=== PATIENT | male | born 1950 | race Caucasian/White ===

== ENCOUNTER → 2017-05-28 | Outpatient (CLI) | payer OTHER, MEDICARE ==
--- NOTE | 2017-05-28 18:43 | DIAGNOSTIC IMAGING REPORT ---
VENOUS DOPPLER LW EXT BILAT HISTORY: Pain. Edema. R60.0 Bilateral edema of lower extremity COMPARISON STUDY: None. FINDINGS: There is normal compressibility, flow, and augmentation within the bilateral lower extremity deep venous systems. IMPRESSION: No DVT within the right or left lower extremity. The above report was generated using voice recognition software. It may contain grammatical, syntax or spelling errors. Electronically signed by: Sabino Rodriguez M.D. 05/28/2017 6:42 PM Dictated Date/Time: 05/28/2017 6:41 PM
== END | disposition home or self-care (01) ==
LOC: C.ULTR 17:38
PROVIDERS: ATTEND Internal Medicine
DX: R60.0 Localized edema (principal)

== ENCOUNTER → 2017-06-12 | Outpatient (CLI) | payer OTHER, MEDICARE ==
[2017-06-12 12:05] LABS: BASO % 0.6 %; BASO ABS # 0.04 K/uL (0-0.2); COMPLETE YES; HEMATOCRIT 40.6 % (42-52); IG% 0.2 %; LYMPH % 21.1 %; LYMPH ABS # 1.32 K/uL (1.2-3.4); MEAN CELL VOLUME 95.8 fL (80-100); MEAN CORPUSCULAR HEMOGLOBIN 30.9 pg (25-34); MEAN CORPUSCULAR HGB CONC 32.3 g/dl (32-36); MEAN PLATELET VOLUME 11.4 fL (7.4-10.4); MONO % 5.8 %; NEUT % 68.3 %; PLATELET COUNT 204 K/uL (130-400); RED BLOOD COUNT 4.24 M/uL (4.7-6.1); WHITE BLOOD COUNT 6.25 K/uL (4.8-10.8)
[2017-06-12 12:09] LABS: URINE APPEARANCE CLEAR (CLEAR); URINE BILIRUBIN NEG (NEG); URINE COLOR YELLOW; URINE EPITHELIAL CELL AUTO 20-30 /lpf (0-5); URINE NITRITE NEG (NEG); URINE SPECIFIC GRAVITY 1.019 (1.000-1.030); UROBILINOGEN NEG (NEG); ZZUR CULT IF INDIC CLEAN CATCH NO
[2017-06-12 12:13] LABS: MANUAL MICROSCOPIC REQUIRED? NO; REVIEW REQ? NO
[2017-06-12 12:45] LABS: ALT/SGPT 23 U/L (12-78); AST/SGOT 20 U/L (15-37); BLOOD UREA NITROGEN 24 mg/dl (7-18); BUN/CREATININE RATIO 17.5 (10-20); CALCIUM 9.1 mg/dl (8.5-10.1); CARBON DIOXIDE 28 mmol/L (21-32); CHLORIDE 109 mmol/L (98-107); GLUCOSE 104 mg/dl (70-99); POTASSIUM 4.1 mmol/L (3.5-5.1); SODIUM 143 mmol/L (136-145)
[2017-06-12 12:55] LABS: ALB/GLOB RATIO 0.9 (0.9-2); ALKALINE PHOSPHATASE 66 U/L (45-117); CHOLESTEROL 192 mg/dl (0-200); CHOLESTEROL/HDL RATIO 4.8; HDL CHOLESTEROL 40 mg/dl; LDL CHOLESTEROL CALCULATED 115 mg/dl; PROSTATE SPECIFIC ANTIGEN 0.254 ng/ml (0.000-4.000); TRIGLYCERIDES 186 mg/dl (0-150); VERY LOW DENSITY LIPOPROT CALC 37 mg/dl
== END | disposition home or self-care (01) ==
LOC: C.LABBFT 10:34
PROVIDERS: ATTEND Internal Medicine
DX: I10 Essential (primary) hypertension (principal); E66.01 Morbid (severe) obesity due to excess calories; Z12.5 Encounter for screening for malignant neoplasm of prostate

== ENCOUNTER → 2017-07-31 | Outpatient (CLI) | payer OTHER, MEDICARE ==
--- NOTE | 2017-07-31 15:17 | DIAGNOSTIC IMAGING REPORT ---
ABD/PELVIS NO IV OR ORAL CONT CT DOSE: 2385.81 mGy.cm HISTORY: Nephrocalcinosis N20.0 [id number] TECHNIQUE: Multiaxial CT images of the abdomen and pelvis were performed without contrast. A dose lowering technique was utilized adhering to the principles of ALARA. COMPARISON STUDY: None. FINDINGS: Lung bases are clear. Liver is uniform. Gallbladder is negative for distention. Spleen is unremarkable. There is a small hiatal hernia. There is considerable cortical scarring of the kidneys bilaterally. There is a 3.6 cm exophytic mid pole right renal cyst. Nonobstructing calcifications are seen at the lower poles of the right as well as left kidney. These measure 7 and 10 mm respectively. There is no evidence for hydronephrosis. Ureters are normal in course and caliber. There is no evidence for hydroureteronephrosis. There multiple pelvic vascular calcifications. Bladder is midline. There are no contained calcifications. The bowel pattern within the abdomen and pelvis is nonobstructive. Patient is status post a removed left hip arthroplasty. There is residual hardware within the proximal left femur. There is mild superior migration of the femoral shaft in relation to the acetabular compartment. There are considerable degenerative changes of the lumbar spine. IMPRESSION: 1. Bilateral nonobstructive nephrocalcinosis. 2. Considerable cortical scarring of the kidneys bilaterally with evidence for cortical thinning. 3. 3.6 cm exophytic right renal cyst. 4. 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 5. Considerable degenerative change of all major osseous structures. The above report was generated using voice recognition software. It may contain grammatical, syntax or spelling errors. Electronically signed by: Sabino Rodriguez M.D. 07/31/2017 3:16 PM Dictated Date/Time: 07/31/2017 3:10 PM
== END | disposition home or self-care (01) ==
LOC: C.CTS 14:54
PROVIDERS: ATTEND Urology
DX: N20.0 Calculus of kidney (principal)

== ENCOUNTER → 2017-09-05 | Outpatient (CLI) | payer OTHER, MEDICARE ==
[~2017-09-05] VITALS: Ht 174 cm; Wt 188.7 kg
[2017-09-05 15:16] VITALS: BP 213/81; PULSE 75; Ht 174 cm; Wt 188.7 kg
== END | disposition home or self-care (01) ==
LOC: C.NEUR 13:40
PROVIDERS: ATTEND Internal Medicine Pulmonary Disease
DX: G47.33 Obstructive sleep apnea (adult) (pediatric) (principal); E66.01 Morbid (severe) obesity due to excess calories; I49.9 Cardiac arrhythmia, unspecified

== ENCOUNTER → 2017-09-24 | Outpatient (CLI) | payer OTHER, MEDICARE ==
[~2017-09-24] MED LIST: ACET-1256 PO; ALPR-411 PO; ASPCH81X PO; CETI10TA84 PO; CHOL400T5 PO; FLUT50SP45 NAE; LISI-787 PO; MELO-84 PO; METO100T44 PO; MULT1CHW38 PO; PRLSR20 PO
--- NOTE | 2017-09-25 06:21 | PAP/PSG TECHNICIAN REPORT ---
[facility] New Patient Escort Polysomnogram Report Study name: None Report date: 09/25/2017 Study date: 09/24/2017 Referring Physician: Dr. Ravinder Grider DO Name: LEWIS CARDENAS Interpreting Physician: Ravinder Grider D.O. Date of : 1950 New Patient Escort: Lien Hollis RPSMERISSA. Sex: Male Age: 66 Study Type: PSG Weight: 415 lbs Height: 66 years, Height 5' 8.5" BMI: 62.18 Medications: ACETAMINOPHEN 500 MG, ALPRAZOLAM 0.5 MG, ASPIRIN 81 MG, FLONASE, MULTI VIT, LISINOPRIL-HYDROCHLOROTHIAZIDE 20-12.5 MG, MELOXICAM 15 MG, OMEPRAZOLE 20 MG, VIT D-400, ZYRTEC 10 MG Patient History 66 yr-old male here for a baseline study. He has a history of cardiac arrhythmias, edema in feet and legs, and morbid obesity. His Hammond scale is 3. He is laying with his legs and head elevated due to severe hip pain. This is how he sleeps at home. The test was started on room air. ETCO2 testing is included in this study. Room 7 Parameters Monitored NPSG: E1-M2, E2-M1, Fp1-M2, Fp2-M1, F3-M2, F4-M2, F4-M1, C3-M2, C4-M2, C4-M1, O1-M2, O2-M2, O2-M1, T3-M2, T4-M1, P3-M2, P4-M1, CHIN1, CHIN2, HR, EKG, Legs, PFLOW, SNOR, FLOW, CFLOW, Tidal Volume, THOR, ABDO, SpO2, PLTH, CPRESS, ETCO2 Wave, ETCO2, pH Sleep Architecture Sleep Stages Time at Lights Off 10:20:47 PM STAGES Time (min.) TST (%) Time at Lights On 5:30:17 AM Wake 283.5 -- Total Recording Time (TRT) 429.50 min. N1 46.0 32 Total Sleep Period (TSP) 339.5 min. N2 100.0 68 Total Sleep Time (TST) 146.0min. N3 0.0 0 Awake Time 283.5 min. REM 0.0 0 Wake after Sleep Onset 194.5 min. Sleep Efficiency (SE) 34 % Sleep Onset Latency (JOSE FRANCISCO) 89.0 min. Number of Stage 1 Shifts None Awakenings 25 Stage Changes 60 Number of REM periods N/A REM 0.0 0 REM Latency NONE min. NREM 146.0 100 Body Position Analysis Supine Right Left Side Prone Vertical Total Sleep Time (min.) 429.5 0.0 0.0 0.00 0.0 0.0 Total Sleep Time (%) 100% 0% 0% 0 0% N/A% Total Sleep Time REM (min.) 0.0 0.0 0.0 None 0.0 0.0 Total Sleep Time NREM (min.) 146.0 0.0 0.0 None 0.0 0.0 Intermittent Wake (min.) 283.5 0.0 0.0 None 0.0 0.0 Total Sleep Period (%) 100% None None None None None Arousals Myoclonus (PLM) * Events Count Index Events Count Index Spontaneous 47 19 Events Awake (PLMW) 101 21.4 Respiratory 15 6.6 Events Asleep w/ Arousal (PLMA) 11 4.5 PLM 10 5 Events Asleep w/o Arousal (PLMS) 35 14.4 Snoring 4 2 Total Asleep 46 18.9 Total 76 31 Total 147 21 Respiratory Analysis * CA OA MA CH H RERA Total Count 1 2 0 0 7 7 10 Index 0.4 0.8 0.0 0 2.9 3 7.0 Mean Duration 14.5 11.5 0.0 0.00 16.4 15.0 15.1 Longest Duration 14.5 13.2 0.0 0.00 0.0 16.8 19.9 Respiratory Event Summary Total Supine ~Supine Right Left Prone REM NREM Apneas Count 3 3 N/A N/A N/A N/A N/A 3 Index 1.2 1 N/A N/A N/A N/A N/A 1 Hypopneas (4% Desat) Count 7 7 N/A N/A N/A N/A N/A 7 Index 2.9 2.9 N/A N/A N/A N/A N/A 2.9 Apneas & All Hypopneas Count 10 10 N/A N/A N/A N/A N/A 10 Index 4.1 4 N/A N/A N/A N/A N/A 4.1 Respiratory Events (Continuous Crusher Operator+All Hyp+RERA) Count 10 17 N/A N/A N/A N/A N/A 10 Index 7.0 7 N/A N/A N/A N/A N/A 7.0 Respiratory Related Arousal Count 15 17 N/A N/A N/A N/A N/A 16 Index 6.6 7 N/A N/A N/A N/A N/A 7 Snoring Analysis Supine Right Left Prone REM NREM Total Snore duration 6.6 min Snores count 465 N/A N/A N/A N/A 465 465 Snore mean duration 0.8 Sec Snores index 191 N/A N/A N/A N/A 191.1 191.1 TST with snoring (%) 4.5% SpO2 Analysis Total REM NREM Awake <50% 0.0 min. 0.0 min. 0.0 min. 0.0 min. 51 - 60% 0.0 min. 0.0 min. 0.0 min. 0.0 min. 61 - 70% 0.0 min. 0.0 min. 0.0 min. 0.0 min. 71 - 80% 0.1 min. 0.0 min. 0.0 min. 0.1 min. 81 - 90% 2.6 min. 0.0 min. 0.2 min. 2.4 min. 91 - 100% 419.4 min. 0.0 min. 145.7 min. 273.7 min. Average 96 0 94 97 Minimum SpO2 75 N/A 89 75 Desaturation Event Index 2.8 0.0 4.9 1.9 # Desat. Events below 89% 2 N/A N/A 2 Time(%) with Saturation below 89% 0.6 0.0 0.0 0.6 Time(min.) with Saturation below 89% 2.4 0.0 0.0 2.4 Heart Rate Analysis End Tidal CO2 Analysis Min (bpm) Max (bpm) Average (bpm) TSP (mins) % of TSP Awake 34 237 67 Above 55 mmHg 0.0 0.0 NREM 33 86 59 50-55 mmHg 0.0 0.0 REM N/A N/A N/A 45-50 mmHg 0.0 0.0 Overall 33 86 59 40-45 mmHg 3.9 2.7 35-40 mmHg 97.0 66.4 30-35 mmHg 31.7 21.7 Average ETCO2 0.1 Supplemental O2 Values Minimum O2 level: None Value Start Time End Time New Patient Escort Comments Mr. Cardenas slept only in the supine position with his head and legs elevated. Cardiac arrhythmias were noted (please refer to the printouts). PLMs were noted. No bruxism noted. Snoring was noted and scored as a 2 on a scale of 1 through 5. (0=no snoring, 5=snoring loud enough to be heard through a closed door or down the castillo way) He awoke to use the restroom two times during the night. Mr. Cardenas stated he slept a little worse than usual. The final report will be interpreted and signed by a sleep physician. The completed physician report will then be placed in the patient medical record. Therapy (cm H2O) 0 TIB (min.) 429.5 TST (min.) 146.0 Sleep Onset (min.) 89.0 REM Onset From Sleep (min.) NONE Sleep Efficiency % 34 Wakefulness (%) 66 Wakefulness (min.) 283.5 NREM 1 (%) 32 NREM 1 (min.) 46.0 NREM 2 (%) 68 NREM 2 (min.) 100.0 NREM 3 (%) 0 NREM 3 (min.) 0.0 REM (%) 0 REM (min.) 0.0 # Arousals 76 Arousal Index 31 # Snore 465 Snore Index 191.1 AHI 4.1 AHI Supine 4 AHI Non-Supine N/A NREM AHI 4.1 REM AHI N/A RDI 7.0 # Obstructive Apnea 2 # Central Apnea 1 # Mixed Apnea 0 # Hypopneas 7 RERAs 7 Total Respiratory Events 17 Time Below SpO2 89% (min.) 0.0 Mean NREM SpO2 (%) 94 Mean REM SpO2 (%) N/A Mean Sleep SpO2 (%) 94 Min NREM SpO2 (%) 89 Min REM SpO2 (%) N/A Position Supine (min.) 429.5 Position Non-supine (min.) 0.0 LM Index Sleep 18.9 LM Index NREM 18.9 LM Index REM N/A Mean Heart Rate (bpm) 59 Min Heart Rate (bpm) 33
--- NOTE | 2017-09-26 09:57 | Sleep Study ---
Sleep Study Report Date of Service: 09/24/2017 Sleep Study Report CLINICAL DATA: The patient is a 66-year-old male with a history of snoring and morbid obesity. He has disturbed nocturnal sleep. He has had significant peripheral edema. There is a history of hypertension and cardiac arrhythmia. This was an in-lab overnight polysomnography SLEEP ARCHITECTURE: The total sleep period was 339.5 minutes. The total sleep time was 146 minutes. The sleep efficiency was severely reduced to 34 percent. The sleep onset latency was severely prolonged to 89 minutes. Wake after sleep onset was severely increased to 194.5 minutes. Sleep consisted of stage N1 32 percent, stage N2 68 percent, stage N3 0 percent, stage REM 0 percent. AROUSAL DATA: Patient had a total of 76 arousals including 47 spontaneous arousals, 15 respiratory arousals, 10 PLM arousals, and 4 snoring arousals. The arousal index was 31. PLM DATA: The patient had a total of 46 periodic limb movements of sleep for a PLM index of 18.9. There were 11 arousals associated with limb movements for a PLM arousal index of 4.5. EKG: The cardiac rhythm was very irregular. At times the underlying rhythm appeared to be sinus with frequent extrasystoles. At other times it was so irregular that could not exclude atrial fib or chaotic atrial rhythms. The cardiac rates 33-86 beats per minute. I believe the low of 33 was likely artifactual. The average heart rate was 59 beats per minute. RESPIRATORY DATA: The patient had a total of 10 respiratory events including 1 central apnea 2 obstructive apneas and 7 hypopneas. There were also 7 RERAs. The longest apnea was 14.5 seconds. The mean duration of the hypopneas was 16.4 seconds. The apnea-hypopnea index was 4.1. The respiratory event index which would include RERAs was 7.0. These results represent borderline mild sleep apnea. OXIMETRY DATA: The oxygen saturations averaged 96 percent. The minimum was 75 percent but this was likely artifactual. There were only 2.4 minutes with saturations less than 89 percent. 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 This apparently is due to severe hip pain. Cardiac arrhythmias were noted. PLMS were noted. No bruxism noted. Snoring was noted and scored as a 2 on a scale of 1 through 5. He awakened to use the restroom 2 times during the night. IMPRESSIONS: 1. Very mild obstructive sleep apnea 2. Cardiac arrhythmia COMMENTS: The patient had a very poor night sleep. His sleep efficiency was poor. There was no stage N3 sleep and no REM sleep. He had very mild sleep apnea with an apnea-hypopnea index of only 4.1. However this was with limited sleep time. His total sleep was less than 2.5 hours. Thus the possibility of some statistically significant sleep apnea still exists. It is unknown if the patient slept poorly because of a 1st night effect in the sleep lab or if there were other factors. His cardiac arrhythmia was throughout the night and it was difficult to determine the exact rhythm much of the time. RECOMMENDATIONS: 1. Consideration could be given to a repeat sleep study or even a home sleep study in light of the minimal sleep involved. 2. The patient has a severe elevation of body mass index at 62.18. A weight reduction program is strongly advised. 3. Patient had a rib me a throughout. Consideration could be given to doing a Holter monitor if this has not been done recently. This is deferred to the patient's primary providers. Copies To 1: Ravinder Grider DO; Ronny Llamas M.D.
== END | disposition home or self-care (01) ==
LOC: C.NEUR 21:00
PROVIDERS: ATTEND Internal Medicine Pulmonary Disease
DX: G47.33 Obstructive sleep apnea (adult) (pediatric) (principal); E66.01 Morbid (severe) obesity due to excess calories; I49.9 Cardiac arrhythmia, unspecified

== ENCOUNTER → 2017-11-27 | Outpatient (CLI) | payer OTHER, MEDICARE ==
--- NOTE | 2017-12-01 11:03 | Sleep Study ---
Sleep Study Report Date of Service: 11/27/2017 Sleep Study Report CLINICAL DATA: The patient is a 67-year-old male with a history of snoring, daytime tiredness, and chronic leg edema. His [place] Sleepiness Scale score is 5. He had an in- lab sleep study done 09/24/2017 showing an apnea-hypopnea index of only 4.1. However he had very little sleep that night. There was almost no sleep in the 2nd half of the night. He was advised to have a home sleep study where he may sleep better. His BMI is 62.21. On the evening of 11/27/2017 a home sleep apnea test was performed using the [employer] type 3 monitor. RECORDING RESULTS: The total recording time was 10 hours. The estimated sleep time was 9.2 hours. RESPIRATORY DATA: The patient had a total of 150 respiratory events including 73 obstructive apneas, 12 mixed apneas, 19 central apneas, and 46 hypopneas. Hypopneas were scored according to the 4% desaturation rule. The apnea-hypopnea index was moderately elevated at 16.4 events per hour. The maximum respiratory event was 37 seconds. This data reflects moderate sleep apnea. OXIMETRY DATA: The mean saturation was 94%. The minimum saturation was 79%. The estimated sleep time below 89% was 13 minutes. HEART RATE DATA: The minimum heart rate was 46 beats per minute. The mean heart rate was 57 beats per minute. SNORING DATA: Snoring was present throughout the night. IMPRESSIONS: 1. Moderate obstructive sleep apnea RECOMMENDATIONS: 1. It is advised that the patient be given a trial of nasal CPAP. The options would include a CPAP titration in the sleep lab versus treatment with auto CPAP. 2. Weight loss is advised in light of the severe elevation of BMI is 62.21. 3. If possible the patient should avoid sleeping in the supine position. Copies To 1: Ravinder Grider DO; Ronny Llamas M.D.
== END | disposition home or self-care (01) ==
LOC: C.NEUR 10:14
PROVIDERS: ATTEND Internal Medicine Pulmonary Disease
DX: G47.33 Obstructive sleep apnea (adult) (pediatric) (principal)

== ENCOUNTER → 2018-01-02 | Outpatient (CLI) | payer OTHER, MEDICARE | END | disposition home or self-care (01) | LOC: C.LABBFT 11:04 | PROVIDERS: ATTEND Internal Medicine Cardiovascular Disease | DX: I45.2 Bifascicular block (principal) ==

== ENCOUNTER → 2018-02-06 | Outpatient (CLI) | payer OTHER, MEDICARE ==
[~2018-02-06] VITALS: Ht 172.7 cm; Wt 183.9 kg
[2018-02-06 11:43] VITALS: BP 196/80; PULSE 76; Ht 172.7 cm; Wt 183.9 kg
== END | disposition home or self-care (01) ==
LOC: C.NEUR 10:50
PROVIDERS: ATTEND Internal Medicine Pulmonary Disease
DX: G47.33 Obstructive sleep apnea (adult) (pediatric) (principal); Z88.1 Allergy status to other antibiotic agents; Z88.5 Allergy status to narcotic agent; Z88.8 Allergy status to other drugs, medicaments and biological substances

== ENCOUNTER → 2018-04-09 | Outpatient (CLI) | payer OTHER, MEDICARE ==
[2018-04-09 12:56] LABS: BLOOD UREA NITROGEN 29 mg/dl (7-18); CALCIUM 8.9 mg/dl (8.5-10.1); CARBON DIOXIDE 26 mmol/L (21-32); CREATININE 1.47 mg/dl (0.60-1.40); GLUCOSE 123 mg/dl (70-99); SODIUM 142 mmol/L (136-145)
== END | disposition home or self-care (01) ==
LOC: C.LABBFT 11:09
PROVIDERS: ATTEND Internal Medicine
DX: N28.9 Disorder of kidney and ureter, unspecified (principal)

== ENCOUNTER → 2018-05-06 | Day surgery (SDC) | payer OTHER, MEDICARE ==
[2018-05-01 10:15] VITALS: BMI 59.0
[~2018-05-06] VITALS: Ht 172.7 cm; Wt 177.3 kg
[~2018-05-06] MED LIST changes: +ATROPINE SULFATE 0.1 MG/ML 5ML SYR IV PRN; +EpHEDrine SULFATE INJ 50 MG/ML AMP IV PRN; +LIDOCAINE HCL 2% 2 ML VIAL (20MG/ML) ONE; +MIDAZOLAM HCL 1 MG/ML 2ML VIAL ONE; +ONDANSETRON INJ 2 MG/ML 2 ML VIAL ONE; +PROPOFOL IV EMULSION 10 MG/ML 20 ML VIAL ONE; +SODIUM CHLORIDE 0.9% 500ML 500 ML IV ONE
[2018-05-06 10:30] VITALS: Ht 172.7 cm; Wt 177.3 kg
--- NOTE | 2018-05-06 10:46 | Endo History and Physical ---
History & Physical Date of Service: May 06, 2018. Chief Complaint: Referring Physician: History of Present Illness Anemia Past Surgical History Hx Cardiac Surgery: No Hx Internal Defibrillator: No Hx Pacemaker: No Hx Abdominal Surgery: Yes (APPY) Hx of Implantable Prosthesis: No Hx Post-Op Nausea and Vomiting: No Hx Cancer Surgery: No Hx Thoracic Surgery: No Hx Orthopedic: Yes (LEFT RITA (INFECTION AND EXPLANT), LEFT KNEE ARTHROSCOPY) Hx Urinary Tract Surgery: No Family History None Social History Smoking Status: Never Smoker Hx Substance Use: No Hx Alcohol Use: No Allergies Coded Allergies: Potassium (Verified Allergy, Unknown, MAJOR BURNING AT SITE WHEN GIVEN IV , 05/01/18) Codeine (Verified Adverse Reaction, Unknown, SICK IN STOMACH/PASSED OUT, ) Current Medications Reported Home Medications Medications Dose Route/Sig Max Daily Dose Days Date Category Tylenol (Acetaminophen) 500 Mg Tab 2,000 Mg PO QD 05/06/18 Reported Zyrtec (Cetirizine HCl) 10 Mg Tab 10 Mg PO QAM 05/01/18 Reported Vitamin D (Cholecalciferol) 400 Unit Tab 1 Tab PO QAM 05/01/18 Reported Prilosec (Omeprazole) 20 Mg Capcr 20 Mg PO QAM 05/01/18 Reported Toprol-Xl (Metoprolol Succinate) 100 Mg Tabcr 150 Mg PO QAM 05/01/18 Reported Mobic (Meloxicam) 15 Mg Tab 15 Mg PO DAILY AT LUNCHTIME 05/01/18 Reported Zestoretic 20MG/12.5MG (HCTZ/Lisinopril) Tab 1 Tab PO QAM 05/01/18 Reported Multivitamin Gummies Mens (Multiple Vitamins W/ Minerals) 1 Chw Chw 1 Dose PO QAM 05/01/18 Reported Allergy Nasal [place] 24 Ho (Fluticasone Propionate (Nasal)) 50 Mcg/Act Spr 1 Dose RACHEL QAM 05/01/18 Reported Aspirin Chewable (Aspirin) 81 Mg Chew 81 Mg PO QAM 05/01/18 Reported Xanax (Alprazolam) 0.5 Mg Tab 0.5 Mg PO DAILY PRN 05/01/18 Reported Vital Signs Weight (Kilograms): 177.27 Height (Feet): 5 Height (Inches): 8 Physical Exam General Appearance: no apparent distress Respiratory/Chest: Auscultation: breath sounds normal Cardiovascular: Heart Auscultation: RRR Abdomen: Inspection & Palpation: non-distended Assessment and Plan Stable for colonoscopy
--- NOTE | 2018-05-06 12:16 | Discharge Instructions ---
Endoscopy Patient Instructions Date / Procedure(s) Performed May 06, 2018. Colonoscopy Allergy Information Coded Allergies: Potassium (Verified Allergy, Unknown, MAJOR BURNING AT SITE WHEN GIVEN IV , 05/01/18) Codeine (Verified Adverse Reaction, Unknown, SICK IN STOMACH/PASSED OUT, ) Discharge Date / Findings May 06, 2018. Small polyp removed. hemorrhoids Provider Instructions Activity Restrictions - No exercising or heavy lifting for 24 hours. - Do not drink alcohol the day of the procedure. - Do not drive a car or operate machinery until the day after the procedure. - Do not make any important decisions or sign important papers in 24 hours after the procedure. Following Day: - Return to full activity which may include returning to work/school. Diet Start your diet with liquids and light foods (jello, soup, juice, toast). Then eat your usual diet if not nauseated. Treatment For Common After Affects For mild abdominal pain, bloating, or excessive gas: - Rest - Eat lightly - Lie on right side Follow-Up Information Follow-up with DR. SANDOVAL as scheduled Anesthesia Information What You Should Know You have had a procedure that required some medicine to reduce anxiety and discomfort. This treatment is called moderate sedation. After receiving the treatment, you may be sleepy, but you will be able to breathe on your own. The effects of the treatment may last for several hours. Follow these instructions along with Activity/Diet recommendations noted above: * Do NOT do anything where dizziness or clumsiness would be dangerous. * Rest quietly at home today, then you can be up and about tomorrow. * Have a responsible person stay with you the rest of today. * You may have had an I.V. today. If so, you may take the dressing off later today. Recommendations Call your doctor if: * Trouble breathing * Continuous vomiting for more than 24 hours * Temperature above 101 degrees * Severe abdominal pain or bloating * Pain not relieved by pain medicine ordered * There is increased drainage or redness from any incision * A large amount of rectal bleeding greater than 2-3 tablespoons. (If you had a polyp/s removed or have hemorrhoids, a small amount of blood - from the rectum is to be expected.) * You have any unanswered questions or concerns. IN THE EVENT OF A SERIOUS EMERGENCY, GO TO THE NEAREST EMERGENCY ROOM Your discharge instructions were prepared by provider Chaz Maldonado. Patient Instructions Signature Page Hao Azul Patient (or Guardian) Signature/Date: I have read and understand the instructions given to me by my caregivers. Caregiver/RN/Doctor Signature/Date: The above-named patient and/or guardian has received patient instructions on this date. + Original Patient Signature Page (only) stays with chart. Please make copy for patient.
--- NOTE | 2018-05-06 12:16 | GI REPORT ---
Patient Name: Hao Azul Procedure Date: 05/06/2018 11:49 AM Date of : 1950 Admit Type: Outpatient Age: 67 Gender: Male Attending MD: Chaz Maldonado MD Procedure: Colonoscopy Providers: Chaz Maldonado MD Referring MD: Ronny Llamas Indications: Anemia Medicines: Monitored Anesthesia Care Complications: No immediate complications. Estimated Blood Loss: Estimated blood loss: none. Procedure: Pre-Anesthesia Assessment: - Prior to the procedure, a History and Physical was performed, and patient medications and allergies were reviewed. The patient is competent. The risks and benefits of the procedure and the sedation options and risks were discussed with the patient. All questions were answered and informed consent was obtained. Patient identification and proposed procedure were verified by the physician and the nurse in the procedure room. Mental Status Examination: alert and oriented. Airway Examination: normal oropharyngeal airway and neck mobility. Respiratory Examination: clear to auscultation. CV Examination: normal. ASA Grade Assessment: III - A patient with severe systemic disease. After reviewing the risks and benefits, the patient was deemed in satisfactory condition to undergo the procedure. The anesthesia plan was to use monitored anesthesia care (MAC). Immediately prior to administration of medications, the patient was re-assessed for adequacy to receive sedatives. The heart rate, respiratory rate, oxygen saturations, blood pressure, adequacy of pulmonary ventilation, and response to care were monitored throughout the procedure. The physical status of the patient was re-assessed after the procedure. After I obtained informed consent, the scope was passed under direct vision. Throughout the procedure, the patient's blood pressure, pulse, and oxygen saturations were monitored continuously. The scope was introduced through the anus and advanced to the cecum, identified by appendiceal orifice and ileocecal valve. The colonoscopy was performed without difficulty. The patient tolerated the procedure well. The quality of the bowel preparation was good. The ileocecal valve, appendiceal orifice, and rectum were photographed. Findings: The perianal and digital rectal examinations were normal. A 5 mm polyp was found in the cecum. The polyp was sessile. The polyp was removed with a cold snare. Resection and retrieval were complete. Verification of patient identification for the specimen was done by the physician and nurse using the patient's name and date. Non-bleeding internal hemorrhoids were found during retroflexion. The hemorrhoids were small. Impression: - One 5 mm polyp in the cecum, removed with a cold snare. Resected and retrieved. - Non-bleeding internal hemorrhoids. Recommendation: - Discharge patient to home. - Await pathology results. - Repeat colonoscopy in 5 months for surveillance. - Return to referring physician. Chaz Maldonado MD 05/06/2018 12:15:36 PM This report has been signed electronically. Note Initiated On: 05/06/2018 11:49 AM Number of Addenda: 0 I attest to the content of the Intraoperative Record and orders documented therein, exceptions below {[id number]}
--- NOTE | 2018-05-06 12:20 | Anesthesiology Progress Note ---
Anesthesia Post Op Note Date & Time May 06, 2018 at 12:20 Vital Signs Pain Intensity: 2 Vital Signs Past 12 Hours Date Time Temp Pulse Resp B/P (MAP) Pulse Ox O2 Delivery O2 Flow Rate FiO2 05/06/18 10:53 37.0 77 24 200/84 (122) 96 Room Air Notes Mental Status: alert / awake / arousable, participated in evaluation Pt Amnestic to Procedure: Yes Nausea / Vomiting: adequately controlled Pain: adequately controlled Airway Patency, RR, SpO2: stable & adequate BP & HR: stable & adequate Hydration State: stable & adequate Anesthetic Complications: no major complications apparent
[2018-05-06 12:47] VITALS: BP 175/91; PULSE 68; O2SAT 97
== END | disposition home or self-care (01) ==
LOC: C.GI 09:52
PROVIDERS: ATTEND Student in an Organized Health Care Education/Training Program
DX: D64.9 Anemia, unspecified (principal); K64.8 Other hemorrhoids; I10 Essential (primary) hypertension; G47.33 Obstructive sleep apnea (adult) (pediatric); E66.9 Obesity, unspecified; Z68.43 Body mass index [BMI] 50.0-59.9, adult; Z99.89 Dependence on other enabling machines and devices; Z88.5 Allergy status to narcotic agent; Z90.49 Acquired absence of other specified parts of digestive tract; Z79.82 Long term (current) use of aspirin

== ENCOUNTER 2020-04-07 12:48 | Observation (INO) ==
[2020-04-07] MEDS ORDERED: BUPIVACAINE 0.25% 30 ML VIAL ONE (13:51)
[2020-04-07] MEDS ORDERED: LIDOCAINE HCL 1% 20 ML VIAL ONE (13:51)
[2020-04-07] MEDS ORDERED: BACITRACIN INJ 50,000 UNIT VIAL ONE (13:51)
[2020-04-07] MEDS ORDERED: MIDAZOLAM HCL 5 MG/ML 1 ML VIAL ONE (13:55)
[2020-04-07] MEDS ORDERED: CEFAZOLIN 250 MG/ML 1 GM VIAL ONE (13:55)
[2020-04-07] MEDS ORDERED: fentaNYL citrate 100 MCG/2 ML VIAL ONE (13:55)
--- NOTE | 2020-04-07 14:23 | History & Physical Bridge Note ---
Date of Service April 07, 2020 History & Physical Bridge Note I have examined the patient, reviewed the History & Physical and in the interval since the performance of the History & Physical I have noted the following changes of clinical significance: no changes noted
--- NOTE | 2020-04-07 14:24 | Pre Anesthesia Assessment ---
Date of Service April 07, 2020 Pre Sedation Assessment Vital Signs Temp Pulse Resp BP Pulse Ox 04/07/20 13:00 36.9 C 42 L 22 188/69 H 96 Cardiovascular + bradycardic Respiratory + respiratory effort normal Pre-Sedation Airway Assessment Smoking Status: Never smoker Hx Sleep Apnea: Yes Hx Difficult Intubation: No Short, Thick Neck: Yes Thyromental Distance: < 3.5 Finger Breadths Oral Cavity: + Dentures Mallampati Class: I ASA: ASA4 NPO Status Date of Last Intake of Fluids: 04/07/20 Time of Last Intake of Fluids: 09:00 Date of Last Intake of Solid Food: 04/07/20 Time of Last Intake of Solid Foods: 09:00 Procedure Planning Contraindications for Sedation: none Current Medications Reviewed: Yes Notes The planned sedation has been discussed with the patient. Informed Consent was obtained. I have identified the patient, determined the appropriateness of sedation and have assessed the patient immediately prior to the procedure. All medicine(s) and interventions are by my order.
--- NOTE | 2020-04-07 15:18 | Post Anesthesia Assessment ---
Date of Service April 07, 2020 Post Sedation Assessment Vital Signs Temp Pulse Resp BP Pulse Ox 04/07/20 13:00 36.9 C 42 L 22 188/69 H 96 Recovery Score Activity: Moves 4 extremities Respiration: Deep Breath/Cough Circulation: +/-20% PreAnes Value Consciousness: Arouseable (by name) Oxygen Saturation: > 92% On Room Air Discharge Sedation Level of Care: Fast Track Phase II Post Sedation Plan On clinical assessment, the patient appears to have tolerated the sedation without complications. Patient is recovering as anticipated. Patient will continue to be monitored by nursing and may be discharged when sedation discharge criteria are met per below protocol. Upon Completions of procedure up to 15 minutes continue every 5 minute vital signs and the P.A.R. score; then discharge to a Phase I or Fast Track to Phase II per the following guidelines: * Discharge Patient to appropriate Phase II area if PAR is 8 or greater or return to pre- procedure baseline. The post - procedure orders will be as directed. * If PAR score is less than 8 or not return to pre-procedure baseline then patient will follow Phase I monitoring till PAR is reached for Phase II. The Phase I may be done in procedure room or may call to secure a Phase I area. * If naloxone or flumazenil are used for reversal, hold in Phase I for continued monitoring from when last reversal dose was given for a minimum of 60 minutes or longer pending the nurse and/or physician discretion of patient condition before discharge to Phase II. Please call the Sedation Physician to re-evaluate and complete post-note for discharge to Phase II area. Do NOT discharge from procedure sedation or Phase 1 until post- sedation evaluation note is complete by procedure /sedation MD Sedation Discharge Instructions to be given to the patient at discharge to home.
--- NOTE | 2020-04-07 15:21 | Electrophysiology Report ---
Date of Service April 07, 2020 Electrophysiology Procedure Electrophysiology Procedure Report Procedure performed: Implantation of dual-chamber permanent pacemaker Staff central services tech: Ronny Hampton MD Indication: The patient is a 69-year-old gentleman with a history of conduction disease who has been experiencing an element of exertional intolerance. He was noted to have complete heart block and was advised to undergo implantation of a permanent pacemaker due to symptomatic nonreversible AV node dysfunction. A dual-chamber device was selected as wish to maintain AV synchrony. Procedure in detail: The patient was informed of the risks benefits and alternatives to the intended procedure and she wished to proceed. He was taken to the electrophysiology suite in a fasting state. A preoperative antibiotic had been administered. The patient was monitored electrocardiographically throughout today's procedure and conscious sedation was administered per protocol. The left upper pectoral area is prepped and draped in usual sterile fashion. This area was anesthetized using subcutaneous administration of a xylocaine solution. An incision was made at this site and carried down to the prepectoralis fascia using sharp dissection. Electrocautery was also employed for dissection as well as for hemostasis. A device pocket was fashioned tissues above the pectoralis muscle. Subsequent to this maneuver the left axillary vein was accessed using modified Seldinger tech nique. Sheaths were placed over guidewires at this site and used to facilitate passage of the pacing leads to the respective chambers under fluoroscopic guidance. This included right atrial and right ventricular leads. Adequate sensing and threshold parameters were obtained prior to Active fixation of the leads to the endocardial surface. The proximal portion leads were then sutured the prepectoral fascia using nonabsorbable suture. The device pocket was irrigated with antibiotic solution. The leads were then attached to the device. The device and leads were then placed in the pocket and pocket was closed in 3 layers of absorbable suture. Steri-Strips and sterile dressing were applied. The device was tested noninvasively prior to conclusion the procedure. The patient tolerated procedure well there no immediate complications. Equipment used: New pulse generator: Upper Leather Sorter [employer]. Model number: [id number] serial number [id number] Right atrial lead: Upper Leather Sorter [employer]. Model number: 5076 serial number [id number] Right ventricular lead: Upper Leather Sorter [employer]. Model number: 5076 serial number [id number] Measured data: Right atrial lead: P waves measured 3.5 mV. Pacing threshold was 1 V at 0.4 ms with a pacing impedance of 418 ohms Right ventricular lead: R waves measured 4.1 mV. Pacing threshold 0.5 V at 0.4 ms with a pacing pains of 589 ohms Impression: Successful implantation of dual-chamber permanent pacemaker [facility] Electrophysiology codes Pacing Procedure 1: Pacin Insert/Replace Pacer A & V PG Moderate Sedation Codes Moderate Sedation Codes Procedure 1: Sedation/Anesthesia: 71125 Mod Sedation by the same physician;Init15 Min Child Age 5 & Up Procedure 2: Sedation/Anesthesia: 61959 Mod Sedation by the same physician; Ea [id number] Minutes
[2020-04-07] MEDS ORDERED: ALPRAZolam 0.5 MG TABLET PO PRN (15:25)
[2020-04-07] MEDS: METOPROLOL TARTRATE 50 MG TAB PO SCH (16:45)
[2020-04-07] MEDS ORDERED: HYDROCODONE/ACETAMOPHEN 5/325MG TAB PO PRN (18:22)
[2020-04-07] MEDS: ACETAMINOPHEN 325 MG TAB PO PRN (23:39)
--- NOTE | 2020-04-08 07:55 | XRay Report ---
XR chest 2V PA/lateral CLINICAL HISTORY: Chest x-ray status post pacemaker placement COMPARISON STUDY: No previous studies for comparison. FINDINGS: The heart is enlarged. There is radiographic evidence of mild pulmonary vascular congestion . There is no lobar consolidation. There is a left subclavian dual-chamber central venous pacemaker. Electrode position appears unremarkable. There is no pneumothorax. Degenerative changes are present w ithin the dorsal spine with bony ankylosis.[ IMPRESSION: 1. No evidence of pneumothorax status post placement of a left subclavian dual-chamber central venous pacemaker 2. Cardiomegaly and mild pulmonary vascular congestion ACT 112: Negative or not required by law. Electronically signed by: Leandro Genao M.D. 04/08/2020 7:54 AM
[2020-04-08] MEDS: ACETAMINOPHEN 325 MG TAB PO PRN (08:13)
[2020-04-08] MEDS: METOPROLOL TARTRATE 50 MG TAB PO SCH (08:39)
[2020-04-08] MEDS ORDERED: CETIRIZINE HCL 10 MG TABLET PO SCH (09:00)
[2020-04-08] MEDS ORDERED: AMLODIPINE BESYLATE 5 MG TAB PO SCH (09:00)
[2020-04-08] MEDS ORDERED: lisinopriL 40 MG TAB PO SCH (09:00)
[2020-04-08] MEDS ORDERED: PANTOprazole 40 MG TAB PO SCH (09:00)
--- NOTE | 2020-04-08 12:16 | Discharge Summary ---
Date of Service April 08, 2020 Admission HPI Per Admitting Provider Patient with symptomatic complete heart block Principal Diagnosis q Discharge Exam The device implant site is without hematoma or drainage. No significant ecchymosis. No erythema. Discharge Data Allergies Allergy/AdvReac Type Severity Reaction Status Date / Time potassium Allergy Unknown MAJOR Verified 04/05/20 11:30 BURNING AT SITE WHEN GIVEN IV acetaminophen [From Percocet] Allergy Verified 04/05/20 11:30 atorvastatin Allergy Verified 04/05/20 11:30 cephalexin [From Keflex] Allergy Verified 04/05/20 11:30 oxycodone [From Percocet] Allergy Verified 04/05/20 11:30 potassium chloride Allergy Verified 04/05/20 11:30 codeine AdvReac Unknown SICK IN Verified 04/05/20 11:30 STOMACH/PASSED OUT Procedures Performed Operation Date: 04/07/20 14:00 Actual Procedures p Pacer with A/V Leads (Dual) - Andrew Hampton MD Ordered Studies 04/07/20 12:56 CL Cath Imgs for PACS use only Routine Hospital Course (1) AVB (atrioventricular block): On the day of admission the patient underwent implantation of dual-chamber Med[employer] pacemaker. The procedure was uncomplicated. The following morning device interrogation was normal. Chest x-ray not demonstrate any evident complication. Wound evaluation was normal. Total Time Total Time Spent Total Time Spent (In Minutes): 10 Discharge Plan Discharge Items Patient Disposition: Home - Self-Care Reason For Visit: DCP Discharge Diagnosis: heart block Condition on Discharge: Good Activity: Per Instructions section Activity Comment: No lifting left arm above shoulder or behind neck for 6 weeks Lifting: No more than 10 pounds Bathing: Keep incision dry Bathing Comment: Keep steri-strip intact and would dry until F/U Driving/Machine Use: Resume 1 day after discharge Non-emergency contact: Wood Shop Teacher Call non-emergency contact if: you have any medication questions, your symptoms worsen, your pain is worsening, you have a fever, your wound has increased redness, your wound has increased drainage and your wound pain has increased Follow-up/Referrals: Andrew Sandoval MD [Primary Care Provider] - 04/18/20 10:30 am (APPT @ DR. SANDOVAL'S OFFICE WITH TYLER RAZO) Diet: Heart Healthy Addtl Attending Provider Instructions: none Pending Studies at Discharge: No Stand-Alone Forms: My [facility] [place] [employer], Smoking Cessation Medications and DC Order Prescriptions: New metoprolol succinate 200 mg tablet extended release 24 hr 200 mg PO DAILY Qty: 90 RF: 3 Continued lisinopril 40 mg tablet 40 mg PO DAILY Qty: 90 RF: 3 Hold Instructions: elevated creatinine fluticasone propionate 50 mcg/actuation spray,suspension 2 sprays intranasal DAILY Qty: 48 RF: 3 meloxicam 15 mg tablet 15 mg PO DAILY Qty: 90 RF: 3 pediatric multivitamin [Gummi Bear Multivitamin] tablet,chewable 1 tab PO DAILY RF: 0 alprazolam 0.5 mg tablet 0.5 mg PO DAILY PRN (Reason: Pain) Qty: 90 RF: 0 aspirin 81 mg tablet 81 mg PO DAILY RF: 0 cholecalciferol (vitamin D3) 400 unit tablet 400 units PO DAILY RF: 0 omeprazole 20 mg capsule,delayed release(DR/EC) 20 mg PO DAILY Qty: 90 RF: 3 cetirizine 10 mg tablet 10 mg PO DAILY Qty: 90 RF: 3 amlodipine 10 mg tablet 10 mg PO DAILY Qty: 90 RF: 3 acetaminophen 325 mg Tablet 325 mg PO QID PRN (Reason: Pain) RF: 0 Discharge Orders: Discharge Order (Routine); Ordered 04/08/20 Ordered By: Andrew Hampton Admission Data Admit Date/Time: 04/07/20 14:47 Attending Provider: Andrew Hampton Admit Provider: Andrew Hampton Primary Care Provider: Andrew Sandoval Other Interventions: Discharge Summary Assessment (RN) Last Done: 04/08/20 10:27 DC Date/Time DO NOT enter until pt leaves facility: 04/08/20 12:10 Coding Level of Care Code 28082 OBS Care - Discharge Diagnoses AVB (atrioventricular block) I44.30
== END 2020-04-08 12:10 | disposition home or self-care (01) ==
LOC: 2S 12:48 → EP 12:48

== ENCOUNTER 2021-11-03 06:49 | Observation (INO) ==
[2021-11-03] MEDS ORDERED: LIDOCAINE 1% LOCAL 20 ML VIAL ONE (07:08)
[2021-11-03] MEDS ORDERED: HEPARIN (PORCINE) 1000 UNIT/ML 10 ML (CATH LAB USE ONLY) ONE ×2 (07:17→09:05)
[2021-11-03] MEDS ORDERED: niCARdipine HCL INJ 2.5 MG/ML 10 ML AMP ONE (07:17)
[2021-11-03] MEDS ORDERED: MIDAZOLAM HCL 1 MG/ML 2ML VIAL ONE ×3 (07:17→09:21)
[2021-11-03] MEDS ORDERED: fentaNYL citrate 100 MCG/2 ML VIAL ONE ×2 (07:17→08:46)
[2021-11-03] MEDS ORDERED: NITROGLYCERIN/D5W 100MCG/ML 20ML SYR ONE (07:18)
--- NOTE | 2021-11-03 08:18 | Pre Anesthesia Assessment ---
Date of Service November 03, 2021 Pre Sedation Assessment Vital Signs Temp Pulse Resp BP Pulse Ox 11/03/21 07:10 98.2 F 77 20 178/86 H 99 Cardiovascular RRR, no murmur, no edema Respiratory normal respiratory effort, lungs clear to auscultation Pre-Sedation Airway Assessment Smoking Status: Never smoker Hx Sleep Apnea: No Hx Difficult Intubation: No Short, Thick Neck: Yes Thyromental Distance: < 3.5 Finger Breadths Oral Cavity: + Dentures Mallampati Class: II ASA: ASA4 NPO Status Date of Last Intake of Fluids: 11/03/21 Time of Last Intake of Fluids: 06:00 Date of Last Intake of Solid Food: 11/02/21 Time of Last Intake of Solid Foods: 23:00 Procedure Planning Contraindications for Sedation: none Current Medications Reviewed: Yes Notes The planned sedation has been discussed with the patient. Informed Consent was obtained. I have identified the patient, determined the appropriateness of sedation and have assessed the patient immediately prior to the procedure. All medicine(s) and interventions are by my order.
--- NOTE | 2021-11-03 08:18 | History & Physical Bridge Note ---
Date of Service November 03, 2021 History & Physical Bridge Note I have examined the patient, reviewed the History & Physical and in the interval since the performance of the History & Physical I have noted the following changes of clinical significance: no changes noted
[2021-11-03] MEDS ORDERED: CLOPIDOGREL BISULFATE 300 MG TAB ONE (10:33)
[2021-11-03] MEDS ORDERED: SODIUM CHLORIDE 0.9% 1000ML 1,000 ML IV SCH (10:45)
--- NOTE | 2021-11-03 10:45 | Post Anesthesia Assessment ---
Date of Service November 03, 2021 Post Sedation Assessment Vital Signs Temp Pulse Resp BP Pulse Ox 11/03/21 10:30 61 16 154/77 H 99 11/03/21 07:10 98.2 F 77 20 178/86 H 99 Recovery Score Activity: Moves 4 extremities Respiration: Deep Breath/Cough Circulation: +/-20% PreAnes Value Consciousness: Fully Awake Oxygen Saturation: > 92% On Room Air Post Anesthesia Score: 10 Discharge Sedation Level of Care: Fast Track Phase II Post Sedation Plan On clinical assessment, the patient appears to have tolerated the sedation without complications. Patient is recovering as anticipated. Patient will continue to be monitored by nursing and may be discharged when sedation discharge criteria are met per below protocol. Upon Completions of procedure up to 15 minutes continue every 5 minute vital signs and the P.A.R. score; then discharge to a Phase I or Fast Track to Phase II per the following guidelines: * Discharge Patient to appropriate Phase II area if PAR is 8 or greater or re turn to pre- procedure baseline. The post - procedure orders will be as directed. * If PAR score is less than 8 or not return to pre-procedure baseline then patient will follow Phase I monitoring till PAR is reached for Phase II. The Phase I may be done in procedure room or may call to secure a Phase I area. * If naloxone or flumazenil are used for reversal, hold in Phase I for continued monitoring from when last reversal dose was given for a minimum of 60 minutes or longer pending the nurse and/or physician discretion of patient condition before discharge to Phase II. Please call the Sedation Physician to re-evaluate and complete post-note for discharge to Phase II area. Do NOT discharge from procedure sedation or Phase 1 until post- sedation evaluation note is complete by procedure /sedation MD Sedation Discharge Instructions to be given to the patient at discharge to home.
[2021-11-03] MEDS ORDERED: ALPRAZolam 0.5 MG TABLET PO PRN (10:51)
[2021-11-03] MEDS ORDERED: BENZONATATE 100 MG CAPSULE PO PRN (10:51)
[2021-11-03] MEDS: ACETAMINOPHEN 325 MG TAB PO PRN ×2 (13:37→21:10)
--- NOTE | 2021-11-03 13:44 | Cardiac Catheterization ---
ACC Data: Naturopath Cardiac Status Clinical evaluation leading to the procedure CAD Presenation: Stable angina Anginal Classification: CCS III Heart Failure: No Cardiogenic Shock within 24 Hours: No Cardiac Arrest within 24 Hours: No Imaging Studies Past 6 Months: Yes Stress Studies Past 6 Months: No Diagnostic Physicians Name: Ronny Beebe MD Status: Elective Closure Device Percutaneous Entry Location: Radial Closure Device: Radial Band Recommendations: PCI without planned CABG Lesion Segment Name: proximal ramus Culprit Artery: Yes Stenosis Prior to Rx (%): 90 Chronic Total Occlusion: No IVUS: No FFR: No Pre-Procedure JOHAN Flow: 3 Previously Treated Lesion: No Lesion Complexity: Non-High/Non-C Lesion Length (mm): 12 Thrombus Present: No Bifurcation Lesion: Yes Guidewire Across Lesion: Stenosis Post-Procedure (%): 0 Post-Procedure JOHAN Flow: 3 Devices(s) Deployed: Yes Yes Lesion #2 Segment Name: mid LAD Culprit Artery: Yes Stenosis Prior to Rx (%): 95 Chronic Total Occlusion: No IVUS: No FFR: No Pre-Procedure JOHAN Flow: 3 Previously Treated Lesion: No Lesion Complexity: High/C Lesion Length (mm): 18 Thrombus Present: No Bifurcation Lesion: Yes Guidewire Across Lesion: Yes Stenosis Post-Procedure (%): 90 Post-Procedure JOHAN Flow: 3 Devices(s) Deployed: No Intraprocedure Events Significant Disection: No Perforation: No Cardiac Cath Procedure Full Procedure Date November 03, 2021 Pre-Procedure Diagnosis Pre-Procedure Diagnosis: Angina and CAD AUC Score AUC Score: 7 Post-Procedure Diagnosis Post-Procedure Diagnosis: Severe CAD, Successful PCI and Normal Intracardiac Pressures Procedure(s) Performed Procedure(s) Performed: Coronary Angiography, PTCA and Drug Eluting Stent Risk Professional Ronny Beebe MD Industrial Roofer(s) Jhonatan Estimated Blood Loss Estimated Blood Loss: 20 Medication(s) Medication(s): Fentanyl, Heparin, Lidocaine 1%, Nicardipine, Nitroglycerin and Versed Summary of Findings Indication: Multivessel CAD. Refractory angina. Declined CABG Access: 6 Fr right radial artery Catheters: Diagnostic JR4, EBU 3.5 guide Findings: LM -large caliber, no significant disease LAD -medium caliber, calcified, mild to moderate diffuse proximal to mid disease, 95% calcified, focal stenosis at bifurcation with D2. Distal vessel with luminal irregularities and JOHAN II flow. Small to medium D2 mildly ectatic following 90% ostial stenosis. Ramus - 90% ostial stenosis, mild to moderate distal stenosis Circumflex - medium caliber, large OM2 with 80% mid segment stenosis. Distal AV groove circumflex without significant disease and provides collaterals to R- PLBs. RCA -medium caliber, dominant, 95% calcified early to mid stenosis, 98% calcified mid stenosis after takeoff of acute marginal, distal vessel without significant disease. PDA with diffuse disease. Occluded PAV after takeoff of PDA. Distal PLB's fill via [id number] collaterals. LVEDP - 6 -- PCI of LAD -- Antithrombotic therapy: Heparin, Clopidogrel Procedure: Left main cannulated with EBU 3.5 guide Difficulty passing wire across mid LAD stenosis. Eventually able to cross with long whisper wire and a OTW balloon with telescope support catheter Multiple attempts to pass 1.5 and 2.0 balloons across stenosis. Stenosis partially dilated with 1.5 balloon but unable to fully cross balloon a cross stenosis Plan was to try again with new 2.0 balloon after initial dilation but with removal of OTW balloon wire came back across stenosis Attempted to rewire mid LAD stenosis but wire repeatedly went into what appeared to be a dissection flap. Patient with JOHAN-3 flow through stenosis and decision made to abort procedure today and reattempt with more supportive guide. PCI of ostial ramus Whisper wire navigated across proximal ramus stenosis into distal vessel Electrocardiograph Technician 50 wire placed into circumflex Proximal ramus dilated with 2.5 balloon Ostial/proximal ramus stented with 3.0 x 15 mm Xience drug-eluting stent Stent postdilated with 3.5 NC IC vasodilators administered for spasm Post procedure JOHAN 3 flow, stent well expanded with minimal residual stenosis and no apparent cardiac complications. Arterial Closure: TR band Summary: 1. Severe multi-vessel coronary artery disease -95% mid LAD stenosis at bifurcation with second diagonal 90% ostial stenosis large ramus 80% mid large OM 2 95% prox-mid RCA, 98% mid RCA. Occluded R-PAV. PLB's fill via [id number] collaterals from circumflex. 2. Normal intracardiac filling pressure 3. Successful PCI of ostial/proximal ramus with 3.0 x 15 mm Xience drug-eluting stent (postdilated with 3.5 NC). 4. Unsuccessful attempted PCI of mid LAD bifurcation. Dilated with 1.5 balloon. Unable to deliver larger balloon/stent across stenosis. Recommendations: To PCU for continued monitoring Loaded with clopidogrel 600 mg Continue dual therapy with clopidogrel, Xarelto Continue current antianginal therapy Plan for repeat attempt at LAD intervention with more supportive guide and possible femoral approach. Hemodynamics Rest Ao:: 119/65/86 Final Ao: 126/68/90 LV: 126/6 Recommendations Recommendations: PCI without planned CABG Specimens Specimens: None Radiation Exposure (mGy) 8852 Contrast (mls) 165 Fluids (cc crystalloids) Fluids (cc crystalloids): -- Drains Drains: none Anesthesia moderate [id number] Procedural Complication(s) None Disposition PCU I attest to the content of the Intraoperative Record and any orders documented therein. Any exceptions are noted below. [facility] Card Cath Procedure Codes Cardiac Catheterization Procedure 1: Cardiovascular Cath Procedures: 99254 Coronaries and LHC (+/-LV) Angioplasty Procedure 1: Cardiovascular Angioplasty Procedures: 80461 PTCA; ea addl branch of a major cor art RC LC LD Stenting Procedure 1: Cardiovascular Stent Procedures: 12660 Perc transcatheter placement of intracoronary stent(s), with ang PG Care Time/CCT Total # of Minutes Spent Total Time Spent with Patient: Total time spent is greater than 50% in coordination of care (as documented) at patient's floor/unit and/or counseling patient:
[2021-11-04 06:44] LABS: Basophils # (auto) 0.03 K/uL (0-0.2); Basophils % (auto) 0.7 %; Eosinophils # (auto) 0.21 K/uL (0-0.5); Eosinophils % (auto) 4.9 %; Hemoglobin 10.7 g/dL (14.0-18.0); Lymphocytes # (auto) 1.13 K/uL (1.2-3.4); Lymphocytes % (auto) 26.5 %; Mean Corpuscular Hemoglobin 30.7 pg (25-34); Mean Corpuscular Hgb Conc 32.4 g/dL (32-36); Mean Corpuscular Volume 94.8 fL (80-100); Mean Platelet Volume 10.3 fL (7.4-10.4); Monocytes # (auto) 0.38 K/uL (0.11-0.59); Monocytes % (auto) 8.9 %; Neutrophils # (auto) 2.51 K/uL (1.4-6.5); Platelet Count 179 K/uL (130-400); RDW Coefficient of Variation 13.1 % (11.5-14.5); RDW Standard Deviation 45.1 fL (36.4-46.3); Red Blood Count 3.48 M/uL (4.7-6.1); White Blood Count 4.26 K/uL (4.8-10.8)
[2021-11-04 06:52] LABS: BUN Creatinine Ratio 19.3 (10-20); Est GFR (African American) 53.5 ml/min; Est GFR (Non-African American) 46.2 ml/min
[2021-11-04] MEDS ORDERED: RIVAROXABAN 15 MG TAB PO SCH (07:30)
[2021-11-04] MEDS ORDERED: CHOLECALCIFEROL 400 UNITS 10 MCG TAB PO SCH (09:00)
[2021-11-04] MEDS ORDERED: CLOPIDOGREL BISULFATE 75 MG TAB PO SCH (09:00)
[2021-11-04] MEDS ORDERED: PANTOprazole 40 MG TAB PO SCH (09:00)
[2021-11-04] MEDS ORDERED: ISOSORBIDE MONO EXTENDED REL 30 MG TABCR PO SCH (09:00)
[2021-11-04] MEDS ORDERED: FLUTICASONE PROPIONATE NA SPR 16 GM BTL SCH (09:00)
[2021-11-04] MEDS ORDERED: METOPROLOL SUCC 50MG EXT REL TAB PO SCH (09:00)
[2021-11-04] MEDS ORDERED: TOPIRAMATE 25 MG TAB PO SCH (09:00)
[2021-11-04] MEDS ORDERED: ASPIRIN 81 MG ECTAB PO SCH (09:00)
[2021-11-04] MEDS ORDERED: buPROPion XL 150 MG TABCR PO SCH (09:00)
[2021-11-04] MEDS ORDERED: FAMOTIDINE 20 MG TAB PO SCH (09:00)
[2021-11-04] MEDS ORDERED: amLODIPine BESYLATE 5 MG TAB PO SCH (09:00)
[2021-11-04] MEDS ORDERED: CETIRIZINE HCL 10 MG TABLET PO SCH (09:00)
--- NOTE | 2021-11-04 14:06 | Discharge Summary ---
Date of Service November 04, 2021 Admission HPI Per Admitting Provider 71 year old man with multivessel CAD who presented for planned PCI in the setting of progressive angina. Other medical issues included PAF on xarelto, pacer dependent complete heart block, hypertension, pre-diabetes, ANAMARIA/morbid obesity followed by bariatrics, stage III CKD, anemia, limited mobility secondary to complicated LT RITA and leg length discrepancy. Abnormal stress 06/2021 - no ischemia but chantel infe rior/inferoseptal/inferolateral/apical infarct. Discharge Data Procedures Performed Operation Date: 11/03/21 08:00 Actual Procedures s Cineradiography w/Routine Exam - Andrew Beebe MD p Cath, Left with Cors and Vent - Andrew Beebe MD p Drug Eluting Stent SGl Vessel - Andrew Beebe MD s POBA SGL Vessel - Andrew Beebe MD Hospital Course (1) CAD (coronary artery disease): Repeat coronary angiography via right radial artery revealed sequential 95+% mid RCA lesions with left to right collateral to RPLBs, 95% calcified mid LAD, 90% proximal large ramus and 80% large OM2. In setting of prior stress test showing large inferior infarct intervention to RCA deferred. Apical infarct also noted. Attempted to intervene initially on mid LAD. Lesion partially ballooned with 1.5 balloon but unable to pass larger equipment across stenosis. No apparent vessel injury to LAD and procedure aborted. Proximal Ramus stented with single TAHIRA, procedure uncomplicated. Admitted to telemetry overnight for observation. Patient had no chest pain, access complications or arrhythmias. Post procedure SCr stable. On hospital day 2 discharged home on prior Xarelto and new clopidogrel. Will see him in office in 1 week. Plan for PCI to OM2 and repeat attempt at intervention to mid LAD with more supportive guide/possible femoral approach in 2 weeks. Discharge Instructions Home Medications pediatric multivitamin (Gummi Bear Multivitamin) 1 tab PO DAILY 04/17/19 [History Confirmed 11/03/21] alprazolam 0.5 mg tablet 0.5 mg PO DAILY PRN #90 tab 04/24/19 [History Confirmed 11/03/21] cholecalciferol (vitamin D3) 10 mcg (400 unit) tablet 400 units PO DAILY tab 04/24/19 [History Confirmed 11/03/21] acetaminophen 325 mg tablet 325 mg PO QID PRN 04/07/20 [History Confirmed 11/03/21] meloxicam 15 mg tablet 15 mg PO DAILY #90 tab 05/31/20 [Rx Confirmed 11/03/21] famotidine 20 mg tablet 20 mg PO DAILY #90 tab 06/13/20 [Rx Confirmed 11/03/21] ascorbate calcium (vitamin C) 500 mg tablet 500 mg PO DAILY 08/08/20 [History Confirmed 11/03/21] cetirizine 10 mg tablet 10 mg PO DAILY #90 tab 09/12/20 [Rx Confirmed 11/03/21] fluticasone propionate 50 mcg/actuation nasal spray,suspension 2 spray INTRANASAL DAILY #48 gm 09/14/20 [Rx Confirmed 11/03/21] lisinopril 40 mg tablet 40 mg PO DAILY #90 tab 11/10/20 [Rx Confirmed 11/03/21] bupropion HCl 150 mg 24 hr tablet, extended release 150 mg PO DAILY #90 tab 01/26/21 [Rx Confirmed 11/03/21] amlodipine 10 mg tablet 10 mg PO DAILY #90 tab 05/22/21 [Rx Confirmed 11/03/21] topiramate 25 mg tablet 25 mg PO DAILY #90 tab 07/03/21 [Rx Confirmed 11/03/21] benzonatate 200 mg capsule 200 mg PO TID PRN #45 cap 07/27/21 [Rx Confirmed 11/03/21] metoprolol succinate 200 mg tablet,extended release 24 hr 200 mg PO DAILY #90 tab 08/23/21 [Rx Confirmed 11/03/21] rivaroxaban 15 mg tablet (Xarelto) 15 mg PO DAILY 09/12/21 [History Confirmed 11/03/21] isosorbide mononitrate 30 mg tablet,extended release 24 hr 30 mg PO DAILY #30 tab 09/19/21 [Rx Confirmed 11/03/21] clopidogrel 75 mg tablet 75 mg PO QAM #30 tab 11/04/21 [Rx] pantoprazole 40 mg tablet,delayed release 40 mg PO QAM #30 tab 11/04/21 [Rx] Coding Level of Care Code 59735 OBS Care - Discharge Diagnoses CAD (coronary artery disease) I25.10
== END 2021-11-04 10:47 | disposition home or self-care (01) ==
LOC: 2S 06:49 → CC 06:49

== ENCOUNTER 2021-11-20 08:13 | Observation (INO) ==
[2021-11-20] MEDS ORDERED: niCARdipine HCL INJ 2.5 MG/ML 10 ML AMP ONE (09:16)
[2021-11-20] MEDS ORDERED: MIDAZOLAM HCL 1 MG/ML 2ML VIAL ONE ×3 (09:16→10:46)
[2021-11-20] MEDS ORDERED: HEPARIN (PORCINE) 1000 UNIT/ML 10 ML (CATH LAB USE ONLY) ONE ×2 (09:16→10:23)
[2021-11-20] MEDS ORDERED: fentaNYL citrate 100 MCG/2 ML VIAL ONE ×2 (09:16→10:44)
[2021-11-20] MEDS ORDERED: LIDOCAINE 1% LOCAL 20 ML VIAL ONE (09:17)
[2021-11-20] MEDS ORDERED: NITROGLYCERIN/D5W 100MCG/ML 20ML SYR ONE (09:17)
--- NOTE | 2021-11-20 09:21 | Pre Anesthesia Assessment ---
Date of Service November 20, 2021 Pre Sedation Assessment Vital Signs Temp Pulse Resp BP Pulse Ox 11/20/21 08:26 98.2 F 79 16 177/106 H 98 Cardiovascular RRR, no murmur, no edema Respiratory normal respiratory effort, lungs clear to auscultation Pre-Sedation Airway Assessment Smoking Status: Never smoker Hx Sleep Apnea: Yes Hx Difficult Intubation: No Short, Thick Neck: No Thyromental Distance: > or= 3.5 Finger Breadths Oral Cavity: + WNL Mallampati Class: IV ASA: ASA4 NPO Status Date of Last Intake of Fluids: 11/20/21 Time of Last Intake of Fluids: 06:00 Last Oral Intake of Fluids Comment: sip with meds Date of Last Intake of Solid Food: 11/19/21 Time of Last Intake of Solid Foods: 22:00 Procedure Planning Contraindications for Sedation: none Current Medications Reviewed: Yes Notes The planned sedation has been discussed with the patient. Informed Consent was obtained. I have identified the patient, determined the appropriateness of sedation and have assessed the patient immediately prior to the procedure. All medicine(s) and interventions are by my order.
--- NOTE | 2021-11-20 09:22 | History & Physical Bridge Note ---
Date of Service November 20, 2021 History & Physical Bridge Note I have examined the patient, reviewed the History & Physical and in the interval since the performance of the History & Physical I have noted the following changes of clinical significance: no changes noted
[2021-11-20] MEDS ORDERED: CLOPIDOGREL BISULFATE 300 MG TAB ONE (11:51)
--- NOTE | 2021-11-20 12:26 | Post Anesthesia Assessment ---
Date of Service November 20, 2021 Post Sedation Assessment Vital Signs Temp Pulse Resp BP Pulse Ox 11/20/21 12:15 60 18 155/70 H 100 11/20/21 12:00 61 18 169/96 H 100 11/20/21 08:26 98.2 F 79 16 177/106 H 98 Recovery Score Activity: Moves 4 extremities Respiration: Deep Breath/Cough Circulation: +/-20% PreAnes Value Consciousness: Fully Awake Oxygen Saturation: > 92% On Room Air Post Anesthesia Score: 10 Discharge Sedation Level of Care: Fast Track Phase II Post Sedation Plan On clinical assessment, the patient appears to have tolerated the sedation without complications. Patient is recovering as anticipated. Patient will continue to be monitored by nursing and may be discharged when sedation discharge criteria are met per below protocol. Upon Completions of procedure up to 15 minutes continue every 5 minute vital signs and the P.A.R. score; then discharge to a Phase I or Fast Track to Phase II per the following guidelines: * Discharge Patient to appropriate Phase II area if PAR is 8 or greater or return to pre- procedure baseline. The post - procedure orders will be as directed. * If PAR score is less than 8 or not return to pre-procedure baseline then patient will follow Phase I monitoring till PAR is reached for Phase II. The Phase I may be done in procedure room or may call to secure a Phase I area. * If naloxone or flumazenil are used for reversal, hold in Phase I for continued monitoring from when last reversal dose was given for a minimum of 60 minutes or longer pending the nurse and/or physician discretion of patient condition before discharge to Phase II. Please call the Sedation Physician to re-evaluate and complete post-note for discharge to Phase II area. Do NOT discharge from procedure sedation or Phase 1 until post- sedation evaluation note is complete by procedure /sedation MD Sedation Discharge Instructions to be given to the patient at discharge to home.
[2021-11-20] MEDS ORDERED: NITROGLYCERIN SL 0.4 MG/TAB TAB SL PRN (12:27)
--- NOTE | 2021-11-20 12:27 | Post Operative Brief Note ---
Cardiology Brief Post Op Date of Surgery November 20, 2021 Pre & Post Diagnosis Coronary artery disease Procedure Cardiac catheterization PCI of OM2 with 2 overlapping drug-eluting stents Botanical Technical Officer Ronny Beebe MD National Van Truck Driver Kit Estimated Blood Loss 15 Findings See Below 90% OM2 Successful PCI of OM2 with 2 TAHIRA (3.0 x 26 mm, 2.75 x 26 mm Oleg). Drains Other Anesthesia Type RN Sedation Complications none Disposition Accompanied Patient To Recovery: No Disposition: PCU Overlapping Procedure I was present for: the critical portions of procedure. I was immediately available: during the entire case. Back up surgeon: was not required during procedure.
[2021-11-20] MEDS ORDERED: SODIUM CHLORIDE 0.9% 1000ML 1,000 ML IV SCH (12:30)
[2021-11-20] MEDS ORDERED: BENZONATATE 100 MG CAPSULE PO PRN (12:33)
[2021-11-20] MEDS ORDERED: ALPRAZolam 0.5 MG TABLET PO PRN (12:33)
--- NOTE | 2021-11-20 13:14 | Electrocardiogram Report ---
Test Reason : Blood Pressure : / mmHG Vent. Rate : 075 BPM Atrial Rate : 074 BPM P-R Int : 000 ms QRS Dur : 162 ms QT Int : 520 ms P-R-T Axes : 000 -76 099 degrees QTc Int : 580 ms Poor data quality, interpretation may be adversely affected AV dual-paced rhythm with occasional Premature ventricular complexes Abnormal ECG No previous ECGs available Confirmed by Raymon Ireland ([id number]) on 11/20/2021 1:14:09 PM Referred By: Andrew Beebe Confirmed By:Raymon Ireland
--- NOTE | 2021-11-20 15:09 | Cardiac Catheterization ---
[facility] Data: Autobody Technician Cardiac Status Clinical evaluation leading to the procedure CAD Presenation: Stable angina Anginal Classification: CCS III Heart Failure: No Cardiogenic Shock within 24 Hours: No Cardiac Arrest within 24 Hours: No Imaging Studies Past 6 Months: Yes Stress Studies Past 6 Months: Yes Diagnostic Physicians Name: Ronny Beebe MD Status: Elective Closure Device Percutaneous Entry Location: Radial Closure Device: Radial Band Recommendations: PCI without planned CABG PCI Indication: Stable Angina Lesion Segment Name: OM2 Culprit Artery: Yes Stenosis Prior to Rx (%): 80 Chronic Total Occlusion: No IVUS: No FFR: No Pre-Procedure JOHAN Flow: 3 Previously Treated Lesion: No Lesion Complexity: Non-High/Non-C Lesion Length (mm): 35 Thrombus Present: No Bifurcation Lesion: No Guidewire Across Lesion: Stenosis Post-Procedure (%): 0 Post-Procedure JOHAN Flow: 3 Devices(s) Deployed: Yes Yes Intraprocedure Events Significant Disection: No Perforation: No Cardiac Cath Procedure Full Procedure Date November 20, 2021 Pre-Procedure Diagnosis Pre-Procedure Diagnosis: CAD AUC Score AUC Score: 7 Post-Procedure Diagnosis Post-Procedure Diagnosis: Severe CAD, Successful PCI and Elevated Intracardiac Pressures Procedure(s) Performed Procedure(s) Performed: Left Heart Cath and Drug Eluting Stent Rim Turning Machine Operator Ronny Beebe MD Senior Sustainability Consultant(s) Kit Estimated Blood Loss Estimated Blood Loss: 15 Medication(s) Medication(s): Clopidogrel, Fentanyl, Heparin, Lidocaine 1%, Nicardipine, Nitroglycerin and Versed Summary of Findings Indication: Multivessel CAD. Refractory angina. Declined CABG Access: 6 Fr 45 cm destination sheath right radial artery Catheters: AL1 guide Findings: For full details of patient's coronary angiography please see cath report dictated on 11/03/2021. Briefly, patient found to have calcified mid LAD disease, severe ostial ramus disease and 80% diffuse disease and large OM 2. Also with severe diffuse RCA disease. Prior stress test had shown RCA distribution infarct. Also some degree of apical infarct. Previously underwent attempted PCI of LAD unable to pass balloon across stenosis. Underwent successful PCI of ostial ramus with single TAHIRA. Brought back today for repeat attempt at LAD intervention, and intervention to OM2 --Attempted PCI of LAD -- Antithrombotic therapy: Heparin, Clopidogrel Procedure: Destination sheath placed to subclavian artery Left main cannulated with AL-1 guide Multiple attempts made to pass ems helicopter pilot 50, whisper wire across LAD stenosis but unable to pass wire into distal vessel. Wire repeatedly seemed to go into dissection flap. Flow unchanged and procedure aborted. PCI of OM2 Whisper wire navigated across stenosis into the distal vessel with the aid of a telescope support catheter onto dilated with 2.5 balloon and 3.0 NC balloon Mid to distal OM 2 stented with 2.75 x 26 mm Oleg drug-eluting stent Proximal to mid OM 2 stented with 3.0 x 26 mm [place] overlapping proximal aspect of initial stent. Stent postdilated with 3.0 NC IC vasodilators administered for spasm Post procedure JOHAN 3 flow, stent well expanded with minimal residual stenosis and no apparent cardiac complications. LVEDP 20 Arterial Closure: TR band Summary: 1. Successful PCI of OM2 with 2 overlapping drug-eluting stents (3.0 x 26, 2.75 x 26 mm Oleg). 2. Unsuccessful attempted PCI of mid LAD bifurcation due to inability to cross wire across stenosis. Recommendations: To PCU for continued monitoring Reloaded with clopidogrel 300 mg Continue dual therapy with clopidogrel, Xarelto Maximize anti-anginal therapy. If refractory symptoms consider repeat attempt at LAD versus CABG. Hemodynamics Rest Ao:: 129/63/89 Final Ao: 133/62/92 LV: 137/20 Recommendations Recommendations: PCI without planned CABG Specimens Specimens: None Radiation Exposure (mGy) 8758 Contrast (mls) 250 Fluids (cc crystalloids) Fluids (cc crystalloids): 650 Drains Drains: none Anesthesia moderate 1608-2641 Procedural Complication(s) None Disposition PCU I attest to the content of the Intraoperative Record and any orders documented therein. Any exceptions are noted below. [facility] [place] Procedure Codes Cardiac Catheterization Procedure 1: Cardiovascular Cath Procedures: 18312 Left Heart Cath (+/-LV) Moderate Sedation Procedure 1: Sedation/Anesthesia: 64284 Mod Sedation by the same physician;Init15 Min Child Age 5 & Up Procedure 2: Sedation/Anesthesia: 62486 Mod Sedation by the same physician; Ea Kenneth [id number] Minutes Stenting Procedure 1: Cardiovascular Stent Procedures: 70758 Perc transcatheter placement of intracoronary stent(s), with ang PG Care Time/CCT Total # of Minutes Spent Total Time Spent with Patient: Total time spent is greater than 50% in coordination of care (as documented) at patient's floor/unit and/or counseling patient:
[2021-11-21 05:54] LABS: Basophils # (auto) 0.02 K/uL (0-0.2); Basophils % (auto) 0.4 %; Eosinophils # (auto) 0.26 K/uL (0-0.5); Eosinophils % (auto) 5.5 %; Hematocrit (blood only) 32.6 % (42-52); Hemoglobin 10.4 g/dL (14.0-18.0); Immature Granulocytes # (auto) 0.01 K/uL (0.00-0.02); Immature Granulocytes % (auto) 0.2 %; Lymphocytes # (auto) 0.74 K/uL (1.2-3.4); Lymphocytes % (auto) 15.7 %; Mean Corpuscular Hemoglobin 30.5 pg (25-34); Mean Corpuscular Hgb Conc 31.9 g/dL (32-36); Mean Corpuscular Volume 95.6 fL (80-100); Mean Platelet Volume 10.1 fL (7.4-10.4); Monocytes # (auto) 0.52 K/uL (0.11-0.59); Monocytes % (auto) 11.1 %; Neutrophils # (auto) 3.15 K/uL (1.4-6.5); Neutrophils % (auto) 67.1 %; Platelet Count 154 K/uL (130-400); RDW Coefficient of Variation 13.1 % (11.5-14.5); RDW Standard Deviation 45.4 fL (36.4-46.3); Red Blood Count 3.41 M/uL (4.7-6.1)
[2021-11-21 06:15] LABS: BUN Creatinine Ratio 14.7 (10-20); Calcium 8.8 mg/dl (8.5-10.1); Creatinine Clr Calc Pharmacy 65.1 ml/min; Est GFR (African American) 53.5 ml/min; Est GFR (Non-African American) 46.2 ml/min; Potassium 4.1 mmol/L (3.5-5.1)
[2021-11-21] MEDS ORDERED: MELOXICAM 7.5 MG TAB PO SCH (09:00)
[2021-11-21] MEDS ORDERED: CETIRIZINE HCL 10 MG TABLET PO SCH (09:00)
[2021-11-21] MEDS ORDERED: MULTIVITAMIN CHEWABLE TAB PO SCH (09:00)
[2021-11-21] MEDS ORDERED: FLUTICASONE PROPIONATE NA SPR 16 GM BTL SCH (09:00)
[2021-11-21] MEDS ORDERED: METOPROLOL SUCC 50MG EXT REL TAB PO SCH (09:00)
[2021-11-21] MEDS ORDERED: lisinopril 40 MG TAB PO SCH (09:00)
[2021-11-21] MEDS ORDERED: buPROPion XL 150 MG TABCR PO SCH (09:00)
[2021-11-21] MEDS ORDERED: PANTOprazole 40 MG TAB PO SCH (09:00)
[2021-11-21] MEDS ORDERED: amLODIPine BESYLATE 5 MG TAB PO SCH (09:00)
[2021-11-21] MEDS ORDERED: ISOSORBIDE MONO EXTENDED REL 30 MG TABCR PO SCH (09:00)
[2021-11-21] MEDS ORDERED: ASCORBIC ACID 500 MG TAB PO SCH (09:00)
[2021-11-21] MEDS ORDERED: CLOPIDOGREL BISULFATE 75 MG TAB PO SCH (09:00)
[2021-11-21] MEDS ORDERED: FAMOTIDINE 20 MG TAB PO SCH (09:00)
[2021-11-21] MEDS ORDERED: TOPIRAMATE 25 MG TAB PO SCH (09:00)
[2021-11-21] MEDS ORDERED: CHOLECALCIFEROL 400 UNITS 10 MCG TAB PO SCH (09:00)
[2021-11-21] MEDS ORDERED: RIVAROXABAN 15 MG TAB PO SCH (09:00)
--- NOTE | 2021-11-21 09:21 | Discharge Summary ---
Date of Service November 21, 2021 Admission HPI Per Admitting Provider Mr. Azul is a very pleasant 71 year old man with multivessel CAD here repeat PCI. Patient followed by Dr. Barraza for his cardiac care. Other medical issues included PAF on xarelto, pacer dependent complete heart block, hypertension, pre-diabetes, ANAMARIA/morbid obesity followed by bariatrics, stage III CKD, anemia, limited mobility secondary to complicated LT RITA and leg length discrepancy. Gradually progressive angina led to abnormal stress 06/2021 - no ischemia but large inferior/inferoseptal/inferolateral/apical infarct. Cardiac cath 08/2021 showed with multivessel CAD. CABG recommended but patient declined in the setting of his comorbidities and previous difficulty recovering from prior surgeries. On 11/03/2021 underwent coronary angiography via right radial artery which revealed sequential 95+% mid RCA lesions with left to right collateral to RPLBs, 95% calcified mid LAD, 90% proximal large ramus and 80% large OM2. In setting of prior stress test showing large inferior infarct intervention to RCA deferred. Attempted to intervene initially on mid LAD. Lesion partially ballooned with 1.5 balloon but unable to pass larger equipment across stenosis. No apparent vessel injury to LAD and procedure aborted. Proximal Ramus stented with single TAHIRA, procedure uncomplicated. Discharged home on prior Xarelto and new clopidogrel. Since discharge has been doing well. States able to walk up stairs/ramp to his home with more ease. Was able to walk down hallway to the office without stopping which was a large change. Denies any recurrent chest pain. No pain at right radial artery access site. Discharge Data Consultations 11/20/21 12:31 Consult Cardiac Rehabilitation Routine Procedures Performed Operation Date: 11/20/21 09:30 Actual Procedures p Drug Eluting Stent SGl Vessel - Andrew Beebe MD p Cath, Left with Cors and Vent - Andrew Beebe MD s Cineradiography w/Routine Exam - Andrew Beebe MD s Ultrasound Vascular Access - Andrew Beebe MD Hospital Course (1) CAD (coronary artery disease): Patient underwent PCI large OM 2 with 2 overlapping drug-eluting stent. Repeat PCI to calcified LAD was attempted but unable to pass wire across stenosis and procedure aborted. Post procedure patient monitored overnight on telemetry. Remained in paced rhythm. Had no chest pain. No apparent access site complications. Post procedure labs are stable. Discharged home on dual therapy with clopidogrel and Xarelto. Plan to continue current antianginal therapy (Toprol-XL, amlodipine, low-dose Imdur). Had improvement in exercise tolerance following initial stent. Hopeful for continued symptomatic benefit following OM2 stents. Will refer to cardiac rehab. If recurrent, life-limiting symptoms in the future consider PCI of LAD at tertiary center versus reevaluation for CABG. Discharge Instructions Home Medications pediatric multivitamin (Gummi Bear Multivitamin) 1 tab PO DAILY 04/17/19 [History Confirmed 11/20/21] alprazolam 0.5 mg tablet 0.5 mg PO DAILY PRN #90 tab 04/24/19 [History Confirmed 11/20/21] cholecalciferol (vitamin D3) 10 mcg (400 unit) tablet 400 units PO DAILY tab 04/24/19 [History Confirmed 11/20/21] acetaminophen 325 mg tablet 325 mg PO QID PRN 04/07/20 [History Confirmed 11/20/21] meloxicam 15 mg tablet 15 mg PO DAILY #90 tab 05/31/20 [Rx Confirmed 11/20/21] famotidine 20 mg tablet 20 mg PO DAILY #90 tab 06/13/20 [Rx Confirmed 11/20/21] ascorbate calcium (vitamin C) 500 mg tablet 500 mg PO DAILY 08/08/20 [History Confirmed 11/20/21] cetirizine 10 mg tablet 10 mg PO DAILY #90 tab 09/12/20 [Rx Confirmed 11/20/21] bupropion HCl 150 mg 24 hr tablet, extended release 150 mg PO DAILY #90 tab 01/26/21 [Rx Confirmed 11/20/21] amlodipine 10 mg tablet 10 mg PO DAILY #90 tab 05/22/21 [Rx Confirmed 11/20/21] topiramate 25 mg tablet 25 mg PO DAILY #90 tab 07/03/21 [Rx Confirmed 11/20/21] benzonatate 200 mg capsule 200 mg PO TID PRN #45 cap 07/27/21 [Rx Confirmed 11/20/21] metoprolol succinate 200 mg tablet,extended release 24 hr 200 mg PO DAILY #90 tab 08/23/21 [Rx Confirmed 11/20/21] rivaroxaban 15 mg tablet (Xarelto) 15 mg PO DAILY 09/12/21 [History Confirmed 11/20/21] lisinopril 40 mg tablet 40 mg PO DAILY #90 tab 11/07/21 [Rx Confirmed 11/20/21] clopidogrel 75 mg tablet 75 mg PO QAM #90 tab 11/14/21 [Rx Confirmed 11/20/21] isosorbide mononitrate 30 mg tablet,extended release 24 hr 30 mg PO DAILY #90 tab 11/14/21 [Rx Confirmed 11/20/21] pantoprazole 40 mg tablet,delayed release 40 mg PO QAM #90 tab 11/14/21 [Rx Confirmed 11/20/21] fluticasone propionate 50 mcg/actuation nasal spray,suspension 2 spray INTRANASAL DAILY #48 gm 11/16/21 [Rx Confirmed 11/20/21] nitroglycerin 0.4 mg sublingual tablet (Nitrostat) 0.4 mg SUBLINGUAL PRN PRN #30 tab 11/21/21 [Rx] Coding Level of Care Code 20783 OBS Care - Discharge Diagnoses CAD (coronary artery disease) I25.10
== END 2021-11-21 10:50 | disposition home or self-care (01) ==
LOC: 2S 08:13 → CC 08:13

== ENCOUNTER 2024-07-26 09:33 | Inpatient (IN) ==
--- NOTE | 2024-07-26 10:01 | XRay Report ---
XR chest 1V portable HISTORY: 73 years-old Male trauma chest trauma COMPARISON: 04/08/2020 TECHNIQUE: AP view of the chest FINDINGS: Cardiac silhouette is enlarged. Dual lead left subclavian pacer. No pneumothorax, pleural effusion or airspace consolidation. Pulmonary vascular congestion. Bones appear grossly intact. IMPRESSION: Cardiomegaly with pulmonary vascular congestion. ACT 112: Negative or not required by law. The above report was generated using voice recognition software. It may contain grammatical, syntax o r spelling errors. Electronically signed by: Omega Santa M.D. 07/26/2024 10:00 AM
[2024-07-26 10:42] LABS: iSTAT Creatinine 1.8 mg/dl (0.6-1.3); iSTAT Hemoglobin 11.9 g/dl (14.0-18.0); iSTAT Ionized Calcium 1.17 mmol/l (1.12-1.32); iSTAT Potassium 4.7 mmol/L (3.3-5.0)
[2024-07-26 10:48] LABS: Basophils # (auto) 0.01 K/uL (0.00-0.20); Basophils % (auto) 0.1 %; Eosinophils # (auto) 0.16 K/uL (0.00-0.50); Eosinophils % (auto) 1.8 %; Hematocrit (blood only) 36.3 % (42.0-52.0); Hemoglobin 12.1 g/dl (14.0-18.0); Immature Granulocytes # (auto) 0.02 K/uL (0.01-0.20); Immature Granulocytes % (auto) 0.2 %; Lymphocytes # (auto) 0.84 K/uL (1.20-3.40); Lymphocytes % (auto) 9.6 %; Mean Corpuscular Hemoglobin 32.3 pg (25.0-34.0); Mean Corpuscular Hgb Conc 33.3 g/dL (32.0-36.0); Mean Corpuscular Volume 96.8 fL (80.0-100.0); Mean Platelet Volume 10.8 fL (9.4-12.4); Monocytes # (auto) 0.72 K/uL (0.11-0.59); Monocytes % (auto) 8.2 %; Neutrophils # (auto) 6.99 K/uL (1.40-6.50); Neutrophils % (auto) 80.1 %; Platelet Count 180 K/uL (130-400); RDW Coefficient of Variation 12.4 % (11.5-14.5); RDW Standard Deviation 44.6 fL (36.4-46.3); Red Blood Count 3.75 M/uL (4.70-6.10); White Blood Count 8.74 K/ul (4.8-10.8)
[2024-07-26 11:01] LABS: Albumin Globulin Ratio 1.2 (0.9-2); Albumin Level 3.8 gm/dl (3.4-5.0); Bilirubin,Total 0.7 mg/dl (0.2-1.0); Calcium 9.1 mg/dl (8.6-10.3); Creatinine Clr Calc Pharmacy 61.5 ml/min; Globulin 3.1 gm/dl (2.5-4.0); Total Protein 6.9 gm/dl (6.0-8.3)
[2024-07-26] MEDS: OPTIRAY 320 100ml IV ONE (11:20)
--- NOTE | 2024-07-26 11:55 | CT Scan Report ---
CT head/brain wo con CLINICAL HISTORY: 73 years-old Male with Trauma. Acute head trauma TECHNIQUE: Multiple axial CT images of the head were obtained without contrast. A dose lowering tech nique was utilized adhering to the principles of ALARA. COMPARISON: None. FINDINGS: No acute intracranial hemorrhage, midline shift, intracranial mass, hydrocephalus, territorial ischem ia or abnormal extra-axial collection. Involutional changes with mild white matter hypodensities sugg estive of chronic microvascular ischemic disease. The study is motion degraded. Cerebral vascular shiv cifications. The calvarium is intact. The paranasal sinuses, mastoid air cells, and middle ear cavities are clear . IMPRESSION: No acute intracranial abnormality or calvarial fracture. ACT 112: Negative or not required by law. The above report was generated using voice recognition software. It may contain grammatical, syntax o r spelling errors. Electronically signed by: Omega Santa M.D. 07/26/2024 11:53 AM
--- NOTE | 2024-07-26 12:13 | CT Scan Report ---
ABDOMEN AND PELVIS CT WITH IV CONTRAST CT DOSE: 2255.72 mGy.cm HISTORY: Acute posttraumatic left flank pain Trauma, L flank pain TECHNIQUE: Multiaxial CT images of the abdomen and pelvis were performed following the IV administrat ion of 94 cc of Optiray, A dose lowering technique was utilized adhering to the principles of ALARA. COMPARISON STUDY: 07/31/2017. FINDINGS: Cardiomegaly. Trace pericardial effusion. Partially imaged pacer leads. Clear lung bases. T here are a few small hypodensities of the spleen measuring up to 12 mm which are indeterminate and li alvaro benign. Unremarkable pancreas and adrenal glands. Cholelithiasis without CT evidence of acute ch olecystitis. Unremarkable liver. Cortical thinning of the kidneys. There are a few cysts in the kidneys measuring up to 5.3 cm on the right. Scarring/post treatment related changes of the left kidney. There are a few nonobstructing shiv culi in the kidneys measuring up to 1.3 cm zone the left and 1.9 cm on the right. No ureteral calculi or hydronephrosis. Unremarkable urinary bladder. Atherosclerosis of the aorta without aneurysm. No l ymphadenopathy identified. Tiny hiatal hernia. No bowel obstruction or bowel wall thickening. The appendix is not seen. Diastase s recti. No ascites. Degenerative changes of the spine, pelvis and hips. Severe right hip osteoarthri tis. Unchanged appearance of the chronic ununited left proximal femoral fracture with chronic likely benign structures in the subcutaneous tissues lateral to the left hip measuring 2.6 x 1.3 x 11 cm. Wi dening along the anterior aspect of the L1-L2 disc space without paravertebral edema is likely chroni c. Mild lumbar levoscoliosis. IMPRESSION: 1. No acute posttraumatic intra-abdominal or intrapelvic abnormality identified. 2. No acute fracture is seen. 3. Nonobstructing bilateral nephrolithiasis. 4. Cholelithiasis. 5. Small hiatal hernia 6. Additional findings as above. ACT 112: Negative or not required by law. The above report was generated using voice recognition software. It may contain grammatical, syntax o r spelling errors. Electronically signed by: Omega Santa M.D. 07/26/2024 12:11 PM
[2024-07-26 12:53] LABS: Appearance Urine Cloudy (Clear); Bacteria Urine Automated 4+ (None Seen); Bilirubin Urine Negative (Negative); Blood Urine 3+ (Negative); Color Urine Yellow; Epithelial Cell Urine Auto 0-2 /hpf (0-2); Glucose Urine UA 3+ (Negative); Ketones Urine Negative (Negative); Leukocyte Esterase Urine 2+ (Negative); Nitrite Urine Positive (Negative); Protein Urine Trace (Negative); RBC Urine Automated >20 /hpf (0-2); Urobilinogen Urine Negative (Negative); WBC Urine Automated 21-50 /hpf (0-5); pH Urine 5.5 (4.5-7.5)
[2024-07-26] MEDS: CEFDINIR 300 MG CAP PO STA (13:59)
--- NOTE | 2024-07-26 14:53 | XRay Report ---
EXAM: Radiographs of the Left Hip 3 Views INDICATION: Pain. Fall. TECHNIQUE: Front view pelvis and AP and frog leg lateral views of the left hip. COMPARISON: 02/13/2024 FINDINGS: Limitations: None. 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 2 cerclage wires proximal shaft and a wire oriented longitudinally projecting over the medullary cavity are unchanged. Stable hypertrophic change about the proximal femur and what appears to be a acetabular implant from prior replacement. No acute fracture. Soft tissues: Atherosclerotic calcification present. IMPRESSION: Stable chronic deformity of the left hip including cranial dislocation. No acute abnormality. ACT 112: Negative or not required by law. Electronically signed by Dania Nj 07-26-2024 2:53 PM
[2024-07-26] MEDS ORDERED: POLYETHYLENE (MIRALAX) 17 GM PACK PO PRN (15:44)
[2024-07-26] MEDS ORDERED: ACETAMINOPHEN 325 MG TAB PO PRN (15:44)
--- NOTE | 2024-07-26 15:56 | History & Physical Report ---
Date of Service July 26, 2024 Assessment & Plan (1) Fall: Plan: This is a 73-year-old gentleman with past medical history of CAD, GERD, hypertension, ANAMARIA who presented to the ER on 07/26/2024 after a fall. CXR: cardiomegaly w/ pulmonary vascular congestion CTAP: negative for acute pathology from fall head CT: negative hip x-ray (left): stable chronic deformity of left hip including cranial dislocation. no acute abnormality. Hold Xarelto in setting of left lateral thigh ecchymosis, monitor for hematoma development. Scheduled Tylenol 1000mg every 8 hours Tramadol q6h prn for breakthrough severe pain Avoid NSAIDs PT/OT evaluations, appreciate recommendations. (2) UTI (urinary tract infection): Plan: Urinalysis + in the ED. UC pending s/p 1 dose PO Cefdinir given will transition to IV Rocephin inpatient. CBC w/o leukocytosis BMP w/ creatinine of 1.57 which is within baseline for patient. electrolytes stable. AM CBC, BMP Plan chronic conditions: HTN: amlodipine, Lisinopril GERD: Pepcid and PPI CAD: Imdur, Metoprolol DVT prophylaxis: hold Xarelto in setting of fall and bruising. Code status: full Diet: heart healthy Disposition: medical Updated family at bedside 07/26. History of Present Illness Primary Care Provider: Ronny Llamas MD This is a 73-year-old gentleman with past medical history of CAD, GERD, hypertension, ANAMARIA who presented to the ER on 07/26/2024 after a fall. The patient was seen and examined with family members at bedside. Patient reports that this morning at [employer] he tripped over the carpet with his walker and as a result fell down. States that he landed on his left backside/thigh. Denies striking his head. At time of encounter he was experiencing some left lower back pain along with left thigh pain. He denied any pain in any other extremities. He denies chest pain or shortness of breath. He denied dizziness or lightheadedness prior to falling. He denies any urinary symptoms. Denies fevers or chills. Patient did fail his ambulation trial in the ER so he will be admitted for further evaluation by physical and Occupational Therapy. Allergies Allergy/AdvReac Type Severity Reaction Status Date / Time atorvastatin Allergy Unknown Verified 07/26/24 15:29 cephalexin [From Keflex] Allergy Unknown Verified 07/26/24 15:29 oxycodone [From Percocet] Allergy Unknown Verified 07/26/24 15:29 potassium chloride Allergy Unknown Verified 07/26/24 15:29 codeine AdvReac Unknown SICK IN Verified 07/26/24 15:29 STOMACH/PASSED OUT Home Medications Medication Instructions Recorded Confirmed Type cholecalciferol (vitamin D3) 10 400 units PO DAILY 04/24/19 07/26/24 History mcg (400 unit) tablet acetaminophen 325 mg tablet 325 mg PO QID PRN Pain 04/07/20 07/26/24 History famotidine 20 mg tablet 20 mg PO DAILY #90 tabs 06/13/20 07/26/24 Rx ascorbate calcium (vitamin C) 500 500 mg PO DAILY 08/08/20 07/26/24 History mg tablet nitroglycerin 0.4 mg sublingual 0.4 mg sublingual PRN PRN chest 11/21/21 07/26/24 Rx tablet (Nitrostat) pain #30 tabs meloxicam 15 mg tablet 15 mg PO DAILY #90 tabs 09/24/23 07/26/24 Rx amlodipine 10 mg tablet 10 mg PO DAILY #90 tabs 12/06/23 07/26/24 Rx empagliflozin 10 mg tablet 10 mg PO DAILY #90 tabs 12/13/23 07/26/24 Rx (Jardiance) cyclobenzaprine 10 mg tablet 10 mg PO HS PRN muscle spasm #90 01/22/24 07/26/24 Rx tabs Motorized Scooter #1 ea 02/21/24 07/20/24 Rx lisinopril 40 mg tablet 40 mg PO DAILY #90 tabs 02/26/24 07/26/24 Rx metoprolol succinate 200 mg 200 mg PO DAILY #90 tabs 02/26/24 07/26/24 Rx tablet,extended release 24 hr pantoprazole 40 mg tablet,delayed 40 mg PO QAM #90 tabs 04/30/24 07/26/24 Rx release fluticasone propionate 50 2 spray intranasal DAILY #48 grams 06/25/24 07/26/24 Rx mcg/actuation nasal spray,suspension isosorbide mononitrate 30 mg 30 mg PO QPM 07/26/24 07/26/24 History tablet,extended release 24 hr multivitamin 1 tab PO DAILY 07/26/24 07/26/24 History rivaroxaban 15 mg tablet (Xarelto) 15 mg PO QAM 07/26/24 07/26/24 History Past Med/Surg History Problem List 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 with presence of antibiotic-impregnated cement spacer (Acute) UTI (urinary tract infection) (Acute) Contusion of hip, left (Acute) Fall (Acute) Osteoarthritis of right knee Osteoarthritis of right hip Statin myopathy Cardiomyopathy Obesity Fatigue Leukopenia Vitamin D deficiency CAD (coronary artery disease) Anticoagulant long-term use Paroxysmal atrial fibrillation Bilateral arm pain Dietary counseling and surveillance Metabolic syndrome Stage 3b chronic kidney disease DVT of axillary vein, acute left Left arm swelling Pacemaker AVB (atrioventricular block) CKD (chronic kidney disease) stage 3, GFR 30-59 ml/min Allergic rhinitis (Acute) Anemia (Acute) Anxiety (Acute) Arthritis (Acute) BPH (benign prostatic hyperplasia) (Acute) Bifascicular block (Acute) Bilateral edema of lower extremity (Acute) Cardiac arrhythmia (Acute) Cough (Acute) Gait disturbance (Acute) Gastroesophageal reflux disease (Acute) History of pulmonary embolism (Acute) Hyperlipidemia (Acute) Hypertension (Acute) Left anterior fascicular block (Acute) Nephrolithiasis (Acute) Obstructive sleep apnea of adult (Acute) Paroxysmal atrial tachycardia (Acute) Pre-diabetes (Acute) Renal insufficiency (Acute) Right bundle branch block (Acute) VPC's (ventricular premature complexes) (Acute) Surgical History H/O heart artery stent x 3 History of lithotripsy History of arthroscopic knee surgery History of hip replacement History of appendectomy Family History Mother Stroke Diabetes Hypertension Father Diabetes Denies family history of Ovarian cancer Prostate cancer Myocardial infarction Breast cancer Colorectal cancer Social History Smoking Status: Never smoker Second Hand Exposure: No; Do You Dip or Chew Tobacco: No; Hx Alcohol Use: No Hx Substance Use: No Preferred Language: Urdu Communication Ability: Effective Hearing Ability: Normal Change Of Address Clerk Required: No Beliefs That Will Affect Care: Mandaeism Mandaeism Beliefs: [employer] marital status: Current Living Situation: Spouse current occupational status: retired 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 Seatbelt Use: always Sunscreen Use: Yes (sometimes.) Assistive Devices: Denture - Upper Physical Exam 2 Constitutional: WD/WN, vitals as above Eyes: PERRL, conjunctivae normal, anicteric sclerae Respiratory: normal respiratory effort, lungs clear to auscultation Cardiovascular: RRR, no murmur, no edema Skin: ecchymosis on left lateral thigh. Psychiatric: A+Ox3, euthymic affect Results & Data Results & Data Vital Signs (Past 12 Hours) Vital Signs Temp Pulse Pulse Resp BP BP Pulse Ox 07/26/24 15:00 66 20 167/88 H 97 07/26/24 14:34 64 07/26/24 14:20 63 20 150/78 H 98 07/26/24 13:28 61 20 155/85 H 99 07/26/24 13:28 99 07/26/24 13:28 68 20 155/85 H 99 07/26/24 13:28 98 07/26/24 12:20 78 16 149/83 H 96 07/26/24 11:26 75 16 154/72 H 95 07/26/24 10:29 64 18 153/69 H 100 07/26/24 09:51 70 07/26/24 09:48 36.3 C L 77 16 105/86 100 07/26/24 09:48 O2 Del Method 07/26/24 15:00 Room Air 07/26/24 14:34 07/26/24 14:20 Room Air 07/26/24 13:28 Room Air 07/26/24 13:28 Room Air 07/26/24 13:28 Room Air 07/26/24 13:28 Room Air 07/26/24 12:20 Room Air 07/26/24 11:26 Room Air 07/26/24 10:29 Room Air 07/26/24 09:51 07/26/24 09:48 Room Air 07/26/24 09:48 Room Air Laboratory Results 07/26/24 10:24 07/26/24 10:24 Supervising Physician Co-Signing Physician Notes I personally saw and examined the patient. I independently reviewed the labs, EKG, imaging, problem list, medication list, past medical history and family history. I verified all murray points and agree with Jenn Cheney PA-C with the following exceptions and/or additions: 73 year old presents to the ER following a fall with left back/hip pain following fall. Chronic issues with this hip s/p prior MRSA infection. Otherwise feeling like his normal self. O/E HS RRR, no murmurs, Chest CTAB, Abdo SNT, no groin/hip pain on leg movement A/P Fall - mechanical in nature. PT/OT PG Care Time/CCT Total # of Minutes Spent Total Time Spent with Patient: Total time spent is greater than 50% in coordination of care (as documented) at patient's floor/unit and/or counseling patient: Coding Level of Care Code 55571 INT INP/OBS CARE 2/55MIN Diagnoses Fall W19.XXXA Encounter type: initial encounter UTI (urinary tract infection) N30.01 Hematuria presence: with hematuria Urinary tract infection type: acute cystitis (1) Fall Encounter type: initial encounter Qualified Code(s): W19.XXXA - Unspecified fall, initial encounter (2) UTI (urinary tract infection) Hematuria presence: with hematuria Urinary tract infection type: acute cystitis Qualified Code(s): N30.01 - Acute cystitis with hematuria
[2024-07-26] MEDS ORDERED: oxyCODONE HCL IR 5 MG TAB (IMMEDIATE RELEASE) PO PRN (15:57)
[2024-07-26] MEDS: ACETAMINOPHEN 500 MG TAB PO STA (16:47)
--- NOTE | 2024-07-26 17:39 | Electrocardiogram Report ---
Test Reason : Blood Pressure : */* mmHG Vent. Rate : 69 BPM Atrial Rate : 61 BPM P-R Int : 198 ms QRS Dur : 168 ms QT Int : 518 ms P-R-T Axes : 56 -74 101 degrees QTcB Int : 555 ms AV dual-paced rhythm with occasional Premature ventricular complexes Abnormal ECG When compared with ECG of 09-Jan-2023 15:39, (unconfirmed) No significant change was found Confirmed by Anayeli Ocampo (Rizwana) on 07/26/2024 5:39:03 PM Referred By: REFERRED SELF Confirmed By: Anayeli Ocampo
--- NOTE | 2024-07-26 20:26 | Emergency Department Note ---
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 The patient states he was at [employer] when he lost his footing and had a mechanical fall landing on his left hip. Patient states he had an MRSA infection after a hip replacement surgery. The hip was removed any cement implant was placed. He states he does not think he will ever have surgery to repair the hip. REVIEW OF SYSTEMS: A review of systems was performed with positives and pertinent negatives listed in the history of present illness. 10 systems were reviewed and are otherwise negative. ALLERGIES: see below MEDICATIONS: see below PMH: see below SOCIAL HISTORY: see below DDx: Mechanical fall, left hip fracture, flank injury, UTI, electrolyte abnormality, dehydration, intracranial trauma among others. PHYSICAL EXAM: Vital signs reviewed. General: Chronically ill-appearing 73-year-old male, in no significant distress. Strong smell of urine HEENT: No conjunctival injection, PERRLA, neck supple. Moist mucous membranes, atraumatic Cardiovascular: Regular rate and rhythm, no extra sounds. Pulmonary: Clear to auscultation bilaterally, normal work of breathing. Abdomen: Soft, obese, nontender, nondistended, positive bowel sounds. Faint ecchymosis noted over the left proximal thigh. Unable to lift the left leg against gravity. Musculoskeletal: Atraumatic, no peripheral edema. Nontender to palpation over the cervical and thoracic spine. Neurologic: Patient awake alert and oriented x 3, speech is clear Skin: Warm, dry, no rash EMERGENCY DEPARTMENT COURSE/MDM: This patient was evaluated and appeared to be in no significant distress. IV access was obtained and laboratory work was drawn. Patient was placed on the rn neurology noted to be in a paced rhythm. Vital signs are stable. CT imaging of the head, abdomen and pelvis was performed due to the location of the patient's discomfort in the left flank. There is no obvious sign of trauma externally, nontender to palpation of the ribs. Both CTs are negative for acute traumatic finding. X-ray of the chest reveals cardiomegaly with pulmonary vascular congestion, left hip x-ray reveals chronic postsurgical changes with no change from previous. UA is concerning for infection will be sent for culture. I did discuss the antibiotic coverage with the clinical pharmacist who has recommended cefdinir. We did discuss the patient's listed Keflex allergy which she stated he felt was nausea/vomiting many years ago. Patient felt confident that he would be ambulatory and asked if he can drive home. Ambulatory trial was attempted with a walker and nursing staff x 2. Patient was unable to successfully stand up from the bed. He had great difficulty even sitting up and rolling in the bed. Consultation with behavioral health case manager felt the patient may be suitable for inpatient rehab however he has declined. I suspect the patient is having great difficulty caring for himself at home as he had a strong smell of urine and clothing had some stool stains. Hospitalist service, Dr. Blackwell, was contacted for admission and further management. MONITORING: An order for cardiac monitoring was placed and the patient is noted to be in a paced rhythm at 64 beats per minute. RADIOLOGY: Chest x-ray to my interpretation reveals cardiomegaly with pulmonary vascular congestion CT imaging of the abdomen pelvis: IMPRESSION: 1. No acute posttraumatic intra-abdominal or intrapelvic abnormality identified. 2. No acute fracture is seen. 3. Nonobstructing bilateral nephrolithiasis. 4. Cholelithiasis. 5. Small hiatal hernia 6. Additional findings as above. CT head: No evidence of acute intracranial abnormality. X-ray of the left hip to my interpretation reveals chronic changes when compared to previous, no evidence of acute fracture. Otherwise defer to radiology's over read. EKG: To my interpretation reveals an AV sequential pacemaker at [address] segments. No obvious PVC or PAC. QTc of 555. 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 with presence of antibiotic-impregnated cement spacer (Acute) UTI (urinary tract infection) (Acute) Contusion of hip, left (Acute) Fall (Acute) Osteoarthritis of right knee Osteoarthritis of right hip Statin myopathy Cardiomyopathy Obesity Fatigue Leukopenia Vitamin D deficiency CAD (coronary artery disease) Anticoagulant long-term use Paroxysmal atrial fibrillation Bilateral arm pain Dietary counseling and surveillance Metabolic syndrome Stage 3b chronic kidney disease DVT of axillary vein, acute left Left arm swelling Pacemaker AVB (atrioventricular block) CKD (chronic kidney disease) stage 3, GFR 30-59 ml/min Allergic rhinitis (Acute) Anemia (Acute) Anxiety (Acute) Arthritis (Acute) BPH (benign prostatic hyperplasia) (Acute) Bifascicular block (Acute) Bilateral edema of lower extremity (Acute) Cardiac arrhythmia (Acute) Cough (Acute) Gait disturbance (Acute) Gastroesophageal reflux disease (Acute) History of pulmonary embolism (Acute) Hyperlipidemia (Acute) Hypertension (Acute) Left anterior fascicular block (Acute) Nephrolithiasis (Acute) Obstructive sleep apnea of adult (Acute) Paroxysmal atrial tachycardia (Acute) Pre-diabetes (Acute) Renal insufficiency (Acute) Right bundle branch block (Acute) VPC's (ventricular premature complexes) (Acute) Surgical History H/O heart artery stent x 3 History of lithotripsy History of arthroscopic knee surgery History of hip replacement History of appendectomy Family History Mother Stroke Diabetes Hypertension Father Diabetes Denies family history of Ovarian cancer Prostate cancer Myocardial infarction Breast cancer Colorectal cancer Social History Smoking Status: Never smoker Second Hand Exposure: No; Do You Dip or Chew Tobacco: No; Hx Alcohol Use: No Hx Substance Use: No Preferred Language: Nepalese Communication Ability: Effective Hearing Ability: Normal Supervisor Multifocal Lens Required: No Beliefs That Will Affect Care: Jew Jew Beliefs: [place] marital status: Current Living Situation: Spouse current occupational status: retired 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 Seatbelt Use: always Sunscreen Use: Yes (sometimes.) Assistive Devices: Denture - Upper Allergies Allergies Allergy/AdvReac Type Severity Reaction Status Date / Time atorvastatin Allergy Unknown Verified 07/26/24 15:29 cephalexin [From Keflex] Allergy Unknown Verified 07/26/24 15:29 oxycodone [From Percocet] Allergy Unknown Verified 07/26/24 15:29 potassium chloride Allergy Unknown Verified 07/26/24 15:29 codeine AdvReac Unknown SICK IN Verified 07/26/24 15:29 STOMACH/PASSED OUT Home Meds Home Medications Medication Instructions Recorded Confirmed cholecalciferol (vitamin D3) 10 400 units PO DAILY 04/24/19 07/26/24 mcg (400 unit) tablet acetaminophen 325 mg tablet 325 mg PO QID PRN Pain 04/07/20 07/26/24 ascorbate calcium (vitamin C) 500 500 mg PO DAILY 08/08/20 07/26/24 mg tablet isosorbide mononitrate 30 mg 30 mg PO QPM 07/26/24 07/26/24 tablet,extended release 24 hr multivitamin 1 tab PO DAILY 07/26/24 07/26/24 rivaroxaban 15 mg tablet (Xarelto) 15 mg PO QAM 07/26/24 07/26/24 Previous Rx's Medication Instructions Recorded famotidine 20 mg tablet 20 mg PO DAILY #90 tabs 06/13/20 nitroglycerin 0.4 mg sublingual 0.4 mg sublingual PRN PRN chest 11/21/21 tablet (Nitrostat) pain #30 tabs meloxicam 15 mg tablet 15 mg PO DAILY #90 tabs 09/24/23 amlodipine 10 mg tablet 10 mg PO DAILY #90 tabs 12/06/23 empagliflozin 10 mg tablet 10 mg PO DAILY #90 tabs 12/13/23 (Jardiance) cyclobenzaprine 10 mg tablet 10 mg PO HS PRN muscle spasm #90 01/22/24 tabs Motorized Scooter #1 ea 02/21/24 lisinopril 40 mg tablet 40 mg PO DAILY #90 tabs 02/26/24 metoprolol succinate 200 mg 200 mg PO DAILY #90 tabs 02/26/24 tablet,extended release 24 hr pantoprazole 40 mg tablet,delayed 40 mg PO QAM #90 tabs 04/30/24 release fluticasone propionate 50 2 spray intranasal DAILY #48 grams 06/25/24 mcg/actuation nasal spray,suspension Results & Data (ED) Vital Signs Vital Signs - 24 hr 07/26/24 09:48 07/26/24 09:48 07/26/24 09:51 Temperature 36.3 C L Temperature Source Axillary Pulse Rate 77 70 Pulse Rate [Left Finger] Pulse Rhythm [Left Finger] Pulse Strength [Left Finger] Respiratory Rate 16 Respiratory Effort / Characteristics Non-Labored Spontaneous Respiratory Depth Normal Respiratory Pattern Regular Blood Pressure 105/86 Blood Pressure [Left Arm] Blood Pressure Mean 92 Blood Pressure Mean [Left Arm] Blood Pressure Position [Left Arm] Pulse Oximetry 100 Oxygen Delivery Method Room Air Room Air Sepsis Recent Fever Within 48 Hours No Sepsis New/Unexplained Change in Mental Status N/A Sepsis Action Taken by Nursing No Action Required 07/26/24 10:29 07/26/24 11:26 07/26/24 12:20 Temperature Temperature Source Pulse Rate Pulse Rate [Left Finger] 64 75 78 Pulse Rhythm [Left Finger] Regular Pulse Strength [Left Finger] Normal Respiratory Rate 18 16 16 Respiratory Effort / Characteristics Non-Labored Spontaneous Respiratory Depth Normal Respiratory Pattern Regular Blood Pressure Blood Pressure [Left Arm] 153/69 H 154/72 H 149/83 H Blood Pressure Mean Blood Pressure Mean [Left Arm] 97 99 105 Blood Pressure Position [Left Arm] Lying Pulse Oximetry 100 95 96 Oxygen Delivery Method Room Air Room Air Room Air Sepsis Recent Fever Within 48 Hours Sepsis New/Unexplained Change in Mental Status Sepsis Action Taken by Nursing 07/26/24 13:28 07/26/24 13:28 07/26/24 13:28 Temperature Temperature Source Pulse Rate Pulse Rate [Left Finger] 68 Pulse Rhythm [Left Finger] Pulse Strength [Left Finger] Respiratory Rate 20 Respiratory Effort / Characteristics Non-Labored Respiratory Depth Normal Respiratory Pattern Blood Pressure Blood Pressure [Left Arm] 155/85 H Blood Pressure Mean Blood Pressure Mean [Left Arm] 108 Blood Pressure Position [Left Arm] Pulse Oximetry 98 99 99 Oxygen Delivery Method Room Air Room Air Room Air Sepsis Recent Fever Within 48 Hours Sepsis New/Unexplained Change in Mental Status Sepsis Action Taken by Nursing 07/26/24 13:28 07/26/24 14:20 07/26/24 14:34 Temperature Temperature Source Pulse Rate 64 Pulse Rate [Left Finger] 61 63 Pulse Rhythm [Left Finger] Regular Pulse Strength [Left Finger] Normal Respiratory Rate 20 20 Respiratory Effort / Characteristics Non-Labored Non-Labored Spontaneous Respiratory Depth Normal Normal Respiratory Pattern Regular Blood Pressure Blood Pressure [Left Arm] 155/85 H 150/78 H Blood Pressure Mean Blood Pressure Mean [Left Arm] 108 102 Blood Pressure Position [Left Arm] Sitting Pulse Oximetry 99 98 Oxygen Delivery Method Room Air Room Air Sepsis Recent Fever Within 48 Hours Sepsis New/Unexplained Change in Mental Status Sepsis Action Taken by Nursing 07/26/24 15:00 07/26/24 15:54 07/26/24 16:00 Temperature Temperature Source Pulse Rate Pulse Rate [Left Finger] 66 64 64 Pulse Rhythm [Left Finger] Pulse Strength [Left Finger] Respiratory Rate 20 18 17 Respiratory Effort / Characteristics Non-Labored Spontaneous Non-Labored Spontaneous Respiratory Depth Normal Normal Respiratory Pattern Regular Blood Pressure Blood Pressure [Left Arm] 167/88 H 168/103 H Blood Pressure Mean Blood Pressure Mean [Left Arm] 114 124 Blood Pressure Position [Left Arm] Pulse Oximetry 97 99 99 Oxygen Delivery Method Room Air Room Air Room Air Sepsis Recent Fever Within 48 Hours Sepsis New/Unexplained Change in Mental Status Sepsis Action Taken by Nursing 07/26/24 17:00 Temperature Temperature Source Pulse Rate Pulse Rate [Left Finger] 63 Pulse Rhythm [Left Finger] Pulse Strength [Left Finger] Respiratory Rate 20 Respiratory Effort / Characteristics Non-Labored Spontaneous Respiratory Depth Normal Respiratory Pattern Regular Blood Pressure Blood Pressure [Left Arm] 182/96 H Blood Pressure Mean Blood Pressure Mean [Left Arm] 124 Blood Pressure Position [Left Arm] Pulse Oximetry 99 Oxygen Delivery Method Room Air Sepsis Recent Fever Within 48 Hours Sepsis New/Unexplained Change in Mental Status Sepsis Action Taken by Jail Medications Current Medication List: was personally reviewed by me Laboratory Data Attestation: I reviewed the patient's lab results. 07/26/24 10:24 07/26/24 10:24 Lab Results 07/26/24 07/26/24 07/26/24 Range/Units 10:24 10:30 12:28 WBC 8.74 (4.8-10.8) K/ul RBC 3.75 L (4.70-6.10) M/uL Hgb 12.1 L (14.0-18.0) g/dl POC Hgb 11.9 L (14.0-18.0) g/dl Hct 36.3 L (42.0-52.0) % POC Hct 35 L (42-52) % MCV 96.8 (80.0-100.0) fL MCH 32.3 (25.0-34.0) pg MCHC 33.3 (32.0-36.0) g/dL RDW Std Deviation 44.6 (36.4-46.3) fL RDW Coeff of Ira 12.4 (11.5-14.5) % Plt Count 180 (130-400) K/uL MPV 10.8 (9.4-12.4) fL Immature Gran % (Auto) 0.2 % Neut % (Auto) 80.1 % Lymph % (Auto) 9.6 % Powell % (Auto) 8.2 % Eos % (Auto) 1.8 % Baso % (Auto) 0.1 % Neut # (Auto) 6.99 H (1.40-6.50) K/uL Lymph # (Auto) 0.84 L (1.20-3.40) K/uL Powell # (Auto) 0.72 H (0.11-0.59) K/uL Eos # (Auto) 0.16 (0.00-0.50) K/uL Baso # (Auto) 0.01 (0.00-0.20) K/uL Immature Gran # (Auto) 0.02 (0.01-0.20) K/uL POC Sodium 142 (135-144) mmol/L Sodium 141 (136-145) mmol/L POC Potassium 4.7 (3.3-5.0) mmol/L Potassium 5.0 (3.5-5.1) mmol/L POC Chloride 109 (101-112) mmol/L Chloride 108 H (98-107) mmol/L Carbon Dioxide 24 (21-32) mmol/L POC Total CO2 25 (24-31) mmol/L Anion Gap 9 (3-11) POC Anion Gap 14.0 L (16-25) mmol/L POC BUN 45 H (7-18) mg/dl BUN 44 H (6-23) mg/dl Creatinine 1.57 H (0.6-1.4) mg/dl POC Creatinine 1.8 H (0.6-1.3) mg/dl Est Cr Clr Drug Dosing 61.5 ml/min eGFR 46.25 BUN/Creatinine Ratio 28.0 H (10-20) Glucose 124 H (70-99(Fasting)) mg/dl POC Glucose (other) 128 H (70-99) mg/dl Calcium 9.1 (8.6-10.3) mg/dl POC Ioniz Calcium Thien 1.17 (1.12-1.32) mmol/l Total Bilirubin 0.7 (0.2-1.0) mg/dl AST 24 (13-39) U/L ALT 29 (7-52) U/L Alkaline Phosphatase 60 (34-104) U/L Total Protein 6.9 (6.0-8.3) gm/dl Albumin 3.8 (3.4-5.0) gm/dl Globulin 3.1 (2.5-4.0) gm/dl Albumin/Globulin Ratio 1.2 (0.9-2) Urine Color Yellow Urine Appearance Cloudy A (Clear) Urine pH 5.5 (4.5-7.5) Ur Specific Doyle 1.020 (1.000-1.030) Urine Protein Trace H (Negative) Urine Glucose (UA) 3+ H (Negative) Urine Ketones Negative (Negative) Urine Blood 3+ H (Negative) Urine Nitrite Positive A (Negative) Urine Bilirubin Negative (Negative) Urine Urobilinogen Negative (Negative) Ur Leukocyte Esterase 2+ H (Negative) Urine WBC (Auto) 21-50 H (0-5) /hpf Urine RBC (Auto) >20 H (0-2) /hpf U Hyaline Cast (Auto) 3-5 H (0-2) /lpf U Epithel Cells (Auto) 0-2 (0-2) /hpf Urine Bacteria (Auto) 4+ H (None Seen) Administered Medications Ceftriaxone Sodium (Rocephin) 2,000 mg in 50 mls @ 100 mls/hr IV Q24H ALPESH Stop: 07/31/24 21:59 Last Infusion: 07/26/24 23:03 Dose: Infused Documented By: Admin: 07/26/24 22:05 Dose: 100 mls/hr Documented By: KRISSY Isosorbide Mononitrate (Isosorbide Powell Extended Rel 30 Mg Tabcr) 30 mg PO QPM ALPESH Stop: 08/25/24 20:59 Last Admin: 07/26/24 22:05 Dose: 30 mg Documented By: KRISSY Discontinued Medications Acetaminophen (Acetaminophen 500 Mg Tab) 1,000 mg PO NOW STA Stop: 07/26/24 15:56 Last Admin: 07/26/24 16:47 Dose: 1,000 mg Documented By: ANGÉLICA Cefdinir (Cefdinir 300 Mg Cap) 300 mg PO ONE STA; Protocol Stop: 07/26/24 13:44 Last Admin: 07/26/24 13:59 Dose: 300 mg Documented By: MITCHEL Ioversol (Optiray 320 100ml) 94 ml IV ONCE ONE Stop: 07/26/24 11:20 Last Admin: 07/26/24 11:20 Dose: 94 ml Documented By: JANNETTE Imaging Data Radiologist's Impression: Chest X-Ray 07/26/24 09:51 XR chest 1V portable HISTORY: 73 years-old Male trauma chest trauma COMPARISON: 04/08/2020 TECHNIQUE: AP view of the chest FINDINGS: Cardiac silhouette is enlarged. Dual lead left subclavian pacer. No pneumothorax, pleural effusion or airspace consolidation. Pulmonary vascular congestion. Bones appear grossly intact. IMPRESSION: Cardiomegaly with pulmonary vascular congestion. ACT 112: Negative or not required by law. The above report was generated using voice recognition software. It may contain grammatical, syntax or spelling errors. Electronically signed by: Omega Santa M.D. 07/26/2024 10:00 AM Abdomen/Pelvis CT 07/26/24 10:[address] WITH IV CONTRAST CT DOSE: 2255.72 mGy.cm HISTORY: Acute posttraumatic left flank pain Trauma, L flank pain TECHNIQUE: Multiaxial CT images of the abdomen and pelvis were performed following the IV administration of 94 cc of Optiray, A dose lowering technique was utilized adhering to the principles of ALARA. COMPARISON STUDY: 07/31/2017. FINDINGS: Cardiomegaly. Trace pericardial effusion. Partially imaged pacer leads. Clear lung bases. There are a few small hypodensities of the spleen measuring up to 12 mm which are indeterminate and likely benign. Unremarkable pancreas and adrenal glands. Cholelithiasis without CT evidence of acute cholecystitis. Unremarkable liver. Cortical thinning of the kidneys. There are a few cysts in the kidneys measuring up to 5.3 cm on the right. Scarring/post treatment related changes of the left kidney. There are a few nonobstructing calculi in the kidneys measuring up to 1.3 cm zone the left and 1.9 cm on the right. No ureteral calculi or hydronephrosis. Unremarkable urinary bladder. Atherosclerosis of the aorta without aneurysm. No lymphadenopathy identified. Tiny hiatal hernia. No bowel obstruction or bowel wall thickening. The appendix is not seen. Diastases recti. No ascites. Degenerative changes of the spine, pelvis and hips. Severe right hip osteoarthritis. Unchanged appearance of the chronic ununited left proximal femoral fracture with chronic likely benign structures in the subcutaneous tissues lateral to the left hip measuring 2.6 x 1.3 x 11 cm. Widening along the anterior aspect of the L1-L2 disc space without paravertebral edema is likely chronic. Mild lumbar levoscoliosis. IMPRESSION: 1. No acute posttraumatic intra-abdominal or intrapelvic abnormality identified. 2. No acute fracture is seen. 3. Nonobstructing bilateral nephrolithiasis. 4. Cholelithiasis. 5. Small hiatal hernia 6. Additional findings as above. ACT 112: Negative or not required by law. The above report was generated using voice recognition software. It may contain grammatical, syntax or spelling errors. Electronically signed by: Omega Santa M.D. 07/26/2024 12:[address] 07/26/24 10:10 CT head/brain wo con CLINICAL HISTORY: 73 years-old Male with Trauma. Acute head trauma TECHNIQUE: Multiple axial CT images of the head were obtained without contrast. A dose lowering technique was utilized adhering to the principles of ALARA. COMPARISON: None. FINDINGS: No acute intracranial hemorrhage, midline shift, intracranial mass, hydrocephalus, territorial ischemia or abnormal extra-axial collection. Involutional changes with mild white matter hypodensities suggestive of chronic microvascular ischemic disease. The study is motion degraded. Cerebral vascular calcifications. The calvarium is intact. The paranasal sinuses, mastoid air cells, and middle ear cavities are clear. IMPRESSION: No acute intracranial abnormality or calvarial fracture. ACT 112: Negative or not required by law. The above report was generated using voice recognition software. It may contain grammatical, syntax or spelling errors. Electronically signed by: Omega Santa M.D. 07/26/2024 11:53 AM Hip X-Ray 07/26/24 13:45 EXAM: Radiographs of the Left Hip 3 Views INDICATION: Pain. Fall. TECHNIQUE: Front view pelvis and AP and frog leg lateral views of the left hip. COMPARISON: 02/13/2024 FINDINGS: Limitations: None. 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 2 cerclage wires proximal shaft and a wire oriented longitudinally projecting over the medullary cavity are unchanged. Stable hypertrophic change about the proximal femur and what appears to be a acetabular implant from prior replacement. No acute fracture. Soft tissues: Atherosclerotic calcification present. IMPRESSION: Stable chronic deformity of the left hip including cranial dislocation. No acute abnormality. ACT 112: Negative or not required by law. 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 with presence of antibiotic-impregnated cement spacer Patient Disposition: Home - Self-Care Condition: Good Discharge Instructions Interventions: ED Discharge Assessment Last Done: 07/26/24 19:42 Discharge Problem: Contusion of hip, left Qualifiers: Encounter type: initial encounter Qualified Code(s): S70.02XA - Contusion of left hip, initial encounter Fall Qualifiers: Encounter type: initial encounter Qualified Code(s): W19.XXXA - Unspecified fall, initial encounter UTI (urinary tract infection) Qualifiers: Urinary tract infection type: acute cystitis Hematuria presence: with hematuria Qualified Code(s): N30.01 - Acute cystitis with hematuria 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
[2024-07-26] MEDS: ISOSORBIDE MONO EXTENDED REL 30 MG TABCR PO SCH (22:05)
[2024-07-26] MEDS: cefTRIAXone SODIUM 2,000 MG/50 ML BAG IV SCH (22:05)
[2024-07-27] MEDS: lisinopril 40 MG TAB PO SCH (07:56)
[2024-07-27] MEDS: amLODIPine BESYLATE 5 MG TAB PO SCH (07:56)
[2024-07-27] MEDS: PANTOprazole 40 MG TAB PO SCH (07:56)
[2024-07-27] MEDS: CHOLECALCIFEROL 10 MCG (400 UNITS) TAB PO SCH (07:56)
[2024-07-27] MEDS: METOPROLOL SUCC 50MG EXT REL TAB PO SCH (07:57)
[2024-07-27] MEDS: FAMOTIDINE 20 MG TAB PO SCH (07:57)
[2024-07-27] MEDS: INFLUENZA VACC TS2024-25(65y+)/PF (IIV3) 0.5mL Syr IM ONE (07:57)
--- NOTE | 2024-07-27 07:57 | Hospitalist Progress Note ---
Date of Service July 27, 2024 Assessment & Plan (1) Fall: Plan: This is a 73-year-old gentleman with past medical history of CAD, GERD, hypertension, ANAMARIA who presented to the ER on 07/26/2024 after a fall. Also found to have +UA CXR: cardiomegaly w/ pulmonary vascular congestion CTAP: negative for acute pathology from fall/no fracture (does note unchanged appearance of the chronic ununited LEFT proximal femoral fracture with chronic likely benign structures in the subcutaneous tissues lateral to the left hip measuring 2.6x1.3x11cm). Did get Xray left hip, which noted Stable chronic deformity of the left hip including cranial dislocation. No acute abnormality. head CT: negative Hold Xarelto in setting of left lateral thigh ecchymosis Appears w/ hematoma on exam today and will continue to have this on hold, hgb 10.7 from 12.1 on admission and did report SOB w/ therapy today but reported from "deconditioning". Discussed wanting to continue to hold/monitor hemoglobin overnight -- Does have hx paroxysmal afib but noting patient reports having his pacer interrogated and NO events in the past year (was only in for 3 hours the prior check). 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 -follow up urine cx and convert to PO to complete the course. CT imaging does note b/l nonobstructing kidney stones Pain control w/ tylenol, tramadol as needed Monitor CBC, BMP in AM PT/OT consults pending but suspect unless worsens should be able to return home and continued use of walker (reported tripping on mat with lip of his walker causing fall) (2) UTI (urinary tract infection): Plan: UA+ in ER, provided Cefdnir PO x 1 in ER as was attempting to dc but failed ambulation trial Continues on Ceftriaxone as above and plan to complete course w/ PO once cx finalized Also with CKD, renal function stable compared to baseline and continues on home medications including lisinopril, amlodipine, imdur, metoprolol for HTN/CAD Renal dose meds/abx as able and avoid nephrotoxins (3) Hematoma of left thigh: Plan: noted on exam today, hgb dropped as above and continues to have xarelto on hold (4) Contusion of left hip and thigh: Plan: xray neg for ACUTE fracture, does note chronic findings as outlined Plan chronic conditions: CAD/HTN/HLD: BP stable 129/70. Continues on home amlodipine, ISMN, lisinopril 40m metoprolol 200mg. 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 Xarelto on hold as above GERD: Pepcid and PPI DVT prophylaxis: hold Xarelto in setting of fall and hematoma with drop in hgb Dispo: hopeful dc in AM pending blood counts/hematoma on exam and urine cx finalized if cleared by therapy to return home. Would rec to continue to hold his xarelto for a couple of days if hematoma worse/further drop in hgb given pacemaker report without afib in the past year, no palpitations reported and risk for further bleeding from fall w/ use. Admission and Anticipated Discharge Date Admission Date: July 26, 2024 Subjective Evaulated this morning, worked with therapy. Did get a little more short of breath with exertion but reported he thinks from inactivity. Discussed does have a start of hematoma on exam and urine cx still pending and would prefer ensuring cx results back and continued monitoring of hematoma/blood counts but if stable/cx back tomorrow will plan for discharge. No CP/fever/chills reported. Chronic lymphedema and has followed w/ clinic in the past. Not able to use compression/wraps as unable. Physical Exam 2 Physical Exam: General: 73yo male sitting up in bed, NAD, initially hoping to go home Head atraumatic, normocephalic, mmm, trachea midline Resp: even/unlabored, slightly diminished in the bases, no overt wheezing/crackles, 97% on RA CV: RRR, pacemaker noted, no significant m/r/g, chronic LE lymphedema, pulses present GI: +BS, soft/NT : no vargas MSK/Neuro: R knee in brace, NVI LEFT LATERAL hip with slight hematoma, minimally tender to palpation, ?[id number] in length in diameter. no significant warmth/drainage Psych:AOx3, cooperative with exam Results & Data Results & Data Vital Signs (Past 12 Hours) Vital Signs Temp Pulse Resp BP Pulse Ox O2 Del Method 07/27/24 07:14 36.6 C 67 16 129/70 97 Room Air 07/26/24 20:30 Room Air 07/26/24 20:30 36.9 C 68 20 157/83 H 98 Room Air 07/26/24 20:00 69 18 161/81 H 98 Room Air Laboratory Results 07/27/24 08:02 07/27/24 08:02 Mag 2.0 UA 3+ glucose, 3+ blood, ++nitrate, 2+ leuk esterase, 21-50 WBC, >20 RBC, 3-5 hyaline case, 4+ bacteria Diagnostic Findings Chest X-Ray 07/26/24 09:51 XR chest 1V portable HISTORY: 73 years-old Male trauma chest trauma COMPARISON: 04/08/2020 TECHNIQUE: AP view of the chest FINDINGS: Cardiac silhouette is enlarged. Dual lead left subclavian pacer. No pneumothorax, pleural effusion or airspace consolidation. Pulmonary vascular congestion. Bones appear grossly intact. IMPRESSION: Cardiomegaly with pulmonary vascular congestion. ACT 112: Negative or not required by law. The above report was generated using voice recognition software. It may contain grammatical, syntax or spelling errors. Electronically signed by: Omega Santa M.D. 07/26/2024 10:00 AM Abdomen/Pelvis CT 07/26/24 10:[address] WITH IV CONTRAST CT DOSE: 2255.72 mGy.cm HISTORY: Acute posttraumatic left flank pain Trauma, L flank pain TECHNIQUE: Multiaxial CT images of the abdomen and pelvis were performed following the IV administration of 94 cc of Optiray, A dose lowering technique was utilized adhering to the principles of ALARA. COMPARISON STUDY: 07/31/2017. FINDINGS: Cardiomegaly. Trace pericardial effusion. Partially imaged pacer leads. Clear lung bases. There are a few small hypodensities of the spleen measuring up to 12 mm which are indeterminate and likely benign. Unremarkable pancreas and adrenal glands. Cholelithiasis without CT evidence of acute cholecystitis. Unremarkable liver. Cortical thinning of the kidneys. There are a few cysts in the kidneys measuring up to 5.3 cm on the right. Scarring/post treatment related changes of the left kidney. There are a few nonobstructing calculi in the kidneys measuring up to 1.3 cm zone the left and 1.9 cm on the right. No ureteral calculi or hydronephrosis. Unremarkable urinary bladder. Atherosclerosis of the aorta without aneurysm. No lymphadenopathy identified. Tiny hiatal hernia. No bowel obstruction or bowel wall thickening. The appendix is not seen. Diastases recti. No ascites. Degenerative changes of the spine, pelvis and hips. Severe right hip osteoarthritis. Unchanged appearance of the chronic ununited left proximal femoral fracture with chronic likely benign structures in the subcutaneous tissues lateral to the left hip measuring 2.6 x 1.3 x 11 cm. Widening along the anterior aspect of the L1-L2 disc space without paravertebral edema is likely chronic. Mild lumbar levoscoliosis. IMPRESSION: 1. No acute posttraumatic intra-abdominal or intrapelvic abnormality identified. 2. No acute fracture is seen. 3. Nonobstructing bilateral nephrolithiasis. 4. Cholelithiasis. 5. Small hiatal hernia 6. Additional findings as above. ACT 112: Negative or not required by law. The above report was generated using voice recognition software. It may contain grammatical, syntax or spelling errors. Electronically signed by: Omega Santa M.D. 07/26/2024 12:[address] 07/26/24 10:10 CT head/brain wo con CLINICAL HISTORY: 73 years-old Male with Trauma. Acute head trauma TECHNIQUE: Multiple axial CT images of the head were obtained without contrast. A dose lowering technique was utilized adhering to the principles of ALARA. COMPARISON: None. FINDINGS: No acute intracranial hemorrhage, midline shift, intracranial mass, hydrocephalus, territorial ischemia or abnormal extra-axial collection. Involutional changes with mild white matter hypodensities suggestive of chronic microvascular ischemic disease. The study is motion degraded. Cerebral vascular calcifications. The calvarium is intact. The paranasal sinuses, mastoid air cells, and middle ear cavities are clear. IMPRESSION: No acute intracranial abnormality or calvarial fracture. ACT 112: Negative or not required by law. The above report was generated using voice recognition software. It may contain grammatical, syntax or spelling errors. Electronically signed by: Omega Santa M.D. 07/26/2024 11:53 AM Hip X-Ray 07/26/24 13:45 EXAM: Radiographs of the Left Hip 3 Views INDICATION: Pain. Fall. TECHNIQUE: Front view pelvis and AP and frog leg lateral views of the left hip. COMPARISON: 02/13/2024 FINDINGS: Limitations: None. 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 2 cerclage wires proximal shaft and a wire oriented longitudinally projecting over the medullary cavity are unchanged. Stable hypertrophic change about the proximal femur and what appears to be a acetabular implant from prior replacement. No acute fracture. Soft tissues: Atherosclerotic calcification present. IMPRESSION: Stable chronic deformity of the left hip including cranial dislocation. No acute abnormality. ACT 112: Negative or not required by law. Electronically signed by Dania Nj 07-26-2024 2:53 PM PG Care Time/CCT Total # of Minutes Spent Total Time Spent with Patient: Total time spent is greater than 50% in coordination of care (as documented) at patient's floor/unit and/or counseling patient: Coding Level of Care Code 86113 SUB INP/OBS CARE 3/50MIN Diagnoses Fall W19.XXXA Encounter type: initial encounter UTI (urinary tract infection) N30.01 Hematuria presence: with hematuria Urinary tract infection type: acute cystitis Hematoma of left thigh S70.12XA Contusion of left hip and thigh S70.02XA; S70.12XA (1) Fall Encounter type: initial encounter Qualified Code(s): W19.XXXA - Unspecified fall, initial encounter (2) UTI (urinary tract infection) Hematuria presence: with hematuria Urinary tract infection type: acute cystitis Qualified Code(s): N30.01 - Acute cystitis with hematuria
[2024-07-27] MEDS: traMADol HCL 50 MG TABLET PO PRN (08:03)
[2024-07-27 08:34] LABS: Basophils # (auto) 0.02 K/uL (0.00-0.20); Basophils % (auto) 0.3 %; Eosinophils # (auto) 0.16 K/uL (0.00-0.50); Eosinophils % (auto) 2.2 %; Hematocrit (blood only) 31.6 % (42.0-52.0); Hemoglobin 10.7 g/dl (14.0-18.0); Immature Granulocytes # (auto) 0.02 K/uL (0.01-0.20); Immature Granulocytes % (auto) 0.3 %; Lymphocytes # (auto) 1.13 K/uL (1.20-3.40); Lymphocytes % (auto) 15.6 %; Mean Corpuscular Hemoglobin 32.4 pg (25.0-34.0); Mean Corpuscular Hgb Conc 33.9 g/dL (32.0-36.0); Mean Corpuscular Volume 95.8 fL (80.0-100.0); Mean Platelet Volume 10.7 fL (9.4-12.4); Monocytes # (auto) 0.68 K/uL (0.11-0.59); Monocytes % (auto) 9.4 %; Neutrophils # (auto) 5.22 K/uL (1.40-6.50); Neutrophils % (auto) 72.2 %; Platelet Count 186 K/uL (130-400); RDW Coefficient of Variation 12.5 % (11.5-14.5); RDW Standard Deviation 43.9 fL (36.4-46.3); White Blood Count 7.23 K/ul (4.8-10.8)
[2024-07-27 08:37] LABS: Albumin Globulin Ratio 1.4 (0.9-2); Albumin Level 3.5 gm/dl (3.4-5.0); BUN Creatinine Ratio 22.2 (10-20); Calcium 8.6 mg/dl (8.6-10.3); Creatinine Clr Calc Pharmacy 58.8 ml/min; Globulin 2.5 gm/dl (2.5-4.0); Potassium 4.5 mmol/L (3.5-5.1)
[2024-07-27] MEDS: ACETAMINOPHEN 500 MG TAB PO SCH (13:16)
[2024-07-27] MEDS ORDERED: ACETAMINOPHEN 500 MG TAB PO SCH (22:00)
[2024-07-28 06:45] LABS: Mean Corpuscular Hemoglobin 32.6 pg (25.0-34.0); Mean Corpuscular Hgb Conc 33.3 g/dL (32.0-36.0); Mean Corpuscular Volume 97.7 fL (80.0-100.0); Mean Platelet Volume 10.3 fL (9.4-12.4); Platelet Count 157 K/uL (130-400); RDW Coefficient of Variation 12.5 % (11.5-14.5); RDW Standard Deviation 44.6 fL (36.4-46.3); Red Blood Count 3.07 M/uL (4.70-6.10); White Blood Count 6.42 K/ul (4.8-10.8)
[2024-07-28 07:24] LABS: BUN Creatinine Ratio 23.6 (10-20); Calcium 8.2 mg/dl (8.6-10.3); Creatinine Clr Calc Pharmacy 46.9 ml/min; Potassium 4.2 mmol/L (3.5-5.1)
--- NOTE | 2024-07-28 15:27 | Hospitalist Progress Note ---
Date of Service July 28, 2024 Assessment & Plan (1) Fall: Plan: This is a 73-year-old gentleman with past medical history of CAD, GERD, hypertension, ANAMARIA who presented to the ER on 07/26/2024 after a fall. Also found to have +UA CXR: cardiomegaly w/ pulmonary vascular congestion CTAP: negative for acute pathology from fall/no fracture (does note unchanged appearance of the chronic ununited LEFT proximal femoral fracture with chronic likely benign structures in the subcutaneous tissues lateral to the left hip measuring 2.6x1.3x11cm). Xray left hip, which noted Stable chronic deformity of the left hip including cranial dislocation. No acute abnormality. head CT: negative Hold Xarelto in setting of left lateral thigh hematoma - Acute blood loss anemia secondary to hematoma with hgb drop to 10.0 from 12.1 on admission - Does have history of paroxysmal A-fib, but patient reports having his pacemaker interrogated and no events in the past year - Will need to discuss that he should avoid NSAIDs while on Xarelto, as meloxicam 15 mg daily is on his home med list - Pain control w/ Tylenol, tramadol as needed - PT/OT recommending home health services (2) UTI (urinary tract infection): Plan: UA+ in ER, provided Cefdnir PO x 1 in ER as was attempting to dc but failed ambulation trial - Switched to Ceftriaxone once admitted - Urine culture was negative, antibiotic discontinued 07/28 (3) MADDI (acute kidney injury): Plan: MADDI superimposed on CKD; baseline Cr around 1.55 - Cr bump to 2.03 on 07/28 - Lisinopril held; continue amlodipine, Imdur, metoprolol for HTN/CAD - Encourage oral hydration - Monitor BMP in AM - Renal dose meds as able and avoid nephrotoxins Plan 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 Continues on home amlodipine, ISMN, lisinopril 40m metoprolol 200mg. 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 Xarelto on hold as above GERD: Pepcid and PPI Dispo: Anticipated discharge home today, however given further drop in hemoglobin and rising creatinine, recommending another night inpatient to monit or morning labs and ensure stability DVT prophylaxis: hold Xarelto in setting of fall and hematoma with drop in hgb CODE STATUS: Full code Admission and Anticipated Discharge Date Admission Date: July 26, 2024 Subjective Patient seen and evaluated at bedside. He reports left lateral thigh discomfort (location of his hematoma) and worsening of his chronic lower back pain which he attributes to the hospital bed. We discussed that his hemoglobin further decreased and his creatinine increased, so I am recommending continued inpatient stay overnight to monitor his lab work in the morning. He was disappointed but agreeable. 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 No additional complaints or concerns at this time. Physical Exam Physical Exam: General: No acute distress, nondiaphoretic, well-developed, well-nourished. Skin: Left lateral hip with slight hematoma, minimally tender to palpation. No significant warmth/drainage around hematoma. Chronic lower extremity lymphedema noted. Cardiac: Regular rate and rhythm without murmurs gallops or rubs. Pulm: Clear to auscultation bilaterally without wheezes, rales or rhonchi. No respiratory distress. 98% on room air. Abdominal: Soft, nontender, nondistended. Bowel sounds present. Neuro: A&O x3. No focal neurological deficits. Results & Data Results & Data Vital Signs (Past 12 Hours) Vital Signs Temp Pulse Resp BP BP Pulse Ox O2 Del Method 07/28/24 15:12 98.1 F 65 16 142/67 H 95 Room Air 07/28/24 08:20 Room Air 07/28/24 07:39 97.8 F 63 18 145/57 H 98 Room Air Laboratory Results Reviewed CBC Reviewed chemistries Reviewed urine culture PG Care Time/CCT Total # of Minutes Spent Total Time Spent with Patient: Total time spent is greater than 50% in coordination of care (as documented) at patient's floor/unit and/or counseling patient: Coding Level of Care Code 75280 SUB INP/OBS CARE 3/50MIN Diagnoses Fall W19.XXXA Encounter type: initial encounter UTI (urinary tract infection) N30.01 Hematuria presence: with hematuria Urinary tract infection type: acute cystitis MADDI (acute kidney injury) N17.9 (1) Fall Encounter type: initial encounter Qualified Code(s): W19.XXXA - Unspecified fall, initial encounter (2) UTI (urinary tract infection) Hematuria presence: with hematuria Urinary tract infection type: acute cystitis Qualified Code(s): N30.01 - Acute cystitis with hematuria
[2024-07-28 20:34] VITALS: TEMP 97.7
[2024-07-29 07:30] VITALS: BP 142/68; PULSE 68; RESP 16; O2SAT 98
[2024-07-29 08:02] LABS: Hematocrit (blood only) 29.4 % (42.0-52.0); Mean Corpuscular Hemoglobin 32.7 pg (25.0-34.0); Mean Corpuscular Volume 96.1 fL (80.0-100.0); Mean Platelet Volume 10.4 fL (9.4-12.4); Platelet Count 176 K/uL (130-400); RDW Coefficient of Variation 12.4 % (11.5-14.5); RDW Standard Deviation 43.3 fL (36.4-46.3); Red Blood Count 3.06 M/uL (4.70-6.10); White Blood Count 7.18 K/ul (4.8-10.8)
[2024-07-29 08:21] LABS: Calcium 8.2 mg/dl (8.6-10.3); Creatinine Clr Calc Pharmacy 48.6 ml/min; Potassium 4.4 mmol/L (3.5-5.1)
--- NOTE | 2024-07-29 19:00 | Discharge Summary ---
Discharge Summary Date of Service July 29, 2024 Principal Dx & Hospital Course #1 = Principal Diagnosis (1) Fall: Presented to the ER after a mechanical fall from tripped with his walker at [employer] - All imaging on admission unremarkable for any acute abnormalities. 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 Hgb remained stable without further drop > Does have history of paroxysmal A-fib, but patient reports having his pacemaker interrogated and no events in the past year - Discussed that he should avoid NSAIDs while on Xarelto, as meloxicam 15 mg daily is on his home med list - PT/OT recommended home health services; patient declined - Lab slip given on discharge for CBC and BMP to be checked on 07/31 to monitor hgb (2) UTI (urinary tract infection): UA+ in ER, provided Cefdnir PO x 1 in ER as was attempting to dc but failed ambulation trial - Switched to Ceftriaxone once admitted - Urine culture was negative, antibiotic discontinued 07/28 (3) MADDI (acute kidney injury): Acute kidney failure superimposed on CKD; baseline Cr around 1.55 - Cr bump to 2.03 on 07/28 - Lisinopril held; continue amlodipine, Imdur, metoprolol for HTN/CAD - Encourage oral hydration - Cr still elevated from baseline but improved to 1.96 on day of discharge -- recommended to hold lisinopril until PCP follow-up appointment - Lab slip given on discharge for CBC and BMP to be checked on 07/31 to monitor kidney function Plan chronic conditions: CAD/HTN/HLD: BP stable. Continues on home amlodipine, ISMN, lisinopril 40m metoprolol 200mg. 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 Xarelto on hold as above GERD: Pepcid and PPI Dispo: Anticipated discharge home today, however given further drop in hemoglobin and rising creatinine, recommending another night inpatient to monitor morning labs and ensure stability DVT prophylaxis: hold Xarelto in setting of fall and hematoma with drop in hgb CODE STATUS: Full code Notes For Next Care Provider Presented after mechanical fall from tripping on carpet at a [employer]. All imaging unremarkable for acute abnormalities. Patient developed left lateral thigh hematoma with 2 g drop in hemoglobin. Xarelto held until PCP follow-up appointment. Patient educated on risks associated with NSAIDs (takes meloxicam at home) while on anticoagulation and recommended he stops his meloxicam. Lab slip given on discharge for patient to get CBC and BMP checked on 07/31 to monitor hemoglobin and kidney function. Medication Changes From Visit Xarelto on hold until PCP follow-up appointment Lisinopril on hold until PCP follow-up ointment Recommend stopping meloxicam as he is on chronic anticoagulation Admission HPI Per Admitting Provider This is a 73-year-old gentleman with past medical history of CAD, GERD, hypertension, ANAMARIA who presented to the ER on 07/26/2024 after a fall. The patient was seen and examined with family members at bedside. Patient reports that this morning at [employer] he tripped over the carpet with his walker and as a result fell down. States that he landed on his left backside/thigh. Denies striking his head. At time of encounter he was experiencing some left lower back pain along with left thigh pain. He denied any pain in any other extremities. He denies chest pain or shortness of breath. He denied dizziness or lightheadedness prior to falling. He denies any urinary symptoms. Denies fevers or chills. Patient did fail his ambulation trial in the ER so he will be admitted for further evaluation by physical and Occupational Therapy. Discharge Exam General: No acute distress, nondiaphoretic, Morbid obesity with BMI 48.8. Skin: Left lateral hip with slight hematoma, minimally tender to palpation. No significant warmth/drainage around hematoma. Chronic lower extremity lymphedema noted. Cardiac: Regular rate and rhythm without murmurs gallops or rubs. Pulm: Clear to auscultation bilaterally without wheezes, rales or rhonchi. No respiratory distress. 98% on room air. Abdominal: Soft, nontender, nondistended. Bowel sounds present. Neuro: A&O x3. No focal neurological deficits. Discharge Plan Discharge Items Patient Disposition: Home - Self-Care Reason For Visit: FALL Discharge Diagnosis: Left thigh hematoma s/p fall Condition on Discharge: Good Activity: Resume your previous activity Non-emergency contact: Primary Care Provider Call non-emergency contact if: you have any medication questions and your symptoms worsen Follow-up/Referrals: Ronny Llamas MD [Primary Care Provider] - 08/03/24 10:00 am (Appointment will be with ) Diet: Heart Healthy Ambulatory Orders: Basic Metabolic Panel (Routine) Timeframe: 2 Days Location: Determined by Patient Ordered By: Alanna Khan Complete Blood Count no Diff (Routine) Timeframe: 2 Days Location: Determined by Patient Ordered By: Alanna Khan Addtl Attending Provider Instructions: Mr. Azul, You were admitted to the hospital after a mechanical fall. This fall resulted in a hematoma on your left thigh/hip. Hematoma is a bad bruise. It happens wh en an injury causes blood to collection and pool under the skin. The pooling blood gives the skin a spongy, rubbery, lumpy feel. Home Health services were NOT set up on discharge, per your wishes, but if you change your mind your PCP can make a referral for Home Health for you. Upon discharge from the hospital: * Your Xarelto (blood thinner) was placed on HOLD due to the hematoma of your leg. Continue to hold this until you follow-up with your PCP in 1 week. * Your Lisinopril (blood pressure medicine) was placed on HOLD due to an elevation in your creatinine (decreased kidney function). Continue to hold this until you follow-up with your PCP in 1 week. * You will get lab work done in 2 days (on Saturday07/31/24) to evaluate your hemoglobin, electrolytes, and kidney function. A lab slip will be provided to you with your discharge paperwork. Your PCP will follow-up on these results with you. * Do NOT take Meloxicam (NSAID). This is due to an increased risk of bleeding events when taking NSAIDs with anti-coagulation. * Follow-up with your PCP in 1 week. How can you care for yourself at home? * Rest and protect the bruised area. * Put ice or a cold pack on the area for 10 to 20 minutes at a time. * Wrapping the bruised area with an elastic bandage such as an Jayson wrap will help decrease swelling. Don't wrap it too tightly, as this can cause more swelling below the affected area. Please return to the hospital if you experience any of the following: * Signs of a skin infection including: increased pain/swelling/warmth/redness around your hematoma, red streaks leading from the hematoma, pus draining from the hematoma, fever of 100.5 F or higher. * Bruise becomes bigger or becomes more painful. * Chest pain, palpitations, racing heartbeat, shortness of breath, difficulty breathing. * Weakness, tingling, loss of feeling on 1 side of your face or body, sudden double vision or trouble seeing in 1 or both eyes, sudden trouble talking or slurring your speech, sudden/severe headache. * Weakness, dizziness, confusion passing out. It was a pleasure taking care of you while you were in the hospital, Alanna Khan PA-C Pending Studies at Discharge: No Stand-Alone Forms: [facility], Smoking Cessation Medications and DC Order Prescriptions: Continued amlodipine 10 mg tablet 10 mg PO DAILY Qty: 90 3RF Jardiance 10 mg tablet 10 mg PO DAILY Qty: 90 3RF cyclobenzaprine 10 mg tablet 10 mg PO HS PRN (Reason: muscle spasm) Qty: 90 3RF (DME) Motorized Scooter See Rx Instructions .Route .MEDSUPPLY Qty: 1 0RF Rx Instructions: As directed to aid in mobility and increase independence metoprolol succinate 200 mg tablet extended release 24 hr 200 mg PO DAILY Qty: 90 3RF pantoprazole 40 mg tablet,delayed release (DR/EC) 40 mg PO QAM Qty: 90 3RF fluticasone propionate 50 mcg/actuation spray,suspension 2 spray intranasal DAILY Qty: 48 3RF cholecalciferol (vitamin D3) 400 unit tablet 400 units PO DAILY famotidine 20 mg tablet 20 mg PO DAILY Qty: 90 3RF ascorbate calcium (vitamin C) 500 mg tablet 500 mg PO DAILY acetaminophen 325 mg Tablet 325 mg PO QID PRN (Reason: Pain) nitroglycerin [Nitrostat] 0.4 mg Tablet, Sublingual 0.4 mg sublingual PRN PRN (Reason: chest pain) Qty: 30 1RF Rx Instructions: Take 1 tablet every 5 minutes for chest pain. Max 3 tabs. multivitamin Tablet 1 tab PO DAILY isosorbide mononitrate 30 mg tablet extended release 24 hr 30 mg PO QPM Held lisinopril 40 mg tablet 40 mg PO DAILY Qty: 90 3RF Hold Instructions: Resume on 08/04/24. Hold until PCP follow-up appointment Xarelto 15 mg tablet 15 mg PO QAM Hold Instructions: Resume on 08/04/24. Hold until PCP follow-up appointment Discontinued meloxicam 15 mg tablet 15 mg PO DAILY Qty: 90 3RF Discharge Orders: Discharge Order (Routine); Ordered 07/29/24 Ordered By: Alanna Bragg/Other Patient Handouts: Slips Trips Falls Prevention Admission Data Admit Date/Time: 07/26/24 17:17 Attending Provider: Zuhair Daigle Admit Provider: Jenn Cheney Primary Care Provider: Ronny Llamas Other Providers: Miguel Blackwell Other Interventions: Discharge Summary Assessment (RN) Last Done: 07/29/24 13:31 Hospital Stay Data Consultations 07/26/24 15:26 ED Decision to Admit Stat Diagnostic Imagining Performed 07/26/24 10:10 CT abd pelvis IV con only Stat CT head/brain wo con Stat Pending Results Patient Have Any Pending Studies at Discharge: No Discharge Instructions Given to Patient (Per Discharging Provider) Mr. Azul, Kevon were admitted to the hospital after a mechanical fall. This fall resulted in a hematoma on your left thigh/hip. Hematoma is a bad bruise. It happens when an injury causes blood to collection and pool under the skin. The pooling blood gives the skin a spongy, rubbery, lumpy feel. Home Health services were NOT set up on discharge, per your wishes, but if you change your mind your PCP can make a referral for Home Health for you. Upon discharge from the hospital: * Your Xarelto (blood thinner) was placed on HOLD due to the hematoma of your leg. Continue to hold this until you follow-up with your PCP in 1 week. * Your Lisinopril (blood pressure medicine) was placed on HOLD due to an elevation in your creatinine (decreased kidney function). Continue to hold t his until you follow-up with your PCP in 1 week. * You will get lab work done in 2 days (on Saturday07/31/24) to evaluate your hemoglobin, electrolytes, and kidney function. A lab slip will be provided to you with your discharge paperwork. Your PCP will follow-up on these results with you. * Do NOT take Meloxicam (NSAID). This is due to an increased risk of bleeding events when taking NSAIDs with anti-coagulation. * Follow-up with your PCP in 1 week. How can you care for yourself at home? * Rest and protect the bruised area. * Put ice or a cold pack on the area for 10 to 20 minutes at a time. * Wrapping the bruised area with an elastic bandage such as an Jayson wrap will help decrease swelling. Don't wrap it too tightly, as this can cause more swelling below the affected area. Please return to the hospital if you experience any of the following: * Signs of a skin infection including: increased pain/swelling/warmth/redness around your hematoma, red streaks leading from the hematoma, pus draining from the hematoma, fever of 100.5 F or higher. * Bruise becomes bigger or becomes more painful. * Chest pain, palpitations, racing heartbeat, shortness of breath, difficulty breathing. * Weakness, tingling, loss of feeling on 1 side of your face or body, sudden double vision or trouble seeing in 1 or both eyes, sudden trouble talking or slurring your speech, sudden/severe headache. * Weakness, dizziness, confusion passing out. It was a pleasure taking care of you while you were in the hospital, Alanna Khan PA-C Total Time Total Time Spent Total Time Spent (In Minutes): Greater than 30 minutes spent completing this discharge process including direct patient care, medication reconciliation, documentation, review of labs and images, and coordination of care. Coding Level of Care Code 44141 INP/OBS DISCH >30 MIN Diagnoses Fall W19.XXXA Encounter type: initial encounter UTI (urinary tract infection) N30.01 Hematuria presence: with hematuria Urinary tract infection type: acute cystitis MADDI (acute kidney injury) N17.9
== END 2024-07-29 14:26 | disposition home or self-care (01) | DRG 605 ==
LOC: ED 09:33 → SUATTDRO 17:17 → 3N 17:17
DX: Z79.01 Long term (current) use of anticoagulants; Z96.642 Presence of left artificial hip joint; R73.03 Prediabetes; E66.01 Morbid (severe) obesity due to excess calories; S72.92XK Unspecified fracture of left femur, subsequent encounter for closed fracture with nonunion; N18.9 Chronic kidney disease, unspecified; Z68.42 Body mass index [BMI] 45.0-49.9, adult; Z86.711 Personal history of pulmonary embolism; N39.0 Urinary tract infection, site not specified; I25.10 Atherosclerotic heart disease of native coronary artery without angina pectoris; Z88.5 Allergy status to narcotic agent; Z95.5 Presence of coronary angioplasty implant and graft; Z89.622 Acquired absence of left hip joint; W01.0XXA Fall on same level from slipping, tripping and stumbling without subsequent striking against object, initial encounter; Y92.22 Religious institution as the place of occurrence of the external cause; K21.9 Gastro-esophageal reflux disease without esophagitis; D62 Acute posthemorrhagic anemia; I12.9 Hypertensive chronic kidney disease with stage 1 through stage 4 chronic kidney disease, or unspecified chronic kidney disease; S70.12XA Contusion of left thigh, initial encounter; X58.XXXS Exposure to other specified factors, sequela; Z95.0 Presence of cardiac pacemaker; E78.5 Hyperlipidemia, unspecified; Z86.14 Personal history of Methicillin resistant Staphylococcus aureus infection; G47.33 Obstructive sleep apnea (adult) (pediatric); S70.02XA Contusion of left hip, initial encounter; N17.9 Acute kidney failure, unspecified

== ENCOUNTER 2024-09-16 20:56 | Inpatient (IN) ==
--- NOTE | 2024-09-16 22:09 | Emergency Department Note ---
History of Present Illness General Chief complaint: Fall Stated complaint: fall Time Seen by Provider: 09/16/24 21:26 History of Present Illness Maximum Pain Intensity: 7 This is a 73-year-old gentleman with past medical history of CAD, GERD, hypertension, ANAMARIA on Xarelto presents ER for fall and generalized weakness. He is concerned he is another urine infection. Patient states he was weak and collapsed. He complains of low back pain, bilateral knee pain and right hip pain. Patient denies fever, chills, chest pain, dyspnea, abdominal pain. He states he feels too weak to care for himself at home. Home Medications Medication Instructions Recorded Confirmed Type cholecalciferol (vitamin D3) 10 400 units PO DAILY 04/24/19 08/03/24 History mcg (400 unit) tablet acetaminophen 325 mg tablet 325 mg PO QID PRN Pain 04/07/20 08/03/24 History famotidine 20 mg tablet 20 mg PO DAILY #90 tabs 06/13/20 08/03/24 Rx ascorbate calcium (vitamin C) 500 500 mg PO DAILY 08/08/20 08/03/24 History mg tablet nitroglycerin 0.4 mg sublingual 0.4 mg sublingual PRN PRN chest 11/21/21 08/03/24 Rx tablet (Nitrostat) pain #30 tabs amlodipine 10 mg tablet 10 mg PO DAILY #90 tabs 12/06/23 08/03/24 Rx empagliflozin 10 mg tablet 10 mg PO DAILY #90 tabs 12/13/23 08/03/24 Rx (Jardiance) cyclobenzaprine 10 mg tablet 10 mg PO HS PRN muscle spasm #90 01/22/24 08/03/24 Rx tabs Motorized Scooter #1 ea 02/21/24 07/20/24 Rx lisinopril 40 mg tablet 40 mg PO DAILY #90 tabs 02/26/24 08/03/24 Rx metoprolol succinate 200 mg 200 mg PO DAILY #90 tabs 02/26/24 08/03/24 Rx tablet,extended release 24 hr pantoprazole 40 mg tablet,delayed 40 mg PO QAM #90 tabs 04/30/24 08/03/24 Rx release fluticasone propionate 50 2 spray intranasal DAILY #48 grams 06/25/24 08/03/24 Rx mcg/actuation nasal spray,suspension isosorbide mononitrate 30 mg 30 mg PO QPM 07/26/24 08/03/24 History tablet,extended release 24 hr multivitamin 1 tab PO DAILY 07/26/24 08/03/24 History rivaroxaban 15 mg tablet (Xarelto) 15 mg PO QAM #90 tabs 09/07/24 Rx Allergies Allergy/AdvReac Type Severity Reaction Status Date / Time atorvastatin Allergy Unknown Verified 08/03/24 10:25 cephalexin [From Keflex] Allergy Unknown Verified 08/03/24 10:25 oxycodone [From Percocet] Allergy Unknown Verified 08/03/24 10:25 potassium chloride Allergy Unknown Verified 08/03/24 10:25 codeine AdvReac Unknown SICK IN Verified 08/03/24 10:25 STOMACH/PASSED OUT Past Med/Surg History Problem List (Updated 09/17/24 @ 01:30 by Meghna Fry PA-C) Weakness (Acute) Elevated troponin (Acute) Acute UTI (Acute) MADDI (acute kidney injury) Hematoma of left thigh Contusion of left hip and thigh 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 with presence of antibiotic-impregnated cement spacer (Acute) Fall (Acute) Osteoarthritis of right knee Osteoarthritis of right hip Statin myopathy Cardiomyopathy Obesity Fatigue Leukopenia Vitamin D deficiency CAD (coronary artery disease) Anticoagulant long-term use Paroxysmal atrial fibrillation Bilateral arm pain Dietary counseling and surveillance Metabolic syndrome Stage 3b chronic kidney disease DVT of axillary vein, acute left Left arm swelling Pacemaker AVB (atrioventricular block) CKD (chronic kidney disease) stage 3, GFR 30-59 ml/min Allergic rhinitis (Acute) Anemia (Acute) Anxiety (Acute) Arthritis (Acute) BPH (benign prostatic hyperplasia) (Acute) Bifascicular block (Acute) Bilateral edema of lower extremity (Acute) Cardiac arrhythmia (Acute) Cough (Acute) Gait disturbance (Acute) Gastroesophageal reflux disease (Acute) History of pulmonary embolism (Acute) Hyperlipidemia (Acute) Hypertension (Acute) Left anterior fascicular block (Acute) Nephrolithiasis (Acute) Obstructive sleep apnea of adult (Acute) Paroxysmal atrial tachycardia (Acute) Pre-diabetes (Acute) Renal insufficiency (Acute) Right bundle branch block (Acute) VPC's (ventricular premature complexes) (Acute) Surgical History H/O heart artery stent x 3 History of lithotripsy History of arthroscopic knee surgery History of hip replacement History of appendectomy Family History Mother Stroke Diabetes Hypertension Father Diabetes Denies family history of Ovarian cancer Prostate cancer Myocardial infarction Breast cancer Colorectal cancer Social History Smoking Status: Never smoker Second Hand Exposure: No; Do You Dip or Chew Tobacco: No; Hx Alcohol Use: No Hx Substance Use: No Preferred Language: Hungarian Communication Ability: Effective Hearing Ability: Normal Shearing Supervisor Required: No Beliefs That Will Affect Care: Catholic Catholic Beliefs: [employer] marital status: Current Living Situation: Spouse current occupational status: retired 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 Seatbelt Use: always Sunscreen Use: Yes (sometimes.) Assistive Devices: Cane, Walker and Other Review of Systems A total of 10 systems reviewed and were otherwise negative Physical Exam Vital Signs Vital Signs - 24 hr 09/16/24 21:06 09/16/24 21:15 09/16/24 22:49 Temperature 36.9 C Temperature Source Oral Pulse Rate 82 79 Pulse Rate [Apical] Respiratory Rate 20 Respiratory Effort / Characteristics Respiratory Depth Normal Respiratory Pattern Blood Pressure 141/70 H Blood Pressure [Left Arm] Blood Pressure Mean 93 Blood Pressure Mean [Left Arm] Pulse Oximetry 98 100 Oxygen Delivery Method Room Air Room Air Sepsis Recent Fever Within 48 Hours No Sepsis New/Unexplained Change in Mental Status No Sepsis Action Taken by Nursing No Action Required 09/16/24 22:49 09/17/24 01:13 Temperature Temperature Source Pulse Rate 70 Pulse Rate [Apical] 78 Respiratory Rate 18 Respiratory Effort / Characteristics Non-Labored Spontaneous Respiratory Depth Normal Respiratory Pattern Regular Blood Pressure Blood Pressure [Left Arm] 165/79 H Blood Pressure Mean Blood Pressure Mean [Left Arm] 107 Pulse Oximetry 99 Oxygen Delivery Method Room Air Sepsis Recent Fever Within 48 Hours Sepsis New/Unexplained Change in Mental Status Sepsis Action Taken by Nursing PHYSICAL EXAM: VITALS: Vitals are noted on the nurse's note and reviewed by myself. Vital signs stable. GENERAL: White male with an elevated BMI, in no acute distress, nondiaphoretic, well-developed well-nourished. SKIN: The skin was without obvious lacerations or abrasions. Capillary reflex less than 2 seconds. HEAD: Normocephalic atraumatic. EARS: External auditory canals clear, EYES: Pupils equal round and reactive to light and accommodation. Conjunctivae without injection, sclerae without icterus. Extraocular movements intact. NOSE: Patent, turbinates without inflammation or discharge. MOUTH: Mucous membranes moist. Pharynx without erythema or exudate. Uvula midline. Airway patent. Tongue does not deviate. NECK: Supple without nuchal rigidity. Cervical spine is nontender. Full range of motion of the neck without tenderness. No JVD. HEART: Regular rate and rhythm LUNGS: Clear to auscultation bilaterally without wheezes, rales or rhonchi. No dullness to percussion. No retractions or accessory muscle use. No chest wall tenderness. ABDOMEN: Positive bowel sounds x 4. Normal tympanic percussion. Soft, nontender, without masses or organomegaly. No guarding or rebound tenderness. MUSCULOSKELETAL: Tenderness of the low back without step-offs. Right hip tender to palpation. Bilateral knees tender to palpation with increased pain range of motion. Full range of motion without tenderness to palpation in all other extremities. NEURO: Patient was alert and oriented to person place and time. Normal sensation to light and sharp touch. No focal neurological deficits. Course Administered Medications Fentanyl Citrate (Fentanyl Citrate Pf 100 Mcg/2 Ml Vial) 50 mcg IV Q15M PRN PRN Reason: Pain Stop: 10/01/24 00:27 Last Admin: 09/17/24 00:35 Dose: 50 mcg Documented By: GABOF Discontinued Medications Acetaminophen (Ofirmev) 1,000 mg in 100 mls @ 400 mls/hr IV NOW STA Stop: 09/16/24 21:57 Last Infusion: 09/16/24 23:09 Dose: Infused Documented By: Admin: 09/16/24 22:54 Dose: 400 mls/hr Documented By: SHRUTHI Piperacillin Sod/Tazobactam Sod (Zosyn) 4.5 gm in 100 mls @ 200 mls/hr IV NOW ONE; Protocol Stop: 09/17/24 00:22 Last Infusion: 09/17/24 01:10 Dose: Infused Documented By: Admin: 09/17/24 00:35 Dose: 200 mls/hr Documented By: ANNA Medical Decision Making Medical Records Attestation: I reviewed the patient's medical records. Home Medications Current Medication List: was personally reviewed by me Laboratory Data Attestation: I reviewed the patient's lab results. 09/16/24 22:50 09/16/24 22:50 Lab Results 09/16/24 09/16/24 09/16/24 Range/Units 22:50 22:51 23:20 WBC 12.93 H (4.8-10.8) K/ul RBC 3.92 L (4.70-6.10) M/uL Hgb 13.0 L (14.0-18.0) g/dl Hct 38.9 L (42.0-52.0) % MCV 99.2 (80.0-100.0) fL MCH 33.2 (25.0-34.0) pg MCHC 33.4 (32.0-36.0) g/dL RDW Std Deviation 43.5 (36.4-46.3) fL RDW Coeff of Ira 11.9 (11.5-14.5) % Plt Count 226 (130-400) K/uL MPV 10.3 (9.4-12.4) fL Immature Gran % (Auto) 0.4 % Neut % (Auto) 85.7 % Lymph % (Auto) 6.0 % [place] % (Auto) 6.9 % Eos % (Auto) 0.7 % Baso % (Auto) 0.3 % Neut # (Auto) 11.09 H (1.40-6.50) K/uL Lymph # (Auto) 0.77 L (1.20-3.40) K/uL [place] # (Auto) 0.89 H (0.11-0.59) K/uL Eos # (Auto) 0.09 (0.00-0.50) K/uL Baso # (Auto) 0.04 (0.00-0.20) K/uL Immature Gran # (Auto) 0.05 (0.01-0.20) K/uL Sodium 141 (136-145) mmol/L Potassium 4.5 (3.5-5.1) mmol/L Chloride 105 (98-107) mmol/L Carbon Dioxide 25 (21-32) mmol/L Anion Gap 11 (3-11) BUN 41 H (6-23) mg/dl Creatinine 1.86 H (0.6-1.4) mg/dl Est Cr Clr Drug Dosing 52.2 ml/min eGFR 37.74 BUN/Creatinine Ratio 22.0 H (10-20) Glucose 166 H (70-99(Fasting)) mg/dl Lactate 1.6 (0.4-2.0) mmol/L Calcium 9.3 (8.6-10.3) mg/dl Magnesium 2.0 (1.7-2.4) mg/dl Total Bilirubin 0.7 (0.2-1.0) mg/dl AST 17 (13-39) U/L ALT 12 (7-52) U/L Alkaline Phosphatase 80 (34-104) U/L Total Creatine Kinase 38 (30-223) U/L Troponin I High Sens 28.2 H (0-20) pg/ml Total Protein 7.4 (6.0-8.3) gm/dl Albumin 3.7 (3.4-5.0) gm/dl Globulin 3.7 (2.5-4.0) gm/dl Albumin/Globulin Ratio 1.0 (0.9-2) TSH 1.055 (0.300-4.500) uIu/ml Urine Color Yellow Urine Appearance Cloudy A (Clear) Urine pH 5.5 (4.5-7.5) Ur Specific [place] 1.020 (1.000-1.030) Urine Protein Trace H (Negative) Urine Glucose (UA) 3+ H (Negative) Urine Ketones Negative (Negative) Urine Blood 2+ H (Negative) Urine Nitrite Negative (Negative) Urine Bilirubin Negative (Negative) Urine Urobilinogen Negative (Negative) Ur Leukocyte Esterase 3+ H (Negative) Urine WBC (Auto) >50 H (0-5) /hpf Urine RBC (Auto) 11-20 H (0-2) /hpf U Hyaline Cast (Auto) 0-2 (0-2) /lpf U Epithel Cells (Auto) 0-2 (0-2) /hpf Urine Bacteria (Auto) 4+ H (None Seen) Adenovirus (PCR) Not Detected (NotDetected) B. pertussis DNA (PCR) Not Detected (NotDetected) B.parapertussis DNA PCR Not Detected (NotDetected) C. pneumoniae DNA (PCR) Not Detected (NotDetected) Coronavirus OC43 (PCR) Not Detected (NotDetected) Coronavirus HKU1 (PCR) Not Detected (NotDetected) Coronavirus 229E (PCR) Not Detected (NotDetected) SARS-CoV-2 (PCR) Not Detected (NotDetected) Coronavirus NL63 (PCR) Not Detected (NotDetected) Human Metapneumovir PCR Not Detected (NotDetected) Influenza Type A (PCR) Not Detected (NotDetected) Influenza Type B (PCR) Not Detected (NotDetected) M. pneumoniae (PCR) Not Detected (NotDetected) Parainfluenza 1 (PCR) Not Detected (NotDetected) Parainfluenza 2 (PCR) Not Detected (NotDetected) Parainfluenza 3 (PCR) Not Detected (NotDetected) Parainfluenza 4 (PCR) Not Detected (NotDetected) RSV (PCR) Not Detected (NotDetected) Entero/Rhino (PCR) Not Detected (NotDetected) Imaging Data Attestation: I personally reviewed and interpreted this imaging study as follows: Radiologist's Impression: Cervical Spine CT 09/16/24 21:43 Exam(s): CT C SPINE EXAM: CT Cervical Spine Without Intravenous Contrast CLINICAL HISTORY: Reason for exam: fall. TECHNIQUE: Axial computed tomography images of the cervical spine without intravenous contrast. CTDI is 39.03 mGy and DLP is 1462.38 mGy-cm. Automated exposure control was utilized for the study. A dose lowering technique was utilized adhering to the principles of ALARA. COMPARISON: No relevant prior studies available. FINDINGS: No fracture or subluxations are noted. The vertebral body heights and alignment are preserved. No prevertebral soft tissue swelling. Note is made of multilevel cervical spondylosis with varying degrees of central canal and foramina stenoses. IMPRESSION: 1. No cervical fractures. 2. Cervical spondylosis with varying degrees of central canal and foramina stenoses. Electronically signed by: Rylan Nicolas MD 09/16/24 23:25 PM Chest X-Ray 09/16/24 21:43 Exam(s): XR CXR 1 VIEW EXAM: XR Chest, 1 View CLINICAL HISTORY: Reason for exam: weakness. TECHNIQUE: Frontal view of the chest. COMPARISON: 07/26/2024 FINDINGS: Lungs: Unremarkable. No consolidation. Pleural space: Unremarkable. No pneumothorax. Heart: Cardiomegaly. Mediastinum: Unremarkable. Normal mediastinal contour. Bones/joints: Unremarkable. No acute fracture. Tubes, lines and devices: Left chest wall dual lead intracardiac device. IMPRESSION: No acute findings in the chest. Electronically signed by: Rylan Nicolas MD 09/17/24 00:09 AM Hip/Pelvis X-Ray 09/16/24 21:43 Exam(s): XR HIP + PELVIS, 2-3 views EXAM: XR Pelvis, 1 or 2 Views CLINICAL HISTORY: Reason for exam: fall, pain. TECHNIQUE: Frontal view of the pelvis. COMPARISON: 07/26/2024 FINDINGS: Bones/joints: Subcapital right femoral neck fracture. Stable appearance of the left hip with superior subluxation of the proximal femur with respect to the acetabulum. Soft tissues: Unremarkable. IMPRESSION: New, minimally displaced, subcapital right femoral neck fracture Stable appearance to the left hip. Electronically signed by: Rylan Nicolas MD 09/17/24 00:20 AM Knee X-Ray 09/16/24 21:43 Exam(s): XR RIGHT KNEE, 1-2 views EXAM: XR Right Knee, 1 or 2 Views CLINICAL HISTORY: Reason for exam: fall, pain. TECHNIQUE: Frontal and/or lateral views of the right knee. COMPARISON: 02/13/2024 FINDINGS: Exam limited secondary to the obliquity the images were obtained. Bones/joints: Unremarkable. No acute fracture. No dislocation. Soft tissues: Vascular calcifications. IMPRESSION: No acute osseous pathology Electronically signed by: Rylan Nicolas MD 09/17/24 00:25 AM Knee X-Ray 09/16/24 21:43 Exam(s): XR LEFT KNEE, 1-2 views EXAM: XR Left Knee, 1 or 2 Views CLINICAL HISTORY: Reason for exam: fall, pain. TECHNIQUE: Frontal and/or lateral views of the left knee. COMPARISON: No relevant prior studies available. FINDINGS: Bones/joints: Unremarkable. No acute fracture. No dislocation. Soft tissues: Unremarkable. IMPRESSION: Normal left knee x-rays. Electronically signed by: Rylan Nicolas MD 09/17/24 00:[address] 09/16/24 21:44 Exam(s): CT HEAD Without Contrast EXAM: CT Head Without Intravenous Contrast CLINICAL HISTORY: Reason for exam: fall, on DOAC. TECHNIQUE: Axial computed tomography images of the head/brain without intravenous contrast. CTDI is 39.03 mGy and DLP is 1462.38 mGy-cm. Automated exposure control was utilized for the study. A dose lowering technique was utilized adhering to the principles of ALARA. COMPARISON: 07/26/2024 FINDINGS: Limitations: Exam slightly limited secondary to patient motion artifact. Brain: Unremarkable. No hemorrhage. No significant white matter disease. No edema. Ventricles: Unremarkable. No ventriculomegaly. Bones/joints: Unremarkable. No acute fracture. Soft tissues: Unremarkable. Sinuses: Unremarkable as visualized. No acute sinusitis. Mastoid air cells: Unremarkable as visualized. No mastoid effusion. IMPRESSION: No acute findings in the head/brain. Electronically signed by: Rylan Nicolas MD 09/16/24 23:[address] 09/16/24 22:10 EXAM: CT lumbar spine wo con CLINICAL HISTORY: ground level fall tonight at home, states he was attempting to back his walker up to the couch and slid to the ground. denies head strike, neck pain or LOC. is currently on xarelto, c/o back and bilateral knee pain pt unable to raise arms above head PW TECHNIQUE: Multiple contiguous axial images were obtained through the lumbar spine without IV contrast. Sagittal and coronal reformatted images were obtained from the axial data. CT scan was performed according to ALARA (as low as reasonable achievable). COMPARISON: None. FINDINGS: Loss of lumbar lordosis - suggest possibility of muscle spasm/positional. Degenerative changes involving lumbar spine in the form of multilevel marginal osteophytes, disc space reduction and facetal arthrosis. Lumbar vertebral bodies are maintained in height and alignment. No vertebral estructive changes are seen. Posterior disc osteophyte complex with reduced disc height is noted at the T12-L1 to L5-S1 level causes indentation on ventral thecal sac and narrowing of bilateral lateral recesses and neural foraminal narrowing at respective levels. Paravertebral soft tissues are unremarkable. IMPRESSION: 1. Lumbar spondylosis. No obvious acute trauma related abnormality seen. Electronically signed by Juan Pabon 09-17-2024 01:[address] 09/16/24 22:10 EXAM: CT thoracic spine wo con CLINICAL HISTORY: ground level fall tonight at home, states he was attempting to back his walker up to the couch and slid to the ground. denies head strike, neck pain or LOC. is currently on xarelto, c/o back and bilateral knee pain pt unable to raise arms above head PW TECHNIQUE: Multiple contiguous axial images were obtained through the thoracic spine without IV contrast. Sagittal and coronal reformatted images were obtained from the axial data. CT scan was performed according to ALARA (as low as reasonable achievable). COMPARISON: None. FINDINGS: Degenerative changes involving thoracic spine in the form of multilevel marginal osteophytes, disc space reduction and facetal arthrosis. The alignment of the thoracic spine is maintained. Thoracic vertebral bodies are maintained in height and alignment. No vertebral destructive changes are seen. Disc osteophyte complex is noted through T4-T5 to T11-T12 level, which indenting ventral thecal sac without significant neural foraminal narrowing. Paravertebral soft tissues are unremarkable. Visualized lung parenchyma appears unremarkable. IMPRESSION: 1. Degenerative changes involving thoracic spine. 2. No obvious acute trauma related abnormality is noted. Electronically signed by Juan Pabon 09-17-2024 01:[address] 09/16/24 22:56 EXAM: CT hip RT wo con CLINICAL HISTORY: ground level fall tonight at home, states he was attempting to back his walker up to the couch and slid to the ground. denies head strike, neck pain or LOC. is currently on xarelto, c/o back and bilateral knee pain pt unable to raise arms above head PW TECHNIQUE: Contiguous axial CT images of right hip were obtained without intravenous contrast. Coronal and sagittal reconstructions were likewise performed and indicated to increase the sensitivity for detecting clinically relevant pathology. CT scan was performed according to ALARA (as low as reasonable achievable). COMPARISON: None. FINDINGS: Severe osteoarthritis is noted involving right hip joint in the form of reduction of joint space , marginal osteophytes with subarticular sclerosis and degenerative cyst and osteophytes formation involving head of femur and acetabulum No acute fracture or dislocation. No destructive osseous lesion. The visualized muscles and tendons appear grossly unremarkable. No cortical destruction to suggest osteomyelitis. No abscess formation. No significant joint effusion. There are no soft tissue masses. Normal subcutaneous adipose space. IMPRESSION: 1. Severe right hip osteoarthritis. 2. No fracture or dislocation. Electronically signed by Juan Pabon 09-17-2024 01:08 AM MDM Narrative Prior records/ancillary studies reviewed. Triage Nursing notes reviewed. Additional history obtained from family. The patient's history was concerning for fall and generalized weakness Differential diagnosis: Etiologies such as fracture, infection, electrolyte abnormality, dislocation, intra-abdominal, pneumothorax, intrathoracic , intracranial, neurologic, as well as other traumatic pathologies were entertained. Physical examination findings: As above. The patients vitals were stable. ER treatment provided: IV Normal Saline hydration, Tylenol was ordered Zosyn was ordered for your infection. Patient has a cephalosporin allergy An order was placed for continuous cardiac monitoring. The monitor shows a rate of 60-100 with a sinus rhythm per my interpretation. On reassessment the patient felt better. Vital signs were stable. Diagnostic interpretation by me: A 12 lead ECG revealed no emergent pathology. Ordered for weakness EKG: Paced rhythm with no acute ST-T wave changes, impression paced rhythm independent interpreted myself The labs Independently Interpreted by myself revealed leukocytosis, urine concerning for infection sent for culture. Slightly elevated troponin. Patient has paced rhythm on EKG. No Sgarbossa. Repeat troponin was ordered. Negative BioFire. No recent urine culture for review. Imaging studies: Imaging was reviewed and read by radiology as above Initial hip x-ray was read as hip fracture but CT was negative. Consultation: A consultation was placed with hospitalist. The case was discussed and diagnostics were reviewed. The patient was admitted to the medical service. This appears to be consistent with UTI with fall with weakness. Patient was started on antibiotics. Urine culture was placed. No recent culture for review. Medicine was consulted and the case was discussed. He will be admitted for further evaluation and workup. By the evaluation outlined above emergent etiologies such as dislocation, intra-abdominal, pneumothorax, pulmonary contusion, hemothorax, intracranial, neurologic,as well as others were deemed relatively unlikely. The pt informed about the findings as listed above. All questions were answered and pleased with the treatment. The chart was completed utilizing [employer] Speech voice recognition software. Grammatical errors, random word insertions, pronoun errors, and incomplete sentences are an occassional consequence of this system due to software limitations, ambient noise, and hardware issues. Any formal questions or concerns about the content, text, or information contained within the body of this dictation should be directly addressed to the physician assistant portfolio manager for clarification. Impression & Plan Acute UTI, Elevated troponin, Weakness Discharge Plan Visit Data Chief Complaint: Fall Stated Complaint: fall ED Provider: Yasmin Murdock ED Midlevel Provider: Meghna Fry Discharge Problem: Acute UTI, Elevated troponin, Weakness Patient Disposition: Admitted As Inpatient Condition: Fair Forms Stand Alone Forms: [facility] [place] Prescriptions Prescriptions: No Action amlodipine 10 mg tablet 10 mg PO DAILY Qty: 90 3RF Jardiance 10 mg tablet 10 mg PO DAILY Qty: 90 3RF cyclobenzaprine 10 mg tablet 10 mg PO HS PRN (Reason: muscle spasm) Qty: 90 3RF (DME) Motorized Scooter See Rx Instructions .Route .MEDSUPPLY Qty: 1 0RF Rx Instructions: As directed to aid in mobility and increase independence lisinopril 40 mg tablet 40 mg PO DAILY Qty: 90 3RF Hold Instructions: Resume on 08/04/24. Hold until PCP follow-up appointment metoprolol succinate 200 mg tablet extended release 24 hr 200 mg PO DAILY Qty: 90 3RF pantoprazole 40 mg tablet,delayed release (DR/EC) 40 mg PO QAM Qty: 90 3RF fluticasone propionate 50 mcg/actuation spray,suspension 2 spray intranasal DAILY Qty: 48 3RF Xarelto 15 mg tablet 15 mg PO QAM Qty: 90 3RF Hold Instructions: Resume on 08/04/24. Hold until PCP follow-up appointment cholecalciferol (vitamin D3) 400 unit tablet 400 units PO DAILY famotidine 20 mg tablet 20 mg PO DAILY Qty: 90 3RF ascorbate calcium (vitamin C) 500 mg tablet 500 mg PO DAILY acetaminophen 325 mg Tablet 325 mg PO QID PRN (Reason: Pain) nitroglycerin [Nitrostat] 0.4 mg Tablet, Sublingual 0.4 mg sublingual PRN PRN (Reason: chest pain) Qty: 30 1RF Rx Instructions: Take 1 tablet every 5 minutes for chest pain. Max 3 tabs. multivitamin Tablet 1 tab PO DAILY isosorbide mononitrate 30 mg tablet extended release 24 hr 30 mg PO QPM Referrals Referrals: Ronny Llamas MD [Primary Care Provider] -
[2024-09-16] MEDS: ACETAMINOPHEN 1,000 MG/100 ML VIAL IV STA (22:54)
[2024-09-16 23:11] LABS: Basophils # (auto) 0.04 K/uL (0.00-0.20); Basophils % (auto) 0.3 %; Eosinophils # (auto) 0.09 K/uL (0.00-0.50); Eosinophils % (auto) 0.7 %; Hematocrit (blood only) 38.9 % (42.0-52.0); Immature Granulocytes # (auto) 0.05 K/uL (0.01-0.20); Immature Granulocytes % (auto) 0.4 %; Lymphocytes # (auto) 0.77 K/uL (1.20-3.40); Mean Corpuscular Hemoglobin 33.2 pg (25.0-34.0); Mean Corpuscular Hgb Conc 33.4 g/dL (32.0-36.0); Mean Corpuscular Volume 99.2 fL (80.0-100.0); Mean Platelet Volume 10.3 fL (9.4-12.4); Monocytes # (auto) 0.89 K/uL (0.11-0.59); Monocytes % (auto) 6.9 %; Neutrophils # (auto) 11.09 K/uL (1.40-6.50); Neutrophils % (auto) 85.7 %; Platelet Count 226 K/uL (130-400); RDW Coefficient of Variation 11.9 % (11.5-14.5); RDW Standard Deviation 43.5 fL (36.4-46.3); Red Blood Count 3.92 M/uL (4.70-6.10); White Blood Count 12.93 K/ul (4.8-10.8)
--- NOTE | 2024-09-16 23:15 | CT Scan Report ---
Exam(s): CT HEAD Without Contrast EXAM: CT Head Without Intravenous Contrast CLINICAL HISTORY: Reason for exam: fall, on DOAC. TECHNIQUE: Axial computed tomography images of the head/brain without intravenous contrast. CTDI is 39.03 mGy and DLP is 1462.38 mGy-cm. Automated exposure control was utilized for the study. A dose lowering technique was utilized adhering to the principles of ALARA. COMPARISON: 07/26/2024 FINDINGS: Limitations: Exam slightly limited secondary to patient motion artifact. Brain: Unremarkable. No hemorrhage. No significant white matter disease. No edema. Ventricles: Unremarkable. No ventriculomegaly. Bones/joints: Unremarkable. No acute fracture. Soft tissues: Unremarkable. Sinuses: Unremarkable as visualized. No acute sinusitis. Mastoid air cells: Unremarkable as visualized. No mastoid effusion. IMPRESSION: No acute findings in the head/brain. Electronically signed by: Rylan Nicolas MD 09/16/24 23:14 PM
[2024-09-16 23:21] LABS: Albumin Level 3.7 gm/dl (3.4-5.0); Bilirubin,Total 0.7 mg/dl (0.2-1.0); Calcium 9.3 mg/dl (8.6-10.3); Creatinine Clr Calc Pharmacy 52.2 ml/min; Globulin 3.7 gm/dl (2.5-4.0); Potassium 4.5 mmol/L (3.5-5.1); Total Protein 7.4 gm/dl (6.0-8.3)
--- NOTE | 2024-09-16 23:25 | CT Scan Report ---
Exam(s): CT C SPINE EXAM: CT Cervical Spine Without Intravenous Contrast CLINICAL HISTORY: Reason for exam: fall. TECHNIQUE: Axial computed tomography images of the cervical spine without intravenous contrast. CTDI is 39.03 mGy and DLP is 1462.38 mGy-cm. Automated exposure control was utilized for the study. A dose lowering technique was utilized adhering to the principles of ALARA. COMPARISON: No relevant prior studies available. FINDINGS: No fracture or subluxations are noted. The vertebral body heights and alignment are preserved. No prevertebral soft tissue swelling. Note is made of multilevel cervical spondylosis with varying degrees of central canal and foramina stenoses. IMPRESSION: 1. No cervical fractures. 2. Cervical spondylosis with varying degrees of central canal and foramina stenoses. Electronically signed by: Rylan Nicolas MD 09/16/24 23:25 PM
[2024-09-16 23:27] LABS: Troponin I High Sensitivity 28.2 pg/ml (0-20)
[2024-09-16 23:37] LABS: Thyroid Stimulating Hormone 1.055 uIu/ml (0.300-4.500)
--- NOTE | 2024-09-16 23:41 | Emergency Department Note ---
ED Visit Note I was consulted by the Advanced Practice Provider. I personally made/approved the management plan and take responsibility for the patient management. I performed a substantive portion of the visit. This includes the aspects of: -History/Physical -MDM .
[2024-09-16 23:46] LABS: Appearance Urine Cloudy (Clear); Bacteria Urine Automated 4+ (None Seen); Bilirubin Urine Negative (Negative); Blood Urine 2+ (Negative); Cast Urine Automated 0-2 /lpf (0-2); Color Urine Yellow; Epithelial Cell Urine Auto 0-2 /hpf (0-2); Glucose Urine UA 3+ (Negative); Ketones Urine Negative (Negative); Leukocyte Esterase Urine 3+ (Negative); Nitrite Urine Negative (Negative); Protein Urine Trace (Negative); Urobilinogen Urine Negative (Negative); WBC Urine Automated >50 /hpf (0-5); pH Urine 5.5 (4.5-7.5)
[2024-09-16 23:46] LABS: Adenovirus PCR Not Detected (NotDetected); Bordetella parapertussis PCR Not Detected (NotDetected); Bordetella pertussis PCR Not Detected (NotDetected); Chlamydia pneumoniae PCR Not Detected (NotDetected); Coronavirus 229E PCR Not Detected (NotDetected); Coronavirus CoV-2 (COVID19)PCR Not Detected (NotDetected); Coronavirus HKU1 PCR Not Detected (NotDetected); Coronavirus NL63 PCR Not Detected (NotDetected); Coronavirus OC43PCR Not Detected (NotDetected); Human Metapneumovirus PCR Not Detected (NotDetected); Influenza A PCR Not Detected (NotDetected); Influenza B PCR Not Detected (NotDetected); Mycoplasma pneumoniae PCR Not Detected (NotDetected); Parainfluenza Virus 1 PCR Not Detected (NotDetected); Parainfluenza Virus 2 PCR Not Detected (NotDetected); Parainfluenza Virus 3 PCR Not Detected (NotDetected); Parainfluenza Virus 4 PCR Not Detected (NotDetected); Respiratory Syncytial VirusPCR Not Detected (NotDetected); Rhinovirus/Enterovirus PCR Not Detected (NotDetected)
--- NOTE | 2024-09-17 00:10 | XRay Report ---
Exam(s): XR CXR 1 VIEW EXAM: XR Chest, 1 View CLINICAL HISTORY: Reason for exam: weakness. TECHNIQUE: Frontal view of the chest. COMPARISON: 07/26/2024 FINDINGS: Lungs: Unremarkable. No consolidation. Pleural space: Unremarkable. No pneumothorax. Heart: Cardiomegaly. Mediastinum: Unremarkable. Normal mediastinal contour. Bones/joints: Unremarkable. No acute fracture. Tubes, lines and devices: Left chest wall dual lead intracardiac device. IMPRESSION: No acute findings in the chest. Electronically signed by: Rylan Nicolas MD 09/17/24 00:09 AM
--- NOTE | 2024-09-17 00:20 | XRay Report ---
Exam(s): XR HIP + PELVIS, 2-3 views EXAM: XR Pelvis, 1 or 2 Views CLINICAL HISTORY: Reason for exam: fall, pain. TECHNIQUE: Frontal view of the pelvis. COMPARISON: 07/26/2024 FINDINGS: Bones/joints: Subcapital right femoral neck fracture. Stable appearance of the left hip with superior subluxation of the proximal femur with respect to the acetabulum. Soft tissues: Unremarkable. IMPRESSION: New, minimally displaced, subcapital right femoral neck fracture Stable appearance to the left hip. Electronically signed by: Rylan Nicolas MD 09/17/24 00:20 AM
--- NOTE | 2024-09-17 00:26 | XRay Report ---
Exam(s): XR RIGHT KNEE, 1-2 views EXAM: XR Right Knee, 1 or 2 Views CLINICAL HISTORY: Reason for exam: fall, pain. TECHNIQUE: Frontal and/or lateral views of the right knee. COMPARISON: 02/13/2024 FINDINGS: Exam limited secondary to the obliquity the images were obtained. Bones/joints: Unremarkable. No acute fracture. No dislocation. Soft tissues: Vascular calcifications. IMPRESSION: No acute osseous pathology Electronically signed by: Rylan Nicolas MD 09/17/24 00:25 AM
--- NOTE | 2024-09-17 00:27 | XRay Report ---
Exam(s): XR LEFT KNEE, 1-2 views EXAM: XR Left Knee, 1 or 2 Views CLINICAL HISTORY: Reason for exam: fall, pain. TECHNIQUE: Frontal and/or lateral views of the left knee. COMPARISON: No relevant prior studies available. FINDINGS: Bones/joints: Unremarkable. No acute fracture. No dislocation. Soft tissues: Unremarkable. IMPRESSION: Normal left knee x-rays. Electronically signed by: Rylan Nicolas MD 09/17/24 00:26 AM
[2024-09-17] MEDS: fentaNYL citrate PF 100 MCG/2 ML VIAL IV PRN (00:35)
[2024-09-17] MEDS: PIPERACILLIN/TAZOBACTAM 4.5 GM/100 ML BAG IV ONE (00:35)
--- NOTE | 2024-09-17 01:04 | CT Scan Report ---
EXAM: CT thoracic spine wo con CLINICAL HISTORY: ground level fall tonight at home, states he was attempting to back his walker up to the couch and slid to the ground. denies head strike, neck pain or LOC. is currently on xarelto, c/o back and bilateral knee pain pt unable to raise arms above head PW TECHNIQUE: Multiple contiguous axial images were obtained through the thoracic spine without IV contrast. Sagittal and coronal reformatted images were obtained from the axial data. CT scan was performed according to ALARA (as low as reasonable achievable). COMPARISON: None. FINDINGS: Degenerative changes involving thoracic spine in the form of multilevel marginal osteophytes, disc space reduction and facetal arthrosis. The alignment of the thoracic spine is maintained. Thoracic vertebral bodies are maintained in height and alignment. No vertebral destructive changes are seen. Disc osteophyte complex is noted through T4-T5 to T11-T12 level, which indenting ventral thecal sac without significant neural foraminal narrowing. Paravertebral soft tissues are unremarkable. Visualized lung parenchyma appears unremarkable. IMPRESSION: 1. Degenerative changes involving thoracic spine. 2. No obvious acute trauma related abnormality is noted. Electronically signed by Juan Pabon 09-17-2024 01:04 AM
--- NOTE | 2024-09-17 01:09 | CT Scan Report ---
EXAM: CT hip RT wo con CLINICAL HISTORY: ground level fall tonight at home, states he was attempting to back his walker up to the couch and slid to the ground. denies head strike, neck pain or LOC. is currently on xarelto, c/o back and bilateral knee pain pt unable to raise arms above head PW TECHNIQUE: Contiguous axial CT images of right hip were obtained without intravenous contrast. Coronal and sagittal reconstructions were likewise performed and indicated to increase the sensitivity for detecting clinically relevant pathology. CT scan was performed according to ALARA (as low as reasonable achievable). COMPARISON: None. FINDINGS: Severe osteoarthritis is noted involving right hip joint in the form of reduction of joint space , marginal osteophytes with subarticular sclerosis and degenerative cyst and osteophytes formation involving head of femur and acetabulum No acute fracture or dislocation. No destructive osseous lesion. The visualized muscles and tendons appear grossly unremarkable. No cortical destruction to suggest osteomyelitis. No abscess formation. No significant joint effusion. There are no soft tissue masses. Normal subcutaneous adipose space. IMPRESSION: 1. Severe right hip osteoarthritis. 2. No fracture or dislocation. Electronically signed by Juan Pabon 09-17-2024 01:08 AM
--- NOTE | 2024-09-17 01:13 | History & Physical Report ---
Date of Service September 17, 2024 Assessment & Plan (1) Weakness: Plan: generalized weakness likely secondary to UTI in part as well as overall deconditioning Afebrile, VSS, non-toxic in appearance -Follow urine culture -Continue Zosyn (2) Acute UTI: Plan: Afebrile, non-toxic -Follow culture -Continue Zosyn -Hold Jardiance (3) Fall: Plan: Noted. Patient with compromised mobility given presence of spacer in left hip. He reports using a walker for short distances in the home and using a scooter other times No fracture of the right hip on CT scan -Pain control -Tylenol and Morphine PRN -PT/OT evaluation Plan Hypertension -Continue Amlodipine -Continue isosorbide -Continue Lisinopril -Continue Metoprolol GERD -Continue Protonix AF -Continue Xarelto History of Present Illness Chief Complaint: fall Primary Care Provider: Ronny Llamas MD Hao Azul is a 73yo male presenting from home following a fall. Patient fell getting out of his chair. He fell onto his bottom and knees and reports twisting his right leg underneath him. He was unable to get up due to pain and overall instability. He has chronic pain in his right hip which has been progressive for years. He has a spacer present in his left hip due to prior complicated surgery with infection. Patient states that if his right hip is broken he WOULD NOT want surgical intervention. Also with UTI and ongoing weakness. Patient reports he is unable to care for himself at home. Allergies Allergy/AdvReac Type Severity Reaction Status Date / Time atorvastatin Allergy Unknown Verified 08/03/24 10:25 cephalexin [From Keflex] Allergy Unknown Verified 08/03/24 10:25 oxycodone [From Percocet] Allergy Unknown Verified 08/03/24 10:25 potassium chloride Allergy Unknown Verified 08/03/24 10:25 codeine AdvReac Unknown SICK IN Verified 08/03/24 10:25 STOMACH/PASSED OUT Home Medications Medication Instructions Recorded Confirmed Type cholecalciferol (vitamin D3) 10 400 units PO DAILY 04/24/19 08/03/24 History mcg (400 unit) tablet acetaminophen 325 mg tablet 325 mg PO QID PRN Pain 04/07/20 08/03/24 History famotidine 20 mg tablet 20 mg PO DAILY #90 tabs 06/13/20 08/03/24 Rx ascorbate calcium (vitamin C) 500 500 mg PO DAILY 08/08/20 08/03/24 History mg tablet nitroglycerin 0.4 mg sublingual 0.4 mg sublingual PRN PRN chest 11/21/21 08/03/24 Rx tablet (Nitrostat) pain #30 tabs amlodipine 10 mg tablet 10 mg PO DAILY #90 tabs 12/06/23 08/03/24 Rx empagliflozin 10 mg tablet 10 mg PO DAILY #90 tabs 12/13/23 08/03/24 Rx (Jardiance) cyclobenzaprine 10 mg tablet 10 mg PO HS PRN muscle spasm #90 01/22/24 08/03/24 Rx tabs Motorized Scooter #1 ea 02/21/24 07/20/24 Rx lisinopril 40 mg tablet 40 mg PO DAILY #90 tabs 02/26/24 08/03/24 Rx metoprolol succinate 200 mg 200 mg PO DAILY #90 tabs 02/26/24 08/03/24 Rx tablet,extended release 24 hr pantoprazole 40 mg tablet,delayed 40 mg PO QAM #90 tabs 04/30/24 08/03/24 Rx release fluticasone propionate 50 2 spray intranasal DAILY #48 grams 06/25/24 08/03/24 Rx mcg/actuation nasal spray,suspension isosorbide mononitrate 30 mg 30 mg PO QPM 07/26/24 08/03/24 History tablet,extended release 24 hr multivitamin 1 tab PO DAILY 07/26/24 08/03/24 History rivaroxaban 15 mg tablet (Xarelto) 15 mg PO QAM #90 tabs 09/07/24 Rx Past Med/Surg History Problem List Weakness (Acute) Elevated troponin (Acute) Acute UTI (Acute) MADDI (acute kidney injury) Hematoma of left thigh Contusion of left hip and thigh 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 with presence of antibiotic-impregnated cement spacer (Acute) Fall (Acute) Osteoarthritis of right knee Osteoarthritis of right hip Statin myopathy Cardiomyopathy Obesity Fatigue Leukopenia Vitamin D deficiency CAD (coronary artery disease) Anticoagulant long-term use Paroxysmal atrial fibrillation Bilateral arm pain Dietary counseling and surveillance Metabolic syndrome Stage 3b chronic kidney disease DVT of axillary vein, acute left Left arm swelling Pacemaker AVB (atrioventricular block) CKD (chronic kidney disease) stage 3, GFR 30-59 ml/min Allergic rhinitis (Acute) Anemia (Acute) Anxiety (Acute) Arthritis (Acute) BPH (benign prostatic hyperplasia) (Acute) Bifascicular block (Acute) Bilateral edema of lower extremity (Acute) Cardiac arrhythmia (Acute) Cough (Acute) Gait disturbance (Acute) Gastroesophageal reflux disease (Acute) History of pulmonary embolism (Acute) Hyperlipidemia (Acute) Hypertension (Acute) Left anterior fascicular block (Acute) Nephrolithiasis (Acute) Obstructive sleep apnea of adult (Acute) Paroxysmal atrial tachycardia (Acute) Pre-diabetes (Acute) Renal insufficiency (Acute) Right bundle branch block (Acute) VPC's (ventricular premature complexes) (Acute) Surgical History H/O heart artery stent x 3 History of lithotripsy History of arthroscopic knee surgery History of hip replacement History of appendectomy Family History Mother Stroke Diabetes Hypertension Father Diabetes Denies family history of Ovarian cancer Prostate cancer Myocardial infarction Breast cancer Colorectal cancer Social History Smoking Status: Never smoker Second Hand Exposure: No; Do You Dip or Chew Tobacco: No; Hx Alcohol Use: No Hx Substance Use: No Preferred Language: Kenyan Communication Ability: Effective Hearing Ability: Normal Mobile Health Vehicle Operator Required: No Beliefs That Will Affect Care: None marital status: Current Living Situation: Spouse current occupational status: retired 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 Seatbelt Use: always Sunscreen Use: Yes (sometimes.) Assistive Devices: Walker Review of Systems Review of Systems: All systems reviewed & are unremarkable except as noted in HPI & below Physical Exam Physical Exam: General: patient resting comfortably, NAD, non-toxic in appearance, AA&O x 4 Skin: warm, dry, intact, no rashes or lesions HEENT: NC/AT, PERRL, EOMI, anicteric sclera, conjunctiva without injection, external ear normal to inspection and nontender, nares patent, moist mucus membranes, dentition intact, no oropharyngeal lesions, neck supple, trachea midline, no LAD, no thyromegaly, no JVD Heart: +S1/S2, regular, no m/r/g Lungs: equal air entry bilaterally, no rales/rhonchi/wheezes Abd: +BS, soft, NT/ND, no masses/organomegaly/ascites Ext: chronic venous stasis changes Neuro: limited mobility bilateral LE due to pain Results & Data Results & Data Vital Signs (Past 12 Hours) Vital Signs Temp Pulse Pulse Resp BP BP Pulse Ox 09/17/24 01:13 70 09/16/24 22:49 78 18 165/79 H 99 09/16/24 22:49 100 09/16/24 21:15 79 09/16/24 21:06 36.9 C 82 20 141/70 H 98 O2 Del Method 09/17/24 01:13 09/16/24 22:49 Room Air 09/16/24 22:49 Room Air 09/16/24 21:15 09/16/24 21:06 Room Air Laboratory Results Laboratory Results WBC 12.93 K/ul (4.8-10.8) H 09/16/24 22:50 RBC 3.92 M/uL (4.70-6.10) L 09/16/24 22:50 Hgb 13.0 g/dl (14.0-18.0) L 09/16/24 22:50 Hct 38.9 % (42.0-52.0) L 09/16/24 22:50 MCV 99.2 fL (80.0-100.0) 09/16/24 22:50 MCH 33.2 pg (25.0-34.0) 09/16/24 22:50 MCHC 33.4 g/dL (32.0-36.0) 09/16/24 22:50 RDW Std Deviation 43.5 fL (36.4-46.3) 09/16/24 22:50 RDW Coeff of Ira 11.9 % (11.5-14.5) 09/16/24 22:50 Plt Count 226 K/uL (130-400) 09/16/24 22:50 MPV 10.3 fL (9.4-12.4) 09/16/24 22:50 Immature Gran % (Auto) 0.4 % 09/16/24 22:50 Neut % (Auto) 85.7 % 09/16/24 22:50 Lymph % (Auto) 6.0 % 09/16/24 22:50 [place] % (Auto) 6.9 % 09/16/24 22:50 Eos % (Auto) 0.7 % 09/16/24 22:50 Baso % (Auto) 0.3 % 09/16/24 22:50 Neut # (Auto) 11.09 K/uL (1.40-6.50) H 09/16/24 22:50 Lymph # (Auto) 0.77 K/uL (1.20-3.40) L 09/16/24 22:50 [place] # (Auto) 0.89 K/uL (0.11-0.59) H 09/16/24 22:50 Eos # (Auto) 0.09 K/uL (0.00-0.50) 09/16/24 22:50 Baso # (Auto) 0.04 K/uL (0.00-0.20) 09/16/24 22:50 Immature Gran # (Auto) 0.05 K/uL (0.01-0.20) 09/16/24 22:50 Sodium 141 mmol/L (136-145) 09/16/24 22:50 Potassium 4.5 mmol/L (3.5-5.1) 09/16/24 22:50 Chloride 105 mmol/L (98-107) 09/16/24 22:50 Carbon Dioxide 25 mmol/L (21-32) 09/16/24 22:50 Anion Gap 11 (3-11) 09/16/24 22:50 BUN 41 mg/dl (6-23) H 09/16/24 22:50 Creatinine 1.86 mg/dl (0.6-1.4) H 09/16/24 22:50 Est Cr Clr Drug Dosing 52.2 ml/min 09/16/24 22:50 eGFR 37.74 09/16/24 22:50 BUN/Creatinine Ratio 22.0 (10-20) H 09/16/24 22:50 Glucose 166 mg/dl (70-99(Fasting)) H 09/16/24 22:50 Lactate 1.6 mmol/L (0.4-2.0) 09/16/24 22:50 Calcium 9.3 mg/dl (8.6-10.3) 09/16/24 22:50 Magnesium 2.0 mg/dl (1.7-2.4) 09/16/24 22:50 Total Bilirubin 0.7 mg/dl (0.2-1.0) 09/16/24 22:50 AST 17 U/L (13-39) 09/16/24 22:50 ALT 12 U/L (7-52) 09/16/24 22:50 Alkaline Phosphatase 80 U/L (34-104) 09/16/24 22:50 Total Creatine Kinase 38 U/L (30-223) 09/16/24 22:50 Troponin I High Sens 30.4 pg/ml (0-20) H 09/17/24 01:00 Total Protein 7.4 gm/dl (6.0-8.3) 09/16/24 22:50 Albumin 3.7 gm/dl (3.4-5.0) 09/16/24 22:50 Globulin 3.7 gm/dl (2.5-4.0) 09/16/24 22:50 Albumin/Globulin Ratio 1.0 (0.9-2) 09/16/24 22:50 TSH 1.055 uIu/ml (0.300-4.500) 09/16/24 22:50 Urine Color Yellow 09/16/24 23:20 Urine Appearance Cloudy (Clear) A 09/16/24 23:20 Urine pH 5.5 (4.5-7.5) 09/16/24 23:20 Ur Specific [place] 1.020 (1.000-1.030) 09/16/24 23:20 Urine Protein Trace (Negative) H 09/16/24 23:20 Urine Glucose (UA) 3+ (Negative) H 09/16/24 23:20 Urine Ketones Negative (Negative) 09/16/24 23:20 Urine Blood 2+ (Negative) H 09/16/24 23:20 Urine Nitrite Negative (Negative) 09/16/24 23:20 Urine Bilirubin Negative (Negative) 09/16/24 23:20 Urine Urobilinogen Negative (Negative) 09/16/24 23:20 Ur Leukocyte Esterase 3+ (Negative) H 09/16/24 23:20 Urine WBC (Auto) >50 /hpf (0-5) H 09/16/24 23:20 Urine RBC (Auto) 11-20 /hpf (0-2) H 09/16/24 23:20 U Hyaline Cast (Auto) 0-2 /lpf (0-2) 09/16/24 23:20 U Epithel Cells (Auto) 0-2 /hpf (0-2) 09/16/24 23:20 Urine Bacteria (Auto) 4+ (None Seen) H 09/16/24 23:20 Adenovirus (PCR) Not Detected (NotDetected) 09/16/24 22:51 B. pertussis DNA (PCR) Not Detected (NotDetected) 09/16/24 22:51 B.parapertussis DNA PCR Not Detected (NotDetected) 09/16/24 22:51 C. pneumoniae DNA (PCR) Not Detected (NotDetected) 09/16/24 22:51 Coronavirus OC43 (PCR) Not Detected (NotDetected) 09/16/24 22:51 Coronavirus HKU1 (PCR) Not Detected (NotDetected) 09/16/24 22:51 Coronavirus 229E (PCR) Not Detected (NotDetected) 09/16/24 22:51 SARS-CoV-2 (PCR) Not Detected (NotDetected) 09/16/24 22:51 Coronavirus NL63 (PCR) Not Detected (NotDetected) 09/16/24 22:51 Human Metapneumovir PCR Not Detected (NotDetected) 09/16/24 22:51 Influenza Type A (PCR) Not Detected (NotDetected) 09/16/24 22:51 Influenza Type B (PCR) Not Detected (NotDetected) 09/16/24 22:51 M. pneumoniae (PCR) Not Detected (NotDetected) 09/16/24 22:51 Parainfluenza 1 (PCR) Not Detected (NotDetected) 09/16/24 22:51 Parainfluenza 2 (PCR) Not Detected (NotDetected) 09/16/24 22:51 Parainfluenza 3 (PCR) Not Detected (NotDetected) 09/16/24 22:51 Parainfluenza 4 (PCR) Not Detected (NotDetected) 09/16/24 22:51 RSV (PCR) Not Detected (NotDetected) 09/16/24 22:51 Entero/Rhino (PCR) Not Detected (NotDetected) 09/16/24 22:[address] 09/16/24 21:43 Exam(s): CT C SPINE EXAM: CT Cervical Spine Without Intravenous Contrast CLINICAL HISTORY: Reason for exam: fall. TECHNIQUE: Axial computed tomography images of the cervical spine without intravenous contrast. CTDI is 39.03 mGy and DLP is 1462.38 mGy-cm. Automated exposure control was utilized for the study. A dose lowering technique was utilized adhering to the principles of ALARA. COMPARISON: No relevant prior studies available. FINDINGS: No fracture or subluxations are noted. The vertebral body heights and alignment are preserved. No prevertebral soft tissue swelling. Note is made of multilevel cervical spondylosis with varying degrees of central canal and foramina stenoses. IMPRESSION: 1. No cervical fractures. 2. Cervical spondylosis with varying degrees of central canal and foramina stenoses. Electronically signed by: Rylan Nicolas MD 09/16/24 23:25 PM Chest X-Ray 09/16/24 21:43 Exam(s): XR CXR 1 VIEW EXAM: XR Chest, 1 View CLINICAL HISTORY: Reason for exam: weakness. TECHNIQUE: Frontal view of the chest. COMPARISON: 07/26/2024 FINDINGS: Lungs: Unremarkable. No consolidation. Pleural space: Unremarkable. No pneumothorax. Heart: Cardiomegaly. Mediastinum: Unremarkable. Normal mediastinal contour. Bones/joints: Unremarkable. No acute fracture. Tubes, lines and devices: Left chest wall dual lead intracardiac device. IMPRESSION: No acute findings in the chest. Electronically signed by: Rylan Nicolas MD 09/17/24 00:09 AM Hip/Pelvis X-Ray 09/16/24 21:43 Exam(s): XR HIP + PELVIS, 2-3 views EXAM: XR Pelvis, 1 or 2 Views CLINICAL HISTORY: Reason for exam: fall, pain. TECHNIQUE: Frontal view of the pelvis. COMPARISON: 07/26/2024 FINDINGS: Bones/joints: Subcapital right femoral neck fracture. Stable appearance of the left hip with superior subluxation of the proximal femur with respect to the acetabulum. Soft tissues: Unremarkable. IMPRESSION: New, minimally displaced, subcapital right femoral neck fracture Stable appearance to the left hip. Electronically signed by: Rylan Nicolas MD 09/17/24 00:20 AM Knee X-Ray 09/16/24 21:43 Exam(s): XR LEFT KNEE, 1-2 views EXAM: XR Left Knee, 1 or 2 Views CLINICAL HISTORY: Reason for exam: fall, pain. TECHNIQUE: Frontal and/or lateral views of the left knee. COMPARISON: No relevant prior studies available. FINDINGS: Bones/joints: Unremarkable. No acute fracture. No dislocation. Soft tissues: Unremarkable. IMPRESSION: Normal left knee x-rays. Electronically signed by: Rylan Nicolas MD 09/17/24 00:[address] 09/16/24 21:44 Exam(s): CT HEAD Without Contrast EXAM: CT Head Without Intravenous Contrast CLINICAL HISTORY: Reason for exam: fall, on DOAC. TECHNIQUE: Axial computed tomography images of the head/brain without intravenous contrast. CTDI is 39.03 mGy and DLP is 1462.38 mGy-cm. Automated exposure control was utilized for the study. A dose lowering technique was utilized adhering to the principles of ALARA. COMPARISON: 07/26/2024 FINDINGS: Limitations: Exam slightly limited secondary to patient motion artifact. Brain: Unremarkable. No hemorrhage. No significant white matter disease. No edema. Ventricles: Unremarkable. No ventriculomegaly. Bones/joints: Unremarkable. No acute fracture. Soft tissues: Unremarkable. Sinuses: Unremarkable as visualized. No acute sinusitis. Mastoid air cells: Unremarkable as visualized. No mastoid effusion. IMPRESSION: No acute findings in the head/brain. Electronically signed by: Rylan Nicolas MD 09/16/24 23:[address] 09/16/24 22:10 EXAM: CT lumbar spine wo con CLINICAL HISTORY: ground level fall tonight at home, states he was attempting to back his walker up to the couch and slid to the ground. denies head strike, neck pain or LOC. is currently on xarelto, c/o back and bilateral knee pain pt unable to raise arms above head PW TECHNIQUE: Multiple contiguous axial images were obtained through the lumbar spine without IV contrast. Sagittal and coronal reformatted images were obtained from the axial data. CT scan was performed according to ALARA (as low as reasonable achievable). COMPARISON: None. FINDINGS: Loss of lumbar lordosis - suggest possibility of muscle spasm/positional. Degenerative changes involving lumbar spine in the form of multilevel marginal osteophytes, disc space reduction and facetal arthrosis. Lumbar vertebral bodies are maintained in height and alignment. No vertebral estructive changes are seen. Posterior disc osteophyte complex with reduced disc height is noted at the T12-L1 to L5-S1 level causes indentation on ventral thecal sac and narrowing of bilateral lateral recesses and neural foraminal narrowing at respective levels. Paravertebral soft tissues are unremarkable. IMPRESSION: 1. Lumbar spondylosis. No obvious acute trauma related abnormality seen. Electronically signed by Juan Pabon 09-17-2024 01:[address] 09/16/24 22:10 EXAM: CT thoracic spine wo con CLINICAL HISTORY: ground level fall tonight at home, states he was attempting to back his walker up to the couch and slid to the ground. denies head strike, neck pain or LOC. is currently on xarelto, c/o back and bilateral knee pain pt unable to raise arms above head PW TECHNIQUE: Multiple contiguous axial images were obtained through the thoracic spine without IV contrast. Sagittal and coronal reformatted images were obtained from the axial data. CT scan was performed according to ALARA (as low as reasonable achievable). COMPARISON: None. FINDINGS: Degenerative changes involving thoracic spine in the form of multilevel marginal osteophytes, disc space reduction and facetal arthrosis. The alignment of the thoracic spine is maintained. Thoracic vertebral bodies are maintained in height and alignment. No vertebral destructive changes are seen. Disc osteophyte complex is noted through T4-T5 to T11-T12 level, which indenting ventral thecal sac without significant neural foraminal narrowing. Paravertebral soft tissues are unremarkable. Visualized lung parenchyma appears unremarkable. IMPRESSION: 1. Degenerative changes involving thoracic spine. 2. No obvious acute trauma related abnormality is noted. Electronically signed by Juan Pabon 09-17-2024 01:[address] 09/16/24 22:56 EXAM: CT hip RT wo con CLINICAL HISTORY: ground level fall tonight at home, states he was attempting to back his walker up to the couch and slid to the ground. denies head strike, neck pain or LOC. is currently on xarelto, c/o back and bilateral knee pain pt unable to raise arms above head PW TECHNIQUE: Contiguous axial CT images of right hip were obtained without intravenous contrast. Coronal and sagittal reconstructions were likewise performed and indicated to increase the sensitivity for detecting clinically relevant pathology. CT scan was performed according to ALARA (as low as reasonable achievable). COMPARISON: None. FINDINGS: Severe osteoarthritis is noted involving right hip joint in the form of reduction of joint space , marginal osteophytes with subarticular sclerosis and degenerative cyst and osteophytes formation involving head of femur and acetabulum No acute fracture or dislocation. No destructive osseous lesion. The visualized muscles and tendons appear grossly unremarkable. No cortical destruction to suggest osteomyelitis. No abscess formation. No significant joint effusion. There are no soft tissue masses. Normal subcutaneous adipose space. IMPRESSION: 1. Severe right hip osteoarthritis. 2. No fracture or dislocation. Electronically signed by Juan Pabon 09-17-2024 01:08 AM Code Status & VTE Plan VTE Prophylaxis Plan VTE Prophylaxis will be ordered: Yes PG Care Time/CCT Total # of Minutes Spent Total Time Spent with Patient: Total time spent is greater than 50% in coordination of care (as documented) at patient's floor/unit and/or counseling patient: Coding Level of Care Code 60160 INT INP/OBS CARE 2/55MIN Diagnoses Weakness R53.1 Acute UTI N39.0 Fall W19.XXXA Encounter type: initial encounter (3) Fall Encounter type: initial encounter Qualified Code(s): W19.XXXA - Unspecified fall, initial encounter
[2024-09-17] MEDS ORDERED: MAGNESIUM HYDROXIDE SUSP 30 ML UDC PO PRN (02:48)
[2024-09-17] MEDS ORDERED: bisacodyL 10 MG SUPP PR PRN (02:48)
[2024-09-17] MEDS ORDERED: MoRPHine SULFATE 2 MG/ML CARP IV PRN (02:48)
[2024-09-17] MEDS ORDERED: NALOXONE HCL 0.4 MG/1 ML VIAL/CARP IV PRN (02:48)
[2024-09-17] MEDS ORDERED: ACETAMINOPHEN 325 MG TAB PO PRN (02:48)
[2024-09-17] MEDS: MoRPHine SULFATE 4 MG/ML 1 ML CARP\\VIAL IV PRN (03:01)
[2024-09-17] MEDS: ONDANSETRON INJ 2 MG/ML 2 ML VIAL IV PRN (03:05)
[2024-09-17] MEDS ORDERED: CYCLOBENZAPRINE HCL 10 MG TAB PO PRN (04:04)
[2024-09-17] MEDS: PIPERACILLIN/TAZOBACTAM 4.5 GM/100 ML BAG IV SCH (05:14)
[2024-09-17] MEDS: PANTOprazole 40 MG TAB PO SCH (10:05)
[2024-09-17] MEDS: METOPROLOL SUCC 50MG EXT REL TAB PO SCH (10:06)
[2024-09-17] MEDS: FLUTICASONE PROPIONATE NA SPR 16 GM BTL SCH (10:06)
[2024-09-17] MEDS: amLODIPine BESYLATE 5 MG TAB PO SCH (10:28)
[2024-09-17] MEDS: lisinopril 40 MG TAB PO SCH (10:28)
--- NOTE | 2024-09-17 11:13 | Electrocardiogram Report ---
Test Reason : Blood Pressure : */* mmHG Vent. Rate : 154 BPM Atrial Rate : 80 BPM P-R Int : 192 ms QRS Dur : 170 ms QT Int : 164 ms P-R-T Axes : * -80 0 degrees QTcB Int : 262 ms Sinus rhythm with sequential V-pacing Left axis deviation Abnormal ECG Confirmed by Ronny Hampton ([id number] on 09/17/2024 11:13:30 AM Referred By: REFERRED SELF Confirmed By: Ronny Hampton
--- NOTE | 2024-09-17 12:26 | Orthopedic Consultation ---
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 After he fell at home, he was complaining of bilateral knee pain and right hip pain. Upon evaluation in the emergency department, x-rays of his pelvis/Right hip and bilateral knees were obtained. The patient's bilateral knee films were not concerning for acute osseous abnormality, however films of his right hip were concerning for a femoral neck fracture, but this was an incomplete evaluation due to the patient's rotated extremity. A CT scan of the right hip was then obtained and this does not appear consistent with a femoral neck fracture. On my evaluation of this patient, clinically he does not examine as if he has a femoral neck fracture as he did not have any real hip pain with logroll or heel strike rather he had pain where his leg was palpated. Of note, the patient notes that if he does indeed have a hip fracture, he does not want surgery for it evening considering the fact that this is his "good leg" and despite the fact that he required this leg for ambulation due to the spacer on the contralateral side. I do believe that an MRI of the patient's right hip is warranted, but he does have a pacemaker and as such I am not sure if this would be able to be obtained. I will order the MRI and we will see if that can be done. Further recommendations to follow the MRI. If the MRI cannot be obtained, additional recommendations will follow. History of Present Illness Reason for Consultation: Right hip pain, bilateral knee pain Requesting Physician: Dr. Ding Attending Physician: Sam Ding History of Present Illness This is a 73-year-old gentleman with past medical history of CAD, GERD, hypertension, ANAMARIA on Xarelto presents ER for fall and generalized weakness. Patient states last evening he was attempting to get up and walk with his walker, but he was feeling weak and collapsed. He complains of low back pain, bilateral knee pain and right hip pain. Patient denies fever, chills, chest pain, dyspnea, abdominal pain. He states he feels too weak to care for himself at home. patient ordinarily ambulates about the house only short distances with the use of a walker. 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 This antibiotic spacer per the patient has been present since 2007 or 2008 - the patient cannot remember the exact date. He states the surgery was done at [facility] in [place]. Patient notes that he is not having much pain in his groin, rather he is having pain in his lower back as well as his bilateral knees. Patient is lying in bed comfortably at this point and he is eating his lunch Allergies Allergy/AdvReac Type Severity Reaction Status Date / Time atorvastatin Allergy Unknown Verified 08/03/24 10:25 cephalexin [From Keflex] Allergy Unknown Verified 08/03/24 10:25 oxycodone [From Percocet] Allergy Unknown Verified 08/03/24 10:25 potassium chloride Allergy Unknown Verified 08/03/24 10:25 codeine AdvReac Unknown SICK IN Verified 08/03/24 10:25 STOMACH/PASSED OUT Home Medications Medication Instructions Recorded Confirmed Type cholecalciferol (vitamin D3) 10 400 units PO DAILY 04/24/19 08/03/24 History mcg (400 unit) tablet acetaminophen 325 mg tablet 325 mg PO QID PRN Pain 04/07/20 08/03/24 History famotidine 20 mg tablet 20 mg PO DAILY #90 tabs 06/13/20 08/03/24 Rx ascorbate calcium (vitamin C) 500 500 mg PO DAILY 08/08/20 08/03/24 History mg tablet nitroglycerin 0.4 mg sublingual 0.4 mg sublingual PRN PRN chest 11/21/21 08/03/24 Rx tablet (Nitrostat) pain #30 tabs amlodipine 10 mg tablet 10 mg PO DAILY #90 tabs 12/06/23 08/03/24 Rx empagliflozin 10 mg tablet 10 mg PO DAILY #90 tabs 12/13/23 08/03/24 Rx (Jardiance) cyclobenzaprine 10 mg tablet 10 mg PO HS PRN muscle spasm #90 01/22/24 08/03/24 Rx tabs Motorized Scooter #1 ea 02/21/24 07/20/24 Rx lisinopril 40 mg tablet 40 mg PO DAILY #90 tabs 02/26/24 08/03/24 Rx metoprolol succinate 200 mg 200 mg PO DAILY #90 tabs 02/26/24 08/03/24 Rx tablet,extended release 24 hr pantoprazole 40 mg tablet,delayed 40 mg PO QAM #90 tabs 04/30/24 08/03/24 Rx release fluticasone propionate 50 2 spray intranasal DAILY #48 grams 06/25/24 08/03/24 Rx mcg/actuation nasal spray,suspension isosorbide mononitrate 30 mg 30 mg PO QPM 07/26/24 08/03/24 History tablet,extended release 24 hr multivitamin 1 tab PO DAILY 07/26/24 08/03/24 History rivaroxaban 15 mg tablet (Xarelto) 15 mg PO QAM #90 tabs 09/07/24 Rx Patient History Surgical History H/O heart artery stent x 3 History of lithotripsy History of arthroscopic knee surgery History of hip replacement History of appendectomy Family History Mother Stroke Diabetes Hypertension Father Diabetes Denies family history of Ovarian cancer Prostate cancer Myocardial infarction Breast cancer Colorectal cancer Social History Smoking Status: Never smoker Second Hand Exposure: No; Do You Dip or Chew Tobacco: No; Hx Alcohol Use: No Hx Substance Use: No Preferred Language: Nepali Communication Ability: Effective Hearing Ability: Normal Outbound Sales Professional Required: No Beliefs That Will Affect Care: None marital status: Current Living Situation: Spouse current occupational status: retired 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 Seatbelt Use: always Sunscreen Use: Yes (sometimes.) Assistive Devices: Walker Review of Systems Review of Systems: All systems reviewed & are unremarkable except as noted in HPI & below Physical Exam Physical Exam: on physical exam of the patient's bilateral lower extremities, he is tender to palpation diffusely about his knees. No open wounds appreciated. On exam of the patient's right hip, he has tenderness to palpation about the right hip. When attempting logroll, the patient does not complain of groin pain rather pain from where his leg is palpated in order to perform the logroll. With attempted heel strike, the patient does not have pain in his hip, rather where his heel is struck. Results & Data Vital Signs (Past 12 Hours) Vital Signs Temp Pulse Pulse Resp BP BP BP 09/17/24 10:03 64 103/66 09/17/24 07:31 36.5 C 63 16 108/61 09/17/24 03:09 36.5 C 66 18 134/71 09/17/24 02:12 72 24 09/17/24 01:39 70 19 09/17/24 01:13 70 09/17/24 01:03 73 18 09/17/24 01:00 141/78 H 09/17/24 01:00 141/78 H 09/17/24 01:00 141/78 H 09/17/24 00:38 136/72 Pulse Ox O2 Del Method 09/17/24 10:03 09/17/24 07:31 98 Room Air 09/17/24 03:09 98 Room Air 09/17/24 02:12 98 Room Air 09/17/24 01:39 09/17/24 01:13 09/17/24 01:03 100 09/17/24 01:00 09/17/24 01:00 09/17/24 01:00 09/17/24 00:38 Diagnostic Findings X-rays of bilateral knees, pelvis were personally interpreted and reviewed. T he bilateral knees do not demonstrate any signs of acute osseous abnormality. The patient's pelvis and right hip x-rays are somewhat concerning for a femoral neck fracture. also present is a left hip antibiotic spacer with cerclage cables. CT scan of the right hip was personally interpreted and reviewed. This does not demonstrate a femoral neck fracture. 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 with presence of antibiotic-impregnated cement spacer Laterality: left Qualified Code(s): Z89.622 - Acquired absence of left hip joint (5) Fall Encounter type: initial encounter Qualified Code(s): W19.XXXA - Unspecified fall, initial encounter (9) Obesity Obesity type: due to excess calories Obesity classification: adult class 3 (BMI >= 40) Serious obesity comorbidity presence: with serious comorbidity Body mass index: BMI 50.0-59.9 Qualified Code(s): E66.01 - Morbid (severe) obesity due to excess calories; Z68.43 - Body mass index [BMI] 50.0-59.9, adult; Z68.43 - Body mass index [BMI] 50.0-59.9, adult (12) CAD (coronary artery disease) Coronary Disease-Associated Artery/Lesion type: [place] artery [place] vs. transplanted heart: [place] heart Associated angina: without angina Qualified Code(s): I25.10 - Atherosclerotic heart disease of [place] coronary artery without angina pectoris
--- NOTE | 2024-09-17 15:03 | Magnetic Resonance Report ---
MR hip RT wo con CLINICAL HISTORY: 73 years-old Male with rule out fracture. Acute pain of the right hip with clinica l concern for fracture COMPARISON: CT 09/16/2024, pelvis radiograph 09/16/2024. TECHNIQUE: Multiplanar, multi sequence MRI of the right hip was performed without intravenous contras t. FINDINGS: Limited exam secondary to patient body habitus and artifact within the proximal left femur. LABRUM: Degeneration with chronic circumferential tear of the right labrum BONE MARROW: No acute fracture or marrow replacing process. No significant marrow edema. Degenerativ e mild subcortical cystic change of the right hip. BURSAE: There is no evidence for iliopsoas or trochanteric bursitis. HIP JOINT: There is severe osteoarthritis of the right hip with chronic remodeling. Small joint effu emily with mild dependent intra-articular debris. Chronic fracture/dislocation of the left hip with gen int effusion containing intra-articular debris. The greater trochanters displaced several centimeters superior to the hip joint. MUSCLES: Moderate diffuse atrophy. SCIATIC NERVE: The morphology and signal characteristics of the sciatic nerve appear normal. No acute intrapelvic abnormality identified. Urinary bladder wall thickening with partial distention. Mild BPH changes noted. IMPRESSION: 1. Severe right hip osteoarthritis redemonstrated without acute fracture, dislocation or significant bone marrow edema. 2. Chronic appearance of the left hip and proximal left femur as above. 3. Bilateral hip joint effusions are likely on a degenerative basis. ACT 112: Negative or not required by law. The above report was generated using voice recognition software. It may contain grammatical, syntax o r spelling errors. Electronically signed by: Omega Santa M.D. 09/17/2024 3:00 PM
--- NOTE | 2024-09-17 17:12 | Orthopedic Progress Note ---
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 After he fell at home, he was complaining of bilateral knee pain and right hip pain. Upon evaluation in the emergency department, x-rays of his pelvis/Right hip and bilateral knees were obtained. The patient's bilateral knee films were not concerning for acute osseous abnormality, however films of his right hip w ere concerning for a femoral neck fracture, but this was an incomplete evaluation due to the patient's rotated extremity. A CT scan of the right hip was then obtained and this does not appear consistent with a femoral neck fracture. On my evaluation initially, the patient did appear to have significant pain in his right hip, in order to be completely thorough, we did order an MRI of his right hip to rule out femoral neck fracture. On evaluation of the patient's MRI, no fracture is seen, so I believe the patient can bear weight as tolerated and should work with physical therapy with this regard. He can follow-up with a total joint specialist as an outpatient if he desires. No acute plans for orthopedic intervention Admission and Anticipated Discharge Date Admission Date: September 17, 2024 Subjective patient returned to his room status post MRI. He is anxious for the results. Physical Exam Physical Exam: on physical exam of the patient's bilateral lower extremities, he is tender to palpation diffusely about his knees. No open wounds appreciated. On exam of the patient's right hip, he has tenderness to palpation about the right hip. When attempting logroll, the patient does not complain of groin pain rather pain from where his leg is palpated in order to perform the logroll. With attempted heel strike, the patient does not have pain in his hip, rather where his heel is struck. Results & Data Vital Signs (Past 12 Hours) Vital Signs Temp Pulse Resp BP BP Pulse Ox O2 Del Method 09/17/24 15:07 36.4 C L 66 18 109/67 94 Room Air 09/17/24 10:03 64 103/66 09/17/24 07:31 36.5 C 63 16 108/61 98 Room Air 09/17/24 07:30 Room Air Diagnostic Findings MRI of the patient's right hip was personally interpreted and reviewed. This does not demonstrate any acute femoral neck fracture. 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 with presence of antibiotic-impregnated cement spacer Laterality: left Qualified Code(s): Z89.622 - Acquired absence of left hip joint (5) Fall Encounter type: initial encounter Qualified Code(s): W19.XXXA - Unspecified fall, initial encounter (9) Obesity Obesity type: due to excess calories Obesity classification: adult class 3 (BMI >= 40) Serious obesity comorbidity presence: with serious comorbidity Body mass index: BMI 50.0-59.9 Qualified Code(s): E66.01 - Morbid (severe) obesity due to excess calories; Z68.43 - Body mass index [BMI] 50.0-59.9, adult; Z68.43 - Body mass index [BMI] 50.0-59.9, adult (12) CAD (coronary artery disease) Coronary Disease-Associated Artery/Lesion type: [place] artery [place] vs. transplanted heart: [place] heart Associated angina: without angina Qualified Code(s): I25.10 - Atherosclerotic heart disease of [place] coronary artery without angina pectoris
[2024-09-17] MEDS: RIVAROXABAN 15 MG TAB PO SCH (18:19)
[2024-09-17] MEDS: ISOSORBIDE MONO EXTENDED REL 30 MG TABCR PO SCH (20:10)
[2024-09-18 09:23] LABS: BUN Creatinine Ratio 16.2 (10-20); Calcium 8.5 mg/dl (8.6-10.3); Creatinine Clr Calc Pharmacy 29.6 ml/min; Potassium 5.1 mmol/L (3.5-5.1)
[2024-09-18 09:32] LABS: Hematocrit (blood only) 32.7 % (42.0-52.0); Hemoglobin 10.5 g/dl (14.0-18.0); Mean Corpuscular Hemoglobin 32.8 pg (25.0-34.0); Mean Corpuscular Hgb Conc 32.1 g/dL (32.0-36.0); Mean Corpuscular Volume 102.2 fL (80.0-100.0); Mean Platelet Volume 10.6 fL (9.4-12.4); Platelet Count 202 K/uL (130-400); RDW Coefficient of Variation 12.2 % (11.5-14.5); RDW Standard Deviation 46.5 fL (36.4-46.3); White Blood Count 9.44 K/ul (4.8-10.8)
[2024-09-18] MEDS: SODIUM CHLORIDE 0.9% 1,000 ML IV SCH ×2 (10:05→18:46)
[2024-09-18 19:12] LABS: Calcium 8.1 mg/dl (8.6-10.3); Creatinine Clr Calc Pharmacy 27.8 ml/min; Potassium 4.7 mmol/L (3.5-5.1)
[2024-09-18 19:56] LABS: Appearance Urine Turbid (Clear); Bacteria Urine Automated 2+ (None Seen); Bilirubin Urine Negative (Negative); Blood Urine 3+ (Negative); Cast Urine Automated 0-2 /lpf (0-2); Color Urine Yellow; Glucose Urine UA Negative (Negative); Ketones Urine Trace (Negative); Leukocyte Esterase Urine 3+ (Negative); Nitrite Urine Negative (Negative); Protein Urine 1+ (Negative); Specific Gravity Urine 1.022 (1.000-1.030); Urobilinogen Urine Negative (Negative); WBC Urine Automated >50 /hpf (0-5)
[2024-09-18 19:57] LABS: Potassium Random Urine 70.2 mmol/L
--- NOTE | 2024-09-19 05:45 | Hospitalist Progress Note ---
Date of Service September 18, 2024 Assessment & Plan (1) Weakness: Plan: generalized weakness likely secondary to UTI in part as well as overall deconditioning Afebrile, VSS, non-toxic in appearance -Follow urine culture -Continue Zosyn concern is patient is hypotensive, holding bp meds (2) Acute UTI: Plan: Afebrile, non-toxic -Follow culture -Continue Zosyn -Hold Jardiance -now with worsening MADDI, placed on IVF. (3) Fall: Plan: Noted. Patient with compromised mobility given presence of spacer in left hip. He reports using a walker for short distances in the home and using a scooter other times No fracture of the right hip on CT scan -Pain control -Tylenol and Morphine PRN -PT/OT evaluation Plan Hypertension -Continue Amlodipine -Continue isosorbide -Continue Lisinopril -Continue Metoprolol GERD -Continue Protonix AF -Continue Xarelto Admission and Anticipated Discharge Date Admission Date: September 17, 2024 Subjective Patient refers feeling well. He has no complants Physical Exam Physical Exam: General: patient resting comfortably, NAD, non-toxic in appearance, AA&O x 4 Skin: warm, dry, intact, no rashes or lesions HEENT: NC/AT, PERRL, EOMI Heart: +S1/S2, regular, no m/r/g Lungs: CTA B/L Abd: +BS, soft, NT/ND Ext: chronic venous stasis changes Results & Data Results & Data Vital Signs (Past 12 Hours) Vital Signs Temp Pulse Resp BP Pulse Ox O2 Del Method 09/18/24 22:44 36.6 C 72 20 130/61 97 Room Air 09/18/24 22:16 Room Air PG Care Time/CCT Total # of Minutes Spent Total Time Spent with Patient: Total time spent is greater than 50% in coordination of care (as documented) at patient's floor/unit and/or counseling patient: Coding Level of Care Code 59477 SUB INP/OBS CARE 2/35MIN Diagnoses Weakness R53.1 Acute UTI N39.0 Fall W19.XXXA Encounter type: initial encounter (3) Fall Encounter type: initial encounter Qualified Code(s): W19.XXXA - Unspecified fall, initial encounter
[2024-09-19 07:09] LABS: Basophils # (auto) 0.03 K/uL (0.00-0.20); Basophils % (auto) 0.4 %; Eosinophils # (auto) 0.19 K/uL (0.00-0.50); Eosinophils % (auto) 2.5 %; Hematocrit (blood only) 30.8 % (42.0-52.0); Immature Granulocytes # (auto) 0.02 K/uL (0.01-0.20); Immature Granulocytes % (auto) 0.3 %; Lymphocytes % (auto) 9.2 %; Mean Corpuscular Hemoglobin 32.6 pg (25.0-34.0); Mean Corpuscular Hgb Conc 32.5 g/dL (32.0-36.0); Mean Corpuscular Volume 100.3 fL (80.0-100.0); Mean Platelet Volume 10.5 fL (9.4-12.4); Monocytes # (auto) 0.82 K/uL (0.11-0.59); Monocytes % (auto) 10.7 %; Neutrophils # (auto) 5.89 K/uL (1.40-6.50); Neutrophils % (auto) 76.9 %; Platelet Count 177 K/uL (130-400); RDW Standard Deviation 44.6 fL (36.4-46.3); Red Blood Count 3.07 M/uL (4.70-6.10); White Blood Count 7.65 K/ul (4.8-10.8)
[2024-09-19 07:15] LABS: Albumin Globulin Ratio 0.9 (0.9-2); Albumin Level 2.9 gm/dl (3.4-5.0); BUN Creatinine Ratio 16.6 (10-20); Bilirubin,Total 1.2 mg/dl (0.2-1.0); Calcium 8.2 mg/dl (8.6-10.3); Creatinine Clr Calc Pharmacy 30.4 ml/min; Globulin 3.2 gm/dl (2.5-4.0); Potassium 4.8 mmol/L (3.5-5.1); Total Protein 6.1 gm/dl (6.0-8.3)
--- NOTE | 2024-09-19 07:48 | Ultrasound Report ---
EXAM: US renal/blad retro comp CLINICAL HISTORY: MADDI, Increased patient body habitus. Pt unable to decubitus TECHNIQUE: Ultrasound retroperitoneal performed in greyscale imaging with duplex. COMPARISON: None. FINDINGS: Limited views due to patient's body habitus and unable to lie in decubitus position Kidneys: The right kidney measures 11.1 x 4.4 x 5.2 cm. Cystic lesion measuring 5.5x4.8, lobulated, anechoic clear contents, located at it's mid pole region. The left kidney measures 12.4x cm. A small renal sinus cyst measuring 3x1.6cm. Mild increased parenchymal echogenicity and thin cortices. Urinary bladder: No endo-luminal lesion, no abnormal wall thickening in the provided images IMPRESSION: 1. Mild increased renal parenchymal echogenicity and reduced cortical thickness. 2. Bilateral renal cysts, larger on the right side, measuring 5.5x4.8, appearing uncomplicated in the provided images. Further evaluation of incidental findings by CT KUB if clinically warranted Electronically signed by Vicky Shah 09-19-2024 07:48 AM
--- NOTE | 2024-09-19 22:49 | Hospitalist Progress Note ---
Date of Service September 19, 2024 Assessment & Plan (1) Weakness: Plan: generalized weakness likely secondary to UTI in part as well as overall deconditioning Thsi could be multifactorial. Afebrile, VSS, non-toxic in appearance -Follow urine culture: initial culture was contaminated: repeat is showing pin point growth -Continue Zosyn concern is patient is hypotensive, holding bp meds (2) Acute UTI: Plan: Afebrile, non-toxic -Follow culture -Continue Zosyn -Hold Jardiance Acute kidney failure. Patient is now responding to IVF, and creatinine is downtrending. (3) Fall: Plan: Noted. Patient with compromised mobility given presence of spacer in left hip. He reports using a walker for short distances in the home and using a scooter other times No fracture of the right hip on CT scan -Pain control -Tylenol and Morphine PRN -PT/OT evaluation Plan Hypertension -Continue Amlodipine -Continue isosorbide -Continue Lisinopril -Continue Metoprolol GERD -Continue Protonix AF -Continue Xarelto Admission and Anticipated Discharge Date Admission Date: September 17, 2024 Subjective 73 yo male reporrs no new symptoms. Physical Exam Physical Exam: General: patient resting comfortably, NAD, non-toxic in appearance, AA&O x 4 Skin: warm, dry, intact, no rashes or lesions HEENT: NC/AT, PERRL, EOMI Heart: +S1/S2, regular, no m/r/g Lungs: CTA B/L Abd: +BS, soft, NT/ND Ext: chronic venous stasis changes Results & Data Results & Data Vital Signs (Past 12 Hours) Vital Signs Temp Pulse Resp BP BP Pulse Ox O2 Del Method 09/19/24 21:43 109/65 09/19/24 20:00 36.4 C L 75 17 126/68 94 Room Air 09/19/24 19:00 36.4 C L 75 17 126/68 94 Room Air 09/19/24 14:40 37.2 C 69 18 134/56 L 95 Room Air PG Care Time/CCT Total # of Minutes Spent Total Time Spent with Patient: Total time spent is greater than 50% in coordination of care (as documented) at patient's floor/unit and/or counseling patient: Coding Level of Care Code 32985 SUB INP/OBS CARE 2/35MIN Diagnoses Weakness R53.1 Acute UTI N39.0 Fall W19.XXXA Encounter type: initial encounter (3) Fall Encounter type: initial encounter Qualified Code(s): W19.XXXA - Unspecified fall, initial encounter
[2024-09-20 06:41] LABS: Hematocrit (blood only) 29.4 % (42.0-52.0); Hemoglobin 9.8 g/dl (14.0-18.0); Mean Corpuscular Hemoglobin 32.7 pg (25.0-34.0); Mean Corpuscular Hgb Conc 33.3 g/dL (32.0-36.0); Mean Platelet Volume 10.3 fL (9.4-12.4); Platelet Count 201 K/uL (130-400); RDW Standard Deviation 43.1 fL (36.4-46.3); White Blood Count 7.19 K/ul (4.8-10.8)
[2024-09-20 07:08] LABS: BUN Creatinine Ratio 19.5 (10-20); Calcium 8.5 mg/dl (8.6-10.3); Creatinine Clr Calc Pharmacy 39.5 ml/min; Potassium 4.6 mmol/L (3.5-5.1)
--- NOTE | 2024-09-20 21:15 | Hospitalist Progress Note ---
Date of Service September 20, 2024 Assessment & Plan (1) Weakness: Plan: Generalized weakness likely secondary to UTI in part as well as overall deconditioning This could be multifactorial with acute kidney injury also playing a role. Afebrile, VSS, non-toxic in appearance -Follow urine culture: initial culture was contaminated: repeat is showing pin point growth; still pending. -Continue Zosyn Patient was hypotensive initially, likely hypovolemic in the setting of infection. Blood pressure has improved with fluids and antibiotics. (2) Acute UTI: Plan: Afebrile, non-toxic -Follow culture -Continue Zosyn -Hold Jardiance Acute kidney failure. Patient is now responding to IVF, and creatinine is downtrending. Creatinine peaked at 3.5 Now 2.46 Baseline: 1.5-1.6 (3) Fall: Plan: Noted. Patient with compromised mobility given presence of spacer in left hip. He reports using a walker for short distances in the home and using a scooter other times No fracture of the right hip on CT scan -Pain control -Tylenol and Morphine PRN -PT/OT evaluation Plan Hypertension -Continue Amlodipine -Continue isosorbide -Hold Lisinopril -Continue Metoprolol GERD -Continue Protonix AF -Continue Xarelto Admission and Anticipated Discharge Date Admission Date: September 17, 2024 Subjective Patient reports he has generalized muscle pain. He was not able to participate much with physical therapy. He reports he has not been as active lately at home. He can ambulate short distnaces but uses a wheelchair for longer distances. Physical Exam Physical Exam: General: patient resting comfortably, NAD, non-toxic in appearance, AA&O x 4 Skin: warm, dry, intact, no rashes or lesions HEENT: NC/AT, PERRL, EOMI Heart: +S1/S2, regular, no m/r/g Lungs: CTA B/L Abd: +BS, soft, NT/ND Ext: chronic venous stasis changes Results & Data Results & Data Vital Signs (Past 12 Hours) Vital Signs Temp Pulse Resp BP Pulse Ox O2 Del Method 09/20/24 20:00 36.8 C 67 18 135/76 95 Room Air 09/20/24 15:07 37.0 C 67 18 150/72 H 95 Room Air 09/20/24 09:43 Room Air PG Care Time/CCT Total # of Minutes Spent Total Time Spent with Patient: Total time spent is greater than 50% in coordination of care (as documented) at patient's floor/unit and/or counseling patient: Coding Level of Care Code 99187 SUB INP/OBS CARE 2/35MIN Diagnoses Weakness R53.1 Acute UTI N39.0 Fall W19.XXXA Encounter type: initial encounter (3) Fall Encounter type: initial encounter Qualified Code(s): W19.XXXA - Unspecified fall, initial encounter
--- NOTE | 2024-09-21 08:15 | Hospitalist Progress Note ---
Date of Service September 21, 2024 Assessment & Plan (1) Weakness: Plan: 33-year-old male presenting with a fall worsening chronic right hip pain. initial concern for metabolic encephalopathy and generalized weakness likely secondary to UTI in part as well as overall deconditioning. Patient has a spacer in his left hip due to previous complicated surgery and infection. Also has MADDI on presentation -Follow urine culture: initial culture was contaminated: repeat is showing pin point growth; still pending. -Continue Zosyn Imaging of right hip does not support fracture, patient also would not undergo surgery if fracture orthopedics has been consulted no intervention planned Right elbow likewise negative for fracture positive for osteoarthritis Patient states most of his immobility is due to pain subsequently is agreeable to instituting Vicodin therapy and a fentanyl patch at this time not use nonsteroidals due to MADDI on CKD 3 (2) Acute UTI: Plan: Not defined by culture at the present time - Zosyn completed 3 days therapy -Hold Jardiance Acute kidney injury now improving CKD 3, continue holding CHAPINCITO inhibitor and Jardiance Physical therapy evaluate the patient 12 time recommending rehab (3) Fall: Plan: Noted. Patient with compromised mobility given presence of spacer in left hip. He reports using a walker for short distances in the home and using a scooter other times No fracture of the right hip on CT scan -Pain control -Tylenol and Morphine PRN -PT/OT evaluation poor function supporting rehab placement Plan Hypertension -Continue Amlodipine -Continue isosorbide -Hold Lisinopril -Continue Metoprolol GERD -Continue Protonix AF -Continue Xarelto Admission and Anticipated Discharge Date Admission Date: September 17, 2024 Subjective Patient with multiple somatic complaints of pain is slowly manipulative about which medications he wants has had previous issues with oxycodone causing him to fall asleep questions for hydrocodone. Is agreeable to instituting fentanyl patches. Has previous antibiotic spacer in his left hip his fall with contusion of his right hip and right elbow. Overall he is not pleased with our physical therapy however I tried to recreate direct him that our physical therapy is not gauged to have enough time for prolonged periods of therapy only for assessment and mobilization. Discussed the possibility of going to rehab Physical Exam Physical Exam: Awake complaining of pain in his neck and his right elbow. Neck CT was performed and presentation with arthritic change elbow on the right is without fracture Heart exam is regular lungs are clear extremities are with trace edema Results & Data Results & Data Vital Signs (Past 12 Hours) Vital Signs Temp Pulse Resp BP Pulse Ox O2 Del Method 09/21/24 07:49 97.5 F L 70 16 127/69 98 Room Air 09/20/24 22:13 Room Air Laboratory Results Reviewed CBC reviewed chemistry PG Care Time/CCT Total # of Minutes Spent Total Time Spent with Patient: Total time spent is greater than 50% in coordination of care (as documented) at patient's floor/unit and/or counseling patient: Coding Level of Care Code 04622 SUB INP/OBS CARE 3/50MIN Diagnoses Weakness R53.1 Acute UTI N39.0 Fall W19.XXXA Encounter type: initial encounter (3) Fall Encounter type: initial encounter Qualified Code(s): W19.XXXA - Unspecified fall, initial encounter
[2024-09-21] MEDS ORDERED: oxyCODONE HCL IR 5 MG TAB (IMMEDIATE RELEASE) PO PRN (10:23)
[2024-09-21] MEDS: fentaNYL 12 MCG/HR TDSY TD SCH (11:17)
[2024-09-21 12:14] LABS: Hematocrit (blood only) 31.9 % (42.0-52.0); Hemoglobin 10.6 g/dl (14.0-18.0); Mean Corpuscular Hemoglobin 32.4 pg (25.0-34.0); Mean Corpuscular Hgb Conc 33.2 g/dL (32.0-36.0); Mean Corpuscular Volume 97.6 fL (80.0-100.0); Mean Platelet Volume 9.7 fL (9.4-12.4); Platelet Count 217 K/uL (130-400); RDW Coefficient of Variation 11.9 % (11.5-14.5); RDW Standard Deviation 42.5 fL (36.4-46.3); Red Blood Count 3.27 M/uL (4.70-6.10); White Blood Count 6.78 K/ul (4.8-10.8)
[2024-09-21 12:34] LABS: BUN Creatinine Ratio 21.4 (10-20); C Reactive Protein 23.64 mg/dl (0-0.5); Calcium 8.9 mg/dl (8.6-10.3); Creatinine Clr Calc Pharmacy 53.4 ml/min; Potassium 4.4 mmol/L (3.5-5.1)
[2024-09-21] MEDS ORDERED: ACETAMINOPHEN 500 MG TAB PO SCH (14:00)
--- NOTE | 2024-09-21 14:01 | XRay Report ---
XR elbow RT min 3V routine CLINICAL HISTORY: RIGHT ELBOW PAIN AT JOINT COMPARISON: None FINDINGS: An IV within the antecubital fossa is incidentally noted. Posterior elbow soft tissue swel ling is present. There is no evidence for a joint effusion. No acute fracture. Small ossific density along the medial condyle is chronic. Olecranon spurring is chronic. There is mild to moderate right e lbow osteoarthritis. IMPRESSION: 1. No fractures within the right elbow. No evidence for a joint effusion. 2. Posterior right elbow soft tissue swelling. 3. 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 ACT 112: Negative or not required by law. Electronically signed by: Mike Castillo M.D. 09/21/2024 2:00 PM
[2024-09-21] MEDS: CHECK fentaNYL PATCH PLACEMENT SCH (17:07)
--- NOTE | 2024-09-22 17:35 | Hospitalist Progress Note ---
Date of Service September 22, 2024 Assessment & Plan (1) Weakness: Plan: 73-year-old male presenting with a fall worsening chronic right hip pain. initial concern for metabolic encephalopathy and generalized weakness likely secondary to UTI in part as well as overall deconditioning. Patient has a spacer in his left hip due to previous complicated surgery and infection. has significant spinal osteoarthritis. Also has MADDI on presentation -Follow urine culture: initial culture was contaminated: repeat is showing pin point growth; still pending. -completed zosyn x 5 d Imaging of right hip does not support fracture, patient also would not undergo surgery if fracture orthopedics has been consulted no intervention planned Right elbow likewise negative for fracture positive for osteoarthritis Patient states most of his immobility is due to pain subsequently is agreeable to instituting Vicodin therapy and a fentanyl patch(09/21/24) at this time not use nonsteroidals due to MADDI on CKD 3 (2) Acute UTI: Plan: Not defined by culture at the present time - Zosyn completed 5 days therapy -Hold Jardiance Acute kidney injury now improving CKD 3, continue holding CHAPINCITO inhibitor and Jardiance Physical therapy evaluate the patient, recommending rehab (3) Fall: Plan: Noted. Patient with compromised mobility given presence of spacer in left hip. He reports using a walker for short distances in the home and using a scooter other times No fracture of the right hip on CT scan -Pain control -Fiagon transdermal fentanyl 12 mcg, fentanyl for the significant osteoarthritis of spine -PT/OT evaluation poor function supporting rehab placement Plan Patient request to talk to behavioral health, was refusing hygiene care on 09/22 Hypertension -Continue Amlodipine -Continue isosorbide -Hold Lisinopril -Continue Metoprolol GERD -Continue Protonix AF -Continue Xarelto Admission and Anticipated Discharge Date Admission Date: September 17, 2024 Subjective Patient with multiple somatic complaints of pain Nursing reports she is refusing hygiene Patient reports he is having some hallucinations and request to talk to behavioral health. Once again for disposition I tried to recreate direct him that our physical therapy is not gauged to have enough time for prolonged periods of therapy only for assessment and mobilization. Discussed the possibility of going to rehab he is agreeable on 09/22/2024 Physical Exam Physical Exam: Awake complaining of pain in his neck and his right elbow. Neck CT was performed and presentation with arthritic change elbow on the right is without fracture Heart exam is regular lungs are clear extremities are with trace edema Results & Data Results & Data Vital Signs (Past 12 Hours) Vital Signs Temp Pulse Resp BP Pulse Ox O2 Del Method 09/22/24 15:11 98.1 F 73 16 134/70 98 Room Air 09/22/24 08:18 97.9 F 73 16 132/78 97 Room Air 09/22/24 07:35 Room Air PG Care Time/CCT Total # of Minutes Spent Total Time Spent with Patient: Total time spent is greater than 50% in coordination of care (as documented) at patient's floor/unit and/or counseling patient: Coding Level of Care Code 50452 SUB INP/OBS CARE 3/50MIN Diagnoses Weakness R53.1 Acute UTI N39.0 Fall W19.XXXA Encounter type: initial encounter (3) Fall Encounter type: initial encounter Qualified Code(s): W19.XXXA - Unspecified fall, initial encounter
[2024-09-22] MEDS: MELATONIN 3 MG TAB PO PRN (23:37)
[2024-09-23 07:02] LABS: Hematocrit (blood only) 32.7 % (42.0-52.0); Hemoglobin 10.4 g/dl (14.0-18.0); Mean Corpuscular Hemoglobin 31.2 pg (25.0-34.0); Mean Corpuscular Hgb Conc 31.8 g/dL (32.0-36.0); Mean Corpuscular Volume 98.2 fL (80.0-100.0); Mean Platelet Volume 9.9 fL (9.4-12.4); Platelet Count 271 K/uL (130-400); RDW Coefficient of Variation 11.9 % (11.5-14.5); RDW Standard Deviation 42.9 fL (36.4-46.3); Red Blood Count 3.33 M/uL (4.70-6.10); White Blood Count 8.62 K/ul (4.8-10.8)
[2024-09-23 07:21] LABS: Albumin Globulin Ratio 0.8 (0.9-2); Albumin Level 2.9 gm/dl (3.4-5.0); BUN Creatinine Ratio 18.4 (10-20); Bilirubin,Total 0.9 mg/dl (0.2-1.0); Calcium 9.1 mg/dl (8.6-10.3); Creatinine Clr Calc Pharmacy 59.6 ml/min; Globulin 3.6 gm/dl (2.5-4.0); Potassium 4.8 mmol/L (3.5-5.1); Total Protein 6.5 gm/dl (6.0-8.3)
[2024-09-23] MEDS: HYDROCODONE/ACETAMOPHEN 5/325MG TAB PO PRN (07:33)
--- NOTE | 2024-09-23 16:20 | Hospitalist Progress Note ---
Date of Service September 23, 2024 Assessment & Plan (1) Weakness: Plan: 73-year-old male presenting with a mechanical fall and worsening chronic right hip pain. initial concern for metabolic encephalopathy and generalized weakness likely secondary to UTI in part as well as overall deconditioning. Patient has a spacer in his left hip due to previous complicated surgery and infection. He has significant spinal osteoarthritis. Also has MADDI on presentation. Imaging of right hip does not support fracture, patient also would not undergo surgery if fracture orthopedics has been consulted no intervention planned. Right elbow likewise negative for fracture positive for osteoarthritis Patient states most of his immobility is due to pain and he is agreeable to Vicodin therapy and a fentanyl patch(09/21/24) at this time. Will avoid nonsteroidals due to MADDI on CKD 3 (2) Acute UTI: Plan: Initial urine culture revealed pinpoint growth. Repeat culture not diagnostic. He has completed 5 days of intravenous Zosyn therapy. (3) Fall: Plan: Mechanical fall at home. Compromised mobility given presence of spacer in left hip. He reports using a walker for short distances in the home and using a scooter other times. No fracture of the right hip on CT scan. Pain control measures in place. Continue PT and OT while hospitalized (4) Acute worsening of stage 3 chronic kidney disease: Plan: Present on admission. He is now back to baseline. Lisinopril held while hospitalized (5) Hypertension: Plan: Stable. Continue current medical management with amlodipine, metoprolol, isosorbide. Lisinopril has been discontinued (6) Chronic atrial fibrillation: Plan: Stable. Continue current medical management. Continue Xarelto therapy. (7) Morbid obesity: Plan: BMI greater than 40. Significant weight loss recommended Plan Hopeful discharge to [facility] tomorrSeptember 24 Admission and Anticipated Discharge Date Admission Date: September 17, 2024 Subjective Alert and oriented. No acute distress. Creatinine is back to baseline now at 1.6. Lisinopril remains on hold and some consideration should be given to stopping this medication permanently in this patient with stage III chronic kidney disease. Hopefully he can be discharged to [facility] tomSeptember 24 Review of Systems 2 Review of Systems: Constitutionalno fever or chills ENTno blurred vision, no double vision, no epistaxis, no sore throat Respiratoryno cough, no wheezing, no shortness of breath Cardiacno palpitations, no chest pain, no syncope [place] nausea, vomiting, diarrhea, melena, hematochezia GUno urinary retention, no urinary incontinence, no dysuria, no hematuria Musculoskeletalno joint pain, no muscle tenderness Skinno bruising, no rashes, no pruritus Neurohe has generalized weakness. No paresthesia, Psychno depression, no anxiety Physical Exam 2 Physical Exam: General-alert and oriented x3, no fever. Morbidly obese HEENT-head atraumatic and normocephalic, pupils equal and reactive to light, extraocular muscles intact Neck-no lymphadenopathy or thyromegaly, trachea midline Chest-clear to auscultation. No rales, wheezing or rhonchi Cardiac-irregular rhythm. Controlled rate. Normal S1 and S2 Abdomen-normal bowel sounds, no hepatosplenomegaly Extremities-no cyanosis, clubbing, or edema Musculoskeletalleft total hip arthroplasty infected hardware was remotely removed Neuro-cranial nerves II through XII intact, motor and sensory function within normal limits, strength symmetrical with generalized weakness, no focal deficits Psych-normal affect, normal mood Results & Data Results & Data Vital Signs (Past 12 Hours) Vital Signs Temp Pulse Resp BP Pulse Ox O2 Del Method 09/23/24 15:34 36.5 C 68 16 131/66 98 Room Air 09/23/24 07:14 36.8 C 73 16 129/68 95 Room Air Laboratory Results 09/23/24 06:19 09/23/24 06:19 PG Care Time/CCT Total # of Minutes Spent Total Time Spent with Patient: Total time spent is greater than 50% in coordination of care (as documented) at patient's floor/unit and/or counseling patient: Coding Level of Care Code 71285 SUB INP/OBS CARE 2/35MIN Diagnoses Weakness R53.1 Acute UTI N39.0 Fall W19.XXXA Encounter type: initial encounter Acute worsening of stage 3 chronic kidney disease N18.30 Essential hypertension I10 Hypertension type: essential hypertension Chronic atrial fibrillation I48.20 Morbid obesity E66.01 (3) Fall Encounter type: initial encounter Qualified Code(s): W19.XXXA - Unspecified fall, initial encounter (5) Hypertension Hypertension type: essential hypertension Qualified Code(s): I10 - Essential (primary) hypertension
[2024-09-23 19:44] VITALS: O2SAT 97
[2024-09-24 07:43] LABS: BUN Creatinine Ratio 21.5 (10-20); Calcium 8.9 mg/dl (8.6-10.3); Creatinine Clr Calc Pharmacy 65.2 ml/min; Potassium 4.1 mmol/L (3.5-5.1)
[2024-09-24 08:47] VITALS: BP 136/72; PULSE 81; RESP 17; TEMP 98.8
--- NOTE | 2024-09-24 09:03 | Hospitalist Progress Note ---
Date of Service September 24, 2024 Assessment & Plan (1) Weakness: Plan: 73-year-old male presenting with a mechanical fall and worsening chronic right hip pain. initial concern for metabolic encephalopathy and generalized weakness likely secondary to UTI in part as well as overall deconditioning. Patient has a spacer in his left hip due to previous complicated surgery and infection. He has significant spinal osteoarthritis. Also has AMDDI on presentation. Imaging of right hip does not support fracture, patient also would not undergo surgery if fracture orthopedics has been consulted no intervention planned. Right elbow likewise negative for fracture positive for osteoarthritis Patient states most of his immobility is due to pain and he is agreeable to Vicodin therapy and a fentanyl patch(09/21/24) at this time. Will avoid nonsteroidals due to MADDI on CKD 3 (2) Acute UTI: Plan: Initial urine culture revealed pinpoint growth. Repeat culture not diagnostic. He has completed 5 days of intravenous Zosyn therapy. (3) Fall: Plan: Mechanical fall at home. Compromised mobility given presence of spacer in left hip. He reports using a walker for short distances in the home and using a scooter other times. No fracture of the right hip on CT scan. Pain control measures in place. Continue PT and OT while hospitalized (4) Acute worsening of stage 3 chronic kidney disease: Plan: Present on admission. He is now back to baseline. Lisinopril held while hospitalized (5) Hypertension: Plan: Stable. Continue current medical management with amlodipine, metoprolol, isosorbide. Lisinopril has been discontinued (6) Chronic atrial fibrillation: Plan: Stable. Continue current medical management. Continue Xarelto therapy. (7) Morbid obesity: Plan: BMI greater than 40. Significant weight loss recommended Plan [facility] discharge [facility] tomorrow, September 24 Admission and Anticipated Discharge Date Admission Date: September 17, 2024 Results & Data Results & Data Vital Signs (Past 12 Hours) Vital Signs Temp Pulse Resp BP Pulse Ox O2 Del Method 09/24/24 08:45 98.8 F 81 17 136/72 97 Room Air 09/23/24 23:00 Room Air PG Care Time/CCT Total # of Minutes Spent Total Time Spent with Patient: Total time spent is greater than 50% in coordination of care (as documented) at patient's floor/unit and/or counseling patient: Coding Diagnoses Weakness R53.1 Acute UTI N39.0 Fall W19.XXXA Encounter type: initial encounter Acute worsening of stage 3 chronic kidney disease N18.30 Essential hypertension I10 Hypertension type: essential hypertension Chronic atrial fibrillation I48.20 Morbid obesity E66.01 (3) Fall Encounter type: initial encounter Qualified Code(s): W19.XXXA - Unspecified fall, initial encounter (5) Hypertension Hypertension type: essential hypertension Qualified Code(s): I10 - Essential (primary) hypertension
--- NOTE | 2024-09-24 17:41 | Discharge Summary ---
Discharge Summary Date of Service September 24, 2024 Principal Dx & Hospital Course #1 = Principal Diagnosis (1) Weakness: 73-year-old male presenting with a mechanical fall and worsening chronic right hip pain. initial concern for metabolic encephalopathy and generalized weakness likely secondary to UTI in part as well as overall deconditioning. Patient has a spacer in his left hip due to previous complicated surgery and infection. He has significant spinal osteoarthritis. Also has MADDI on presentation. Imaging of right hip does not support fracture, patient also would not undergo surgery if fracture orthopedics has been consulted no intervention planned. Right elbow likewise negative for fracture positive for osteoarthritis Patient states most of his immobility is due to pain and he is agreeable to Vicodin therapy and a fentanyl patch(09/21/24) at this time. MADDI resolved back to CKD 3 (2) Acute UTI: Initial urine culture revealed pinpoint growth. Repeat culture not diagnostic. He has completed 5 days of intravenous Zosyn therapy. (3) Fall: Mechanical fall at home. Compromised mobility given presence of spacer in left hip. He reports using a walker for short distances in the home and using a scooter other times. No fracture of the right hip on CT scan. Pain control measures in place. Continue PT and OT to acute rehab (4) Acute worsening of stage 3 chronic kidney disease: Present on admission. He is now back to baseline. Lisinopril hold on dc (5) Hypertension: Stable. Continue current medical management with amlodipine, metoprolol, isosorbide. Lisinopril has been discontinued (6) Chronic atrial fibrillation: Stable. Continue current medical management. Continue Xarelto therapy. (7) Morbid obesity: BMI greater than 40. Significant weight loss recommended Plan [facility] Notes For Next Care Provider Please hold lisinopril discharge med rec may be an error at time of discharge. Please follow renal function. Admission HPI Per Admitting Provider Hao Azul is a 73yo male presenting from home following a fall. Patient fell getting out of his chair. He fell onto his bottom and knees and reports twisting his right leg underneath him. He was unable to get up due to pain and overall instability. He has chronic pain in his right hip which has been progressive for years. He has a spacer present in his left hip due to prior complicated surgery with infection. Patient states that if his right hip is broken he WOULD NOT want surgical intervention. Also with UTI and ongoing weakness. Patient reports he is unable to care for himself at home. Discharge Exam Patient is an better spirits. Pain control is improved. Difficulty with ambulate Discharge Plan Discharge Items Patient Disposition: Transfer Inpatient Rehab Fac Reason For Visit: UTI, FALL, RIGHT HIP FRACTURE Discharge Diagnosis: fall , right hip and elbow contusion previous spacer in left hip morbid obesity with BMI 50 UTI suspected and treated Condition on Discharge: Fair Activity: Per Instructions section Activity Comment: PT/OT Non-emergency contact: Primary Care Provider Call non-emergency contact if: your symptoms worsen Follow-up/Referrals: Ronny Llamas MD [Primary Care Provider] - Diet: Heart Healthy Addtl Attending Provider Instructions: Patient has chronic osteoarthritic pain and has rule out any additional surgery. Will start her on a low-dose fentanyl patch in addition to hydrocodone (his request) did discuss other pain medications but feels he does better with hydrocodone. Marked deconditioning Pending Studies at Discharge: No Stand-Alone Forms: [facility] Skilled Items Patient informed of condition?: Yes DNR: No Discharge Level of Care: Acute rehab Communicable Disease: No Discharge Prognosis: Stable Lines: None Urinary Catheter: No Medications and DC Order Prescriptions: New hydrocodone-acetaminophen 5-325 mg Tablet 2 tab PO Q4H PRN (Reason: pain) Qty: 10 0RF fentanyl 12 mcg/hr Patch 72 Hour 1 patch transdermal Q3D Qty: 10 0RF Continued Jardiance 10 mg tablet 10 mg PO DAILY Qty: 90 3RF cyclobenzaprine 10 mg tablet 10 mg PO HS PRN (Reason: muscle spasm) Qty: 90 3RF (DME) Motorized Scooter See Rx Instructions .Route .MEDSUPPLY Qty: 1 0RF Rx Instructions: As directed to aid in mobility and increase independence metoprolol succinate 200 mg tablet extended release 24 hr 200 mg PO DAILY Qty: 90 3RF pantoprazole 40 mg tablet,delayed release (DR/EC) 40 mg PO QAM Qty: 90 3RF fluticasone propionate 50 mcg/actuation spray,suspension 2 spray intranasal DAILY Qty: 48 3RF Xarelto 15 mg tablet 15 mg PO QAM Qty: 90 3RF Hold Instructions: Resume on 08/04/24. Hold until PCP follow-up appointment amlodipine 10 mg tablet 10 mg PO DAILY Qty: 90 3RF cholecalciferol (vitamin D3) 400 unit tablet 400 units PO DAILY famotidine 20 mg tablet 20 mg PO DAILY Qty: 90 3RF ascorbate calcium (vitamin C) 500 mg tablet 500 mg PO DAILY acetaminophen 325 mg Tablet 325 mg PO QID PRN (Reason: Pain) nitroglycerin [Nitrostat] 0.4 mg Tablet, Sublingual 0.4 mg sublingual PRN PRN (Reason: chest pain) Qty: 30 1RF Rx Instructions: Take 1 tablet every 5 minutes for chest pain. Max 3 tabs. multivitamin Tablet 1 tab PO DAILY isosorbide mononitrate 30 mg tablet extended release 24 hr 30 mg PO QPM Discontinued lisinopril 40 mg tablet 40 mg PO DAILY Qty: 90 3RF Hold Instructions: Resume on 08/04/24. Hold until PCP follow-up appointment Discharge Orders: Discharge Order (Routine); Ordered 09/24/24 Ordered By: Zuhair Daigle Admission Data Admit Date/Time: 09/17/24 01:12 Attending Provider: Zuhair Daigle Admit Provider: Eugenie Meyer Primary Care Provider: Ronny Llamas Other Providers: Eugenie Meyer; Mike Ireland; [facility] Other Interventions: Discharge Summary Assessment (RN) Last Done: 09/24/24 14:51 Hospital Stay Data Consultations 09/17/24 00:31 ED Decision to Admit Stat 09/17/24 07:58 Consult Orthopedic Surgery Routine 09/22/24 15:00 Consult Behavioral Health Liaison Routine Diagnostic Imagining Performed 09/16/24 21:43 CT cervical spine wo con Stat 09/16/24 21:44 CT head/brain wo con Stat 09/16/24 22:10 CT lumbar spine wo con Stat CT thoracic spine wo con Stat 09/16/24 22:56 CT hip RT wo con Stat 09/17/24 13:04 MRI Hip [MR hip RT wo con] Stat 09/19/24 05:42 US Renal Bladder [US renal/blad retro comp] Routine Pending Results Patient Have Any Pending Studies at Discharge: No Discharge Instructions Given to Patient (Per Discharging Provider) Patient has chronic osteoarthritic pain and has rule out any additional surgery. Will start her on a low-dose fentanyl patch in addition to hydrocodone (his request) did discuss other pain medications but feels he does better with hydrocodone. Marked deconditioning Total Time Total Time Spent Total Time Spent (In Minutes): It required greater than 30 minutes to prepare this patient for discharge. Coding Level of Care Code 89610 INP/OBS DISCH >30 MIN Diagnoses Weakness R53.1 Acute UTI N39.0 Fall W19.XXXA Encounter type: initial encounter Acute worsening of stage 3 chronic kidney disease N18.30 Essential hypertension I10 Hypertension type: essential hypertension Chronic atrial fibrillation I48.20 Morbid obesity E66.01
== END 2024-09-24 16:01 | DRG 682 ==
LOC: ED 20:56 → 3W 09-17 01:12 → SUATTDRO 09-17 01:12 → 3W 09-17 02:13

== ENCOUNTER 2024-11-04 17:38 | Inpatient (IN) ==
[2024-11-04 18:27] LABS: Basophils # (auto) 0.01 K/uL (0.00-0.20); Basophils % (auto) 0.1 %; Eosinophils # (auto) 0.23 K/uL (0.00-0.50); Eosinophils % (auto) 2.5 %; Hematocrit (blood only) 35.8 % (42.0-52.0); Hemoglobin 11.8 g/dl (14.0-18.0); Immature Granulocytes # (auto) 0.04 K/uL (0.01-0.20); Immature Granulocytes % (auto) 0.4 %; Lymphocytes # (auto) 0.67 K/uL (1.20-3.40); Lymphocytes % (auto) 7.2 %; Mean Corpuscular Hemoglobin 29.7 pg (25.0-34.0); Mean Corpuscular Volume 90.2 fL (80.0-100.0); Mean Platelet Volume 10.3 fL (9.4-12.4); Monocytes # (auto) 0.75 K/uL (0.11-0.59); Monocytes % (auto) 8.1 %; Neutrophils # (auto) 7.58 K/uL (1.40-6.50); Neutrophils % (auto) 81.7 %; Platelet Count 266 K/uL (130-400); RDW Coefficient of Variation 14.1 % (11.5-14.5); RDW Standard Deviation 46.4 fL (36.4-46.3); Red Blood Count 3.97 M/uL (4.70-6.10); White Blood Count 9.28 K/ul (4.8-10.8)
[2024-11-04] MEDS: SODIUM CHLORIDE 0.9% 1,000 ML IV ONE ×2 (18:36→20:13)
--- NOTE | 2024-11-04 18:39 | XRay Report ---
Chest radiograph, one view History: Chest pain Comparison: 09/16/2024 Findings: Single AP view of the chest performed. No focal consolidation or pleural effusion. No pneumothorax. The cardiomediastinal silhouette is within normal limits. Normal pulmonary vascularity. No evidence for lymphadenopathy. Left chest wall dual-lead AICD. No visualized bony or soft tissue abnormality. Impression: Normal chest radiograph Electronically signed by Ronny Patel 11-04-2024 6:39 PM
[2024-11-04 18:45] LABS: Albumin Globulin Ratio 0.7 (0.9-2); Albumin Level 3.1 gm/dl (3.4-5.0); BUN Creatinine Ratio 34.4 (10-20); Bilirubin,Total 0.6 mg/dl (0.2-1.0); Creatinine Clr Calc Pharmacy 38.7 ml/min; Globulin 4.2 gm/dl (2.5-4.0); Magnesium 1.9 mg/dl (1.7-2.4); Potassium 2.8 mmol/L (3.5-5.1); Total Protein 7.3 gm/dl (6.0-8.3)
[2024-11-04 18:58] LABS: Troponin I High Sensitivity 153.6 pg/ml (0-20)
[2024-11-04 19:01] LABS: Thyroid Stimulating Hormone 0.427 uIu/ml (0.300-4.500)
[2024-11-04 19:14] LABS: Adenovirus PCR Not Detected (NotDetected); Bordetella parapertussis PCR Not Detected (NotDetected); Bordetella pertussis PCR Not Detected (NotDetected); Chlamydia pneumoniae PCR Not Detected (NotDetected); Coronavirus 229E PCR Not Detected (NotDetected); Coronavirus CoV-2 (COVID19)PCR Not Detected (NotDetected); Coronavirus HKU1 PCR Not Detected (NotDetected); Coronavirus NL63 PCR Not Detected (NotDetected); Coronavirus OC43PCR Not Detected (NotDetected); Human Metapneumovirus PCR Not Detected (NotDetected); Influenza A PCR Not Detected (NotDetected); Influenza B PCR Not Detected (NotDetected); Mycoplasma pneumoniae PCR Not Detected (NotDetected); Parainfluenza Virus 1 PCR Not Detected (NotDetected); Parainfluenza Virus 2 PCR Not Detected (NotDetected); Parainfluenza Virus 3 PCR Not Detected (NotDetected); Parainfluenza Virus 4 PCR Not Detected (NotDetected); Respiratory Syncytial VirusPCR Not Detected (NotDetected); Rhinovirus/Enterovirus PCR Not Detected (NotDetected)
--- NOTE | 2024-11-04 20:55 | CT Scan Report ---
Exam(s): CT ABDOMEN + PELVIS Without Contrast EXAM: CT Abdomen and Pelvis Without Intravenous Contrast CLINICAL HISTORY: Reason for exam: n/v, dehydration. TECHNIQUE: Axial computed tomography images of the abdomen and pelvis without intravenous contrast. CTDI is 34.12 mGy and DLP is 2356.54 mGy-cm. Automated exposure control was utilized for the study. A dose lowering technique was utilized adhering to the principles of ALARA. COMPARISON: No relevant prior studies available. FINDINGS: ABDOMEN: Liver: Unremarkable. Gallbladder and bile ducts: Unremarkable. Pancreas: Unremarkable. Spleen: Unremarkable. Adrenals: Unremarkable. Kidneys and ureters: Lobular atrophic kidneys. Cortical cyst in the right kidney measuring 5 cm. Nonobstructing nephrolithiasis bilaterally. Stomach and bowel: Unremarkable. PELVIS: Appendix: No findings to suggest acute appendicitis. Bladder: Unremarkable. Reproductive: Unremarkable as visualized. ABDOMEN and PELVIS: Intraperitoneal space: Unremarkable. No free air. No significant fluid collection. Bones/joints: Severe degenerative changes in the right hip and lumbar spine. Cement in the left hip. Postsurgical changes and chronic dislocation of the left hip. Soft tissues: Unremarkable. Vasculature: Unremarkable. Lymph nodes: Unremarkable. IMPRESSION: No acute abnormality in the abdomen or pelvis. Electronically signed by: Jesus Gandhi MD 11/04/24 20:54 PM
--- NOTE | 2024-11-04 20:59 | CT Scan Report ---
Exam(s): CT CHEST Without Contrast EXAM: CT Chest Without Intravenous Contrast CLINICAL HISTORY: Reason for exam: aspiration. TECHNIQUE: Axial computed tomography images of the chest without intravenous contrast. CTDI is 34.12 mGy and DLP is 2356.54 mGy-cm. Automated exposure control was utilized for the study. A dose lowering technique was utilized adhering to the principles of ALARA. COMPARISON: No relevant prior studies available. FINDINGS: Lungs: No consolidation. Mild subsegmental atelectasis in the right lower lobe. The airways are clear. Pleural space: No pleural effusion or pneumothorax. Heart: Severe coronary artery calcifications. Bones/joints: No acute findings. Soft tissues: Unremarkable. Vasculature: No aortic aneurysm.. Lymph nodes: Unremarkable. IMPRESSION: No acute abnormality. Electronically signed by: Jesus Gandhi MD 11/04/24 20:58 PM
--- NOTE | 2024-11-04 21:57 | History & Physical Report ---
Date of Service November 04, 2024 Assessment & Plan (1) Acute kidney injury superimposed on chronic kidney disease: (2) Urinary tract infection: (3) Hypokalemia: (4) Hypernatremia: (5) Diarrhea: (6) Dysphagia: (7) Chronic atrial fibrillation: (8) Hypertension: (9) Weakness: Plan Patient is a 74-year-old male with past medical history of CKD, A-fib on Xarelto with a pacer, hypertension, GERD. He was recently admitted to the hospital 09/17 to 09/24 due to weakness, MADDI, and UTI. He was discharged to [facility] and then transition to care at [facility]. Patient presented to the ED due to ongoing, unimproved weakness, nausea, and unable to tolerate p.o. intake for 4 weeks. He is being admitted for an MADDI and elevated troponin. #MADDI/hypokalemia/hypernatremia history of stage III CKD with recent MADDI August 2024 2/2 UTI; lisinopril discontinued during this admission likely secondary to renal hypoperfusion with dehydration and UTI Cr increased from 1.43 to 2.27, BUN elevated to 78 indicating pre-renal cause UA appears infectious see treatment below given 2L NSS bolus in ED Continue IVF with NSS at 125 mL/h Trend BMP Hypokalemia K+ 2.8; caution with repletion with elevated creatinine 2 bags K rider ordered Hypernatremia NA 148; anticipate to decrease with NSS Mg 1.9 1 G mag IV ordered to assist with potassium absorption Avoid nephrotoxic agents, hold empagliflozin #UTI Recent admission 09/17 to 08/23 due to weakness, UTI, and MADDI Urine culture grew Miesha glabrata, no sensitivities UA after admission showed 1+ protein, 3+ blood, positive for nitrates, >50 WBC, 11-20 hyaline casts, 4+ bacteria, granular casts Completed 5 day course of Zosyn during previous admission Will start ceftriaxone Follow urine cultures #weakness Ongoing for several months s/p fall in July and acutely worsened x 4 weeks suspect 2/2 MADDI and UTI Has spacer of left hip; no longer requires fentanyl patch PT/OT consulted, would anticipate further inpatient rehab after discharge fall precautions #diarrhea/abdominal pain Abdominal pain for approximately 4 months Diarrhea x 1 week along with bowel incontinence Recent IV ABX with Zosyn in August Stool cultures including C. difficile ordered #Dysphagia Patient reports dysphagia for several weeks and being unable to take home medications failed dysphagia screen in ED N.p.o. until eval by speech Hold p.o. medications, conversion to IV medications Will likely benefit from swallow study q4h oral care/ mouth swabs for dryness #chronic A-fib On Xarelto and metoprolol, s/p pacer Holding p.o. medications Xarelto converted to heparin drip, antiX a ordered Metoprolol IV as needed for HR greater than 120 #Hypertension Hold amlodipine, metoprolol, isosorbide mononitrate Lopressor IV as needed for SBP greater than 185 and DBP greater than 95 Chronic stable diagnoses: anemialikely of chronic disease, improved from baseline, stable GERDProtonix IV ordered VTE ppx: hold Xarelto given dysphagia, conversion to heparin drip (low-dose, no bolus) Diet: n.p.o. until eval by speech Dispo: PCU with potential need for IV HR and BP control Admission and Anticipated Discharge Date Admission Date: 11/04/24 History of Present Illness Chief Complaint: illness Primary Care Provider: Ronny Llamas MD Patient is a 74-year-old male with past medical history of CKD, A-fib on Xarelto with a pacer, hypertension, GERD. He was recently admitted to the hospital 09/17 to 09/24 due to weakness, MADDI, and UTI. He was discharged to [facility] and then transition to care at [facility]. Patient presented to the ED due to ongoing, unimproved weakness, nausea, and unable to tolerate p.o. intake for 4 weeks. He is being admitted for an MADDI and elevated troponin. Patient seen at bedside with his and son present. He stated that he has lost 40 pounds recently he has been extremely weak and was unable to partake in physical therapy and Occupational Therapy at [facility] due to feeling too sick. He denies ongoing hip pain as he was started on a fentanyl patch during recent admission after 2 falls and having left-sided hip pain due to having a spacer in place. He no longer uses the fentanyl patch and denies any pain. Patient also endorses nausea and dry heaves for roughly 4 weeks; he stated the nausea is only relieved by ice water and Zofran. He has been unable to tolerate any p.o. intake as he has had dysphagia and is choking on his food. He denies any aspiration. His mouth is very dry on exam and he stated it has been dry for several weeks. He also endorses incontinence of bowel along with diarrhea for roughly 1 week. He also endorses lower abdominal pain for roughly 4 months; Has been unchanged, constant. He did undergo a course of antibiotic treatment for UTI in August with Zoyaminin. He also has been exposed to hospital-acquired infections. He stated that he has been unable to take his home medications occasionally since discharge due to nausea. He feels that this time he is unable to take medications due to nausea and dysphagia; will order IV medications. He denies chest pain however endorses that he sometimes feels his heart flutter. He denies urinary symptoms similar to previous admission, denies dysuria, difficulty urinating, hematuria, decrease in urination. He also endorses a headache and feeling like his ears are plugged along with occasional dyspnea for the past few weeks. He does not use nicotine products or drink alcohol. He lives at home with his and their house is currently being remodeled to help with his ambulation. 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 He stated his voice has been decreased/has difficulty talking. He does not use oxygen at baseline, no CPAP/BiPAP. He previously had ANAMARIA that was self resolved. He did not get his home medications today due to nausea. He wishes to be full code at this time. Patient is agreeable to PT/OT evals and potential inpatient rehab again. He is agreeable to speech eval and possible swallow study. Patient stated he has an allergy to potassium chloride IV due to burning sensation previously, discussed trialing IV potassium with IV fluids as potassium is low at 2.8. He is agreeable. Allergies Allergy/AdvReac Type Severity Reaction Status Date / Time atorvastatin Allergy Unknown Verified 08/03/24 10:25 cephalexin [From Keflex] Allergy Unknown Verified 08/03/24 10:25 oxycodone [From Percocet] Allergy Unknown Verified 08/03/24 10:25 potassium chloride Allergy Unknown Verified 08/03/24 10:25 codeine AdvReac Unknown SICK IN Verified 08/03/24 10:25 STOMACH/PASSED OUT Home Medications Medication Instructions Recorded Confirmed Type cholecalciferol (vitamin D3) 10 400 units PO DAILY 04/24/19 08/03/24 History mcg (400 unit) tablet acetaminophen 325 mg tablet 325 mg PO QID PRN Pain 04/07/20 08/03/24 History famotidine 20 mg tablet 20 mg PO DAILY #90 tabs 06/13/20 08/03/24 Rx ascorbate calcium (vitamin C) 500 500 mg PO DAILY 08/08/20 08/03/24 History mg tablet nitroglycerin 0.4 mg sublingual 0.4 mg sublingual PRN PRN chest 11/21/21 08/03/24 Rx tablet (Nitrostat) pain #30 tabs empagliflozin 10 mg tablet 10 mg PO DAILY #90 tabs 12/13/23 08/03/24 Rx (Jardiance) cyclobenzaprine 10 mg tablet 10 mg PO HS PRN muscle spasm #90 01/22/24 08/03/24 Rx tabs Motorized Scooter #1 ea 02/21/24 07/20/24 Rx metoprolol succinate 200 mg 200 mg PO DAILY #90 tabs 02/26/24 08/03/24 Rx tablet,extended release 24 hr pantoprazole 40 mg tablet,delayed 40 mg PO QAM #90 tabs 04/30/24 08/03/24 Rx release fluticasone propionate 50 2 spray intranasal DAILY #48 grams 06/25/24 08/03/24 Rx mcg/actuation nasal spray,suspension isosorbide mononitrate 30 mg 30 mg PO QPM 07/26/24 08/03/24 History tablet,extended release 24 hr multivitamin 1 tab PO DAILY 07/26/24 08/03/24 History rivaroxaban 15 mg tablet (Xarelto) 15 mg PO QAM #90 tabs 09/07/24 Rx amlodipine 10 mg tablet 10 mg PO DAILY #90 tabs 09/21/24 Rx fentanyl 12 mcg/hr transdermal 1 patch transdermal Q3D #10 ea 09/24/24 Rx patch hydrocodone 5 mg-acetaminophen 325 2 tab PO Q4H PRN pain #10 tabs 09/24/24 Rx mg tablet 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 with presence of antibiotic-impregnated cement spacer (Acute) Statin myopathy Cardiomyopathy Leukopenia CAD (coronary artery disease) Anticoagulant long-term use Bilateral arm pain Dietary counseling and surveillance Metabolic syndrome Stage 3b chronic kidney disease DVT of axillary vein, acute left Left arm swelling Pacemaker AVB (atrioventricular block) CKD (chronic kidney disease) stage 3, GFR 30-59 ml/min Allergic rhinitis (Acute) Anemia (Acute) Anxiety (Acute) Arthritis (Acute) BPH (benign prostatic hyperplasia) (Acute) Bifascicular block (Acute) Bilateral edema of lower extremity (Acute) Cardiac arrhythmia (Acute) Cough (Acute) Gait disturbance (Acute) Gastroesophageal reflux disease (Acute) History of pulmonary embolism (Acute) Hyperlipidemia (Acute) Left anterior fascicular block (Acute) Nephrolithiasis (Acute) Obstructive sleep apnea of adult (Acute) Paroxysmal atrial tachycardia (Acute) Pre-diabetes (Acute) Renal insufficiency (Acute) Right bundle branch block (Acute) VPC's (ventricular premature complexes) (Acute) Medical History Acute worsening of stage 3 chronic kidney disease Elevated troponin Acute UTI Osteoarthritis of right knee Osteoarthritis of right hip Vitamin D deficiency Surgical History H/O heart artery stent x 3 History of lithotripsy History of arthroscopic knee surgery History of hip replacement History of appendectomy Family History Mother Stroke Diabetes Hypertension Father Diabetes Denies family history of Ovarian cancer Prostate cancer Myocardial infarction Breast cancer Colorectal cancer Social History Smoking Status: Unknown if ever smoked Second Hand Exposure: No; Do You Dip or Chew Tobacco: No; Hx Alcohol Use: No Hx Substance Use: No Preferred Language: Gabonese Communication Ability: Effective Hearing Ability: Normal Water Operator Required: No Beliefs That Will Affect Care: None marital status: Current Living Situation: Spouse current occupational status: retired current 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 Seatbelt Use: always Sunscreen Use: Yes (sometimes.) Assistive Devices: Cane, Denture - Upper, Glasses, Lift Chair and Walker Review of Systems Review of Systems: See HPI Physical Exam Physical Exam: The patient is awake, alert and oriented 3, well developed and well nourished, normocephalic and atraumatic, in no acute distress. Non-toxic appearing. HEENT- EOMI, mucous membranes dry, yellow/green oral and optical mucus present. Hearing grossly intact. Heart-normal S1 and S2. No murmurs, rubs or gallops. Lungs- decrease bilaterally, no respiratory distress, no accessory muscle use. Abdomen-normal bowel sounds and soft. No ascites noted. Tender to right lower quadrant with deep palpation. Extremities- no clubbing, cyanosis. Results & Data Results & Data Vital Signs (Past 12 Hours) Vital Signs Temp Pulse Resp BP Pulse Ox O2 Del Method 11/04/24 21:54 88 24 95 11/04/24 21:48 91 H 11/04/24 21:33 92 H 24 97 11/04/24 21:30 115/66 11/04/24 21:30 115/66 11/04/24 21:24 93 H 25 H 97 11/04/24 21:12 92 H 25 H 97 11/04/24 21:00 90 27 H 130/68 97 11/04/24 20:30 91 H 26 H 126/58 L 97 11/04/24 20:15 97 H 19 118/77 96 11/04/24 19:12 94 H 22 119/73 96 11/04/24 18:33 114 H 18 105/77 96 11/04/24 18:12 100 H 95 Room Air 11/04/24 18:00 96 H 19 112/75 95 11/04/24 17:51 36.4 C L 113 H 29 H 123/72 95 Room Air 11/04/24 17:49 80 Laboratory Results Reviewed CBC, CMP, bio fire, troponin, mag, TSH Diagnostic Findings Reviewed head CT, AP CT, CXR Medications Administered ED2L NSS bolus ECG Additional Comments: AV paced rhythm Code Status & VTE Plan Code Status full code VTE Prophylaxis Plan VTE Prophylaxis will be ordered: Yes Supervising Physician Co-Signing Physician Notes Attending addendum: I have physically seen this patient, have supervised the KISHA's activities, and agree with the H&P unless as otherwise noted. Assessment and Plan: The patient is a 74-year-old male with a past medical history including CKD, atrial fibrillation on Xarelto, status post pacer, hypertension, GERD. He was most recently mated to [facility] from 09/17/2024-09/24/2024, for generalized weakness, MADDI and UTI. He was then discharged to [facility] rehab, and then transition care to [facility] from 09/24-10/12/2024. He reports being unable to tolerate oral intake very well for the past 4 weeks, having unimproved weakness, nausea and signs of dehydration. He is being referred for admission for MADDI and elevated troponin #Acute kidney injury/hypokalemia/hyponatremia- History of CKD stage III, with recent AKA August 2024 Hold lisinopril Status post 2 L normal saline bolus in the ED Continue NSS at 125 mL/h Repeat BMP and magnesium level in the a.m. Potassium 2.8 on admission, will give potassium chloride 20 mEq IV riders Repeat laboratories in the a.m. Magnesium 1.9 on admission will give magnesium sulfate 1 g IV and recheck in the a.m. Sodium 148 on admission, rehydrate as above, recheck laboratories in the a.m., adjust fluids as needed Urinary tract infection- Follow urine culture sensitivity Previous culture grew out Miesha glabrata without sensitivities Placed on ceftriaxone 2 g IV daily Generalized weakness- Will need PT/OT consult prior to discharge, and after above medical issues are addressed Remaining orders and notations as noted PG Care Time/CCT Total # of Minutes Spent Total Time Spent with Patient: Total time spent is greater than 50% in coordination of care (as documented) at patient's floor/unit and/or counseling patient: Coding Level of Care Code 02529 INT INP/OBS CARE 3/75MIN Diagnoses Acute kidney injury superimposed on chronic kidney disease N17.9; N18.9 Urinary tract infection N39.0 Hypokalemia E87.6 Hypernatremia E87.0 Diarrhea R19.7 Dysphagia R13.10 Chronic atrial fibrillation I48.20 Essential hypertension I10 Hypertension type: essential hypertension Weakness R53.1 (8) Hypertension Hypertension type: essential hypertension Qualified Code(s): I10 - Essential (primary) hypertension
[2024-11-04] MEDS: MAGNESIUM SULFATE / D5W 1 GM/100 ML BAG IV ONE (23:26)
[2024-11-04] MEDS: POTASSIUM CHLORIDE / WTR 10 MEQ/100 ML PLCT IV SCH (23:27)
[2024-11-04] MEDS: ONDANSETRON INJ 2 MG/ML 2 ML VIAL IV STA (23:29)
[2024-11-04] MEDS: PANTOprazole 40 MG/10 ML SYR IV ONE (23:30)
[2024-11-04] MEDS: SODIUM CHLORIDE 0.9% 1,000 ML IV SCH (23:31)
[2024-11-05 00:12] LABS: Appearance Urine Cloudy (Clear); Bacteria Urine Automated 4+ (None Seen); Bilirubin Urine Negative (Negative); Blood Urine 3+ (Negative); Color Urine Yellow; Epithelial Cell Urine Auto 0-2 /hpf (0-2); Glucose Urine UA Negative (Negative); Granular Casts Urine Present /lpf (None Prsent); Ketones Urine Trace (Negative); Leukocyte Esterase Urine 3+ (Negative); Nitrite Urine Positive (Negative); Protein Urine 1+ (Negative); Specific Gravity Urine 1.015 (1.000-1.030); Urobilinogen Urine Negative (Negative); WBC Urine Automated >50 /hpf (0-5); pH Urine 5.5 (4.5-7.5)
--- NOTE | 2024-11-05 00:42 | Emergency Department Note ---
Impression & Plan MADDI (acute kidney injury), Difficulty swallowing, Dehydration, Nausea vomiting and diarrhea ED Provider Note NAME: LEWIS CARDENAS AGE: 74 SEX: M : 1950 ARRIVES VIA: Ambulance INFORMANT: Patient, ED PROVIDER(S): Yasmin Murdock MD CHIEF COMPLAINT: Weakness, nausea HPI: This is a 74-year-old male presenting for weakness, nausea and vomiting. Patient states that he is in have any symptoms for the past 4 weeks. He is had weight loss of over 40 pounds. He states he feels dehydrated. He notes whenever he tries to drink fluids, he thinks he is choking. He also has some diarrhea with these episodes of eating/drinking. He notes he recently has a fall and has been bedbound since then. Reports some slight abdominal pain ROS: See above HPI for pertinent positives & negatives. A total of 10 systems reviewed and were otherwise negative. PAST MEDICAL HISTORY: See Below PAST SURGICAL HISTORY: See Below FAMILY HISTORY: See Below SOCIAL HISTORY: See Below HOME MEDICATIONS: See Below ALLERGIES: See Below VITALS: See Below PHYSICAL EXAMINATION: General: Chronically unwell appearing, dry mucous membranes Head: Normocephalic and atraumatic Eyes: Normal inspection, extraocular muscles intact Ear, nose, throat: Normal external exam Neck: Normal range of motion Respiratory: lungs clear to auscultation bilaterally Cardiovascular: Regular rate/rhythm, no murmur GI: soft, diffusely tender without rebound or guarding Extremities: nontender, moves all extremities Neuro: The patient awake and alert, appropriately conversive, no focal deficits, symmetric faces Skin: Warm, dry, and intact MEDICAL DECISION MAKING: This is 74-year-old male present for weakness, nausea and vomiting. Patient was chronically unwell, dry mucous membranes. He is tachycardic here, will give fluid resuscitation. He has failed a swallow trial here. Will order CT abdomen/pelvis, to rule out aspiration, intra-abdominal process due to his persistent symptoms. -Blood reveals no leukocytosis, stable anemia. Otherwise INR 1.4. Sodium is 148, signs of dehydration/hemoconcentration. Potassium 2.8. Anion gap 16, creatinine significant elevated at 2.27, up from previous baseline. Troponin is elevated at 153.6 -ECG independently interpreted by me dual AV paced rhythm at 87, prolonged QTc, no ST segment elevations consistent with STEMI criteria -Chest Xray independently interpreted by me showing no pneumothorax, focal opacity, or pleural effusions. -CT of the chest and abdomen/pelvis revealed no acute process. -Will admit patient for significant weight loss, failed swallow study, nausea vomiting, diarrhea and elevated troponin. Differential diagnosis: Gastroenteritis, cancer, failure to thrive, dehydration, small bowel obstruction, bowel perforation, aspiration pneumonia Independent History obtained from: and son Diagnostics interpreted by me: ECG: See above Cardiac Monitoring: An order was placed for continuous cardiac monitoring. The monitor shows a rate of 109 with sinus rhythm. 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 with presence of antibiotic-impregnated cement spacer (Acute) Statin myopathy Cardiomyopathy Leukopenia CAD (coronary artery disease) Anticoagulant long-term use Bilateral arm pain Dietary counseling and surveillance Metabolic syndrome Stage 3b chronic kidney disease DVT of axillary vein, acute left Left arm swelling Pacemaker AVB (atrioventricular block) CKD (chronic kidney disease) stage 3, GFR 30-59 ml/min Allergic rhinitis (Acute) Anemia (Acute) Anxiety (Acute) Arthritis (Acute) BPH (benign prostatic hyperplasia) (Acute) Bifascicular block (Acute) Bilateral edema of lower extremity (Acute) Cardiac arrhythmia (Acute) Cough (Acute) Gait disturbance (Acute) Gastroesophageal reflux disease (Acute) History of pulmonary embolism (Acute) Hyperlipidemia (Acute) Left anterior fascicular block (Acute) Nephrolithiasis (Acute) Obstructive sleep apnea of adult (Acute) Paroxysmal atrial tachycardia (Acute) Pre-diabetes (Acute) Renal insufficiency (Acute) Right bundle branch block (Acute) VPC's (ventricular premature complexes) (Acute) Medical History Acute worsening of stage 3 chronic kidney disease Elevated troponin Acute UTI Osteoarthritis of right knee Osteoarthritis of right hip Vitamin D deficiency Surgical History H/O heart artery stent x 3 History of lithotripsy History of arthroscopic knee surgery History of hip replacement History of appendectomy Family History Mother Stroke Diabetes Hypertension Father Diabetes Denies family history of Ovarian cancer Prostate cancer Myocardial infarction Breast cancer Colorectal cancer Social History Smoking Status: Unknown if ever smoked Second Hand Exposure: No; Do You Dip or Chew Tobacco: No; Hx Alcohol Use: No Hx Substance Use: No Preferred Language: Palestinian Communication Ability: Effective Hearing Ability: Normal Keeler Polygraph Operator Required: No Beliefs That Will Affect Care: None marital status: Current Living Situation: Spouse current occupational status: retired 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 Seatbelt Use: always Sunscreen Use: Yes (sometimes.) Assistive Devices: Cane, Denture - Upper, Glasses, Lift Chair and Walker Allergies Allergies Allergy/AdvReac Type Severity Reaction Status Date / Time atorvastatin Allergy Unknown Verified 08/03/24 10:25 cephalexin [From Keflex] Allergy Unknown Verified 08/03/24 10:25 oxycodone [From Percocet] Allergy Unknown Verified 08/03/24 10:25 potassium chloride Allergy Unknown Verified 08/03/24 10:25 codeine AdvReac Unknown SICK IN Verified 08/03/24 10:25 STOMACH/PASSED OUT Home Meds Home Medications Medication Instructions Recorded Confirmed cholecalciferol (vitamin D3) 10 400 units PO DAILY 04/24/19 08/03/24 mcg (400 unit) tablet acetaminophen 325 mg tablet 325 mg PO QID PRN Pain 04/07/20 08/03/24 ascorbate calcium (vitamin C) 500 500 mg PO DAILY 08/08/20 08/03/24 mg tablet isosorbide mononitrate 30 mg 30 mg PO QPM 07/26/24 08/03/24 tablet,extended release 24 hr multivitamin 1 tab PO DAILY 07/26/24 08/03/24 Previous Rx's Medication Instructions Recorded famotidine 20 mg tablet 20 mg PO DAILY #90 tabs 06/13/20 nitroglycerin 0.4 mg sublingual 0.4 mg sublingual PRN PRN chest 11/21/21 tablet (Nitrostat) pain #30 tabs empagliflozin 10 mg tablet 10 mg PO DAILY #90 tabs 12/13/23 (Jardiance) cyclobenzaprine 10 mg tablet 10 mg PO HS PRN muscle spasm #90 01/22/24 tabs Motorized Scooter #1 ea 02/21/24 metoprolol succinate 200 mg 200 mg PO DAILY #90 tabs 02/26/24 tablet,extended release 24 hr pantoprazole 40 mg tablet,delayed 40 mg PO QAM #90 tabs 04/30/24 release fluticasone propionate 50 2 spray intranasal DAILY #48 grams 06/25/24 mcg/actuation nasal spray,suspension rivaroxaban 15 mg tablet (Xarelto) 15 mg PO QAM #90 tabs 09/07/24 amlodipine 10 mg tablet 10 mg PO DAILY #90 tabs 09/21/24 fentanyl 12 mcg/hr transdermal 1 patch transdermal Q3D #10 ea 09/24/24 patch hydrocodone 5 mg-acetaminophen 325 2 tab PO Q4H PRN pain #10 tabs 09/24/25 mg tablet Results & Data (ED) Vital Signs Vital Signs - 24 hr 11/04/24 17:49 11/04/24 17:51 11/04/24 18:00 Temperature 36.4 C L Temperature Source Oral Pulse Rate 80 113 H 96 H Pulse Rate from SpO2 Sensor 86 Respiratory Rate 29 H 19 Respiratory Effort / Characteristics Non-Labored Spontaneous Respiratory Depth Normal Blood Pressure 123/72 112/75 Blood Pressure Mean 89 87 Blood Pressure Position Semi-fowlers Pulse Oximetry 95 95 Oxygen Delivery Method Room Air Sepsis Recent Fever Within 48 Hours No Sepsis New/Unexplained Change in Mental Status N/A Sepsis Action Taken by Nursing Physician Notified 11/04/24 18:12 11/04/24 18:33 11/04/24 19:12 Temperature Temperature Source Pulse Rate 100 H 114 H 94 H Pulse Rate from SpO2 Sensor 113 H 97 H Respiratory Rate 18 22 Respiratory Effort / Characteristics Respiratory Depth Blood Pressure 105/77 119/73 Blood Pressure Mean 86 88 Blood Pressure Position Pulse Oximetry 95 96 96 Oxygen Delivery Method Room Air Sepsis Recent Fever Within 48 Hours Sepsis New/Unexplained Change in Mental Status Sepsis Action Taken by Nursing 11/04/24 20:15 11/04/24 20:30 11/04/24 21:00 Temperature Temperature Source Pulse Rate 97 H 91 H 90 Pulse Rate from SpO2 Sensor 97 H 89 88 Respiratory Rate 19 26 H 27 H Respiratory Effort / Characteristics Respiratory Depth Blood Pressure 118/77 126/58 L 130/68 Blood Pressure Mean 90 80 88 Blood Pressure Position Pulse Oximetry 96 97 97 Oxygen Delivery Method Sepsis Recent Fever Within 48 Hours Sepsis New/Unexplained Change in Mental Status Sepsis Action Taken by Nursing 11/04/24 21:12 11/04/24 21:24 11/04/24 21:30 Temperature Temperature Source Pulse Rate 92 H 93 H Pulse Rate from SpO2 Sensor 92 H 90 Respiratory Rate 25 H 25 H Respiratory Effort / Characteristics Respiratory Depth Blood Pressure 115/66 Blood Pressure Mean 100 Blood Pressure Position Pulse Oximetry 97 97 Oxygen Delivery Method Sepsis Recent Fever Within 48 Hours Sepsis New/Unexplained Change in Mental Status Sepsis Action Taken by Nursing 11/04/24 21:30 11/04/24 21:33 11/04/24 21:48 Temperature Temperature Source Pulse Rate 92 H 91 H Pulse Rate from SpO2 Sensor 92 H Respiratory Rate 24 Respiratory Effort / Characteristics Respiratory Depth Blood Pressure 115/66 Blood Pressure Mean 100 Blood Pressure Position Pulse Oximetry 97 Oxygen Delivery Method Sepsis Recent Fever Within 48 Hours Sepsis New/Unexplained Change in Mental Status Sepsis Action Taken by Nursing 11/04/24 21:54 Temperature Temperature Source Pulse Rate 88 Pulse Rate from SpO2 Sensor 85 Respiratory Rate 24 Respiratory Effort / Characteristics Respiratory Depth Blood Pressure Blood Pressure Mean Blood Pressure Position Pulse Oximetry 95 Oxygen Delivery Method Sepsis Recent Fever Within 48 Hours Sepsis New/Unexplained Change in Mental Status Sepsis Action Taken by Nursing Laboratory Data 11/05/24 03:50 11/05/24 03:50 Lab Results 11/04/24 11/04/24 11/04/24 Range/Units 18:04 19:22 20:49 WBC 9.28 (4.8-10.8) K/ul RBC 3.97 L (4.70-6.10) M/uL Hgb 11.8 L (14.0-18.0) g/dl Hct 35.8 L (42.0-52.0) % MCV 90.2 (80.0-100.0) fL MCH 29.7 (25.0-34.0) pg MCHC 33.0 (32.0-36.0) g/dL RDW Std Deviation 46.4 H (36.4-46.3) fL RDW Coeff of Ira 14.1 (11.5-14.5) % Plt Count 266 (130-400) K/uL MPV 10.3 (9.4-12.4) fL Immature Gran % (Auto) 0.4 % Neut % (Auto) 81.7 % Lymph % (Auto) 7.2 % [place] % (Auto) 8.1 % Eos % (Auto) 2.5 % Baso % (Auto) 0.1 % Neut # (Auto) 7.58 H (1.40-6.50) K/uL Lymph # (Auto) 0.67 L (1.20-3.40) K/uL [place] # (Auto) 0.75 H (0.11-0.59) K/uL Eos # (Auto) 0.23 (0.00-0.50) K/uL Baso # (Auto) 0.01 (0.00-0.20) K/uL Immature Gran # (Auto) 0.04 (0.01-0.20) K/uL PT 14.6 H (9.0-12.0) Seconds INR 1.4 H (0.9-1.1) APTT 32 H (21-31) Seconds PTT Ratio 1.2 Sodium 148 H (136-145) mmol/L Potassium 2.8 L (3.5-5.1) mmol/L Chloride 111 H (98-107) mmol/L Carbon Dioxide 21 (21-32) mmol/L Anion Gap 16 H (3-11) BUN 78 H (6-23) mg/dl Creatinine 2.27 H (0.6-1.4) mg/dl Est Cr Clr Drug Dosing 38.7 ml/min eGFR 29.53 BUN/Creatinine Ratio 34.4 H (10-20) Glucose 117 H (70-99(Fasting)) mg/dl Lactate 1.4 (0.4-2.0) mmol/L Calcium 9.0 (8.6-10.3) mg/dl Magnesium 1.9 (1.7-2.4) mg/dl Total Bilirubin 0.6 (0.2-1.0) mg/dl AST 20 (13-39) U/L ALT 9 (7-52) U/L Alkaline Phosphatase 80 (34-104) U/L Troponin I High Sens 153.6 H* 139.4 H* (0-20) pg/ml Total Protein 7.3 (6.0-8.3) gm/dl Albumin 3.1 L (3.4-5.0) gm/dl Globulin 4.2 H (2.5-4.0) gm/dl Albumin/Globulin Ratio 0.7 L (0.9-2) TSH 0.427 (0.300-4.500) uIu/ml Adenovirus (PCR) Not Detected (NotDetected) B. pertussis DNA (PCR) Not Detected (NotDetected) B.parapertussis DNA PCR Not Detected (NotDetected) C. pneumoniae DNA (PCR) Not Detected (NotDetected) Coronavirus OC43 (PCR) Not Detected (NotDetected) Coronavirus HKU1 (PCR) Not Detected (NotDetected) Coronavirus 229E (PCR) Not Detected (NotDetected) SARS-CoV-2 (PCR) Not Detected (NotDetected) Coronavirus NL63 (PCR) Not Detected (NotDetected) Human Metapneumovir PCR Not Detected (NotDetected) Influenza Type A (PCR) Not Detected (NotDetected) Influenza Type B (PCR) Not Detected (NotDetected) M. pneumoniae (PCR) Not Detected (NotDetected) Parainfluenza 1 (PCR) Not Detected (NotDetected) Parainfluenza 2 (PCR) Not Detected (NotDetected) Parainfluenza 3 (PCR) Not Detected (NotDetected) Parainfluenza 4 (PCR) Not Detected (NotDetected) RSV (PCR) Not Detected (NotDetected) Entero/Rhino (PCR) Not Detected (NotDetected) Administered Medications Acetaminophen (Ofirmev) 1,000 mg in 100 mls @ 400 mls/hr IV Q8H PRN PRN Reason: Pain or Fever Stop: 11/08/24 01:49 Last Infusion: 11/05/24 03:57 Dose: Infused Documented By: Admin: 11/05/24 03:37 Dose: 400 mls/hr Documented By: CHECO Heparin Sodium/Dextrose (Heparin 40421 Unit/500 Ml D5w) 25,000 units in 500 mls @ 22 mls/hr IV .[id number] ALPESH; Protocol Stop: 12/05/24 01:49 Last Titration: 11/05/24 10:27 Dose: 1,100 units/hr, 22 mls/hr Documented By: TERRENCE Co-signed By: AVANI Titration: 11/05/24 07:09 Dose: 1,000 units/hr, 20 mls/hr Documented By: TERRENCE Co-signed By: CHECO Admin: 11/05/24 03:13 Dose: 1,000 units/hr, 20 mls/hr Documented By: CHECO Co-signed By: VERO Pantoprazole Sodium (Protonix) 40 mg in 10 mls @ 5 mls/min IV DAILY ALPESH Stop: 12/05/24 08:59 Last Admin: 11/05/24 11:03 Dose: 5 mls/min Documented By: TERRENCE Dextrose/Sodium Chloride (D5w And 1/2nss) 1,000 mls @ 80 mls/hr IV .[id number] ALPESH Stop: 11/06/24 08:44 Last Admin: 11/05/24 09:08 Dose: 80 mls/hr Documented By: TERRENCE Ondansetron HCl (Ondansetron Inj 2 Mg/Ml 2 Ml Vial) 4 mg IV Q6H PRN PRN Reason: Nausea And Vomiting Stop: 12/04/24 22:42 Last Admin: 11/05/24 03:38 Dose: 4 mg Documented By: CHECO Discontinued Medications Heparin Sodium/Dextrose (Heparin Iv Adult Wt-Based Low-Dose *No* Initial Bolus Protocol) 1 each IV Q15M ALPESH; Protocol Stop: 11/05/24 05:00 Last Admin: 11/05/24 03:28 Dose: Not Given Documented By: Admin: 11/05/24 03:28 Dose: Not Given Documented By: Admin: 11/05/24 03:28 Dose: Not Given Documented By: Admin: 11/05/24 03:28 Dose: Not Given Documented By: Admin: 11/05/24 03:28 Dose: Not Given Documented By: Admin: 11/05/24 03:28 Dose: Not Given Documented By: Admin: 11/05/24 03:28 Dose: Not Given Documented By: Admin: 11/05/24 03:28 Dose: Not Given Documented By: Admin: 11/05/24 03:16 Dose: Not Given Documented By: Admin: 11/05/24 03:16 Dose: Not Given Documented By: Admin: 11/05/24 03:16 Dose: Not Given Documented By: Admin: 11/05/24 03:16 Dose: Not Given Documented By: Admin: 11/05/24 03:16 Dose: 1 each Documented By: CHECO Sodium Chloride (Nss) 1,000 mls @ 999 mls/hr IV .Q1H1M ONE Stop: 11/04/24 19:31 Last Infusion: 11/04/24 20:12 Dose: Infused Documented By: Admin: 11/04/24 18:36 Dose: 999 mls/hr Documented By: MMF Sodium Chloride (Nss) 1,000 mls @ 999 mls/hr IV .Q1H1M ONE Stop: 11/04/24 20:57 Last Infusion: 11/04/24 22:14 Dose: Infused Documented By: Admin: 11/04/24 20:13 Dose: 999 mls/hr Documented By: MMF Sodium Chloride (Nss) 1,000 mls @ 125 mls/hr IV .Q8H ALPESH Stop: 11/05/24 22:44 Last Infusion: 11/05/24 10:31 Dose: Infused Documented By: Admin: 11/05/24 03:27 Dose: 125 mls/hr Documented By: Infusion: 11/05/24 01:48 Dose: Infused Documented By: Admin: 11/04/24 23:31 Dose: 125 mls/hr Documented By: NAW Potassium Chloride (K Fuentes / Wtr) 10 meq in 100 mls @ 100 mls/hr IV Q1H ALPESH Stop: 11/05/24 00:44 Last Infusion: 11/05/24 01:48 Dose: Infused Documented By: Admin: 11/05/24 00:38 Dose: 100 mls/hr Documented By: Infusion: 11/05/24 00:38 Dose: Infused Documented By: Admin: 11/04/24 23:27 Dose: 100 mls/hr Documented By: ENMANUEL Magnesium Sulfate/Dextrose (Magnesium Sulfate / D5w) 1 gm in 100 mls @ 50 mls/hr IV ONE ONE Stop: 11/05/24 00:40 Last Infusion: 11/05/24 01:47 Dose: Infused Documented By: Admin: 11/04/24 23:26 Dose: 50 mls/hr Documented By: ENMANUEL Pantoprazole Sodium (Protonix) 40 mg in 10 mls @ 5 mls/min IV NOW ONE Stop: 11/04/24 22:42 Last Admin: 11/04/24 23:30 Dose: 5 mls/min Documented By: ENMANUEL Ceftriaxone Sodium (Rocephin) 2,000 mg in 50 mls @ 100 mls/hr IV NOW STA Stop: 11/05/24 02:08 Last Infusion: 11/05/24 03:57 Dose: Infused Documented By: Admin: 11/05/24 03:10 Dose: 100 mls/hr Documented By: CHECO Thiamine HCl 500 mg/ Sodium (Chloride) 55 mls @ 210 mls/hr IV NOW STA Stop: 11/05/24 08:54 Last Infusion: 11/05/24 10:07 Dose: Infused Documented By: Admin: 11/05/24 09:16 Dose: 210 mls/hr Documented By: TERRENCE Potassium Chloride (K Fuentes / Wtr) 10 meq in 100 mls @ 100 mls/hr IV Q1H ALPESH Stop: 11/05/24 11:44 Last Infusion: 11/05/24 12:50 Dose: Infused Documented By: Admin: 11/05/24 11:38 Dose: 100 mls/hr Documented By: Infusion: 11/05/24 11:31 Dose: Infused Documented By: Admin: 11/05/24 10:31 Dose: 100 mls/hr Documented By: Infusion: 11/05/24 10:09 Dose: Infused Documented By: Admin: 11/05/24 09:09 Dose: 100 mls/hr Documented By: TERRENCE Ondansetron HCl (Ondansetron Inj 2 Mg/Ml 2 Ml Vial) 4 mg IV NOW STA Stop: 11/04/24 22:44 Last Admin: 11/04/24 23:29 Dose: 4 mg Documented By: NAW Imaging Data Radiologist's Impression: Chest X-Ray 11/04/24 18:08 Chest radiograph, one view History: Chest pain Comparison: 09/16/2024 Findings: Single AP view of the chest performed. No focal consolidation or pleural effusion. No pneumothorax. The cardiomediastinal silhouette is within normal limits. Normal pulmonary vascularity. No evidence for lymphadenopathy. Left chest wall dual-lead AICD. No visualized bony or soft tissue abnormality. Impression: Normal chest radiograph Electronically signed by Ronny Patel 11-04-2024 6:39 PM Abdomen/Pelvis CT 11/04/24 19:57 Exam(s): CT ABDOMEN + PELVIS Without Contrast EXAM: CT Abdomen and Pelvis Without Intravenous Contrast CLINICAL HISTORY: Reason for exam: n/v, dehydration. TECHNIQUE: Axial computed tomography images of the abdomen and pelvis without intravenous contrast. CTDI is 34.12 mGy and DLP is 2356.54 mGy-cm. Automated exposure control was utilized for the study. A dose lowering technique was utilized adhering to the principles of ALARA. COMPARISON: No relevant prior studies available. FINDINGS: ABDOMEN: Liver: Unremarkable. Gallbladder and bile ducts: Unremarkable. Pancreas: Unremarkable. Spleen: Unremarkable. Adrenals: Unremarkable. Kidneys and ureters: Lobular atrophic kidneys. Cortical cyst in the right kidney measuring 5 cm. Nonobstructing nephrolithiasis bilaterally. Stomach and bowel: Unremarkable. PELVIS: Appendix: No findings to suggest acute appendicitis. Bladder: Unremarkable. Reproductive: Unremarkable as visualized. ABDOMEN and PELVIS: Intraperitoneal space: Unremarkable. No free air. No significant fluid collection. Bones/joints: Severe degenerative changes in the right hip and lumbar spine. Cement in the left hip. Postsurgical changes and chronic dislocation of the left hip. Soft tissues: Unremarkable. Vasculature: Unremarkable. Lymph nodes: Unremarkable. IMPRESSION: No acute abnormality in the abdomen or pelvis. Electronically signed by: Jesus Gandhi MD 11/04/24 20:[address] 11/04/24 19:57 Exam(s): CT CHEST Without Contrast EXAM: CT Chest Without Intravenous Contrast CLINICAL HISTORY: Reason for exam: aspiration. TECHNIQUE: Axial computed tomography images of the chest without intravenous contrast. CTDI is 34.12 mGy and DLP is 2356.54 mGy-cm. Automated exposure control was utilized for the study. A dose lowering technique was utilized adhering to the principles of ALARA. COMPARISON: No relevant prior studies available. FINDINGS: Lungs: No consolidation. Mild subsegmental atelectasis in the right lower lobe. The airways are clear. Pleural space: No pleural effusion or pneumothorax. Heart: Severe coronary artery calcifications. Bones/joints: No acute findings. Soft tissues: Unremarkable. Vasculature: No aortic aneurysm.. Lymph nodes: Unremarkable. IMPRESSION: No acute abnormality. Electronically signed by: Jesus Gandhi MD 11/04/24 20:58 PM Discharge Plan Visit Data Chief Complaint: Illness Stated Complaint: ILLNESS, WEAKNESS ED Provider: Yasmin Murdock Discharge Problem: MADDI (acute kidney injury), Difficulty swallowing, Dehydration, Nausea vomiting and diarrhea Patient Disposition: Admitted As Inpatient Discharge Instructions Interventions: ED Discharge Assessment Last Done: 11/05/24 02:43
[2024-11-05 01:15] LABS: INR 1.4 (0.9-1.1); Partial Thromboplastin Ratio 1.2; Partial Thromboplastin Time 32 Seconds (21-31); Prothrombin Time 14.6 Seconds (9.0-12.0)
[2024-11-05] MEDS ORDERED: METOPROLOL TARTRATE 1 MG/ML VIAL IV PRN (01:50)
[2024-11-05 02:09] LABS: ANTI-Xa, UFH(UnfractionatedHep < 0.10 IU/ml (0.3-0.7)
[2024-11-05] MEDS: cefTRIAXone SODIUM 2,000 MG/50 ML BAG IV STA (03:10)
[2024-11-05] MEDS: HEPARIN 25000 UNIT/500 ML D5W 25,000 UNITS/500 ML BAG IV SCH (03:13)
[2024-11-05] MEDS: Heparin IV Adult Wt-Based Low-Dose *NO* INITIAL Bolus Protocol IV SCH (03:16)
[2024-11-05] MEDS: ACETAMINOPHEN 1,000 MG/100 ML VIAL IV PRN (03:37)
[2024-11-05] MEDS: ONDANSETRON INJ 2 MG/ML 2 ML VIAL IV PRN (03:38)
[2024-11-05 04:23] LABS: Basophils # (auto) 0.01 K/uL (0.00-0.20); Basophils % (auto) 0.1 %; Eosinophils # (auto) 0.19 K/uL (0.00-0.50); Eosinophils % (auto) 2.2 %; Hematocrit (blood only) 33.1 % (42.0-52.0); Hemoglobin 10.4 g/dl (14.0-18.0); Immature Granulocytes # (auto) 0.06 K/uL (0.01-0.20); Immature Granulocytes % (auto) 0.7 %; Lymphocytes # (auto) 0.61 K/uL (1.20-3.40); Lymphocytes % (auto) 7.1 %; Mean Corpuscular Hemoglobin 29.6 pg (25.0-34.0); Mean Corpuscular Hgb Conc 31.4 g/dL (32.0-36.0); Mean Corpuscular Volume 94.3 fL (80.0-100.0); Mean Platelet Volume 10.1 fL (9.4-12.4); Neutrophils # (auto) 7.14 K/uL (1.40-6.50); Neutrophils % (auto) 82.9 %; Platelet Count 223 K/uL (130-400); RDW Coefficient of Variation 14.4 % (11.5-14.5); RDW Standard Deviation 49.1 fL (36.4-46.3); Red Blood Count 3.51 M/uL (4.70-6.10); White Blood Count 8.61 K/ul (4.8-10.8)
[2024-11-05 04:35] LABS: BUN Creatinine Ratio 35.5 (10-20); Calcium 8.5 mg/dl (8.6-10.3); Magnesium 2.1 mg/dl (1.7-2.4); Potassium 3.2 mmol/L (3.5-5.1)
[2024-11-05 04:45] LABS: Troponin I High Sensitivity 113.7 pg/ml (0-20)
[2024-11-05] MEDS: D5W AND 1/2NSS 1,000 ML IV SCH (09:08)
[2024-11-05] MEDS: POTASSIUM CHLORIDE / WTR 10 MEQ/100 ML PLCT IV SCH (09:09)
[2024-11-05] MEDS: THIAMINE HCL 500 MG in SODIUM CHLORIDE 0.9% 50 ML IV STA (09:16)
[2024-11-05] MEDS: PANTOprazole 40 MG/10 ML SYR IV SCH (11:03)
--- NOTE | 2024-11-05 14:02 | Gastrointestinal Consultation ---
Date of Consultation November 05, 2024 Assessment & Plan (1) Odynophagia: -Continue Protonix & Famotidine -NPO for EGD on 11/06/24 -Will coordinate timing with endoscopy and would ask that heparin drip for 6 hours prior to procedure Supervising Physician Co-Signing Physician Notes History of odynophagia. Question to patient , he states is more of a inability to initiate a swallow. I cannot elicit painful swallowing. Based on duration of symptoms and persistence an upper endoscopy certainly would be reasonable. Evaluate for esophageal candidiasis. Exclude esophageal stricture. Reviewed with patient agreeable. Heparin will need to be on hold 4 to 6 hours prior to endoscopy. History of Present Illness Reason for Consultation: Odynophagia Attending Physician: Jackie Roberts MD History of Present Illness Patient is a 74 yo male with PMH of CKD, A fib, Xarelto, HTN, GERD. Recently admitted to the hospital for MADID. He returned to the [facility]. Patient presented to the ED due to ongoing, unimproved weakness, nausea, & poor oral intake. In the ED he was noted to have an elevated troponin >100. Reports that he has lost 40 pounds recently he has been extremely weak. Patient also notes nausea and dry heaves for roughly 4 weeks; he stated the nausea is only relieved by ice water and Zofran. He has been unable to tolerate any p.o. intake as he has had dysphagia and is choking on his food. He feels that he is unable to take medications due to nausea and dysphagia. He denies chest pain however endorses that he sometimes feels his heart flutter. He denies urinary symptoms similar to previous admission, denies dysuria, difficulty urinating, hematuria, decrease in urination. He also endorses a headache and feeling like his ears are plugged along with occasional dyspnea for the past few weeks. He does not use nicotine products or drink alcohol. 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 He notes that his odynophagia/dysphagia began abruptly 4 weeks ago. He takes Xarelto at home. Allergies Allergy/AdvReac Type Severity Reaction Status Date / Time atorvastatin Allergy Unknown Verified 08/03/24 10:25 cephalexin [From Keflex] Allergy Unknown Verified 08/03/24 10:25 oxycodone [From Percocet] Allergy Unknown Verified 08/03/24 10:25 potassium chloride Allergy Unknown Verified 08/03/24 10:25 codeine AdvReac Unknown SICK IN Verified 08/03/24 10:25 STOMACH/PASSED OUT Home Medications Medication Instructions Recorded Confirmed Type cholecalciferol (vitamin D3) 10 400 units PO DAILY 04/24/19 08/03/24 History mcg (400 unit) tablet acetaminophen 325 mg tablet 325 mg PO QID PRN Pain 04/07/20 08/03/24 History famotidine 20 mg tablet 20 mg PO DAILY #90 tabs 06/13/20 08/03/24 Rx ascorbate calcium (vitamin C) 500 500 mg PO DAILY 08/08/20 08/03/24 History mg tablet nitroglycerin 0.4 mg sublingual 0.4 mg sublingual PRN PRN chest 11/21/21 08/03/24 Rx tablet (Nitrostat) pain #30 tabs empagliflozin 10 mg tablet 10 mg PO DAILY #90 tabs 12/13/23 08/03/24 Rx (Jardiance) cyclobenzaprine 10 mg tablet 10 mg PO HS PRN muscle spasm #90 01/22/24 08/03/24 Rx tabs Motorized Scooter #1 ea 02/21/24 07/20/24 Rx metoprolol succinate 200 mg 200 mg PO DAILY #90 tabs 02/26/24 08/03/24 Rx tablet,extended release 24 hr pantoprazole 40 mg tablet,delayed 40 mg PO QAM #90 tabs 04/30/24 08/03/24 Rx release fluticasone propionate 50 2 spray intranasal DAILY #48 grams 06/25/24 08/03/24 Rx mcg/actuation nasal spray,suspension isosorbide mononitrate 30 mg 30 mg PO QPM 07/26/24 08/03/24 History tablet,extended release 24 hr multivitamin 1 tab PO DAILY 07/26/24 08/03/24 History rivaroxaban 15 mg tablet (Xarelto) 15 mg PO QAM #90 tabs 09/07/24 Rx amlodipine 10 mg tablet 10 mg PO DAILY #90 tabs 09/21/24 Rx fentanyl 12 mcg/hr transdermal 1 patch transdermal Q3D #10 ea 09/24/24 Rx patch hydrocodone 5 mg-acetaminophen 325 2 tab PO Q4H PRN pain #10 tabs 09/24/24 Rx mg tablet Patient History Medical History Acute worsening of stage 3 chronic kidney disease Elevated troponin Acute UTI Osteoarthritis of right knee Osteoarthritis of right hip Vitamin D deficiency Surgical History H/O heart artery stent x 3 History of lithotripsy History of arthroscopic knee surgery History of hip replacement History of appendectomy Family History Mother Stroke Diabetes Hypertension Father Diabetes Denies family history of Ovarian cancer Prostate cancer Myocardial infarction Breast cancer Colorectal cancer Social History Smoking Status: Unknown if ever smoked Second Hand Exposure: No; Do You Dip or Chew Tobacco: No; Hx Alcohol Use: No Hx Substance Use: No Preferred Language: Malay Communication Ability: Effective Hearing Ability: Normal Printmaker Required: No Beliefs That Will Affect Care: None marital status: Current Living Situation: Spouse current occupational status: retired 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 Seatbelt Use: always Sunscreen Use: Yes (sometimes.) Assistive Devices: Cane, Denture - Upper, Glasses, Lift Chair and Walker Review of Systems Constitutional: no fever and no chills Gastrointestinal: odynophagia Psychiatric: no problem reported Physical Exam Constitutional: no acute distress Gastrointestinal (Abdomen): normal bowel sounds, soft, nontender, no hepatosplenomegaly Psychiatric: Orientation: alert and oriented x 3 Results & Data Vital Signs (Past 12 Hours) Vital Signs Temp Pulse Pulse Resp BP Pulse Ox O2 Del Method 11/05/24 11:00 Room Air 11/05/24 10:38 36.9 C 91 H 18 129/79 95 Room Air 11/05/24 07:43 36.8 C 89 18 110/69 95 Room Air 11/05/24 03:58 Room Air 11/05/24 03:22 36.6 C 95 H 18 99/58 L 97 Room Air 11/05/24 03:20 96 H 11/05/24 02:43 Room Air PG Care Time/CCT Total # of Minutes Spent Total Time Spent with Patient: Total time spent is greater than 50% in coordination of care (as documented) at patient's floor/unit and/or counseling patient: Coding Level of Care Code 31729 INT INP/OBS CARE 3/75MIN Diagnoses Odynophagia R13.10
--- NOTE | 2024-11-05 14:19 | Hospitalist Progress Note ---
Date of Service November 05, 2024 Assessment & Plan (1) Acute kidney injury superimposed on chronic kidney disease: (2) Dysphagia: (3) Urinary tract infection: (4) Hypokalemia: (5) Hypernatremia: Plan Patient is a 74-year-old male with past medical history of CKD stage III, A-fib on Xarelto with a pacer, HTN, GERD, chronic left hip spacer and severe right hip arthritis/ambulatory dysfunction, obesity, here with MADDI with electrolyte abnormalities from dehydration with severe dysphagia and odynophagia. He was recently admitted to the hospital 09/17 - 09/24 due to weakness, MADDI, and UTI. He was discharged to [facility] acute rehab and then transitioned to care at [facility]. Patient presented to the ED due to progressing weakness, nausea, and inability to tolerate p.o. intake for 4 weeks. He is being admitted for an MADDI and elevated troponin. #MADDI/hypokalemia/hypernatremia-history of stage III CKD with recent MADDI August 202410/25 UTI; lisinopril discontinued during that admission but has since been restarted-MADDI likely secondary to renal hypoperfusion with dehydration from very poor p.o. intake and UTI. Cr increased from baseline 1.43 to 2.27, BUN elevated to 78 indicating pre-renal cause. UA appears infected. With significant hypoka lemia with potassium 2.8 and hypernatremia with sodium 148. Creatinine improving with IV fluid hydration with to 2.00. Magnesium normal. Potassium improved now but still mildly low. He is still unable to take p.o. due to odynophagia/dysphagia -Continue IV fluids were changed to D5 half-normal saline given hypernatremia -Follow BMP -Avoid nephrotoxic agents-hold empagliflozin and lisinopril -Replace potassium with K riders 30 mEq # Severe dysphagia/odynophagia-started 4 weeks ago around the time when he was starting opioids for pain. Started with a dry mouth and has significantly worsened. Also with nausea and dry heaving, lower abdominal pain. CT abdomen/pelvis negative for acute issues. CT chest only with severe coronary artery calcifications. No fevers or chills, no leukocytosis. Oropharynx with erythema and dried cracked lips and dry mucosa. -Speech therapy evaluated and he is not safe to swallow as he is having trouble moving his tongue I believe due to pain? Suspect possible Miesha esophagitis versus severe dryness from hydrocodone. Nausea and dry heaves could also be from hydrocodone -Oral swabs to cleanse the mucosa -Start Orabase triamcinolone paste for pain -Consult GI-plan for EGD on 11/06 -Continue IV fluids for hydration and keep n.p.o. except ice chips -Give thiamine 500 mg IV x 1 prior to giving D5 given severe malnutrition #UTI-Recent admission 09/17 to 08/23 due to weakness, UTI, and MADDI-Urine culture grew Miesha glabrata, no sensitivities and this was not treated with antifungals. UA here showed 1+ protein, 3+ blood, positive for nitrates, >50 WBC, 11-20 hyaline casts, 4+ bacteria, granular casts. Completed 5 day course of Zosyn during previous admission -Continue ceftriaxone -Follow urine cultures # Generalized weakness-secondary to significant weight loss from poor p.o. intake in the setting of ambulatory dysfunction due to chronic left hip antibiotic spacer and severe right hip osteoarthritis-acutely worsened x 4 weeks suspect 2/2 MADDI and UTI -PT/OT consulted -Treating with hydration #diarrhea/abdominal pain-abdominal pain for approximately 4 months, diarrhea x 1 week along with bowel incontinence, recent IV ABX with Zosyn in August. CT abdomen/pelvis negative -Awaiting stool PCR and C. difficile testing-he has not had a bowel movement yet #chronic A-fib-rate controlled, paced rhythm, on Xarelto and metoprolol -Continue holding p.o. medications -Continue heparin drip -Metoprolol IV as needed for HR greater than 120 #Hypertension-blood pressures are soft -Continue to hold amlodipine, metoprolol, isosorbide mononitrate -Lopressor IV as needed for SBP greater than 185 and DBP greater than 95 #anemiahemoglobin 10.4, normocytic, likely of chronic disease but with very poor nutrition TSH recently normal -Check iron studies, B12, folate in the morning and replace as needed -Follow CBC #GERDProtonix IV ordered DVT Proph- hold Xarelto given dysphagia, conversion to heparin drip Dispo: Continued stay on PCU with potential need for IV HR and BP control Admission and Anticipated Discharge Date Admission Date: November 04, 2024 Subjective Patient continues to have significant pain in his mouth and great difficulty with swallowing even an Ice Cube with speech therapy today. He has had some loose stools last 2 weeks and constant lower abdominal pain for 4 weeks. He has been taking hydrocodone as needed but stopped fentanyl patches. Reports some sweats and chills the last week. Telemetry with paced rhythm in the 80s and 90s Physical Exam Constitutional: WD/WN, vitals as above + ill appearing ENMT: Mouth: + lip abnormality (Dried, cracked, bleeding), + oral mucosal abnormality (Erythematous, some white sputum posterior oropharynx) and + tongue abnormality (Erythematous and dry) Respiratory: normal respiratory effort, lungs clear to auscultation Cardiovascular: Rate/Rhythm: regular rate and regular rhythm Heart Sounds: no murmur Extremities: + edema (2+ edema bilateral LEs to the knees bilaterally) Gastrointestinal (Abdomen): Inspection/Auscultation: abdomen normal to inspection and normal bowel sounds; abdomen not distended Percussion/Palpation: + abdomen tender (Mild in lower abdomen without guarding or rebound) and abdomen soft; no guarding Neurologic: awake; no focal motor deficits and not confused Psychiatric: A+Ox3, euthymic affect Results & Data Results & Data Vital Signs (Past 12 Hours) Vital Signs Temp Pulse Pulse Resp BP Pulse Ox O2 Del Method 11/05/24 11:00 Room Air 11/05/24 10:38 36.9 C 91 H 18 129/79 95 Room Air 11/05/24 07:43 36.8 C 89 18 110/69 95 Room Air 11/05/24 03:58 Room Air 11/05/24 03:22 36.6 C 95 H 18 99/58 L 97 Room Air 11/05/24 03:20 96 H 11/05/24 02:43 Room Air Laboratory Results CBC, BMP, troponin, magnesium, TSH reviewed PG Care Time/CCT Total # of Minutes Spent Total Time Spent with Patient: Total time spent is greater than 50% in coordination of care (as documented) at patient's floor/unit and/or counseling patient: Coding Level of Care Code 46693 SUB INP/OBS CARE 3/50MIN Diagnoses Acute kidney injury superimposed on chronic kidney disease N17.9; N18.9 Dysphagia R13.10 Urinary tract infection N39.0 Hypokalemia E87.6 Hypernatremia E87.0
--- NOTE | 2024-11-05 15:33 | Electrocardiogram Report ---
Test Reason : Blood Pressure : */* mmHG Vent. Rate : 87 BPM Atrial Rate : 87 BPM P-R Int : * ms QRS Dur : 220 ms QT Int : 528 ms P-R-T Axes : * -71 94 degrees QTcB Int : 635 ms AV dual-paced rhythm with frequent ventricular-paced complexes and with occasional Premature ventricu lar complexes Abnormal ECG When compared with ECG of 16-Sep-2024 22:49, No significant change Confirmed by Raymon Ireland ([id number]) on 11/05/2024 3:33:02 PM Referred By: REFERRED SELF Confirmed By: Raymon Ireland
[2024-11-05 17:45] LABS: ANTI-Xa, UFH(UnfractionatedHep 0.23 IU/ml (0.3-0.7)
[2024-11-05] MEDS: TRIAMCINOLONE ACET 0.1% ORABASE 5 GM TUBE MT SCH (20:34)
[2024-11-06 01:17] LABS: ANTI-Xa, UFH(UnfractionatedHep 0.29 IU/ml (0.3-0.7)
[2024-11-06] MEDS: cefTRIAXone SODIUM 2,000 MG/50 ML BAG IV SCH (01:25)
[2024-11-06] MEDS: THIAMINE HCL 100 MG in SYRINGE 9 ML IV SCH (07:50)
[2024-11-06 09:12] LABS: Basophils # (auto) 0.02 K/uL (0.00-0.20); Basophils % (auto) 0.2 %; Eosinophils % (auto) 3.4 %; Hematocrit (blood only) 31.1 % (42.0-52.0); Hemoglobin 10.1 g/dl (14.0-18.0); Immature Granulocytes # (auto) 0.07 K/uL (0.01-0.20); Immature Granulocytes % (auto) 0.8 %; Lymphocytes # (auto) 0.75 K/uL (1.20-3.40); Lymphocytes % (auto) 8.5 %; Mean Corpuscular Hemoglobin 30.1 pg (25.0-34.0); Mean Corpuscular Hgb Conc 32.5 g/dL (32.0-36.0); Mean Corpuscular Volume 92.6 fL (80.0-100.0); Mean Platelet Volume 10.8 fL (9.4-12.4); Monocytes # (auto) 0.64 K/uL (0.11-0.59); Monocytes % (auto) 7.2 %; Neutrophils # (auto) 7.06 K/uL (1.40-6.50); Neutrophils % (auto) 79.9 %; Platelet Count 203 K/uL (130-400); RDW Coefficient of Variation 14.3 % (11.5-14.5); RDW Standard Deviation 48.2 fL (36.4-46.3); Red Blood Count 3.36 M/uL (4.70-6.10); White Blood Count 8.84 K/ul (4.8-10.8)
[2024-11-06 09:18] LABS: ANTI-Xa, UFH(UnfractionatedHep 0.31 IU/ml (0.3-0.7)
[2024-11-06] MEDS ORDERED: Nursing to Pharmacy Communication SCH (09:30)
[2024-11-06 09:35] LABS: Folate (Folic Acid),Ser orPlas 13.59 ng/ml (>5.38)
[2024-11-06 09:36] LABS: BUN Creatinine Ratio 34.1 (10-20); Calcium 8.3 mg/dl (8.6-10.3); Creatinine Clr Calc Pharmacy 54.8 ml/min; Magnesium 1.8 mg/dl (1.7-2.4); Potassium 2.6 mmol/L (3.5-5.1); Vitamin B12 > 1500 pg/ml (180-914)
--- NOTE | 2024-11-06 09:41 | History & Physical Bridge Note ---
Date of Service November 06, 2024 History & Physical Bridge Note I have reviewed the History & Physical and in the interval since the performance of the History & Physical I have noted the following changes of clinical significance: no changes noted. Patient is a 74 yo male with dysphagia/odynophagia. Keep NPO & proceed with EGD today pending K replacement. Supervising Physician Co-Signing Physician Notes Patient seems to be tolerating ice chips today. For EGD to evaluate for stricture, oropharyngeal esophageal candidiasis. Risks and benefits explained to the patient informed consent was obtained. Will proceed today. Potassium replacement has been undertaken.
--- NOTE | 2024-11-06 09:42 | Anesthesiology Consultation ---
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 Kel Begum MD Height/Weight Height: 5 ft 9 in Weight: 139 kg Allergies Allergy/AdvReac Type Severity Reaction Status Date / Time atorvastatin Allergy Unknown Verified 08/03/24 10:25 cephalexin [From Keflex] Allergy Unknown Verified 08/03/24 10:25 oxycodone [From Percocet] Allergy Unknown Verified 08/03/24 10:25 potassium chloride Allergy Unknown Verified 08/03/24 10:25 codeine AdvReac Unknown SICK IN Verified 08/03/24 10:25 STOMACH/PASSED OUT Medications Home Medications Medication Instructions Recorded Confirmed Last Taken cholecalciferol (vitamin D3) 10 400 units PO DAILY 04/24/19 08/03/24 07/26/24 mcg (400 unit) tablet acetaminophen 325 mg tablet 325 mg PO QID PRN Pain 04/07/20 08/03/24 07/26/24 famotidine 20 mg tablet 20 mg PO DAILY #90 tabs 06/13/20 08/03/24 07/26/24 ascorbate calcium (vitamin C) 500 500 mg PO DAILY 08/08/20 08/03/24 07/26/24 mg tablet nitroglycerin 0.4 mg sublingual 0.4 mg sublingual PRN PRN chest 11/21/21 08/03/24 Unknown tablet (Nitrostat) pain #30 tabs empagliflozin 10 mg tablet 10 mg PO DAILY #90 tabs 12/13/23 08/03/24 07/26/24 (Jardiance) cyclobenzaprine 10 mg tablet 10 mg PO HS PRN muscle spasm #90 01/22/24 08/03/24 07/25/24 tabs Motorized Scooter #1 ea 02/21/24 07/20/24 Unknown metoprolol succinate 200 mg 200 mg PO DAILY #90 tabs 02/26/24 08/03/24 07/26/24 tablet,extended release 24 hr pantoprazole 40 mg tablet,delayed 40 mg PO QAM #90 tabs 04/30/24 08/03/24 07/26/24 release fluticasone propionate 50 2 spray intranasal DAILY #48 grams 06/25/24 08/03/24 07/26/24 mcg/actuation nasal spray,suspension isosorbide mononitrate 30 mg 30 mg PO QPM 07/26/24 08/03/24 07/25/24 tablet,extended release 24 hr multivitamin 1 tab PO DAILY 07/26/24 08/03/24 07/26/24 rivaroxaban 15 mg tablet (Xarelto) 15 mg PO QAM #90 tabs 09/07/24 Unknown amlodipine 10 mg tablet 10 mg PO DAILY #90 tabs 09/21/24 Unknown fentanyl 12 mcg/hr transdermal 1 patch transdermal Q3D #10 ea 09/24/24 Unknown patch hydrocodone 5 mg-acetaminophen 325 2 tab PO Q4H PRN pain #10 tabs 09/24/24 Unknown mg tablet Active Medications Generic Name Dose Route Start Last Admin Trade Name Freq PRN Reason Stop Dose Admin Acetaminophen 1,000 mg in 100 mls @ 400 mls/hr 11/05/24 01:50 11/06/24 09:06 Ofirmev IV 11/08/24 01:49 Infused Q8H PRN Infusion Pain or Fever Heparin Sodium/Dextrose 25,000 units in 500 mls @ 0 mls/hr 11/05/24 01:50 11/06/24 09:07 Heparin 14594 Unit/500 Ml D5w IV 12/05/24 01:49 0 units/hr .Q0M ALPESH 0 mls/hr Titration Protocol 0 UNITS/HR Pantoprazole Sodium 40 mg in 10 mls @ 5 mls/min 11/05/24 09:00 11/06/24 07:50 Protonix IV 12/05/24 08:59 5 mls/min DAILY ALPESH Administration Ceftriaxone Sodium 2,000 mg in 50 mls @ 100 mls/hr 11/06/24 01:45 11/06/24 02:07 Rocephin IV 11/11/24 01:44 Infused Q24H ALPESH Infusion Thiamine HCl 100 mg/ Syringe 10 mls @ 2 mls/min 11/06/24 09:00 11/06/24 07:50 IV 12/06/24 08:59 2 mls/min QAM ALPESH Administration Ondansetron HCl 4 mg 11/04/24 22:43 11/05/24 03:38 Ondansetron Inj 2 Mg/Ml 2 Ml Vial IV 12/04/24 22:42 4 mg Q6H PRN Administration Nausea And Vomiting Triamcinolone Acetonide 1 appln 11/05/24 19:30 11/06/24 07:51 Triamcinolone Acet 0.1% Orabase 5 Gm Tube MT 12/05/24 19:29 1 appln QID ALPESH Administration Past Medical History Medical History Acute worsening of stage 3 chronic kidney disease Elevated troponin Acute UTI Osteoarthritis of right knee Osteoarthritis of right hip Vitamin D deficiency Past Family History Family History Mother Stroke Diabetes Hypertension Father Diabetes Denies family history of Ovarian cancer Prostate cancer Myocardial infarction Breast cancer Colorectal cancer Past Surgical History Surgical History H/O heart artery stent x 3 History of lithotripsy History of arthroscopic knee surgery History of hip replacement History of appendectomy Social History Smoking Status: Unknown if ever smoked Do You Dip or Chew Tobacco: No Hx Alcohol Use: No Hx Substance Use: No substance use type: does not use Physical Exam Vital Signs Last Vital Signs Temp 36.7 C 11/06/24 07:33 Pulse 82 11/06/24 07:33 Resp 19 11/06/24 07:33 BP 132/79 11/06/24 07:33 Pulse Ox 98 11/06/24 07:33 O2 Del Method Room Air 11/06/24 07:33 Testing Laboratory Results 11/06/24 08:27 11/06/24 08:27 PT 14.6 Seconds (9.0-12.0) H 11/04/24 18:04 INR 1.4 (0.9-1.1) H 11/04/24 18:04 APTT 32 Seconds (21-31) H 11/04/24 18:04 Urine Color Yellow 11/04/24 23:35 Urine Appearance Cloudy (Clear) A 11/04/24 23:35 Urine pH 5.5 (4.5-7.5) 11/04/24 23:35 Ur Specific [place] 1.015 (1.000-1.030) 11/04/24 23:35 Urine Protein 1+ (Negative) H 11/04/24 23:35 Urine Glucose (UA) Negative (Negative) 11/04/24 23:35 Urine Ketones Trace (Negative) H 11/04/24 23:35 Urine Nitrite Positive (Negative) A 11/04/24 23:35 Ur Leukocyte Esterase 3+ (Negative) H 11/04/24 23:35 Urine WBC (Auto) >50 /hpf (0-5) H 11/04/24 23:35 Urine RBC (Auto) 3-5 /hpf (0-2) H 11/04/24 23:35 U Hyaline Cast (Auto) 11-20 /lpf (0-2) H 11/04/24 23:35 U Epithel Cells (Auto) 0-2 /hpf (0-2) 11/04/24 23:35 Urine Bacteria (Auto) 4+ (None Seen) H 11/04/24 23:35 11/04/24 23:35 Urine Culture - Preliminary Urine,Clean Catch Escherichia coli Electrocardiogram Date: 11/04/24 Blood Pressure : */* mmHG Vent. Rate : 87 BPM Atrial Rate : 87 BPM P-R Int : * ms QRS Dur : 220 ms QT Int : 528 ms P-R-T Axes : * -71 94 degrees QTcB Int : 635 ms AV dual-paced rhythm with frequent ventricular-paced complexes and with occasional Premature ventricular complexes Abnormal ECG When compared with ECG of 16-Sep-2024 22:49, No significant change Chest X-Ray Date: 11/04/24 History: Chest pain Comparison: 09/16/2024 Findings: Single AP view of the chest performed. No focal consolidation or pleural effusion. No pneumothorax. The cardiomediastinal silhouette is within normal limits. Normal pulmonary vascularity. No evidence for lymphadenopathy. Left chest wall dual-lead AICD. No visualized bony or soft tissue abnormality. Impression: Normal chest radiograph Echocardiogram Date: 11/21/23 EF: 40-45% LV Function: dysfunctional RWMA: + akinetic and + hypokinetic Other Findings: + LVH (moderate)
[2024-11-06 09:55] LABS: Ferritin 490.7 ng/ml (8-388)
--- NOTE | 2024-11-06 10:28 | Hospitalist Progress Note ---
Date of Service November 06, 2024 Assessment & Plan (1) Acute kidney injury superimposed on chronic kidney disease: (2) Dysphagia: (3) Urinary tract infection: (4) Hypokalemia: (5) Hypernatremia: Plan Patient is a 74-year-old male with past medical history of CKD stage III, A-fib on Xarelto with a pacer, HTN, GERD, chronic left hip spacer and severe right hip arthritis/ambulatory dysfunction, obesity, here with MADDI with electrolyte abnormalities from dehydration with severe dysphagia and odynophagia. He was recently admitted to the hospital 09/17 - 09/24 due to weakness, MADDI, and UTI. He was discharged to [facility] acute rehab and then transitioned to care at [facility]. Patient presented to the ED due to progressing weakness, nausea, and inability to tolerate p.o. intake for 4 weeks. He is admitted for an MADDI and elevated troponin. #MADDI/hypokalemia/hypernatremia-history of stage III CKD with recent MADDI August 202410/25 UTI; lisinopril discontinued during that admission but has since been restarted-MADDI likely secondary to renal hypoperfusion with dehydration from very poor p.o. intake and UTI. Cr increased from baseline 1.43 to 2.27, BUN elevated to 78 indicating pre-renal cause. UA appears infected. With significant hypokalemia with potassium 2.8 and hypernatremia with sodium 148 which persists. Creatinine continues to be improving with IV fluid hydration with to 1.6. Potassium still quite low. He is still unable to take p.o. due to odynophagia/dysphagia but now starting to eat -Continue IV fluids but change to D5W given persistent hypernatremia -Follow BMP, mag in AM -Avoid nephrotoxic agents-holding home empagliflozin and lisinopril -Replace potassium with K riders 80 mEq # Severe dysphagia/odynophagia-started 4 weeks ago around the time when he was starting opioids for pain. Started with a dry mouth and has significantly worsened. Also with nausea and dry heaving, lower abdominal pain. CT abdomen/pelvis negative for acute issues. CT chest only with severe coronary artery calcifications. No fevers or chills, no leukocytosis. Oropharynx with erythema and dried cracked lips and dry mucosa. -Speech therapy evaluated and he is not safe to swallow as he is having trouble moving his tongue I believe due to pain? Suspected possible Miesha esophagitis versus severe dryness from hydrocodone. Nausea and dry heaves could also be from hydrocodone. Has lost 30 lbs in one month EGD 11/06 no abnormalities but had UES dilated in case had CP bar causing issues with swallowing. Had a lot of posterior OP secretions suctioned Pain improving with triamcinolone paste Appreciate GI consult -continue oral swabs to cleanse the mucosa -continue Orabase triamcinolone paste for pain -now o minced and moist diet, will ask Speech to reevaluate tomorrow -Gave thiamine 500 mg IV x 1 prior to giving D5 given severe malnutrition -discontinue hydrocodone and avoid all opioids moving forward #UTI-Recent admission 09/17 to 08/23 due to weakness, UTI, and MADDI-Urine culture grew Miesha glabrata, no sensitivities and this was not treated with antifungals. UA here showed 1+ protein, 3+ blood, positive for nitrates, >50 WBC, 11-20 hyaline casts, 4+ bacteria, granular casts. Completed 5 day course of Zosyn during previous admission. Urine cx here with E. coli, sensitivities pending -Continue ceftriaxone -Follow urine culture # Generalized weakness-secondary to significant weight loss from poor p.o. intake in the setting of ambulatory dysfunction due to chronic left hip antibiotic spacer and severe right hip osteoarthritis-acutely worsened x 4 weeks suspect 2/2 MADDI and UTI -PT/OT consulted -Treating with hydration -pt and wish to return home with caregivers rather than rehab #diarrhea/abdominal pain-abdominal pain for approximately 4 months, diarrhea x 1 week along with bowel incontinence, recent IV ABX with Zosyn in August. CT abdomen/pelvis negative -Awaiting stool PCR and C. difficile testing-not collected yet and he is not having diarrhea here #Paroxysmal A-fib-rate controlled, paced rhythm, on Xarelto and metoprolol -resume home po meds once taking po reliably -Continue heparin drip for now -Metoprolol IV as needed for HR greater than 120 #Hypertension/chronic HFmrEF/Severe CAD-With ischemic CM,declined CABG and underwent intervention on 11/03/21 w/ PCI of the ostial ramus but the LAD could not be addressed-underwent repeat intervention on 11/20/21 where intervention of the second obtuse marginal was successfully performed however LAD intervention was still unable to be performed. He has documented chronic lymphedema. Follows w/ Dr. Barraza of [facility]. Blood pressures are soft -Continue to hold amlodipine, metoprolol, isosorbide mononitrate until taking po reliably -Lopressor IV as needed for SBP greater than 185 and DBP greater than 95 #anemiahemoglobin 10.4, normocytic, likely of chronic disease but with very poor nutrition TSH recently normal -Check iron studies, B12, folate in the morning and replace as needed -Follow CBC #GERDProtonix IV DVT Proph- hold Xarelto given dysphagia, on heparin drip Dispo: Continued stay on PCU with potential need for IV HR and BP control Admission and Anticipated Discharge Date Admission Date: November 04, 2024 Subjective Pt had EGD today and feels "like I got run over by a truck" when he returned from anesthesia. Otherwise, he is just starting to eat a minced and moist diet, isn't sure if he will have mouth pain yet. Tele-paced rhythm Physical Exam Constitutional: WD/WN, vitals as above + ill appearing ENMT: Mouth: + lip abnormality (Dried, cracked), + oral mucosal abnormality (Erythematous, moister) and + tongue abnormality (Erythematous but less dry) Respiratory: normal respiratory effort, lungs clear to auscultation Cardiovascular: Rate/Rhythm: regular rate and regular rhythm Heart Sounds: no murmur Extremities: + edema (2+ edema bilateral LEs to the knees bilaterally) Gastrointestinal (Abdomen): Inspection/Auscultation: abdomen normal to inspection and normal bowel sounds; abdomen not distended Percussion/Palpation: + abdomen tender (Mild in lower abdomen without guarding or rebound) and abdomen soft; no guarding Neurologic: awake; no focal motor deficits and not confused Psychiatric: A+Ox3, euthymic affect Results & Data Results & Data Vital Signs (Past 12 Hours) Vital Signs Temp Pulse Resp BP Pulse Ox O2 Del Method 11/06/24 07:33 36.7 C 82 19 132/79 98 Room Air 11/06/24 03:16 36.8 C 76 20 102/57 L 96 Room Air 11/05/24 22:54 36.9 C 81 20 100/63 96 Room Air Laboratory Results CBC, BMP, mag reviewed Diagnostic Findings EGD results reviewed PG Care Time/CCT Total # of Minutes Spent Total Time Spent with Patient: Total time spent is greater than 50% in coordination of care (as documented) at patient's floor/unit and/or counseling patient: Coding Level of Care Code 76745 SUB INP/OBS CARE 350MIN Diagnoses Acute kidney injury superimposed on chronic kidney disease N17.9; N18.9 Dysphagia R13.10 Urinary tract infection N39.0 Hypokalemia E87.6 Hypernatremia E87.0
[2024-11-06] MEDS: POTASSIUM CHLORIDE / WTR 10 MEQ/100 ML PLCT IV SCH (10:48)
[2024-11-06] MEDS: DEXTROSE 5% 1,000 ML IV SCH (10:50)
--- NOTE | 2024-11-06 12:09 | XCELERA ---
[id number] [id number]
[2024-11-06] MEDS: SODIUM CHLORIDE 0.9% 500 ML IV SCH (15:30)
[2024-11-06] MEDS ORDERED: ePHEDrine sulfate 50 MG/ML AMP IV PRN (15:35)
[2024-11-06] MEDS ORDERED: ATROPINE SULFATE 0.1 MG/ML 10ML SYR IV PRN (15:35)
--- NOTE | 2024-11-06 16:00 | Communication Note ---
Date of Service: November 06, 2024 EGD No Zenker's. Significant posterior oropharyngeal secretions suction prior to the exam. There was a moderate-sized hiatal hernia present. No esophagitis no yeast no stenosis. We did dilate the upper esophageal sphincter for potential cricopharyngeal hypertension cricopharyngeal bar. 17 mm No definite anatomical abnormalities to explain patient's symptoms.
--- NOTE | 2024-11-06 16:04 | GI REPORT ---
[facility] Patient: LEWIS CARDENAS : 1950 Sex at : Male Age: 74 Years Procedure: Upper GI endoscopy Date: 11/06/2024 Attending Physician: Kristopher Begum MD Referring MD: Jackie Roberts Md Indications: - Dysphagia odynophagia, difficulty swallowing Medications: - Monitored Anesthesia Care Complications: - No immediate complications. Estimated Blood Loss: - Estimated blood loss: None. Procedure: - The egd scope was introduced through the mouth and advanced to the second part of the duodenum. - The upper GI endoscopy was accomplished without difficulty. - The patient tolerated the procedure well. Findings: - Significant posterior oropharyngeal secretions. Suction prior to the scope being advanced into the esophagus - Esophageal mucosa normal. No signs of candidiasis infection stenosis EOE or other significant pathology. Did have a moderate-sized hiatal hernia without Schatzki's ring. - The entire examined stomach was normal. - The examined duodenum was normal. Impression: - Significant posterior oropharyngeal secretions. Suction prior to the scope being advanced into the esophagus - Esophageal mucosa normal. No signs of candidiasis infection stenosis EOE or other significant pathology. Did have a moderate-sized hiatal hernia without Schatzki's ring. - Normal stomach. - Normal examined duodenum. - No specimens collected. - No definite explanation for patient's swallowing difficulties. We did dilate the upper esophageal sphincter to exclude cricopharyngeal hypertension or cricopharyngeal bar as the source for his symptoms. Evaluate response to dilatation. With his hiatal hernia would continue PPI. Recommendation: Procedure Code(s): - 80313, Esophagogastroduodenoscopy, flexible, transoral; diagnostic, including collection of specimen(s) by brushing or washing, when performed (separate procedure) CPT(R) - 2023 copyright [employer]. All Rights Reserved. The CPT codes, CCI edits and ICD codes generated are intended as suggestions and were generated based on input data. These codes are preliminary and upon metal tank erector review may be revised to meet current compliance and payer requirements. The provider is responsible for the final determination of appropriate codes, and modifiers. Kristopher Begum MD This document has been electronically signed. Note Initiated:11/06/2024 Note Completed:11/06/2024 4:03 PM \\[email or web address]\[id number].[email or web address]
--- NOTE | 2024-11-06 16:22 | Anesthesiology Progress Note ---
Date of Service November 06, 2024 Anesthesia Post Procedure Vital Signs Vital Signs: Temp Pulse Pulse Resp BP Pulse Ox O2 Del Method 11/06/24 15:23 36.5 C 100 H 18 127/65 99 Room Air 11/06/24 11:13 36.8 C 91 H 20 149/75 H 98 Room Air 11/06/24 07:33 36.7 C 82 19 132/79 98 Room Air 11/06/24 03:16 36.8 C 76 20 102/57 L 96 Room Air 11/05/24 22:54 36.9 C 81 20 100/63 96 Room Air 11/05/24 21:53 91 H 11/05/24 20:00 Room Air 11/05/24 19:14 36.6 C 95 H 18 99/63 L 97 Room Air Pain Intensity Generalized: Pain Intensity: 6 Transfer of Care Handoff Completed per policy Notes Mental Status: alert / awake / arousable Patient Amnestic to Procedure: Yes Nausea / Vomiting: adequately controlled Pain: adequately controlled Airway Patency, RR, SpO2: stable & adequate BP & HR: stable & adequate Hydration State: stable & adequate Anesthetic Complications: no major complications apparent
[2024-11-06] MEDS: KETAMINE HCL 10MG/ML SYR ONE (17:35)
[2024-11-06] MEDS: PROPOFOL IV EMULSION 10 MG/ML 20 ML VIAL IV ONE (17:35)
[2024-11-06] MEDS: LIDOCAINE 2% 2 ML VIAL/AMP(20MG/ML) INFIL ONE (17:35)
[2024-11-06] MEDS: ACETAMINOPHEN 1,000 MG/100 ML VIAL IV SCH (19:48)
--- NOTE | 2024-11-06 22:05 | XRay Report ---
Exam(s): XR RIGHT WRIST, 3+ views EXAM: XR Right Wrist Complete, 3 or More Views CLINICAL HISTORY: Reason for exam: f/u wrist fracture. TECHNIQUE: Frontal, lateral and oblique views of the right wrist. COMPARISON: No relevant prior studies available. FINDINGS: Bones/joints: No acute fracture or malalignment. 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 Soft tissues: Unremarkable. No radiopaque foreign body. IMPRESSION: 1. No acute fracture or malalignment. 2. 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 Electronically signed by: Jesus Gandhi MD 11/06/24 22:04 PM
[2024-11-07] MEDS: MELATONIN 3 MG TAB PO PRN (00:26)
[2024-11-07 08:15] LABS: Basophils # (auto) 0.03 K/uL (0.00-0.20); Basophils % (auto) 0.3 %; Eosinophils # (auto) 0.18 K/uL (0.00-0.50); Eosinophils % (auto) 1.9 %; Hematocrit (blood only) 30.2 % (42.0-52.0); Hemoglobin 9.8 g/dl (14.0-18.0); Immature Granulocytes # (auto) 0.13 K/uL (0.01-0.20); Immature Granulocytes % (auto) 1.4 %; Lymphocytes # (auto) 0.78 K/uL (1.20-3.40); Lymphocytes % (auto) 8.2 %; Mean Corpuscular Hemoglobin 29.8 pg (25.0-34.0); Mean Corpuscular Hgb Conc 32.5 g/dL (32.0-36.0); Mean Corpuscular Volume 91.8 fL (80.0-100.0); Monocytes # (auto) 0.69 K/uL (0.11-0.59); Monocytes % (auto) 7.3 %; Neutrophils % (auto) 80.9 %; Platelet Count 192 K/uL (130-400); RDW Coefficient of Variation 14.6 % (11.5-14.5); RDW Standard Deviation 49.1 fL (36.4-46.3); Red Blood Count 3.29 M/uL (4.70-6.10); White Blood Count 9.51 K/ul (4.8-10.8)
[2024-11-07 08:30] LABS: BUN Creatinine Ratio 30.3 (10-20); Calcium 8.2 mg/dl (8.6-10.3); Magnesium 1.6 mg/dl (1.7-2.4)
[2024-11-07] MEDS: POTASSIUM CHLORIDE / WTR 10 MEQ/100 ML PLCT IV SCH (10:46)
[2024-11-07] MEDS: MAGNESIUM SULFATE / D5W 1 GM/100 ML BAG IV SCH (10:49)
--- NOTE | 2024-11-07 11:14 | Gastroenterology Progress Note ---
Date of Service November 07, 2024 Assessment & Plan (1) Difficulty swallowing: Plan: Tolerating p.o. per patient Admission and Anticipated Discharge Date Admission Date: November 04, 2024 Subjective Swallowing difficulties Patient examined at the bedside. States he was able to eat mashed potatoes this a.m. Denies any throat or chest pain. There is no significant stricturing or esophageal abnormalities. We did dilate the upper esophageal sphincter to eliminate a cricopharyngeal bar or cricopharyngeal hypertension as a component of his swallowing difficulties. Advance diet as tolerated. GI will sign off reconsult as needed Physical Exam Physical Exam: Patient sleeping arouses to voice no complaints. Neck no adenopathy. Nontender. Results & Data Results & Data Vital Signs (Past 12 Hours) Vital Signs Temp Pulse Pulse Resp BP Pulse Ox O2 Del Method 11/07/24 07:52 Room Air 11/07/24 07:41 36.3 C L 89 17 129/70 97 Room Air 11/07/24 03:41 36.7 C 83 18 119/70 95 Room Air 11/06/24 23:14 91 H 11/06/24 23:13 36.6 C 78 20 106/63 93 Room Air PG Care Time/CCT Total # of Minutes Spent Total Time Spent with Patient: Total time spent is greater than 50% in coordination of care (as documented) at patient's floor/unit and/or counseling patient: Coding Level of Care Code 23156 SUB INP/OBS CARE 10/17MIN Diagnoses Difficulty swallowing R13.10
--- NOTE | 2024-11-07 14:32 | Hospitalist Progress Note ---
Date of Service November 07, 2024 Assessment & Plan (1) Acute kidney injury superimposed on chronic kidney disease: (2) Dysphagia: (3) Urinary tract infection: (4) Hypokalemia: Plan Patient is a 74-year-old male with past medical history of CKD stage III, A-fib on Xarelto with a pacer, HTN, GERD, chronic left hip spacer and severe right hip arthritis/ambulatory dysfunction, obesity, here with MADDI with electrolyte abnormalities from dehydration with severe dysphagia and odynophagia. He was recently admitted to the hospital 09/17 - 09/24 due to weakness, MADDI, and UTI. He was discharged to [facility] acute rehab and then transitioned to care at [facility]. Patient presented to the ED due to progressing weakness, nausea, and inability to tolerate p.o. intake for 4 weeks. He is admitted for an MADDI and elevated troponin. #MADDI/hypokalemia/hypernatremia-history of stage III CKD with recent MADDI August 202410/25 UTI; lisinopril discontinued during that admission but has since been restarted-MADDI likely secondary to renal hypoperfusion with dehydration from very poor p.o. intake and UTI. Cr increased from baseline 1.43 to 2.27 on admission, BUN elevated to 78 indicating pre-renal cause. UA appears infected. With significant hypokalemia with potassium 2.8 and hypernatremia with sodium 148 on admission. Creatinine much improved with IV fluid hydration down to 1.5. Potassium still low at 3.0. He is now tolerating a minced and moist diet and is improving significantly. Hypernatremia now resolved after D5W -Discontinue IV fluids -Follow BMP, mag in AM -Avoid nephrotoxic agents-continue holding home empagliflozin and lisinopril -Continue to replace potassium with K riders-give 40 mEq today # Severe dysphagia/odynophagia-started 4 weeks ago around the time when he was starting opioids for pain. Started with a dry mouth and has significantly worsened. Also with nausea and dry heaving, lower abdominal pain. CT abdomen/pelvis negative for acute issues. CT chest only with severe coronary artery calcifications. No fevers or chills, no leukocytosis. Oropharynx with erythema and dried cracked lips and dry mucosa. On initial evaluation, speech therapy thought he was not safe to swallow as he is having trouble moving his tongue possibly due to pain? Suspect etiology is severe dryness from hydrocodone. Nausea and dry heaves could also be from hydrocodone. Has lost 30 lbs in one month. He was given thiamine 500 mg IV x 1. EGD 11/06 no abnormalities but had UES dilated in case had CP bar causing issues with swallowing. Had a lot of posterior OP secretions suctioned Pain now significantly improved with triamcinolone paste, good oral care, and discontinuing hydrocodone Appreciate GI consult -continue oral swabs to cleanse the mucosa -continue Orabase triamcinolone paste for pain -Continue minced and moist diet-did well with reevaluation by speech therapy on 11/07 -Continue thiamine 100 mg IV daily -discontinue hydrocodone and avoid all opioids moving forward -Start back on some of his oral medications that can be crushed and given with applesauce #UTI-Recent admission 09/17 to 08/23 due to weakness, UTI, and MADDI-Urine culture grew Miesha glabrata, no sensitivities and this was not treated with antifungals. UA here consistent with infection plus with granular casts. Completed 5 day course of Zosyn during previous admission. Urine cx here with E. coli, resistant to ampicillin, Unasyn, Bactrim, and intermediate resistance to ciprofloxacin -Continue ceftriaxone and complete 7 days of treatment # Generalized weakness-secondary to significant weight loss from poor p.o. intake in the setting of ambulatory dysfunction due to chronic left hip antibiotic spacer and severe right hip osteoarthritis-acutely worsened x 4 weeks suspect 2/2 MADDI and UTI. Remains extremely weak from deconditioning -PT/OT consulted-recommending rehab -pt and wish to return home with caregivers rather than rehab #diarrhea/abdominal pain-abdominal pain for approximately 4 months, diarrhea x 1 week along with bowel incontinence, recent IV ABX with Zosyn in August. CT abdomen/pelvis negative -Awaiting stool PCR and C. difficile testing-not collected yet and he is not having diarrhea here -Abdominal pain now resolved after stopping hydrocodone #Paroxysmal A-fib-rate controlled, paced rhythm, on Xarelto and metoprolol prior to admission -resume home Xarelto and can be increased to 20 mg daily, discontinue heparin drip -Start metoprolol tartrate 25 Mg p.o. twice daily as this can be crushed with applesauce-hold home Toprol-XL 200 mg daily -Metoprolol IV as needed for HR greater than 120 #Hypertension/chronic HFmrEF/Severe CAD-With ischemic CM,declined CABG and underwent intervention on 11/03/21 w/ PCI of the ostial ramus but the LAD could not be addressed-underwent repeat intervention on 11/20/21 where intervention of the second obtuse marginal was successfully performed however LAD intervention was still unable to be performed. He has documented chronic lymphedema. Follows w/ Dr. Barraza of [facility]. Blood pressures are improved -Continue to hold amlodipine, isosorbide mononitrate, but start metoprolol tartrate 25 Mg p.o. twice daily -Lopressor IV as needed for SBP greater than 185 and DBP greater than 95 #anemiahemoglobin down further to 9.8, normocytic, likely of chronic disease but with very poor nutrition. Iron studies consistent with chronic disease. B12 and folate normal. TSH recently normal -Follow CBC #GERDcontinue Protonix IV #Cerumen impaction-start Debrox to left ear, followed by flushing in 1 to 2 days #Right wrist pain and swelling-edematous all over but worse on the right because he was laying on the right side. X-rays negative for fracture but showed severe arthritis CMC joint -Start Voltaren gel DVT Proph-okay to stop heparin drip and resume Xarelto Dispo: Continued stay on PCU but improving, eventually discharged to home with home health and caregivers which is being planned by as patient is declining rehab Admission and Anticipated Discharge Date Admission Date: November 04, 2024 Subjective Patient feeling somewhat better today with less oral pain and he was able to eat minced and moist diet. He is having pain and swelling in his right wrist. X- rays reviewed with him. He also complains of clogged feeling in his ears I discussed his care with speech therapy. Telemetry with paced rhythm, normal rates Physical Exam Constitutional: WD/WN, vitals as above + obese ENMT: Ears: + unable to visualize TM (On left, cerumen impacted in EAC); no TM abnormality (On right) Mouth: + oral mucosal abnormality (Mucous membranes moist, much less erythema and exudate); no lip abnormality (Dried lips improved) and no tongue abnormality Respiratory: normal respiratory effort, lungs clear to auscultation Cardiovascular: Rate/Rhythm: regular rate and regular rhythm Heart Sounds: no murmur Extremities: + edema (2+ edema bilateral LEs to the knees bilaterally, right wrist, forearm/hand) Gastrointestinal (Abdomen): Inspection/Auscultation: abdomen normal to inspection and normal bowel sounds; abdomen not distended Percussion/Palpation: abdomen soft; abdomen nontender and no guarding Psychiatric: A+Ox3, euthymic affect Results & Data Results & Data Vital Signs (Past 12 Hours) Vital Signs Temp Pulse Resp BP Pulse Ox O2 Del Method 11/07/24 12:08 36.3 C L 85 18 117/69 98 Room Air 11/07/24 07:52 Room Air 11/07/24 07:41 36.3 C L 89 17 129/70 97 Room Air 11/07/24 03:41 36.7 C 83 18 119/70 95 Room Air Laboratory Results CBC, BMP, magnesium reviewed PG Care Time/CCT Total # of Minutes Spent Total Time Spent with Patient: Total time spent is greater than 50% in coordination of care (as documented) at patient's floor/unit and/or counseling patient: Coding Level of Care Code 35709 SUB INP/OBS CARE 3/50MIN Diagnoses Acute kidney injury superimposed on chronic kidney disease N17.9; N18.9 Dysphagia R13.10 Urinary tract infection N39.0 Hypokalemia E87.6
[2024-11-07] MEDS: RIVAROXABAN 20 MG TAB PO SCH (16:51)
[2024-11-07] MEDS: CARBAMIDE PEROXIDE 6.5% 15 ML BTL OTL SCH (16:53)
[2024-11-07] MEDS: DICLOFENAC SOD 1% GEL 100 GM TUBE EXT SCH (16:55)
[2024-11-07] MEDS: METOPROLOL TARTRATE 25 MG TAB PO SCH (19:52)
[2024-11-08 08:40] LABS: Basophils # (auto) 0.03 K/uL (0.00-0.20); Basophils % (auto) 0.3 %; Eosinophils % (auto) 2.3 %; Hematocrit (blood only) 31.7 % (42.0-52.0); Hemoglobin 10.4 g/dl (14.0-18.0); Immature Granulocytes # (auto) 0.12 K/uL (0.01-0.20); Immature Granulocytes % (auto) 1.4 %; Lymphocytes # (auto) 0.76 K/uL (1.20-3.40); Lymphocytes % (auto) 8.7 %; Mean Corpuscular Hemoglobin 30.2 pg (25.0-34.0); Mean Corpuscular Hgb Conc 32.8 g/dL (32.0-36.0); Mean Corpuscular Volume 92.2 fL (80.0-100.0); Mean Platelet Volume 10.6 fL (9.4-12.4); Monocytes # (auto) 0.62 K/uL (0.11-0.59); Monocytes % (auto) 7.1 %; Neutrophils # (auto) 7.05 K/uL (1.40-6.50); Neutrophils % (auto) 80.2 %; Platelet Count 177 K/uL (130-400); RDW Standard Deviation 49.9 fL (36.4-46.3); Red Blood Count 3.44 M/uL (4.70-6.10); White Blood Count 8.78 K/ul (4.8-10.8)
[2024-11-08 09:07] LABS: Albumin Globulin Ratio 0.7 (0.9-2); Albumin Level 2.4 gm/dl (3.4-5.0); BUN Creatinine Ratio 31.5 (10-20); Bilirubin,Total 0.5 mg/dl (0.2-1.0); Calcium 8.2 mg/dl (8.6-10.3); Creatinine Clr Calc Pharmacy 69.1 ml/min; Globulin 3.6 gm/dl (2.5-4.0); Magnesium 1.8 mg/dl (1.7-2.4); Phosphorus 2.7 mg/dl (2.5-4.9); Potassium 3.2 mmol/L (3.5-5.1)
[2024-11-08] MEDS: POTASSIUM CHLORIDE / WTR 10 MEQ/100 ML PLCT IV SCH (11:40)
[2024-11-08] MEDS: MAGNESIUM SULFATE / D5W 1 GM/100 ML BAG IV ONE (11:44)
--- NOTE | 2024-11-08 16:18 | Hospitalist Progress Note ---
Date of Service November 08, 2024 Assessment & Plan (1) Acute kidney injury superimposed on chronic kidney disease: (2) Dysphagia: (3) Urinary tract infection: (4) Hypokalemia: Plan Patient is a 74-year-old male with past medical history of CKD stage III, A-fib on Xarelto with a pacer, HTN, GERD, chronic left hip spacer and severe right hip arthritis/ambulatory dysfunction, obesity, here with MADDI with electrolyte abnormalities from dehydration with severe dysphagia and odynophagia. He was recently admitted to the hospital 09/17 - 09/24 due to weakness, AMDDI, and UTI. He was discharged to [facility] acute rehab and then transitioned to care at [facility]. Patient presented to the ED due to progressing weakness, nausea, and inability to tolerate p.o. intake for 4 weeks. He is admitted for an MADDI and elevated troponin. #MADDI/hypokalemia/hypernatremia-history of stage III CKD with recent MADDI August 202410/25 UTI; lisinopril discontinued during that admission but has since been restarted-MADDI likely secondary to renal hypoperfusion with dehydration from very poor p.o. intake and UTI. Cr increased from baseline 1.43 to 2.27 on admission, BUN elevated to 78 indicating pre-renal cause. UA appears infected. With significant hypokalemia with potassium 2.8 and hypernatremia with sodium 148 on admission. Creatinine much improved with IV fluid hydration down to 1.3. Potassium still low but improved at 3.2 He is now tolerating a minced and moist diet and is improving significantly. Hypernatremia now resolved after D5W -Discontinue IV fluids -Follow BMP, mag in AM -Avoid nephrotoxic agents-continue holding home empagliflozin and lisinopril -Continue to replace potassium with K riders-give 40 mEq today # Severe dysphagia/odynophagia-started 4 weeks ago around the time when he was starting opioids for pain. Started with a dry mouth and has significantly worsened. Also with nausea and dry heaving, lower abdominal pain. CT abdomen/pelvis negative for acute issues. CT chest only with severe coronary artery calcifications. No fevers or chills, no leukocytosis. Oropharynx with erythema and dried cracked lips and dry mucosa. On initial evaluation, speech therapy thought he was not safe to swallow as he is having trouble moving his tongue possibly due to pain? Suspect etiology is severe dryness from hydrocodone. Nausea and dry heaves could also be from hydrocodone. Has lost 30 lbs in one month. He was given thiamine 500 mg IV x 1. EGD 11/06 no abnormalities but had UES dilated in case had CP bar causing issues with swallowing. Had a lot of posterior OP secretions suctioned Pain now significantly improved with triamcinolone paste, good oral care, and discontinuing hydrocodone Appreciate GI consult -continue oral swabs to cleanse the mucosa -continue Orabase triamcinolone paste for pain -Continue minced and moist diet-did well with reevaluation by speech therapy on 11/07 -Continue thiamine 100 mg but convert IV to po daily -discontinued hydrocodone and avoid all opioids moving forward #UTI-Recent admission 09/17 to 08/23 due to weakness, UTI, and MADDI-Urine culture grew Miesha glabrata, no sensitivities and this was not treated with antifungals. UA here consistent with infection plus with granular casts. Completed 5 day course of Zosyn during previous admission. Urine cx here with E. coli, resistant to ampicillin, Unasyn, Bactrim, and intermediate resistance to ciprofloxacin -Continue ceftriaxone and complete 7 days of treatment on 11/12/14 # Generalized weakness-secondary to significant weight loss from poor p.o. intake in the setting of ambulatory dysfunction due to chronic left hip antibiotic spacer and severe right hip osteoarthritis-acutely worsened x 4 weeks suspect 2/2 MADDI and UTI. Remains extremely weak from deconditioning -PT/OT consulted-recommending rehab -pt and wish to return home with caregivers rather than rehab #diarrhea/abdominal pain-abdominal pain for approximately 4 months, diarrhea x 1 week along with bowel incontinence, recent IV ABX with Zosyn in August. CT abdomen/pelvis negative -Awaiting stool PCR and C. difficile testing-not collected yet and he is not having diarrhea here -Abdominal pain now resolved after stopping hydrocodone #Paroxysmal A-fib-rate controlled, paced rhythm, on Xarelto and metoprolol prior to admission -continue home Xarelto at increased dose of 20 mg daily -continue metoprolol tartrate 25 Mg p.o. twice daily as this can be crushed with applesauce-hold home Toprol-XL 200 mg daily #Hypertension/chronic HFmrEF/Severe CAD-With ischemic CM,declined CABG and underwent intervention on 11/03/21 w/ PCI of the ostial ramus but the LAD could not be addressed-underwent repeat intervention on 11/20/21 where intervention of the second obtuse marginal was successfully performed however LAD intervention was still unable to be performed. He has documented chronic lymphedema. Follows w/ Dr. Barraza of [place] [facility]. Blood pressures are improved -Continue to hold amlodipine, but resume home isosorbide mononitrate -continue metoprolol tartrate 25 Mg p.o. twice daily #anemiahemoglobin 9-10, normocytic, likely of chronic disease but with very poor nutrition. Iron studies consistent with chronic disease. B12 and folate normal. TSH recently normal -Follow CBC #GERDcontinue Protonix but switch IV to po bid #Cerumen impaction-continue Debrox to left ear, followed by flushing in 1 to 2 days #Right wrist pain and swelling-edematous all over but worse on the right because he was laying on the right side. X-rays negative for fracture but showed severe arthritis CMC joint -continue Voltaren gel -Consult Orthopedics DVT Proph- Xarelto Dispo: Continued stay but downgrade to med/surg, eventually discharge to home with home health and caregivers which is being planned by as patient is declining rehab Discussed care with on phone on 11/09-she will be calling around about hiring caregivers on Saturday Admission and Anticipated Discharge Date Admission Date: November 04, 2024 Subjective Oral pain and dysphagia continue to be improving. He had an episode of nausea with vomiting last night. Pt reports ongoing pain in right wrist and hand with swelling-requesting Ortho consult Moving bowels multiple times per day. Discussed increasing his motivation to do PT and keep his body moving. Tele with paced rhythm PACs, PVCs, rates 70s Physical Exam Constitutional: WD/WN, vitals as above + obese ENMT: Mouth: + oral mucosal abnormality (Mucous membranes moist, much less erythema and exudate) and + tongue abnormality; no lip abnormality Respiratory: normal respiratory effort, lungs clear to auscultation Cardiovascular: Rate/Rhythm: regular rate and regular rhythm Heart Sounds: no murmur Extremities: + edema (2+ edema bilateral LEs to the knees bilaterally, right wrist, forearm/hand) Gastrointestinal (Abdomen): Inspection/Auscultation: abdomen normal to inspection and normal bowel sounds; abdomen not distended Percussion/Palpation: abdomen soft; abdomen nontender and no guarding Neurologic: no focal motor deficits Psychiatric: A+Ox3, euthymic affect Results & Data Results & Data Vital Signs (Past 12 Hours) Vital Signs Temp Pulse Resp BP Pulse Ox O2 Del Method 11/08/24 15:24 36.5 C 73 18 137/82 95 Room Air 11/08/24 10:54 36.5 C 94 H 18 149/77 H 97 Room Air 11/08/24 08:34 Room Air 11/08/24 07:03 36.5 C 103 H 17 118/69 96 Room Air Laboratory Results CBC, BMP ,mag reviewed PG Care Time/CCT Total # of Minutes Spent Total Time Spent with Patient: Total time spent is greater than 50% in coordination of care (as documented) at patient's floor/unit and/or counseling patient: Coding Level of Care Code 72476 SUB INP/OBS CARE 2/35MIN Diagnoses Acute kidney injury superimposed on chronic kidney disease N17.9; N18.9 Dysphagia R13.10 Urinary tract infection N39.0 Hypokalemia E87.6
--- NOTE | 2024-11-08 17:51 | Orthopedic Consultation ---
Date of Service November 08, 2024 Assessment & Plan (1) Right wrist pain: Plan He does have some wrist and 1st cmc arthritis and I also think likely could be pseudogout episode. We will order a wrist brace for him and recommend a trial of steroid if he's able to but will leave that to the hospitalist service. Discussed with and reviewed images with Dr. Sol. History of Present Illness Reason for Consultation: . Requesting Physician: . Attending Physician: Jackie Roberts MD . Hao is a 74 year old patient that we were asked to see for right wrist/hand pain. He said this sort of started 2-3 weeks ago after he was pushing himself up hard during therapy and felt a crack. However, his pain as worsened during this recent hospitalization. No numbness or tingling. Describes generalized wrist and hand pain, as well as difficulty moving his fingers/wrist. Allergies Allergy/AdvReac Type Severity Reaction Status Date / Time atorvastatin Allergy Unknown Verified 08/03/24 10:25 cephalexin [From Keflex] Allergy Unknown Verified 08/03/24 10:25 oxycodone [From Percocet] Allergy Unknown Verified 08/03/24 10:25 potassium chloride Allergy Unknown Verified 08/03/24 10:25 codeine AdvReac Unknown SICK IN Verified 08/03/24 10:25 STOMACH/PASSED OUT Home Medications Medication Instructions Recorded Confirmed Type cholecalciferol (vitamin D3) 10 400 units PO DAILY 04/24/19 08/03/24 History mcg (400 unit) tablet acetaminophen 325 mg tablet 325 mg PO QID PRN Pain 04/07/20 08/03/24 History famotidine 20 mg tablet 20 mg PO DAILY #90 tabs 06/13/20 08/03/24 Rx ascorbate calcium (vitamin C) 500 500 mg PO DAILY 08/08/20 08/03/24 History mg tablet nitroglycerin 0.4 mg sublingual 0.4 mg sublingual PRN PRN chest 11/21/21 08/03/24 Rx tablet (Nitrostat) pain #30 tabs empagliflozin 10 mg tablet 10 mg PO DAILY #90 tabs 12/13/23 08/03/24 Rx (Jardiance) cyclobenzaprine 10 mg tablet 10 mg PO HS PRN muscle spasm #90 01/22/24 08/03/24 Rx tabs Motorized Scooter #1 ea 05/31/24 10/28/24 Rx metoprolol succinate 200 mg 200 mg PO DAILY #90 tabs 02/26/24 08/03/24 Rx tablet,extended release 24 hr pantoprazole 40 mg tablet,delayed 40 mg PO QAM #90 tabs 04/30/24 08/03/24 Rx release fluticasone propionate 50 2 spray intranasal DAILY #48 grams 06/25/24 08/03/24 Rx mcg/actuation nasal spray,suspension isosorbide mononitrate 30 mg 30 mg PO QPM 07/26/24 08/03/24 History tablet,extended release 24 hr multivitamin 1 tab PO DAILY 07/26/24 08/03/24 History rivaroxaban 15 mg tablet (Xarelto) 15 mg PO QAM #90 tabs 09/07/24 Rx amlodipine 10 mg tablet 10 mg PO DAILY #90 tabs 09/21/24 Rx fentanyl 12 mcg/hr transdermal 1 patch transdermal Q3D #10 ea 09/24/24 Rx patch hydrocodone 5 mg-acetaminophen 325 2 tab PO Q4H PRN pain #10 tabs 09/24/24 Rx mg tablet Past Med/Surg History Problem List (Updated 11/08/24 @ 17:58 by Hesham Gomez PA-C) Right wrist pain Encounter for pre-operative examination Nausea vomiting and diarrhea (Acute) Dehydration (Acute) Difficulty swallowing (Acute) MADDI (acute kidney injury) (Acute) Odynophagia Weakness Dysphagia Urinary tract infection Hypertension Chronic atrial fibrillation Diarrhea Hypernatremia Hypokalemia Acute kidney injury superimposed on chronic kidney disease Morbid obesity Right hip pain Hematoma of left thigh Contusion of left hip and thigh 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 with presence of antibiotic-impregnated cement spacer (Acute) Statin myopathy Cardiomyopathy Leukopenia CAD (coronary artery disease) Anticoagulant long-term use Bilateral arm pain Dietary counseling and surveillance Metabolic syndrome Stage 3b chronic kidney disease DVT of axillary vein, acute left Left arm swelling Pacemaker AVB (atrioventricular block) CKD (chronic kidney disease) stage 3, GFR 30-59 ml/min Allergic rhinitis (Acute) Anemia (Acute) Anxiety (Acute) Arthritis (Acute) BPH (benign prostatic hyperplasia) (Acute) Bifascicular block (Acute) Bilateral edema of lower extremity (Acute) Cardiac arrhythmia (Acute) Cough (Acute) Gait disturbance (Acute) Gastroesophageal reflux disease (Acute) History of pulmonary embolism (Acute) Hyperlipidemia (Acute) Left anterior fascicular block (Acute) Nephrolithiasis (Acute) Obstructive sleep apnea of adult (Acute) Paroxysmal atrial tachycardia (Acute) Pre-diabetes (Acute) Renal insufficiency (Acute) Right bundle branch block (Acute) VPC's (ventricular premature complexes) (Acute) Medical History Acute worsening of stage 3 chronic kidney disease Elevated troponin Acute UTI Osteoarthritis of right knee Osteoarthritis of right hip Vitamin D deficiency Surgical History H/O heart artery stent x 3 History of lithotripsy History of arthroscopic knee surgery History of hip replacement History of appendectomy Family History Mother Stroke Diabetes Hypertension Father Diabetes Denies family history of Ovarian cancer Prostate cancer Myocardial infarction Breast cancer Colorectal cancer Social History Smoking Status: Unknown if ever smoked Second Hand Exposure: No; Do You Dip or Chew Tobacco: No; Hx Alcohol Use: No Hx Substance Use: No Preferred Language: Pakistani Communication Ability: Effective Hearing Ability: Normal [place] Tribunal Member Required: No Beliefs That Will Affect Care: None marital status: Current Living Situation: Spouse current occupational status: retired current 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 Seatbelt Use: always Sunscreen Use: Yes (sometimes.) Assistive Devices: Walker Review of Systems All systems reviewed & are unremarkable except as noted in HPI & below. Physical Exam . alert, NAD Right wrist/hand: +swelling around the wrist and dorsal hand. No erythema or fluctuance. He is apprehensive about moving his wrist and fingers but I am able to get him to actively extend his wrist and fingers some after I flex them. He has generalized swelling over the dorsal wrist. Sensation intact to touch. Results & Data Results & Data Laboratory Results . Diagnostic Findings . xrays of the right wrist/hand show some radiocarpal arthritis and 1st cmc joint arthritis, as well as some calcifications consistent with possible pseudogout. PG Care Time/CCT Total # of Minutes Spent Total Time Spent with Patient: Total time spent is greater than 50% in coordination of care (as documented) at patient's floor/unit and/or counseling patient: Supervising Physician Co-Signing Physician Notes Case, chart and radiographs reviewed with the PA. Agree with the note and the plan. Coding Level of Care Code 15994 IN/OBS CONSULT LVL 3,45M Diagnoses Right wrist pain M25.531
[2024-11-08] MEDS: PANTOprazole 40 MG TAB PO SCH (20:00)
[2024-11-09 08:24] LABS: Adenovirus F 40/41 PCR Not Detected (NotDetected); Astrovirus PCR Not Detected (NotDetected); Campylobacter PCR Not Detected (NotDetected); Cryptosporidium PCR Not Detected (NotDetected); Cyclospora cayetanensis PCR Not Detected (NotDetected); Entamoeba histolytica PCR Not Detected (NotDetected); Enteroaggregative E.coli(EAEC) Not Detected (NotDetected); Enteropathogenic E.coli (EPEC) Not Detected (NotDetected); Enterotoxigenic E.coli (ETEC) Not Detected (NotDetected); Giardia lamblia PCR Not Detected (NotDetected); Norovirus GI/GII PCR Not Detected (NotDetected); Plesiomonas shigelloides PCR Not Detected (NotDetected); Rotavirus A PCR Not Detected (NotDetected); Salmonella PCR Not Detected (NotDetected); Sapovirus PCR Not Detected (NotDetected); Shiga-like Toxin E.coli (STEC) Not Detected (NotDetected); Shigella/Enteroinvasive E.coli Not Detected (NotDetected); Vibrio cholerae PCR Not Detected (NotDetected); Vibrio species PCR Not Detected (NotDetected); Yersinia enterocolitica PCR Not Detected (NotDetected)
[2024-11-09] MEDS: THIAMINE HCL 100 MG TAB PO SCH (08:38)
[2024-11-09] MEDS: ISOSORBIDE MONO EXTENDED REL 30 MG TABCR PO SCH (08:38)
[2024-11-09 08:57] LABS: Basophils # (auto) 0.02 K/uL (0.00-0.20); Basophils % (auto) 0.2 %; Eosinophils # (auto) 0.12 K/uL (0.00-0.50); Eosinophils % (auto) 1.3 %; Hematocrit (blood only) 33.7 % (42.0-52.0); Hemoglobin 10.9 g/dl (14.0-18.0); Immature Granulocytes # (auto) 0.11 K/uL (0.01-0.20); Immature Granulocytes % (auto) 1.2 %; Lymphocytes # (auto) 0.71 K/uL (1.20-3.40); Mean Corpuscular Hemoglobin 30.1 pg (25.0-34.0); Mean Corpuscular Hgb Conc 32.3 g/dL (32.0-36.0); Mean Corpuscular Volume 93.1 fL (80.0-100.0); Mean Platelet Volume 10.5 fL (9.4-12.4); Monocytes # (auto) 0.55 K/uL (0.11-0.59); Monocytes % (auto) 6.2 %; Neutrophils # (auto) 7.41 K/uL (1.40-6.50); Neutrophils % (auto) 83.1 %; Platelet Count 208 K/uL (130-400); RDW Coefficient of Variation 15.1 % (11.5-14.5); RDW Standard Deviation 51.3 fL (36.4-46.3); Red Blood Count 3.62 M/uL (4.70-6.10); White Blood Count 8.92 K/ul (4.8-10.8)
[2024-11-09 09:10] LABS: BUN Creatinine Ratio 27.2 (10-20); Calcium 8.4 mg/dl (8.6-10.3); Creatinine Clr Calc Pharmacy 71.9 ml/min; Magnesium 1.8 mg/dl (1.7-2.4); Potassium 3.7 mmol/L (3.5-5.1)
--- NOTE | 2024-11-09 12:07 | Palliative Care Consultation ---
Date of Consultation November 09, 2024 History of Present Illness Reason for Consultation: goals of care Requesting Physician: Hao Rojas MD Attending Physician: Hao Rojas MD History of Present Illness Mr Azul is a 74y male with PMHx including CKD, A-fib on Xarelto with a pacer, hypertension, GERD. He was recently admitted to the hospital 09/17 - 09/24 due to weakness, MADDI, and UTI. He was discharged to [facility] and then transition to care at [facility]. Patient presented to the ED due to ongoing, unimproved weakness, nausea, and unable to tolerate p.o. intake for 4 weeks. He is being admitted for an MADDI and elevated troponin. Allergies Allergy/AdvReac Type Severity Reaction Status Date / Time atorvastatin Allergy Unknown Verified 08/03/24 10:25 cephalexin [From Keflex] Allergy Unknown Verified 08/03/24 10:25 oxycodone [From Percocet] Allergy Unknown Verified 08/03/24 10:25 potassium chloride Allergy Unknown Verified 08/03/24 10:25 codeine AdvReac Unknown SICK IN Verified 08/03/24 10:25 STOMACH/PASSED OUT Home Medications Medication Instructions Recorded Confirmed Type cholecalciferol (vitamin D3) 10 400 units PO DAILY 04/24/19 08/03/24 History mcg (400 unit) tablet acetaminophen 325 mg tablet 325 mg PO QID PRN Pain 04/07/20 08/03/24 History famotidine 20 mg tablet 20 mg PO DAILY #90 tabs 06/13/20 08/03/24 Rx ascorbate calcium (vitamin C) 500 500 mg PO DAILY 08/08/20 08/03/24 History mg tablet nitroglycerin 0.4 mg sublingual 0.4 mg sublingual PRN PRN chest 11/21/21 08/03/24 Rx tablet (Nitrostat) pain #30 tabs empagliflozin 10 mg tablet 10 mg PO DAILY #90 tabs 12/13/23 08/03/24 Rx (Jardiance) cyclobenzaprine 10 mg tablet 10 mg PO HS PRN muscle spasm #90 01/22/24 08/03/24 Rx tabs Motorized Scooter #1 ea 02/21/24 07/20/24 Rx metoprolol succinate 200 mg 200 mg PO DAILY #90 tabs 02/26/24 08/03/24 Rx tablet,extended release 24 hr pantoprazole 40 mg tablet,delayed 40 mg PO QAM #90 tabs 04/30/24 08/03/24 Rx release fluticasone propionate 50 2 spray intranasal DAILY #48 grams 06/25/24 08/03/24 Rx mcg/actuation nasal spray,suspension isosorbide mononitrate 30 mg 30 mg PO QPM 07/26/24 08/03/24 History tablet,extended release 24 hr multivitamin 1 tab PO DAILY 07/26/24 08/03/24 History rivaroxaban 15 mg tablet (Xarelto) 15 mg PO QAM #90 tabs 09/07/24 Rx amlodipine 10 mg tablet 10 mg PO DAILY #90 tabs 09/21/24 Rx fentanyl 12 mcg/hr transdermal 1 patch transdermal Q3D #10 ea 09/24/24 Rx patch hydrocodone 5 mg-acetaminophen 325 2 tab PO Q4H PRN pain #10 tabs 09/24/24 Rx mg tablet Patient History Medical History Acute worsening of stage 3 chronic kidney disease Elevated troponin Acute UTI Osteoarthritis of right knee Osteoarthritis of right hip Vitamin D deficiency Surgical History H/O heart artery stent x 3 History of lithotripsy History of arthroscopic knee surgery History of hip replacement History of appendectomy Family History Mother Stroke Diabetes Hypertension Father Diabetes Denies family history of Ovarian cancer Prostate cancer Myocardial infarction Breast cancer Colorectal cancer Social History Smoking Status: Unknown if ever smoked Second Hand Exposure: No; Do You Dip or Chew Tobacco: No; Hx Alcohol Use: No Hx Substance Use: No Preferred Language: Chinese Communication Ability: Effective Hearing Ability: Normal Mortgage Loan Closer Required: No Beliefs That Will Affect Care: None marital status: Current Living Situation: Spouse current occupational status: retired 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 Seatbelt Use: always Sunscreen Use: Yes (sometimes.) Assistive Devices: Walker Results & Data Vital Signs (Past 12 Hours) Vital Signs Temp Pulse Resp BP Pulse Ox O2 Del Method 11/09/24 08:05 Room Air 11/09/24 07:26 36.5 C 92 H 18 132/76 98 Room Air Laboratory Results Abnormal lab results 11/09/24 11/09/24 11/09/24 Range/Units 07:41 08:26 11:57 RBC 3.62 L (4.70-6.10) M/uL Hgb 10.9 L (14.0-18.0) g/dl Hct 33.7 L (42.0-52.0) % RDW Std Deviation 51.3 H (36.4-46.3) fL RDW Coeff of Ira 15.1 H (11.5-14.5) % Neut # (Auto) 7.41 H (1.40-6.50) K/uL Lymph # (Auto) 0.71 L (1.20-3.40) K/uL Chloride 113 H (98-107) mmol/L BUN 34 H (6-23) mg/dl BUN/Creatinine Ratio 27.2 H (10-20) Glucose 130 H (70-99(Fasting)) mg/dl POC Glucose 118 H 140 H (70-99) mg/dl Calcium 8.4 L (8.6-10.3) mg/dl Diagnostic Findings Chest X-Ray 11/04/24 18:08 Chest radiograph, one view History: Chest pain Comparison: 09/16/2024 Findings: Single AP view of the chest performed. No focal consolidation or pleural effusion. No pneumothorax. The cardiomediastinal silhouette is within normal limits. Normal pulmonary vascularity. No evidence for lymphadenopathy. Left chest wall dual-lead AICD. No visualized bony or soft tissue abnormality. Impression: Normal chest radiograph Electronically signed by Ronny Patel 11-04-2024 6:39 PM Abdomen/Pelvis CT 11/04/24 19:57 Exam(s): CT ABDOMEN + PELVIS Without Contrast EXAM: CT Abdomen and Pelvis Without Intravenous Contrast CLINICAL HISTORY: Reason for exam: n/v, dehydration. TECHNIQUE: Axial computed tomography images of the abdomen and pelvis without intravenous contrast. CTDI is 34.12 mGy and DLP is 2356.54 mGy-cm. Automated exposure control was utilized for the study. A dose lowering technique was utilized adhering to the principles of ALARA. COMPARISON: No relevant prior studies available. FINDINGS: ABDOMEN: Liver: Unremarkable. Gallbladder and bile ducts: Unremarkable. Pancreas: Unremarkable. Spleen: Unremarkable. Adrenals: Unremarkable. Kidneys and ureters: Lobular atrophic kidneys. Cortical cyst in the right kidney measuring 5 cm. Nonobstructing nephrolithiasis bilaterally. Stomach and bowel: Unremarkable. PELVIS: Appendix: No findings to suggest acute appendicitis. Bladder: Unremarkable. Reproductive: Unremarkable as visualized. ABDOMEN and PELVIS: Intraperitoneal space: Unremarkable. No free air. No significant fluid collection. Bones/joints: Severe degenerative changes in the right hip and lumbar spine. Cement in the left hip. Postsurgical changes and chronic dislocation of the left hip. Soft tissues: Unremarkable. Vasculature: Unremarkable. Lymph nodes: Unremarkable. IMPRESSION: No acute abnormality in the abdomen or pelvis. Electronically signed by: Jesus Gandhi MD 11/04/24 20:[address] 11/04/24 19:57 Exam(s): CT CHEST Without Contrast EXAM: CT Chest Without Intravenous Contrast CLINICAL HISTORY: Reason for exam: aspiration. TECHNIQUE: Axial computed tomography images of the chest without intravenous contrast. CTDI is 34.12 mGy and DLP is 2356.54 mGy-cm. Automated exposure control was utilized for the study. A dose lowering technique was utilized adhering to the principles of ALARA. COMPARISON: No relevant prior studies available. FINDINGS: Lungs: No consolidation. Mild subsegmental atelectasis in the right lower lobe. The airways are clear. Pleural space: No pleural effusion or pneumothorax. Heart: Severe coronary artery calcifications. Bones/joints: No acute findings. Soft tissues: Unremarkable. Vasculature: No aortic aneurysm.. Lymph nodes: Unremarkable. IMPRESSION: No acute abnormality. Electronically signed by: Jesus Gandhi MD 11/04/24 20:58 PM Wrist X-Ray 11/06/24 18:50 Exam(s): XR RIGHT WRIST, 3+ views EXAM: XR Right Wrist Complete, 3 or More Views CLINICAL HISTORY: Reason for exam: f/u wrist fracture. TECHNIQUE: Frontal, lateral and oblique views of the right wrist. COMPARISON: No relevant prior studies available. FINDINGS: Bones/joints: No acute fracture or malalignment. 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 Soft tissues: Unremarkable. No radiopaque foreign body. IMPRESSION: 1. No acute fracture or malalignment. 2. 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 Electronically signed by: Jesus Gandhi MD 11/06/24 22:04 PM Medications Administered Current Inpatient Medications Carbamide Peroxide (Carbamide Peroxide 6.5% 15 Ml Btl) 3 drops OTL DAILY [facility] Stop: 11/11/24 15:44 Last Admin: 11/09/24 08:35 Dose: 3 drops Diclofenac Sodium (Diclofenac Sod 1% Gel 100 Gm Tube) 2 gm EXT QID [facility]; Protocol Stop: 12/07/24 16:59 Last Admin: 11/09/24 08:36 Dose: 2 gm Ceftriaxone Sodium (Rocephin) 2,000 mg in 50 mls @ 100 mls/hr IV Q24H [facility] Stop: 11/11/24 01:44 Last Infusion: 11/09/24 02:54 Dose: Infused Isosorbide Mononitrate (Isosorbide [place] Extended Rel 30 Mg Tabcr) 30 mg PO QAM [facility] Stop: 12/09/24 08:59 Last Admin: 11/09/24 08:38 Dose: 30 mg Melatonin (Melatonin 3 Mg Tab) 3 mg PO HS PRN PRN Reason: Sleep Stop: 12/07/24 00:19 Last Admin: 11/08/24 20:03 Dose: 3 mg Metoprolol Tartrate (Metoprolol Tartrate 25 Mg Tab) 25 mg PO BID [facility] Stop: 12/07/24 20:59 Last Admin: 11/09/24 08:41 Dose: 25 mg Ondansetron HCl (Ondansetron Inj 2 Mg/Ml 2 Ml Vial) 4 mg IV Q6H PRN PRN Reason: Nausea And Vomiting Stop: 12/04/24 22:42 Last Admin: 11/09/24 06:40 Dose: 4 mg Pantoprazole Sodium (Pantoprazole 40 Mg Tab) 40 mg PO BID [facility] Stop: 12/08/24 20:59 Last Admin: 11/09/24 08:38 Dose: 40 mg Rivaroxaban (Rivaroxaban 20 Mg Tab) 20 mg PO QDD [facility] Stop: 12/07/24 16:29 Last Admin: 11/08/24 17:30 Dose: 20 mg Thiamine HCl (Thiamine Hcl 100 Mg Tab) 100 mg PO QAM [facility] Stop: 12/09/24 08:59 Last Admin: 11/09/24 08:38 Dose: 100 mg Triamcinolone Acetonide (Triamcinolone Acet 0.1% [place] 5 Gm Tube) 1 appln MT QID [facility] Stop: 12/05/24 19:29 Last Admin: 11/09/24 08:44 Dose: Not Given PG Care Time/CCT Total # of Minutes Spent Total Time Spent with Patient: Total time spent is greater than 50% in coordination of care (as documented) at patient's floor/unit and/or counseling patient: Coding
--- NOTE | 2024-11-09 12:11 | Palliative Care Consultation ---
Date of Consultation November 09, 2024 Assessment & Plan (1) Weakness generalized: (2) Palliative care by specialist: Introduced Palliative Medicine and explained our role in patient's care. Patient and/or family were receptive to palliative services for goals of care discussions. Reviewed we are different from hospice, a home health nurse visiting service. (3) Advanced care planning/counseling discussion: Met with Pastor Azul at bedside face to face for a 45min ACP. He shared the details of his recent admission, rehab failure and disappointments at [facility] where he feels he was not properly nourished for over 45 days He has decided he will not return to the [facility] or may try a rehab center. He and his would like for him to be able to return home and she is going to look into obtaining private caregivers. 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 He is hopeful that he will be able to find a people willing to help him through this time. He expresses significant worries about finances especially that he does not wish to drain their savings and attempt to help keep him at home while he tries to recover. 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 His swallowing he hopes will improve with more speech and swallow therapy. We discussed the potential what if scenarios and Hao is clear that he believes there is always a chance that the Lord will help to heal and he has that sure of hope. He also recognizes that he has been getting progressively weaker for a long time now and that caring for him has become more complex. He notes his will not be able to manage his needs on her own which is why they are hoping to find some additional help to hire. They do not have additional children or family support. He notes that his has her own health issues. We discussed perhaps finding a time to meet together when his is able to be present and he feels that this would be a good idea so that they can review all of the options for care and make a decision together as a family. I reviewed with him the options at this point would include some of the things he has already declined such as [facility] with rehab versus acute inpatient rehab such as [facility] versus discharge home with visiting nurse service versus discharge home with home hospice. Distinctions between the latter 2 were provided to the patient and. He states he would still like a chance to see how much better he can get and be willing to have home PT and eventually a follow-up with his primary care provider to see how much improvement he has made. He also would like ongoing speech and swallow therapy. We agreed to a follow-up family meeting tomorrow morning around 1030. Plan As above Thank you for allowing us to participate in the ongoing care of this patient. Please page with any additional concerns. Nathanael Coates DNP Director, Palliative Medicine History of Present Illness Reason for Consultation: possible hospice Attending Physician: Hao Rojas MD History of Present Illness Hao is a 74yo male with past medical history of CKD, A-fib on Xarelto with a pacer, hypertension, GERD. He was recently admitted to the hospital 09/17 to 09/24 due to weakness, MADDI, and UTI, dc [facility] and then transition to [facility]. He returned to ED 11/04/24 with c/o ongoing, unimproved weakness, nausea, and unable to tolerate p.o. intake for 4 weeks and has been admitted for MADDI likely d/t renal hypoperfusion with dehydration and elevated troponin. Per admitting note: "He does not use nicotine products or drink alcohol. He lives at home with his and their house is currently being remodeled to help with his ambulation. 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 He stated his voice has been decreased/has difficulty talking. He does not use oxygen at baseline, no CPAP/BiPAP. He previously had ANAMARIA that was self resolved. He did not get his home medications today due to nausea. He wishes to be full code at this time." Allergies Allergy/AdvReac Type Severity Reaction Status Date / Time atorvastatin Allergy Unknown Verified 08/03/24 10:25 cephalexin [From Keflex] Allergy Unknown Verified 08/03/24 10:25 oxycodone [From Percocet] Allergy Unknown Verified 08/03/24 10:25 potassium chloride Allergy Unknown Verified 08/03/24 10:25 codeine AdvReac Unknown SICK IN Verified 08/03/24 10:25 STOMACH/PASSED OUT Home Medications Medication Instructions Recorded Confirmed Type cholecalciferol (vitamin D3) 10 400 units PO DAILY 04/24/19 08/03/24 History mcg (400 unit) tablet acetaminophen 325 mg tablet 325 mg PO QID PRN Pain 04/07/20 08/03/24 History famotidine 20 mg tablet 20 mg PO DAILY #90 tabs 06/13/20 08/03/24 Rx ascorbate calcium (vitamin C) 500 500 mg PO DAILY 08/08/20 08/03/24 History mg tablet nitroglycerin 0.4 mg sublingual 0.4 mg sublingual PRN PRN chest 11/21/21 08/03/24 Rx tablet (Nitrostat) pain #30 tabs empagliflozin 10 mg tablet 10 mg PO DAILY #90 tabs 12/13/23 08/03/24 Rx (Jardiance) cyclobenzaprine 10 mg tablet 10 mg PO HS PRN muscle spasm #90 01/22/24 08/03/24 Rx tabs Motorized Scooter #1 ea 02/21/24 07/20/24 Rx metoprolol succinate 200 mg 200 mg PO DAILY #90 tabs 02/26/24 08/03/24 Rx tablet,extended release 24 hr pantoprazole 40 mg tablet,delayed 40 mg PO QAM #90 tabs 04/30/24 08/03/24 Rx release fluticasone propionate 50 2 spray intranasal DAILY #48 grams 06/25/24 08/03/24 Rx mcg/actuation nasal spray,suspension isosorbide mononitrate 30 mg 30 mg PO QPM 07/26/24 08/03/24 History tablet,extended release 24 hr multivitamin 1 tab PO DAILY 07/26/24 08/03/24 History rivaroxaban 15 mg tablet (Xarelto) 15 mg PO QAM #90 tabs 09/07/24 Rx amlodipine 10 mg tablet 10 mg PO DAILY #90 tabs 09/21/24 Rx fentanyl 12 mcg/hr transdermal 1 patch transdermal Q3D #10 ea 09/24/24 Rx patch hydrocodone 5 mg-acetaminophen 325 2 tab PO Q4H PRN pain #10 tabs 09/24/24 Rx mg tablet Patient History Medical History Acute worsening of stage 3 chronic kidney disease Elevated troponin Acute UTI Osteoarthritis of right knee Osteoarthritis of right hip Vitamin D deficiency Surgical History H/O heart artery stent x 3 History of lithotripsy History of arthroscopic knee surgery History of hip replacement History of appendectomy Family History Mother Stroke Diabetes Hypertension Father Diabetes Denies family history of Ovarian cancer Prostate cancer Myocardial infarction Breast cancer Colorectal cancer Social History Smoking Status: Unknown if ever smoked Second Hand Exposure: No; Do You Dip or Chew Tobacco: No; Hx Alcohol Use: No Hx Substance Use: No Preferred Language: Nigerian Communication Ability: Effective Hearing Ability: Normal Stock Analyst Required: No Beliefs That Will Affect Care: None marital status: Current Living Situation: Spouse current occupational status: retired 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 Seatbelt Use: always Sunscreen Use: Yes (sometimes.) Assistive Devices: Walker Review of Systems Review of Systems: All systems reviewed & are unremarkable except as noted in Subjective Physical Exam Physical Exam: Bitemp wasting/moderate PERRLA EOMIs Neck supple, no stridor; no lymphadenopathy or thyromegaly, trachea midline Lungs diminished throughout, mild effort, mild abd breathing CV: S1S2, no gross JVD Abd: +pannus, BS+, no hepatosplenomegaly BLE edema +2, chronic venous insuff changes AAOx3 Subdued affect, rambling speech at times Skin pale, +edema RUE Results & Data Vital Signs (Past 12 Hours) Vital Signs Temp Pulse Resp BP Pulse Ox O2 Del Method 11/09/24 08:05 Room Air 11/09/24 07:26 36.5 C 92 H 18 132/76 98 Room Air Laboratory Results 11/10/24 11/09/24 11/09/24 Range/Units 08:15 Unknown 11:57 WBC 8.89 (4.8-10.8) K/ul RBC 3.28 L (4.70-6.10) M/uL Hgb 9.7 L (14.0-18.0) g/dl Hct 30.4 L (42.0-52.0) % MCV 92.7 (80.0-100.0) fL MCH 29.6 (25.0-34.0) pg MCHC 31.9 L (32.0-36.0) g/dL RDW Std Deviation 51.7 H (36.4-46.3) fL RDW Coeff of Ira 15.3 H (11.5-14.5) % Plt Count 186 (130-400) K/uL MPV 10.2 (9.4-12.4) fL Immature Gran % (Auto) 0.8 % Neut % (Auto) 80.4 % Lymph % (Auto) 9.4 % [place] % (Auto) 8.0 % Eos % (Auto) 1.0 % Baso % (Auto) 0.4 % Neut # (Auto) 7.14 H (1.40-6.50) K/uL Lymph # (Auto) 0.84 L (1.20-3.40) K/uL [place] # (Auto) 0.71 H (0.11-0.59) K/uL Eos # (Auto) 0.09 (0.00-0.50) K/uL Baso # (Auto) 0.04 (0.00-0.20) K/uL Immature Gran # (Auto) 0.07 (0.01-0.20) K/uL PT (9.0-12.0) Seconds INR (0.9-1.1) APTT (21-31) Seconds PTT Ratio Heparin Anti-Xa, Unfract (0.3-0.7) IU/ml Sodium 141 (136-145) mmol/L Potassium 3.5 (3.5-5.1) mmol/L Chloride 111 H (98-107) mmol/L Carbon Dioxide 23 (21-32) mmol/L Anion Gap 7 (3-11) BUN 32 H (6-23) mg/dl Creatinine 1.27 (0.6-1.4) mg/dl Est Cr Clr Drug Dosing 70.7 ml/min eGFR 59.28 BUN/Creatinine Ratio 25.2 H (10-20) Glucose 124 H (70-99(Fasting)) mg/dl POC Glucose 140 H (70-99) mg/dl Lactate (0.4-2.0) mmol/L Calcium 8.2 L (8.6-10.3) mg/dl Phosphorus (2.5-4.9) mg/dl Magnesium (1.7-2.4) mg/dl Iron (35-175) mcg/dl TIBC (250-450) mcg/dl Transferrin (200-360) mg/dl Transferrin % Sat (20-50) % Ferritin (8-388) ng/ml Total Bilirubin (0.2-1.0) mg/dl AST (13-39) U/L ALT (7-52) U/L Alkaline Phosphatase (34-104) U/L Troponin I High Sens (0-20) pg/ml Total Protein (6.0-8.3) gm/dl Albumin (3.4-5.0) gm/dl Globulin (2.5-4.0) gm/dl Albumin/Globulin Ratio (0.9-2) Vitamin B12 (180-914) pg/ml Folate (>5.38) ng/ml TSH (0.300-4.500) uIu/ml Urine Color Urine Appearance (Clear) Urine pH (4.5-7.5) Ur Specific [place] (1.000-1.030) Urine Protein (Negative) Urine Glucose (UA) (Negative) Urine Ketones (Negative) Urine Blood (Negative) Urine Nitrite (Negative) Urine Bilirubin (Negative) Urine Urobilinogen (Negative) Ur Leukocyte Esterase (Negative) Urine WBC (Auto) (0-5) /hpf Urine RBC (Auto) (0-2) /hpf U Hyaline Cast (Auto) (0-2) /lpf U Epithel Cells (Auto) (0-2) /hpf Urine Bacteria (Auto) (None Seen) Granular Casts (None Prsent) /lpf Stl C. cayetanensis PCR Not Detected (NotDetected) Stool Rotavirus A PCR Not Detected (NotDetected) Stl Adenov F 40/41 PCR Not Detected (NotDetected) Stool Astrovirus (PCR) Not Detected (NotDetected) Stool Campylobacter PCR Not Detected (NotDetected) Stl C. diff Tox B Gene Negative Cdiff Gene (Neg) Stool Cryptosporidium PCR Not Detected (NotDetected) Stl E.coli Shiga Tox PCR Not Detected (NotDetected) Stl Enterotoxigenic E PCR Not Detected (NotDetected) Stool EPEC (PCR) Not Detected (NotDetected) Stool EAEC (PCR) Not Detected (NotDetected) Stl E. histolytica PCR Not Detected (NotDetected) Stool Giardia Lamblia PCR Not Detected (NotDetected) Stool Salmonella PCR Not Detected (NotDetected) Stool Sapovirus (PCR) Not Detected (NotDetected) Stl P. shigelloides PCR Not Detected (NotDetected) Stl Shigella/EIEC PCR Not Detected (NotDetected) St Y.enterocolitica PCR Not Detected (NotDetected) Stool Vibrio (PCR) Not Detected (NotDetected) Stl Vibrio cholerae PCR Not Detected (NotDetected) Stl Norovirus GI/GII PCR Not Detected (NotDetected) Adenovirus (PCR) (NotDetected) B. pertussis DNA (PCR) (NotDetected) B.parapertussis DNA PCR (NotDetected) C. pneumoniae DNA (PCR) (NotDetected) Coronavirus OC43 (PCR) (NotDetected) Coronavirus HKU1 (PCR) (NotDetected) Coronavirus 229E (PCR) (NotDetected) SARS-CoV-2 (PCR) (NotDetected) Coronavirus NL63 (PCR) (NotDetected) Human Metapneumovir PCR (NotDetected) Influenza Type A (PCR) (NotDetected) Influenza Type B (PCR) (NotDetected) M. pneumoniae (PCR) (NotDetected) Parainfluenza 1 (PCR) (NotDetected) Parainfluenza 2 (PCR) (NotDetected) Parainfluenza 3 (PCR) (NotDetected) Parainfluenza 4 (PCR) (NotDetected) RSV (PCR) (NotDetected) Entero/Rhino (PCR) (NotDetected) 11/09/24 11/09/24 11/08/24 Range/Units 08:26 07:41 08:05 WBC 8.92 8.78 (4.8-10.8) K/ul RBC 3.62 L 3.44 L (4.70-6.10) M/uL Hgb 10.9 L 10.4 L (14.0-18.0) g/dl Hct 33.7 L 31.7 L (42.0-52.0) % MCV 93.1 92.2 (80.0-100.0) fL MCH 30.1 30.2 (25.0-34.0) pg MCHC 32.3 32.8 (32.0-36.0) g/dL RDW Std Deviation 51.3 H 49.9 H (36.4-46.3) fL RDW Coeff of Ira 15.1 H 15.0 H (11.5-14.5) % Plt Count 208 177 (130-400) K/uL MPV 10.5 10.6 (9.4-12.4) fL Immature Gran % (Auto) 1.2 1.4 % Neut % (Auto) 83.1 80.2 % Lymph % (Auto) 8.0 8.7 % [place] % (Auto) 6.2 7.1 % Eos % (Auto) 1.3 2.3 % Baso % (Auto) 0.2 0.3 % Neut # (Auto) 7.41 H 7.05 H (1.40-6.50) K/uL Lymph # (Auto) 0.71 L 0.76 L (1.20-3.40) K/uL [place] # (Auto) 0.55 0.62 H (0.11-0.59) K/uL Eos # (Auto) 0.12 0.20 (0.00-0.50) K/uL Baso # (Auto) 0.02 0.03 (0.00-0.20) K/uL Immature Gran # (Auto) 0.11 0.12 (0.01-0.20) K/uL PT (9.0-12.0) Seconds INR (0.9-1.1) APTT (21-31) Seconds PTT Ratio Heparin Anti-Xa, Unfract (0.3-0.7) IU/ml Sodium 142 142 (136-145) mmol/L Potassium 3.7 3.2 L (3.5-5.1) mmol/L Chloride 113 H 113 H (98-107) mmol/L Carbon Dioxide 21 22 (21-32) mmol/L Anion Gap 8 7 (3-11) BUN 34 H 41 H (6-23) mg/dl Creatinine 1.25 1.30 (0.6-1.4) mg/dl Est Cr Clr Drug Dosing 71.9 69.1 ml/min eGFR 60.42 57.65 BUN/Creatinine Ratio 27.2 H 31.5 H (10-20) Glucose 130 H 122 H (70-99(Fasting)) mg/dl POC Glucose 118 H (70-99) mg/dl Lactate (0.4-2.0) mmol/L Calcium 8.4 L 8.2 L (8.6-10.3) mg/dl Phosphorus 2.7 (2.5-4.9) mg/dl Magnesium 1.8 1.8 (1.7-2.4) mg/dl Iron (35-175) mcg/dl TIBC (250-450) mcg/dl Transferrin (200-360) mg/dl Transferrin % Sat (20-50) % Ferritin (8-388) ng/ml Total Bilirubin 0.5 (0.2-1.0) mg/dl AST 18 (13-39) U/L ALT 10 (7-52) U/L Alkaline Phosphatase 90 (34-104) U/L Troponin I High Sens (0-20) pg/ml Total Protein 6.0 (6.0-8.3) gm/dl Albumin 2.4 L (3.4-5.0) gm/dl Globulin 3.6 (2.5-4.0) gm/dl Albumin/Globulin Ratio 0.7 L (0.9-2) Vitamin B12 (180-914) pg/ml Folate (>5.38) ng/ml TSH (0.300-4.500) uIu/ml Urine Color Urine Appearance (Clear) Urine pH (4.5-7.5) Ur Specific [place] (1.000-1.030) Urine Protein (Negative) Urine Glucose (UA) (Negative) Urine Ketones (Negative) Urine Blood (Negative) Urine Nitrite (Negative) Urine Bilirubin (Negative) Urine Urobilinogen (Negative) Ur Leukocyte Esterase (Negative) Urine WBC (Auto) (0-5) /hpf Urine RBC (Auto) (0-2) /hpf U Hyaline Cast (Auto) (0-2) /lpf U Epithel Cells (Auto) (0-2) /hpf Urine Bacteria (Auto) (None Seen) Granular Casts (None Prsent) /lpf Stl C. cayetanensis PCR (NotDetected) Stool Rotavirus A PCR (NotDetected) Stl Adenov F 40/41 PCR (NotDetected) Stool Astrovirus (PCR) (NotDetected) Stool Campylobacter PCR (NotDetected) Stl C. diff Tox B Gene (Neg) Stool Cryptosporidium PCR (NotDetected) Stl E.coli Shiga Tox PCR (NotDetected) Stl Enterotoxigenic E PCR (NotDetected) Stool EPEC (PCR) (NotDetected) Stool EAEC (PCR) (NotDetected) Stl E. histolytica PCR (NotDetected) Stool Giardia Lamblia PCR (NotDetected) Stool Salmonella PCR (NotDetected) Stool Sapovirus (PCR) (NotDetected) Stl P. shigelloides PCR (NotDetected) Stl Shigella/EIEC PCR (NotDetected) St Y.enterocolitica PCR (NotDetected) Stool Vibrio (PCR) (NotDetected) Stl Vibrio cholerae PCR (NotDetected) Stl Norovirus GI/GII PCR (NotDetected) Adenovirus (PCR) (NotDetected) B. pertussis DNA (PCR) (NotDetected) B.parapertussis DNA PCR (NotDetected) C. pneumoniae DNA (PCR) (NotDetected) Coronavirus OC43 (PCR) (NotDetected) Coronavirus HKU1 (PCR) (NotDetected) Coronavirus 229E (PCR) (NotDetected) SARS-CoV-2 (PCR) (NotDetected) Coronavirus NL63 (PCR) (NotDetected) Human Metapneumovir PCR (NotDetected) Influenza Type A (PCR) (NotDetected) Influenza Type B (PCR) (NotDetected) M. pneumoniae (PCR) (NotDetected) Parainfluenza 1 (PCR) (NotDetected) Parainfluenza 2 (PCR) (NotDetected) Parainfluenza 3 (PCR) (NotDetected) Parainfluenza 4 (PCR) (NotDetected) RSV (PCR) (NotDetected) Entero/Rhino (PCR) (NotDetected) 11/07/24 11/06/24 11/06/24 Range/Units 07:32 14:21 08:27 WBC 9.51 8.84 (4.8-10.8) K/ul RBC 3.29 L 3.36 L (4.70-6.10) M/uL Hgb 9.8 L 10.1 L (14.0-18.0) g/dl Hct 30.2 L 31.1 L (42.0-52.0) % MCV 91.8 92.6 (80.0-100.0) fL MCH 29.8 30.1 (25.0-34.0) pg MCHC 32.5 32.5 (32.0-36.0) g/dL RDW Std Deviation 49.1 H 48.2 H (36.4-46.3) fL RDW Coeff of Ira 14.6 H 14.3 (11.5-14.5) % Plt Count 192 203 (130-400) K/uL MPV 11.0 10.8 (9.4-12.4) fL Immature Gran % (Auto) 1.4 0.8 % Neut % (Auto) 80.9 79.9 % Lymph % (Auto) 8.2 8.5 % [place] % (Auto) 7.3 7.2 % Eos % (Auto) 1.9 3.4 % Baso % (Auto) 0.3 0.2 % Neut # (Auto) 7.70 H 7.06 H (1.40-6.50) K/uL Lymph # (Auto) 0.78 L 0.75 L (1.20-3.40) K/uL [place] # (Auto) 0.69 H 0.64 H (0.11-0.59) K/uL Eos # (Auto) 0.18 0.30 (0.00-0.50) K/uL Baso # (Auto) 0.03 0.02 (0.00-0.20) K/uL Immature Gran # (Auto) 0.13 0.07 (0.01-0.20) K/uL PT (9.0-12.0) Seconds INR (0.9-1.1) APTT (21-31) Seconds PTT Ratio Heparin Anti-Xa, Unfract 0.31 (0.3-0.7) IU/ml Sodium 142 148 H (136-145) mmol/L Potassium 3.0 L 2.9 L 2.6 L (3.5-5.1) mmol/L Chloride 112 H 116 H (98-107) mmol/L Carbon Dioxide 22 22 (21-32) mmol/L Anion Gap 8 10 (3-11) BUN 47 H 56 H (6-23) mg/dl Creatinine 1.55 H 1.64 H D (0.6-1.4) mg/dl Est Cr Clr Drug Dosing 58.0 54.8 ml/min eGFR 46.68 43.62 BUN/Creatinine Ratio 30.3 H 34.1 H (10-20) Glucose 158 H 139 H (70-99(Fasting)) mg/dl POC Glucose (70-99) mg/dl Lactate (0.4-2.0) mmol/L Calcium 8.2 L 8.3 L (8.6-10.3) mg/dl Phosphorus (2.5-4.9) mg/dl Magnesium 1.6 L 1.8 (1.7-2.4) mg/dl Iron 58 (35-175) mcg/dl TIBC 148 L (250-450) mcg/dl Transferrin 106 L (200-360) mg/dl Transferrin % Sat 39 (20-50) % Ferritin 490.7 H (8-388) ng/ml Total Bilirubin (0.2-1.0) mg/dl AST (13-39) U/L ALT (7-52) U/L Alkaline Phosphatase (34-104) U/L Troponin I High Sens (0-20) pg/ml Total Protein (6.0-8.3) gm/dl Albumin (3.4-5.0) gm/dl Globulin (2.5-4.0) gm/dl Albumin/Globulin Ratio (0.9-2) Vitamin B12 > 1500 H (180-914) pg/ml Folate 13.59 (>5.38) ng/ml TSH (0.300-4.500) uIu/ml Urine Color Urine Appearance (Clear) Urine pH (4.5-7.5) Ur Specific [place] (1.000-1.030) Urine Protein (Negative) Urine Glucose (UA) (Negative) Urine Ketones (Negative) Urine Blood (Negative) Urine Nitrite (Negative) Urine Bilirubin (Negative) Urine Urobilinogen (Negative) Ur Leukocyte Esterase (Negative) Urine WBC (Auto) (0-5) /hpf Urine RBC (Auto) (0-2) /hpf U Hyaline Cast (Auto) (0-2) /lpf U Epithel Cells (Auto) (0-2) /hpf Urine Bacteria (Auto) (None Seen) Granular Casts (None Prsent) /lpf Stl C. cayetanensis PCR (NotDetected) Stool Rotavirus A PCR (NotDetected) Stl Adenov F 40/41 PCR (NotDetected) Stool Astrovirus (PCR) (NotDetected) Stool Campylobacter PCR (NotDetected) Stl C. diff Tox B Gene (Neg) Stool Cryptosporidium PCR (NotDetected) Stl E.coli Shiga Tox PCR (NotDetected) Stl Enterotoxigenic E PCR (NotDetected) Stool EPEC (PCR) (NotDetected) Stool EAEC (PCR) (NotDetected) Stl E. histolytica PCR (NotDetected) Stool Giardia Lamblia PCR (NotDetected) Stool Salmonella PCR (NotDetected) Stool Sapovirus (PCR) (NotDetected) Stl P. shigelloides PCR (NotDetected) Stl Shigella/EIEC PCR (NotDetected) St Y.enterocolitica PCR (NotDetected) Stool Vibrio (PCR) (NotDetected) Stl Vibrio cholerae PCR (NotDetected) Stl Norovirus GI/GII PCR (NotDetected) Adenovirus (PCR) (NotDetected) B. pertussis DNA (PCR) (NotDetected) B.parapertussis DNA PCR (NotDetected) C. pneumoniae DNA (PCR) (NotDetected) Coronavirus OC43 (PCR) (NotDetected) Coronavirus HKU1 (PCR) (NotDetected) Coronavirus 229E (PCR) (NotDetected) SARS-CoV-2 (PCR) (NotDetected) Coronavirus NL63 (PCR) (NotDetected) Human Metapneumovir PCR (NotDetected) Influenza Type A (PCR) (NotDetected) Influenza Type B (PCR) (NotDetected) M. pneumoniae (PCR) (NotDetected) Parainfluenza 1 (PCR) (NotDetected) Parainfluenza 2 (PCR) (NotDetected) Parainfluenza 3 (PCR) (NotDetected) Parainfluenza 4 (PCR) (NotDetected) RSV (PCR) (NotDetected) Entero/Rhino (PCR) (NotDetected) 11/06/24 11/05/24 11/05/24 Range/Units 00:39 17:06 15:12 WBC (4.8-10.8) K/ul RBC (4.70-6.10) M/uL Hgb (14.0-18.0) g/dl Hct (42.0-52.0) % MCV (80.0-100.0) fL MCH (25.0-34.0) pg MCHC (32.0-36.0) g/dL RDW Std Deviation (36.4-46.3) fL RDW Coeff of Ira (11.5-14.5) % Plt Count (130-400) K/uL MPV (9.4-12.4) fL Immature Gran % (Auto) % Neut % (Auto) % Lymph % (Auto) % [place] % (Auto) % Eos % (Auto) % Baso % (Auto) % Neut # (Auto) (1.40-6.50) K/uL Lymph # (Auto) (1.20-3.40) K/uL [place] # (Auto) (0.11-0.59) K/uL Eos # (Auto) (0.00-0.50) K/uL Baso # (Auto) (0.00-0.20) K/uL Immature Gran # (Auto) (0.01-0.20) K/uL PT (9.0-12.0) Seconds INR (0.9-1.1) APTT (21-31) Seconds PTT Ratio Heparin Anti-Xa, Unfract 0.29 L 0.23 L (0.3-0.7) IU/ml Sodium (136-145) mmol/L Potassium (3.5-5.1) mmol/L Chloride (98-107) mmol/L Carbon Dioxide (21-32) mmol/L Anion Gap (3-11) BUN (6-23) mg/dl Creatinine (0.6-1.4) mg/dl Est Cr Clr Drug Dosing ml/min eGFR BUN/Creatinine Ratio (10-20) Glucose (70-99(Fasting)) mg/dl POC Glucose (70-99) mg/dl Lactate (0.4-2.0) mmol/L Calcium (8.6-10.3) mg/dl Phosphorus (2.5-4.9) mg/dl Magnesium (1.7-2.4) mg/dl Iron (35-175) mcg/dl TIBC (250-450) mcg/dl Transferrin (200-360) mg/dl Transferrin % Sat (20-50) % Ferritin (8-388) ng/ml Total Bilirubin (0.2-1.0) mg/dl AST (13-39) U/L ALT (7-52) U/L Alkaline Phosphatase (34-104) U/L Troponin I High Sens 79.7 H* D (0-20) pg/ml Total Protein (6.0-8.3) gm/dl Albumin (3.4-5.0) gm/dl Globulin (2.5-4.0) gm/dl Albumin/Globulin Ratio (0.9-2) Vitamin B12 (180-914) pg/ml Folate (>5.38) ng/ml TSH (0.300-4.500) uIu/ml Urine Color Urine Appearance (Clear) Urine pH (4.5-7.5) Ur Specific [place] (1.000-1.030) Urine Protein (Negative) Urine Glucose (UA) (Negative) Urine Ketones (Negative) Urine Blood (Negative) Urine Nitrite (Negative) Urine Bilirubin (Negative) Urine Urobilinogen (Negative) Ur Leukocyte Esterase (Negative) Urine WBC (Auto) (0-5) /hpf Urine RBC (Auto) (0-2) /hpf U Hyaline Cast (Auto) (0-2) /lpf U Epithel Cells (Auto) (0-2) /hpf Urine Bacteria (Auto) (None Seen) Granular Casts (None Prsent) /lpf Stl C. cayetanensis PCR (NotDetected) Stool Rotavirus A PCR (NotDetected) Stl Adenov F 40/41 PCR (NotDetected) Stool Astrovirus (PCR) (NotDetected) Stool Campylobacter PCR (NotDetected) Stl C. diff Tox B Gene (Neg) Stool Cryptosporidium PCR (NotDetected) Stl E.coli Shiga Tox PCR (NotDetected) Stl Enterotoxigenic E PCR (NotDetected) Stool EPEC (PCR) (NotDetected) Stool EAEC (PCR) (NotDetected) Stl E. histolytica PCR (NotDetected) Stool Giardia Lamblia PCR (NotDetected) Stool Salmonella PCR (NotDetected) Stool Sapovirus (PCR) (NotDetected) Stl P. shigelloides PCR (NotDetected) Stl Shigella/EIEC PCR (NotDetected) St Y.enterocolitica PCR (NotDetected) Stool Vibrio (PCR) (NotDetected) Stl Vibrio cholerae PCR (NotDetected) Stl Norovirus GI/GII PCR (NotDetected) Adenovirus (PCR) (NotDetected) B. pertussis DNA (PCR) (NotDetected) B.parapertussis DNA PCR (NotDetected) C. pneumoniae DNA (PCR) (NotDetected) Coronavirus OC43 (PCR) (NotDetected) Coronavirus HKU1 (PCR) (NotDetected) Coronavirus 229E (PCR) (NotDetected) SARS-CoV-2 (PCR) (NotDetected) Coronavirus NL63 (PCR) (NotDetected) Human Metapneumovir PCR (NotDetected) Influenza Type A (PCR) (NotDetected) Influenza Type B (PCR) (NotDetected) M. pneumoniae (PCR) (NotDetected) Parainfluenza 1 (PCR) (NotDetected) Parainfluenza 2 (PCR) (NotDetected) Parainfluenza 3 (PCR) (NotDetected) Parainfluenza 4 (PCR) (NotDetected) RSV (PCR) (NotDetected) Entero/Rhino (PCR) (NotDetected) 11/05/24 11/05/24 11/05/24 Range/Units 09:38 03:50 01:13 WBC 8.61 (4.8-10.8) K/ul RBC 3.51 L (4.70-6.10) M/uL Hgb 10.4 L (14.0-18.0) g/dl Hct 33.1 L (42.0-52.0) % MCV 94.3 (80.0-100.0) fL MCH 29.6 (25.0-34.0) pg MCHC 31.4 L (32.0-36.0) g/dL RDW Std Deviation 49.1 H (36.4-46.3) fL RDW Coeff of Ira 14.4 (11.5-14.5) % Plt Count 223 (130-400) K/uL MPV 10.1 (9.4-12.4) fL Immature Gran % (Auto) 0.7 % Neut % (Auto) 82.9 % Lymph % (Auto) 7.1 % [place] % (Auto) 7.0 % Eos % (Auto) 2.2 % Baso % (Auto) 0.1 % Neut # (Auto) 7.14 H (1.40-6.50) K/uL Lymph # (Auto) 0.61 L (1.20-3.40) K/uL [place] # (Auto) 0.60 H (0.11-0.59) K/uL Eos # (Auto) 0.19 (0.00-0.50) K/uL Baso # (Auto) 0.01 (0.00-0.20) K/uL Immature Gran # (Auto) 0.06 (0.01-0.20) K/uL PT (9.0-12.0) Seconds INR (0.9-1.1) APTT (21-31) Seconds PTT Ratio Heparin Anti-Xa, Unfract 0.20 L < 0.10 L (0.3-0.7) IU/ml Sodium 148 H (136-145) mmol/L Potassium 3.2 L (3.5-5.1) mmol/L Chloride 115 H (98-107) mmol/L Carbon Dioxide 22 (21-32) mmol/L Anion Gap 11 (3-11) BUN 71 H (6-23) mg/dl Creatinine 2.00 H (0.6-1.4) mg/dl Est Cr Clr Drug Dosing 44.0 ml/min eGFR 34.38 BUN/Creatinine Ratio 35.5 H (10-20) Glucose 129 H (70-99(Fasting)) mg/dl POC Glucose (70-99) mg/dl Lactate (0.4-2.0) mmol/L Calcium 8.5 L (8.6-10.3) mg/dl Phosphorus (2.5-4.9) mg/dl Magnesium 2.1 (1.7-2.4) mg/dl Iron (35-175) mcg/dl TIBC (250-450) mcg/dl Transferrin (200-360) mg/dl Transferrin % Sat (20-50) % Ferritin (8-388) ng/ml Total Bilirubin (0.2-1.0) mg/dl AST (13-39) U/L ALT (7-52) U/L Alkaline Phosphatase (34-104) U/L Troponin I High Sens 107.9 H* 113.7 H* (0-20) pg/ml Total Protein (6.0-8.3) gm/dl Albumin (3.4-5.0) gm/dl Globulin (2.5-4.0) gm/dl Albumin/Globulin Ratio (0.9-2) Vitamin B12 (180-914) pg/ml Folate (>5.38) ng/ml TSH (0.300-4.500) uIu/ml Urine Color Urine Appearance (Clear) Urine pH (4.5-7.5) Ur Specific [place] (1.000-1.030) Urine Protein (Negative) Urine Glucose (UA) (Negative) Urine Ketones (Negative) Urine Blood (Negative) Urine Nitrite (Negative) Urine Bilirubin (Negative) Urine Urobilinogen (Negative) Ur Leukocyte Esterase (Negative) Urine WBC (Auto) (0-5) /hpf Urine RBC (Auto) (0-2) /hpf U Hyaline Cast (Auto) (0-2) /lpf U Epithel Cells (Auto) (0-2) /hpf Urine Bacteria (Auto) (None Seen) Granular Casts (None Prsent) /lpf Stl C. cayetanensis PCR (NotDetected) Stool Rotavirus A PCR (NotDetected) Stl Adenov F 40/41 PCR (NotDetected) Stool Astrovirus (PCR) (NotDetected) Stool Campylobacter PCR (NotDetected) Stl C. diff Tox B Gene (Neg) Stool Cryptosporidium PCR (NotDetected) Stl E.coli Shiga Tox PCR (NotDetected) Stl Enterotoxigenic E PCR (NotDetected) Stool EPEC (PCR) (NotDetected) Stool EAEC (PCR) (NotDetected) Stl E. histolytica PCR (NotDetected) Stool Giardia Lamblia PCR (NotDetected) Stool Salmonella PCR (NotDetected) Stool Sapovirus (PCR) (NotDetected) Stl P. shigelloides PCR (NotDetected) Stl Shigella/EIEC PCR (NotDetected) St Y.enterocolitica PCR (NotDetected) Stool Vibrio (PCR) (NotDetected) Stl Vibrio cholerae PCR (NotDetected) Stl Norovirus GI/GII PCR (NotDetected) Adenovirus (PCR) (NotDetected) B. pertussis DNA (PCR) (NotDetected) B.parapertussis DNA PCR (NotDetected) C. pneumoniae DNA (PCR) (NotDetected) Coronavirus OC43 (PCR) (NotDetected) Coronavirus HKU1 (PCR) (NotDetected) Coronavirus 229E (PCR) (NotDetected) SARS-CoV-2 (PCR) (NotDetected) Coronavirus NL63 (PCR) (NotDetected) Human Metapneumovir PCR (NotDetected) Influenza Type A (PCR) (NotDetected) Influenza Type B (PCR) (NotDetected) M. pneumoniae (PCR) (NotDetected) Parainfluenza 1 (PCR) (NotDetected) Parainfluenza 2 (PCR) (NotDetected) Parainfluenza 3 (PCR) (NotDetected) Parainfluenza 4 (PCR) (NotDetected) RSV (PCR) (NotDetected) Entero/Rhino (PCR) (NotDetected) 11/04/24 11/04/24 11/04/24 Range/Units 23:35 20:49 19:22 WBC (4.8-10.8) K/ul RBC (4.70-6.10) M/uL Hgb (14.0-18.0) g/dl Hct (42.0-52.0) % MCV (80.0-100.0) fL MCH (25.0-34.0) pg MCHC (32.0-36.0) g/dL RDW Std Deviation (36.4-46.3) fL RDW Coeff of Ira (11.5-14.5) % Plt Count (130-400) K/uL MPV (9.4-12.4) fL Immature Gran % (Auto) % Neut % (Auto) % Lymph % (Auto) % [place] % (Auto) % Eos % (Auto) % Baso % (Auto) % Neut # (Auto) (1.40-6.50) K/uL Lymph # (Auto) (1.20-3.40) K/uL [place] # (Auto) (0.11-0.59) K/uL Eos # (Auto) (0.00-0.50) K/uL Baso # (Auto) (0.00-0.20) K/uL Immature Gran # (Auto) (0.01-0.20) K/uL PT (9.0-12.0) Seconds INR (0.9-1.1) APTT (21-31) Seconds PTT Ratio Heparin Anti-Xa, Unfract (0.3-0.7) IU/ml Sodium (136-145) mmol/L Potassium (3.5-5.1) mmol/L Chloride (98-107) mmol/L Carbon Dioxide (21-32) mmol/L Anion Gap (3-11) BUN (6-23) mg/dl Creatinine (0.6-1.4) mg/dl Est Cr Clr Drug Dosing ml/min eGFR BUN/Creatinine Ratio (10-20) Glucose (70-99(Fasting)) mg/dl POC Glucose (70-99) mg/dl Lactate 1.4 (0.4-2.0) mmol/L Calcium (8.6-10.3) mg/dl Phosphorus (2.5-4.9) mg/dl Magnesium (1.7-2.4) mg/dl Iron (35-175) mcg/dl TIBC (250-450) mcg/dl Transferrin (200-360) mg/dl Transferrin % Sat (20-50) % Ferritin (8-388) ng/ml Total Bilirubin (0.2-1.0) mg/dl AST (13-39) U/L ALT (7-52) U/L Alkaline Phosphatase (34-104) U/L Troponin I High Sens 139.4 H* (0-20) pg/ml Total Protein (6.0-8.3) gm/dl Albumin (3.4-5.0) gm/dl Globulin (2.5-4.0) gm/dl Albumin/Globulin Ratio (0.9-2) Vitamin B12 (180-914) pg/ml Folate (>5.38) ng/ml TSH (0.300-4.500) uIu/ml Urine Color Yellow Urine Appearance Cloudy A (Clear) Urine pH 5.5 (4.5-7.5) Ur Specific [place] 1.015 (1.000-1.030) Urine Protein 1+ H (Negative) Urine Glucose (UA) Negative (Negative) Urine Ketones Trace H (Negative) Urine Blood 3+ H (Negative) Urine Nitrite Positive A (Negative) Urine Bilirubin Negative (Negative) Urine Urobilinogen Negative (Negative) Ur Leukocyte Esterase 3+ H (Negative) Urine WBC (Auto) >50 H (0-5) /hpf Urine RBC (Auto) 3-5 H (0-2) /hpf U Hyaline Cast (Auto) 11-20 H (0-2) /lpf U Epithel Cells (Auto) 0-2 (0-2) /hpf Urine Bacteria (Auto) 4+ H (None Seen) Granular Casts Present A (None Prsent) /lpf Stl C. cayetanensis PCR (NotDetected) Stool Rotavirus A PCR (NotDetected) Stl Adenov F 40/41 PCR (NotDetected) Stool Astrovirus (PCR) (NotDetected) Stool Campylobacter PCR (NotDetected) Stl C. diff Tox B Gene (Neg) Stool Cryptosporidium PCR (NotDetected) Stl E.coli Shiga Tox PCR (NotDetected) Stl Enterotoxigenic E PCR (NotDetected) Stool EPEC (PCR) (NotDetected) Stool EAEC (PCR) (NotDetected) Stl E. histolytica PCR (NotDetected) Stool Giardia Lamblia PCR (NotDetected) Stool Salmonella PCR (NotDetected) Stool Sapovirus (PCR) (NotDetected) Stl P. shigelloides PCR (NotDetected) Stl Shigella/EIEC PCR (NotDetected) St Y.enterocolitica PCR (NotDetected) Stool Vibrio (PCR) (NotDetected) Stl Vibrio cholerae PCR (NotDetected) Stl Norovirus GI/GII PCR (NotDetected) Adenovirus (PCR) (NotDetected) B. pertussis DNA (PCR) (NotDetected) B.parapertussis DNA PCR (NotDetected) C. pneumoniae DNA (PCR) (NotDetected) Coronavirus OC43 (PCR) (NotDetected) Coronavirus HKU1 (PCR) (NotDetected) Coronavirus 229E (PCR) (NotDetected) SARS-CoV-2 (PCR) (NotDetected) Coronavirus NL63 (PCR) (NotDetected) Human Metapneumovir PCR (NotDetected) Influenza Type A (PCR) (NotDetected) Influenza Type B (PCR) (NotDetected) M. pneumoniae (PCR) (NotDetected) Parainfluenza 1 (PCR) (NotDetected) Parainfluenza 2 (PCR) (NotDetected) Parainfluenza 3 (PCR) (NotDetected) Parainfluenza 4 (PCR) (NotDetected) RSV (PCR) (NotDetected) Entero/Rhino (PCR) (NotDetected) 11/04/24 Range/Units 18:04 WBC 9.28 (4.8-10.8) K/ul RBC 3.97 L (4.70-6.10) M/uL Hgb 11.8 L (14.0-18.0) g/dl Hct 35.8 L (42.0-52.0) % MCV 90.2 (80.0-100.0) fL MCH 29.7 (25.0-34.0) pg MCHC 33.0 (32.0-36.0) g/dL RDW Std Deviation 46.4 H (36.4-46.3) fL RDW Coeff of Ira 14.1 (11.5-14.5) % Plt Count 266 (130-400) K/uL MPV 10.3 (9.4-12.4) fL Immature Gran % (Auto) 0.4 % Neut % (Auto) 81.7 % Lymph % (Auto) 7.2 % [place] % (Auto) 8.1 % Eos % (Auto) 2.5 % Baso % (Auto) 0.1 % Neut # (Auto) 7.58 H (1.40-6.50) K/uL Lymph # (Auto) 0.67 L (1.20-3.40) K/uL [place] # (Auto) 0.75 H (0.11-0.59) K/uL Eos # (Auto) 0.23 (0.00-0.50) K/uL Baso # (Auto) 0.01 (0.00-0.20) K/uL Immature Gran # (Auto) 0.04 (0.01-0.20) K/uL PT 14.6 H (9.0-12.0) Seconds INR 1.4 H (0.9-1.1) APTT 32 H (21-31) Seconds PTT Ratio 1.2 Heparin Anti-Xa, Unfract (0.3-0.7) IU/ml Sodium 148 H (136-145) mmol/L Potassium 2.8 L (3.5-5.1) mmol/L Chloride 111 H (98-107) mmol/L Carbon Dioxide 21 (21-32) mmol/L Anion Gap 16 H (3-11) BUN 78 H (6-23) mg/dl Creatinine 2.27 H (0.6-1.4) mg/dl Est Cr Clr Drug Dosing 38.7 ml/min eGFR 29.53 BUN/Creatinine Ratio 34.4 H (10-20) Glucose 117 H (70-99(Fasting)) mg/dl POC Glucose (70-99) mg/dl Lactate (0.4-2.0) mmol/L Calcium 9.0 (8.6-10.3) mg/dl Phosphorus (2.5-4.9) mg/dl Magnesium 1.9 (1.7-2.4) mg/dl Iron (35-175) mcg/dl TIBC (250-450) mcg/dl Transferrin (200-360) mg/dl Transferrin % Sat (20-50) % Ferritin (8-388) ng/ml Total Bilirubin 0.6 (0.2-1.0) mg/dl AST 20 (13-39) U/L ALT 9 (7-52) U/L Alkaline Phosphatase 80 (34-104) U/L Troponin I High Sens 153.6 H* (0-20) pg/ml Total Protein 7.3 (6.0-8.3) gm/dl Albumin 3.1 L (3.4-5.0) gm/dl Globulin 4.2 H (2.5-4.0) gm/dl Albumin/Globulin Ratio 0.7 L (0.9-2) Vitamin B12 (180-914) pg/ml Folate (>5.38) ng/ml TSH 0.427 (0.300-4.500) uIu/ml Urine Color Urine Appearance (Clear) Urine pH (4.5-7.5) Ur Specific [place] (1.000-1.030) Urine Protein (Negative) Urine Glucose (UA) (Negative) Urine Ketones (Negative) Urine Blood (Negative) Urine Nitrite (Negative) Urine Bilirubin (Negative) Urine Urobilinogen (Negative) Ur Leukocyte Esterase (Negative) Urine WBC (Auto) (0-5) /hpf Urine RBC (Auto) (0-2) /hpf U Hyaline Cast (Auto) (0-2) /lpf U Epithel Cells (Auto) (0-2) /hpf Urine Bacteria (Auto) (None Seen) Granular Casts (None Prsent) /lpf Stl C. cayetanensis PCR (NotDetected) Stool Rotavirus A PCR (NotDetected) Stl Adenov F 40/41 PCR (NotDetected) Stool Astrovirus (PCR) (NotDetected) Stool Campylobacter PCR (NotDetected) Stl C. diff Tox B Gene (Neg) Stool Cryptosporidium PCR (NotDetected) Stl E.coli Shiga Tox PCR (NotDetected) Stl Enterotoxigenic E PCR (NotDetected) Stool EPEC (PCR) (NotDetected) Stool EAEC (PCR) (NotDetected) Stl E. histolytica PCR (NotDetected) Stool Giardia Lamblia PCR (NotDetected) Stool Salmonella PCR (NotDetected) Stool Sapovirus (PCR) (NotDetected) Stl P. shigelloides PCR (NotDetected) Stl Shigella/EIEC PCR (NotDetected) St Y.enterocolitica PCR (NotDetected) Stool Vibrio (PCR) (NotDetected) Stl Vibrio cholerae PCR (NotDetected) Stl Norovirus GI/GII PCR (NotDetected) Adenovirus (PCR) Not Detected (NotDetected) B. pertussis DNA (PCR) Not Detected (NotDetected) B.parapertussis DNA PCR Not Detected (NotDetected) C. pneumoniae DNA (PCR) Not Detected (NotDetected) Coronavirus OC43 (PCR) Not Detected (NotDetected) Coronavirus HKU1 (PCR) Not Detected (NotDetected) Coronavirus 229E (PCR) Not Detected (NotDetected) SARS-CoV-2 (PCR) Not Detected (NotDetected) Coronavirus NL63 (PCR) Not Detected (NotDetected) Human Metapneumovir PCR Not Detected (NotDetected) Influenza Type A (PCR) Not Detected (NotDetected) Influenza Type B (PCR) Not Detected (NotDetected) M. pneumoniae (PCR) Not Detected (NotDetected) Parainfluenza 1 (PCR) Not Detected (NotDetected) Parainfluenza 2 (PCR) Not Detected (NotDetected) Parainfluenza 3 (PCR) Not Detected (NotDetected) Parainfluenza 4 (PCR) Not Detected (NotDetected) RSV (PCR) Not Detected (NotDetected) Entero/Rhino (PCR) Not Detected (NotDetected) Diagnostic Findings Chest X-Ray 11/04/24 18:08 Chest radiograph, one view History: Chest pain Comparison: 09/16/2024 Findings: Single AP view of the chest performed. No focal consolidation or pleural effusion. No pneumothorax. The cardiomediastinal silhouette is within normal limits. Normal pulmonary vascularity. No evidence for lymphadenopathy. Left chest wall dual-lead AICD. No visualized bony or soft tissue abnormality. Impression: Normal chest radiograph Electronically signed by Ronny Patel 11-04-2024 6:39 PM Abdomen/Pelvis CT 11/04/24 19:57 Exam(s): CT ABDOMEN + PELVIS Without Contrast EXAM: CT Abdomen and Pelvis Without Intravenous Contrast CLINICAL HISTORY: Reason for exam: n/v, dehydration. TECHNIQUE: Axial computed tomography images of the abdomen and pelvis without intravenous contrast. CTDI is 34.12 mGy and DLP is 2356.54 mGy-cm. Automated exposure control was utilized for the study. A dose lowering technique was utilized adhering to the principles of ALARA. COMPARISON: No relevant prior studies available. FINDINGS: ABDOMEN: Liver: Unremarkable. Gallbladder and bile ducts: Unremarkable. Pancreas: Unremarkable. Spleen: Unremarkable. Adrenals: Unremarkable. Kidneys and ureters: Lobular atrophic kidneys. Cortical cyst in the right kidney measuring 5 cm. Nonobstructing nephrolithiasis bilaterally. Stomach and bowel: Unremarkable. PELVIS: Appendix: No findings to suggest acute appendicitis. Bladder: Unremarkable. Reproductive: Unremarkable as visualized. ABDOMEN and PELVIS: Intraperitoneal space: Unremarkable. No free air. No significant fluid collection. Bones/joints: Severe degenerative changes in the right hip and lumbar spine. Cement in the left hip. Postsurgical changes and chronic dislocation of the left hip. Soft tissues: Unremarkable. Vasculature: Unremarkable. Lymph nodes: Unremarkable. IMPRESSION: No acute abnormality in the abdomen or pelvis. Electronically signed by: Jesus Gandhi MD 11/04/24 20:[address] 11/04/24 19:57 Exam(s): CT CHEST Without Contrast EXAM: CT Chest Without Intravenous Contrast CLINICAL HISTORY: Reason for exam: aspiration. TECHNIQUE: Axial computed tomography images of the chest without intravenous contrast. CTDI is 34.12 mGy and DLP is 2356.54 mGy-cm. Automated exposure control was utilized for the study. A dose lowering technique was utilized adhering to the principles of ALARA. COMPARISON: No relevant prior studies available. FINDINGS: Lungs: No consolidation. Mild subsegmental atelectasis in the right lower lobe. The airways are clear. Pleural space: No pleural effusion or pneumothorax. Heart: Severe coronary artery calcifications. Bones/joints: No acute findings. Soft tissues: Unremarkable. Vasculature: No aortic aneurysm.. Lymph nodes: Unremarkable. IMPRESSION: No acute abnormality. Electronically signed by: Jesus Gandhi MD 11/04/24 20:58 PM Wrist X-Ray 11/06/24 18:50 Exam(s): XR RIGHT WRIST, 3+ views EXAM: XR Right Wrist Complete, 3 or More Views CLINICAL HISTORY: Reason for exam: f/u wrist fracture. TECHNIQUE: Frontal, lateral and oblique views of the right wrist. COMPARISON: No relevant prior studies available. FINDINGS: Bones/joints: No acute fracture or malalignment. 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 Soft tissues: Unremarkable. No radiopaque foreign body. IMPRESSION: 1. No acute fracture or malalignment. 2. 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 Electronically signed by: Jesus Gandhi MD 11/06/24 22:04 PM PG Care Time/CCT Total # of Minutes Spent Total Time Spent with Patient: Total time spent is greater than 50% in coordination of care (as documented) at patient's floor/unit and/or counseling patient: I spent 110 minutes overall addressing this case: 15 min in medical data review/discussion with referring provider(s) and/or preparation for the visit 20 min in direct interaction with the patient/exam 45 min in Advance Care Planning/Goals of Care discussions as detailed above in note (must be >16min) 15 min in subsequent review and synthesis of assessment and plan 15 min communicating with other providers regarding the patient's case: primary, nursing Advanced Care Planning 72623 Advanced Care Planning 30 Min [id number] Advanced Care Planning Additional 30 [place] [address] IN/OBS CONSULT LVL 4,60M (25 - SIGNIFICANT, SEPARATELY IDENTIFIABLE ) Patient Type New Medical Decision Making High Complexity Diagnoses Weakness generalized R53.1 Palliative care by specialist Z51.5 Advanced care planning/counseling discussion Z71.89 Additional Codes Advanced Care Planning - 58267 Advanced Care Planning 30 Min: 80950 Advanced Care Planning 30 Min ([id number]) Advanced Care Planning - 72399 Advanced Care Planning Additional 30 Min: 80614 Advanced Care Planning Additional 30 Min ([id number]) Comment [id number] and [id number]
--- NOTE | 2024-11-09 13:02 | Hospitalist Progress Note ---
Date of Service November 09, 2024 Assessment & Plan (1) Acute kidney injury superimposed on chronic kidney disease: Plan: Present on admission with creatinine 2.2. Now improved to 1.2. Monitor intake and output. Serial labs (2) Dysphagia: Plan: He underwent EGD on November 06 with dilatation of the upper esophagus. Speech therapy has evaluated the patient and there is no evidence of aspiration. (3) Urinary tract infection: Plan: E. coli isolated. Currently on intravenous Rocephin, day 4 (4) Hypokalemia: Plan: Corrected with replacement therapy. Serial labs (5) Paroxysmal atrial fibrillation: Plan: Rate control. Continue Xarelto therapy. (6) Weakness generalized: Plan: Continue OT and PT while hospitalized. He refuses to return to inpatient rehab or SNF. Palliative care has been consulted. (7) Wrist pain, right: Plan: He has been seen and evaluated by orthopedics. Pseudogout is a possibility. A wrist brace has been requested Plan Probable return to home with hospice care. Admission and Anticipated Discharge Date Admission Date: November 04, 2024 Subjective Awake and alert. He flatly refuses to consider return to [facility] or to [facility]. His is trying to arrange caregivers at the home so he can return to home at discharge. Palliative care consultation requested. It appears to me he does not want any further treatment. Review of Systems 2 Review of Systems: Constitutionalno fever or chills ENTno blurred vision, no double vision, no epistaxis, no sore throat Respiratoryno cough, no wheezing, no shortness of breath Cardiacno palpitations, no chest pain, no syncope [place] nausea, vomiting, diarrhea, melena, hematochezia GUFoley catheter in place without hematuria Musculoskeletalno joint pain, no muscle tenderness Skinno bruising, no rashes, no pruritus Neurochronic generalized weakness preventing ambulation. Psychhe appears to be depressed Physical Exam 2 Physical Exam: General-alert and oriented x3, no fever, no chills. Morbidly obese HEENT-head atraumatic and normocephalic, pupils equal and reactive to light, extraocular muscles intact Neck-no lymphadenopathy or thyromegaly, trachea midline Chest-diminished breath sounds bilaterally from anterior approach. No inspiratory rales, wheezing or rhonchi Cardiac-regular rate and rhythm, normal S1 and S2 Abdomen-normal bowel sounds, no hepatosplenomegaly Extremities-chronic appearing bilateral lower extremity edema, 2+ Neuro-cranial nerves II through XII intact, motor and sensory function within normal limits, strength symmetrical with chronic weakness, no focal deficits Psych-depressed affect Results & Data Results & Data Vital Signs (Past 12 Hours) Vital Signs Temp Pulse Resp BP Pulse Ox O2 Del Method 11/09/24 08:05 Room Air 11/09/24 07:26 36.5 C 92 H 18 132/76 98 Room Air Laboratory Results 11/09/24 08:26 11/09/24 08:26 PG Care Time/CCT Total # of Minutes Spent Total Time Spent with Patient: Total time spent is greater than 50% in coordination of care (as documented) at patient's floor/unit and/or counseling patient: Coding Level of Care Code 49634 SUB INP/OBS CARE 3/50MIN Diagnoses Acute kidney injury superimposed on chronic kidney disease N17.9; N18.9 Dysphagia R13.10 Urinary tract infection N39.0 Hypokalemia E87.6 Paroxysmal atrial fibrillation I48.0 Weakness generalized R53.1 Wrist pain, right M25.531
[2024-11-10 08:39] LABS: Basophils # (auto) 0.04 K/uL (0.00-0.20); Basophils % (auto) 0.4 %; Eosinophils # (auto) 0.09 K/uL (0.00-0.50); Hematocrit (blood only) 30.4 % (42.0-52.0); Hemoglobin 9.7 g/dl (14.0-18.0); Immature Granulocytes # (auto) 0.07 K/uL (0.01-0.20); Immature Granulocytes % (auto) 0.8 %; Lymphocytes # (auto) 0.84 K/uL (1.20-3.40); Lymphocytes % (auto) 9.4 %; Mean Corpuscular Hemoglobin 29.6 pg (25.0-34.0); Mean Corpuscular Hgb Conc 31.9 g/dL (32.0-36.0); Mean Corpuscular Volume 92.7 fL (80.0-100.0); Mean Platelet Volume 10.2 fL (9.4-12.4); Monocytes # (auto) 0.71 K/uL (0.11-0.59); Neutrophils # (auto) 7.14 K/uL (1.40-6.50); Neutrophils % (auto) 80.4 %; Platelet Count 186 K/uL (130-400); RDW Coefficient of Variation 15.3 % (11.5-14.5); RDW Standard Deviation 51.7 fL (36.4-46.3); Red Blood Count 3.28 M/uL (4.70-6.10); White Blood Count 8.89 K/ul (4.8-10.8)
[2024-11-10 08:46] LABS: BUN Creatinine Ratio 25.2 (10-20); Calcium 8.2 mg/dl (8.6-10.3); Creatinine Clr Calc Pharmacy 70.7 ml/min; Potassium 3.5 mmol/L (3.5-5.1)
--- NOTE | 2024-11-10 12:08 | Hospitalist Progress Note ---
Date of Service November 10, 2024 Assessment & Plan (1) Acute kidney injury superimposed on chronic kidney disease: Plan: Present on admission with creatinine 2.2. Now stable at 1.2. Monitor intake and output. (2) Dysphagia: Plan: He underwent EGD on November 06 with dilatation of the upper esophagus. Speech therapy has evaluated the patient and there is no evidence of aspiration. (3) Urinary tract infection: Plan: E. coli isolated. Currently on intravenous Rocephin, day 5. Will discontinue Rocephin after today's dose (4) Hypokalemia: Plan: Corrected with replacement therapy. Serial labs (5) Paroxysmal atrial fibrillation: Plan: Rate control. Continue Xarelto therapy. (6) Weakness generalized: Plan: Continue OT and PT while hospitalized. He refuses to return to inpatient rehab or SNF. Palliative care consult appreciated. (7) Wrist pain, right: Plan: He has been seen and evaluated by orthopedics. Pseudogout is a possibility. A wrist brace has been requested Plan Anticipate discharge to home with hospice care when arrangements are finalized Admission and Anticipated Discharge Date Admission Date: November 04, 2024 Subjective Awake and alert. No new problems. His is at the bedside. Palliative care met with the patient and his today, November 10, and they have decided to simply go home with hospice care. Will discontinue daily lab studies. He will complete his intravenous antibiotic course for the E. coli UTI today. Currently Rocephin day 5. Review of Systems 2 Review of Systems: Constitutionalno fever or chills ENTno blurred vision, no double vision, no epistaxis, no sore throat Respiratoryno cough, no wheezing, no shortness of breath Cardiacno palpitations, no chest pain, no syncope [place] nausea, vomiting, diarrhea, melena, hematochezia GUFoley catheter in place without hematuria Musculoskeletalno joint pain, no muscle tenderness Skinno bruising, no rashes, no pruritus Neurochronic generalized weakness preventing ambulation. Psychhe appears to be depressed Physical Exam 2 Physical Exam: General-alert and oriented x3, no fever, no chills. Morbidly obese HEENT-head atraumatic and normocephalic, pupils equal and reactive to light, extraocular muscles intact Neck-no lymphadenopathy or thyromegaly, trachea midline Chest-diminished breath sounds bilaterally from anterior approach. No inspiratory rales, wheezing or rhonchi Cardiac-regular rate and rhythm, normal S1 and S2 Abdomen-normal bowel sounds, no hepatosplenomegaly Extremities-chronic appearing bilateral lower extremity edema, 2+ Neuro-cranial nerves II through XII intact, motor and sensory function within normal limits, strength symmetrical with chronic weakness, no focal deficits Psych-depressed affect Results & Data Results & Data Vital Signs (Past 12 Hours) Vital Signs Temp Pulse Resp BP Pulse Ox O2 Del Method 11/10/24 07:32 Room Air 11/10/24 07:02 36.4 C L 80 16 116/69 98 Room Air Laboratory Results 11/10/24 08:15 11/10/24 08:15 PG Care Time/CCT Total # of Minutes Spent Total Time Spent with Patient: Total time spent is greater than 50% in coordination of care (as documented) at patient's floor/unit and/or counseling patient: Coding Level of Care Code 62772 SUB INP/OBS CARE 2/35MIN Diagnoses Acute kidney injury superimposed on chronic kidney disease N17.9; N18.9 Dysphagia R13.10 Urinary tract infection N39.0 Hypokalemia E87.6 Paroxysmal atrial fibrillation I48.0 Weakness generalized R53.1 Wrist pain, right M25.531
--- NOTE | 2024-11-10 14:48 | Palliative Family Discussion ---
Date of Service November 10, 2024 Patient Directed Conference Time of [id number] Participants: Shirin Coates DNP Patient participation: yes Patient Support System Naty and FIDEL Wilks Other Healthcare Provider Participation: None Meeting Location: bedside Advanced Directive available: no The patient's surrogate medical decision maker participated: A family meeting for ACP was held for LEWIS CARDENAS. This meeting was necessary for determining the appropriate course of treatment. Topics of Discussion Topics of Discussion: 1. I met with Pastor Cardenas and , sister in law. Clinical events to date discussed. Multiple complex comorbid conditions, his declining performance status, persisting weakness and impairments with nutrition and swallow. Reviewed that overall medical of "getting back to a better place than I was before I came in" is not going to be reasonable or achievable given the advanced nature of his multiple issues. We reviewed the options of visiting nurse service home health versus home hospice and the difference in coverage for both. I suggested to him that perhaps he consider the option of going home with visiting nurse service and home-based PT to see how he does and should he decline or not improve, then transition to home hospice versus the option of going home with home hospice if the focus and desire at this junction is to assure quality of life and focus on comfort without returning to the hospital or escalating care, persisting labs etc. We also discussed CODE STATUS, he is currently a full code. He states that he would not want to be prolonged from dy ing but always felt that "given initial go and see what happens." We then discussed data around CPR survival: Only about 10% of patients who have [id number] sudden cardiac arrest survive to hospital discharge, with many survivors having neurologic impairment. This rate is even lower among patients with serious coexisting conditions, ie chance of survival to hospital discharge for in-hospital CPR in older people is low to moderate (15%) and decreases with age, comorbidities, performance status and frailty: for pts > 70 yo, more than half of the patients who initially survived resuscitation in the hospital before hospital discharge. The pooled survival to discharge after in-hospital CPR was 18% for patients between 70 and 79 years old, 15% for patients between 80 and 89 years old and 11% for patients of 90 years and older. (Virgilio TAIY, Kyree LJ, Riddhi F, et al. Trends in short- and long-term survival among sqc-ic-lfyumori cardiac arrest patients alive at hospital arrival. Circulation 2014;130:9579-0125. AND Sahara C, Sherrie T, Arnold R, et al. Performance of clinical risk scores to predict mortality and neurological outcome in cardiac arrest patients. Resuscitation 2019;136:21-29.) After further discussion, patient and family agreed to no code, home with hospice dc and would like to speak with CM while they are all here to review DME options and such. They choose [facility] hospice bc they have another family member on service with [facility] and their niece is a RN with [facility] as well. DC home with hospice, care mgt aware. Pt would like help finding private caregivers to support his care at home. Other Content of Meetin. Opportunity given for participants to speak and ask questions. 2. Participants were assured of attention to patient comfort. 3. Reassurance provided. 4. Support was provided for informed, [place] decisions. 5. Emotions expressed by family were acknowledged and addressed. 6. Plan of Care: DC home with hospice, care mgt aware. Pt would like help finding private caregivers to support his care at home. TS 75min, 60 min face to face ACP
[2024-11-11] MEDS: ONDANSETRON INJ 2 MG/ML 2 ML VIAL IV PRN (12:08)
--- NOTE | 2024-11-11 12:21 | Hospitalist Progress Note ---
Date of Service November 11, 2024 Assessment & Plan (1) Acute kidney injury superimposed on chronic kidney disease: Plan: Present on admission with creatinine 2.2. Now stable. Monitor intake and output. (2) Dysphagia: Plan: He underwent EGD on November 06 with dilatation of the upper esophagus. Speech therapy has evaluated the patient and there is no evidence of aspiration. (3) Urinary tract infection: Plan: E. coli isolated. He has completed his course of intravenous Rocephin. (4) Hypokalemia: Plan: Corrected with replacement therapy. Serial labs (5) Paroxysmal atrial fibrillation: Plan: Rate control. Continue Xarelto therapy. (6) Weakness generalized: Plan: Continue OT and PT while hospitalized. He refuses to return to inpatient rehab or SNF. Palliative care consult appreciated. (7) Wrist pain, right: Plan: He has been seen and evaluated by orthopedics. Pseudogout is a possibility. A wrist brace has been requested Plan Anticipate discharge to home with hospice care when arrangements are finalized Admission and Anticipated Discharge Date Admission Date: November 04, 2024 Subjective Alert. No new medical developments. He has completed his course of intravenous Rocephin for the E. coli UTI. Awaiting arrangements to be finalized for discharge home with [facility] Review of Systems 2 Review of Systems: Constitutionalno fever or chills ENTno blurred vision, no double vision, no epistaxis, no sore throat Respiratoryno cough, no wheezing, no shortness of breath Cardiacno palpitations, no chest pain, no syncope Bolivar nausea, vomiting, diarrhea, melena, hematochezia GUFoley catheter in place without hematuria Musculoskeletalno joint pain, no muscle tenderness Skinno bruising, no rashes, no pruritus Neurochronic generalized weakness preventing ambulation. Psychhe appears to be depressed Physical Exam 2 Physical Exam: General-alert and oriented x3, no fever, no chills. Morbidly obese HEENT-head atraumatic and normocephalic, pupils equal and reactive to light, extraocular muscles intact Neck-no lymphadenopathy or thyromegaly, trachea midline Chest-diminished breath sounds bilaterally from anterior approach. No inspiratory rales, wheezing or rhonchi Cardiac-regular rate and rhythm, normal S1 and S2 Abdomen-normal bowel sounds, no hepatosplenomegaly Extremities-chronic appearing bilateral lower extremity edema, 2+ Neuro-cranial nerves II through XII intact, motor and sensory function within normal limits, strength symmetrical with chronic weakness, no focal deficits Psych-depressed affect Results & Data Results & Data Vital Signs (Past 12 Hours) Vital Signs Temp Pulse Resp BP Pulse Ox O2 Del Method 11/11/24 07:30 Room Air 11/11/24 07:05 36.8 C 77 16 155/71 H 95 Room Air Laboratory Results 11/10/24 08:15 11/10/24 08:15 PG Care Time/CCT Total # of Minutes Spent Total Time Spent with Patient: Total time spent is greater than 50% in coordination of care (as documented) at patient's floor/unit and/or counseling patient: Coding Level of Care Code 33634 SUB INP/OBS CARE 2/35MIN Diagnoses Acute kidney injury superimposed on chronic kidney disease N17.9; N18.9 Dysphagia R13.10 Urinary tract infection N39.0 Hypokalemia E87.6 Paroxysmal atrial fibrillation I48.0 Weakness generalized R53.1 Wrist pain, right M25.531
--- NOTE | 2024-11-12 12:53 | Hospitalist Progress Note ---
Date of Service November 12, 2024 Assessment & Plan (1) Acute kidney injury superimposed on chronic kidney disease: Plan: Present on admission with creatinine 2.2. Now stable. Monitor intake and output. (2) Dysphagia: Plan: He underwent EGD on November 06 with dilatation of the upper esophagus. Speech therapy has evaluated the patient and there is no evidence of aspiration. (3) Urinary tract infection: Plan: E. coli isolated. He has completed his course of intravenous Rocephin. (4) Hypokalemia: Plan: Corrected with replacement therapy. Serial labs (5) Paroxysmal atrial fibrillation: Plan: Rate control. Continue Xarelto therapy. (6) Weakness generalized: Plan: Continue OT and PT while hospitalized. He refuses to return to inpatient rehab or SNF. Palliative care consult appreciated. (7) Wrist pain, right: Plan: He has been seen and evaluated by orthopedics. Pseudogout is a possibility. A wrist brace has been requested Plan Anticipate discharge to home with [facility] hospice care when arrangements are finalized Admission and Anticipated Discharge Date Admission Date: November 04, 2024 Subjective Alert and oriented. No new problems. Awaiting patient and to choose caregivers then he can be discharged with [facility] hospice Review of Systems 2 Review of Systems: Constitutionalno fever or chills ENTno blurred vision, no double vision, no epistaxis, no sore throat Respiratoryno cough, no wheezing, no shortness of breath Cardiacno palpitations, no chest pain, no syncope Bolivar nausea, vomiting, diarrhea, melena, hematochezia GUFoley catheter in place without hematuria Musculoskeletalno joint pain, no muscle tenderness Skinno bruising, no rashes, no pruritus Neurochronic generalized weakness preventing ambulation. Psychhe appears to be depressed Physical Exam 2 Physical Exam: General-alert and oriented x3, no fever, no chills. Morbidly obese HEENT-head atraumatic and normocephalic, pupils equal and reactive to light, extraocular muscles intact Neck-no lymphadenopathy or thyromegaly, trachea midline Chest-diminished breath sounds bilaterally from anterior approach. No inspiratory rales, wheezing or rhonchi Cardiac-regular rate and rhythm, normal S1 and S2 Abdomen-normal bowel sounds, no hepatosplenomegaly Extremities-chronic appearing bilateral lower extremity edema, 2+ Neuro-cranial nerves II through XII intact, motor and sensory function within normal limits, strength symmetrical with chronic weakness, no focal deficits Psych-depressed affect Results & Data Results & Data Vital Signs (Past 12 Hours) Vital Signs Temp Pulse Resp BP Pulse Ox O2 Del Method 11/12/24 07:41 Room Air 11/12/24 07:21 36.6 C 80 16 150/70 H 97 Room Air Laboratory Results 11/10/24 08:15 11/10/24 08:15 PG Care Time/CCT Total # of Minutes Spent Total Time Spent with Patient: Total time spent is greater than 50% in coordination of care (as documented) at patient's floor/unit and/or counseling patient: Coding Level of Care Code 79687 SUB INP/OBS CARE 2/35MIN Diagnoses Acute kidney injury superimposed on chronic kidney disease N17.9; N18.9 Dysphagia R13.10 Urinary tract infection N39.0 Hypokalemia E87.6 Paroxysmal atrial fibrillation I48.0 Weakness generalized R53.1 Wrist pain, right M25.531
--- NOTE | 2024-11-13 14:59 | Hospitalist Progress Note ---
Date of Service November 13, 2024 Assessment & Plan (1) Acute kidney injury superimposed on chronic kidney disease: Plan: #MADDI/hypokalemia/hypernatremia-history of stage III CKD with recent MADDI August 2024 2/ UTI; lisinopril discontinued during that admission but has since been restarted-MADDI likely secondary to renal hypoperfusion with dehydration from very poor p.o. intake and UTI. Cr increased from baseline 1.43 to 2.27 on admission, BUN elevated to 78 indicating pre-renal cause. UA appears infected. With significant hypokalemia with potassium 2.8 and hypernatremia with sodium 148 on admission. Creatinine much improved with IV fluid hydration down to 1.3. Potassium still low but improved at 3.2 He is now tolerating a minced and moist diet and is improving significantly. Hypernatremia now resolved after D5W -Discontinue IV fluids -Follow BMP, mag in AM -Avoid nephrotoxic agents-continue holding home empagliflozin and lisinopril-BP acceptable w/o lisinopril -Continue to replace potassium as needed, no labs obtained since 11/10, ordered for tomorrow 11/14 including cbc, bmp, and mag (2) Dysphagia: Plan: # Severe dysphagia/odynophagia-started 4 weeks ago around the time when he was starting opioids for pain. Started with a dry mouth and has significantly worsened. Also with nausea and dry heaving, lower abdominal pain. CT abdomen/pelvis negative for acute issues. CT chest only with severe coronary artery calcifications. No fevers or chills, no leukocytosis. Oropharynx with erythema and dried cracked lips and dry mucosa. On initial evaluation, speech therapy thought he was not safe to swallow as he is having trouble moving his tongue possibly due to pain? Suspect etiology is severe dryness from hydrocodone. Nausea and dry heaves could also be from hydrocodone. Has lost 30 lbs in one month. He was given thiamine 500 mg IV x 1. EGD 11/06 no abnormalities but had UES dilated in case had CP bar causing issues with swallowing. Had a lot of posterior OP secretions suctioned Pain now significantly improved with triamcinolone paste, good oral care, and discontinuing hydrocodone Appreciate GI consult -continue oral swabs to cleanse the mucosa -continue Orabase triamcinolone paste for pain -Continue minced and moist diet-did well with reevaluation by speech therapy on 11/07 -Continue thiamine 100 mg but convert IV to po daily -discontinued hydrocodone and avoid all opioids moving forward -continue modified diet IDDSI 5 (minced and moist) and thin liquids -f/u with speech therapy through home health services (3) Urinary tract infection: Plan: #UTI-Recent admission 09/17 to 08/23 due to weakness, UTI, and MADDI-Urine culture grew Miesha glabrata, no sensitivities and this was not treated with antifungals. UA here consistent with infection plus with granular casts. Completed 5 day course of Zosyn during previous admission. Urine cx here with E. coli, resistant to ampicillin, Unasyn, Bactrim, and intermediate resistance to ciprofloxacin -Completed 7 days of treatment on 11/12/14 (4) Paroxysmal atrial fibrillation: Plan: #Paroxysmal A-fib-rate controlled, paced rhythm, on Xarelto and metoprolol prior to admission -continue home Xarelto at increased dose of 20 mg daily -continue metoprolol tartrate 25 Mg p.o. twice daily as this can be crushed with applesauce-hold home Toprol-XL 200 mg daily -BP and HR controlled on current lopressor regimen (5) Weakness generalized: Plan: # Generalized weakness-secondary to significant weight loss from poor p.o. intake in the setting of ambulatory dysfunction due to chronic left hip antibiotic spacer and severe right hip osteoarthritis-acutely worsened x 4 weeks suspect 10/25 MADDI and UTI. Remains extremely weak from deconditioning -PT/OT consulted-recommending rehab -pt and wish to return home with caregivers and home health -CM working on this (6) Wrist pain, right: Plan: #Right wrist pain and swelling-edematous all over but worse on the right because he was laying on the right side. X-rays negative for fracture but showed severe arthritis CMC joint -continue Voltaren gel -ortho consulted and tom'd pt on 11/08, appreciate input, suspected pseudogout -recommended trial of steroids if pt could tolerate and wrist splint ordered -not endorsing wrist pain today Plan Patient requires the following DME equipment: 1. Extra Heavy Duty Wheelchair: The patient has a mobility limitation that significantly impairs her ability to accomplish mobility-related activities of daily living (MRADLs). The patients mobility limitation cannot be sufficiently resolved by the use of a cane or walker. The patients home provides adequate access between rooms, maneuvering space, and surfaces for use of the manual wheelchair. The use of a manual wheelchair will improve the patients ability to participate in MRADLs and she will use it on a regular basis in the home. The patient has not expressed an unwillingness to use the manual wheelchair that is provided in the home. The patient has a caregiver who is available, willing and able to provide assistance with the wheelchair. The patient weighs more than 300 pounds and will require an extra heavy duty wheelchair. 2. Alvin Lift: Transfer between bed and a chair, wheelchair, or commode is required and without the use of a lift, the patient would be bed confined. 3. Semi Electric Hospital Bed: The patient has a medical condition which requires positioning of the body in ways not feasible with an ordinary bed and requires frequent changes in body position and has an immediate need for a change in body position. Anticipate discharge to home with home health services on Thursday 11/16 once all arrangements are in place and finalized. Discussed updated plan w/ Dr. Douhgerty who is in agreement. Admission and Anticipated Discharge Date Admission Date: November 04, 2024 Tony Bui is a pleasant 74 yo M who was seen today on morning rounds. He has had a rather complex hospital stay with dx including MADDI, electrolyte abnormalities, severe dysphagia/odynophagia, UTI and generalized weakness. He originally was to go home with home hospice, but has since decided that he wants to go home with home health in the care of his . Case management is involved as well as palliative care. CM working on obtaining the DME supplies/equipment that he will require at home. Plan is for discharge tentatively Thursday 11/16. He currently has no complaints or questions. Review of Systems 2 Review of Systems: All systems reviewed and are unremarkable except as noted in HPI and below. Denies fever, chills, fatigue, headache, nasal congestion, sore throat, cough, chest pain, shortness of breath, palpitations, orthopnea, PND, abdominal pain, n/v/d, constipation, dysuria, hematuria, frequency, back pain, joint pain or swelling, easy bruising or bleeding, skin lesions or rashes. Physical Exam 2 Physical Exam: GENERAL: 74 yo elderly obese but frail WM. Awake, alert and oriented. No distress. LUNGS: Clear to auscultation bilaterally. CARDIOVASCULAR: Regular rate and rhythm. ABDOMEN: Soft, non-tender and non-distended. Bowel sounds normoactive x 4 quad. EXTREMITIES: +1 b/l LE edema. Non-tender. Peripheral pulses +2/4. PSYCHIATRIC: Cooperative. Appropriate mood and affect. SKIN: Warm, dry, intact. No rashes or lesions. Results & Data Results & Data Vital Signs (Past 12 Hours) Vital Signs Temp Pulse Resp BP Pulse Ox O2 Del Method 11/13/24 10:12 Room Air 11/13/24 07:03 36.7 C 71 16 134/64 96 Room Air Laboratory Results 11/10/24 08:15 11/10/24 08:15 PG Care Time/CCT Total # of Minutes Spent Total Time Spent with Patient: Total time spent is greater than 50% in coordination of care (as documented) at patient's floor/unit and/or counseling patient: 36 minutes Coding Level of Care Code 03205 SUB INP/OBS CARE 2/35MIN Diagnoses Acute kidney injury superimposed on chronic kidney disease N17.9; N18.9 Dysphagia R13.10 Urinary tract infection N39.0 Paroxysmal atrial fibrillation I48.0 Weakness generalized R53.1 Wrist pain, right M25.531
[2024-11-14 06:58] LABS: Basophils # (auto) 0.05 K/uL (0.00-0.20); Basophils % (auto) 0.8 %; Eosinophils % (auto) 1.6 %; Hematocrit (blood only) 28.7 % (42.0-52.0); Hemoglobin 9.1 g/dl (14.0-18.0); Immature Granulocytes # (auto) 0.03 K/uL (0.01-0.20); Immature Granulocytes % (auto) 0.5 %; Lymphocytes % (auto) 13.2 %; Mean Corpuscular Hemoglobin 29.7 pg (25.0-34.0); Mean Corpuscular Hgb Conc 31.7 g/dL (32.0-36.0); Mean Corpuscular Volume 93.8 fL (80.0-100.0); Mean Platelet Volume 10.1 fL (9.4-12.4); Monocytes # (auto) 0.46 K/uL (0.11-0.59); Monocytes % (auto) 7.6 %; Neutrophils # (auto) 4.63 K/uL (1.40-6.50); Neutrophils % (auto) 76.3 %; Platelet Count 292 K/uL (130-400); RDW Coefficient of Variation 15.5 % (11.5-14.5); RDW Standard Deviation 53.3 fL (36.4-46.3); Red Blood Count 3.06 M/uL (4.70-6.10); White Blood Count 6.07 K/ul (4.8-10.8)
[2024-11-14 07:12] LABS: BUN Creatinine Ratio 18.5 (10-20); Calcium 7.9 mg/dl (8.6-10.3); Creatinine Clr Calc Pharmacy 72.5 ml/min; Magnesium 1.5 mg/dl (1.7-2.4); Potassium 3.9 mmol/L (3.5-5.1)
--- NOTE | 2024-11-14 17:31 | Hospitalist Progress Note ---
Date of Service November 14, 2024 Assessment & Plan (1) Acute kidney injury superimposed on chronic kidney disease: Plan: Present on admission with creatinine 2.2. Now stable. Monitor intake and output. (2) Dysphagia: Plan: He underwent EGD on November 06 with dilatation of the upper esophagus. Speech therapy has evaluated the patient and there is no evidence of aspiration. (3) Urinary tract infection: Plan: E. coli isolated. He has completed his course of intravenous Rocephin. (4) Hypokalemia: Plan: Corrected with replacement therapy. Serial labs (5) Paroxysmal atrial fibrillation: Plan: Rate control. Continue Xarelto therapy. (6) Weakness generalized: Plan: Continue OT and PT while hospitalized. He refuses to return to inpatient rehab or SNF. Palliative care consult appreciated. (7) Wrist pain, right: Plan: He has been seen and evaluated by orthopedics. Pseudogout is a possibility. A wrist brace has been requested Plan Anticipate discharge to home with home health services and possibly hospice care when arrangements are finalized. Home caregivers are being arranged Admission and Anticipated Discharge Date Admission Date: November 04, 2024 Subjective Alert and oriented. No new problems. Awaiting discharge to home with home health services once arrangements are finalized. Home caregivers need to be arranged Review of Systems 2 Review of Systems: Constitutionalno fever or chills ENTno blurred vision, no double vision, no epistaxis, no sore throat Respiratoryno cough, no wheezing, no shortness of breath Cardiacno palpitations, no chest pain, no syncope Bolivar nausea, vomiting, diarrhea, melena, hematochezia GUno urinary retention, no urinary incontinence, no dysuria, no hematuria Musculoskeletalno joint pain, no muscle tenderness Skinno bruising, no rashes, no pruritus Neurono isolated weakness, no paresthesia Psychno depression, no anxiety Physical Exam 2 Physical Exam: General-alert and oriented x3, no fever, no chills. Morbidly obese HEENT-head atraumatic and normocephalic, pupils equal and reactive to light, extraocular muscles intact Neck-no lymphadenopathy or thyromegaly, trachea midline Chest-diminished breath sounds bilaterally from anterior approach. No inspiratory rales, wheezing or rhonchi Cardiac-regular rate and rhythm, normal S1 and S2 Abdomen-normal bowel sounds, no hepatosplenomegaly Extremities-chronic appearing bilateral lower extremity edema, 2+ Neuro-cranial nerves II through XII intact, motor and sensory function within normal limits, strength symmetrical with chronic weakness, no focal deficits Psych-depressed affect Results & Data Results & Data Vital Signs (Past 12 Hours) Vital Signs Temp Pulse Resp BP Pulse Ox O2 Del Method 11/14/24 15:49 36.3 C L 85 20 104/62 97 Room Air 11/14/24 07:29 Room Air 11/14/24 06:53 36.4 C L 81 16 148/79 H 97 Room Air Laboratory Results 11/14/24 06:06 11/14/24 06:06 PG Care Time/CCT Total # of Minutes Spent Total Time Spent with Patient: Total time spent is greater than 50% in coordination of care (as documented) at patient's floor/unit and/or counseling patient: Coding Level of Care Code 57387 SUB INP/OBS CARE 2/35MIN Diagnoses Acute kidney injury superimposed on chronic kidney disease N17.9; N18.9 Dysphagia R13.10 Urinary tract infection N39.0 Hypokalemia E87.6 Paroxysmal atrial fibrillation I48.0 Weakness generalized R53.1 Wrist pain, right M25.531
[2024-11-15] MEDS: ACETAMINOPHEN 325 MG TAB PO PRN (07:35)
--- NOTE | 2024-11-15 12:50 | Hospitalist Progress Note ---
Date of Service November 15, 2024 Assessment & Plan (1) Acute kidney injury superimposed on chronic kidney disease: Plan: Present on admission with creatinine 2.2. Now stable. Monitor intake and output. (2) Dysphagia: Plan: He underwent EGD on November 06 with dilatation of the upper esophagus. Speech therapy has evaluated the patient and there is no evidence of aspiration. (3) Urinary tract infection: Plan: E. coli isolated. He has completed his course of intravenous Rocephin. (4) Hypokalemia: Plan: Corrected with replacement therapy. Serial labs (5) Paroxysmal atrial fibrillation: Plan: Rate control. Continue Xarelto therapy. (6) Weakness generalized: Plan: Continue OT and PT while hospitalized. He refuses to return to inpatient rehab or SNF. Palliative care consult appreciated. (7) Wrist pain, right: Plan: He has been seen and evaluated by orthopedics. Now resolved Plan Anticipate discharge to home with home health services and possibly hospice care when arrangements are finalized. Home caregivers are being arranged Admission and Anticipated Discharge Date Admission Date: November 04, 2024 Subjective Alert and oriented. No new problems. Awaiting discharge to home when home health services are arranged and home caregivers are finalized Review of Systems 2 Review of Systems: Constitutionalno fever or chills ENTno blurred vision, no double vision, no epistaxis, no sore throat Respiratoryno cough, no wheezing, no shortness of breath Cardiacno palpitations, no chest pain, no syncope [place] nausea, vomiting, diarrhea, melena, hematochezia GUno urinary retention, no urinary incontinence, no dysuria, no hematuria Musculoskeletalno joint pain, no muscle tenderness Skinno bruising, no rashes, no pruritus Neurono isolated weakness, no paresthesia Psychno depression, no anxiety Physical Exam 2 Physical Exam: General-alert and oriented x3, no fever, no chills. Morbidly obese HEENT-head atraumatic and normocephalic, pupils equal and reactive to light, extraocular muscles intact Neck-no lymphadenopathy or thyromegaly, trachea midline Chest-diminished breath sounds bilaterally from anterior approach. No inspiratory rales, wheezing or rhonchi Cardiac-regular rate and rhythm, normal S1 and S2 Abdomen-normal bowel sounds, no hepatosplenomegaly Extremities-chronic appearing bilateral lower extremity edema, 2+ Neuro-cranial nerves II through XII intact, motor and sensory function within normal limits, strength symmetrical with chronic weakness, no focal deficits Psych-depressed affect Results & Data Results & Data Vital Signs (Past 12 Hours) Vital Signs Temp Pulse Resp BP Pulse Ox O2 Del Method 11/15/24 07:40 Room Air 11/15/24 07:09 36.4 C L 82 19 138/70 98 Room Air 11/15/24 05:00 Room Air Laboratory Results 11/14/24 06:06 11/14/24 06:06 PG Care Time/CCT Total # of Minutes Spent Total Time Spent with Patient: Total time spent is greater than 50% in coordination of care (as documented) at patient's floor/unit and/or counseling patient: Coding Level of Care Code 72045 SUB INP/OBS CARE 2/35MIN Diagnoses Acute kidney injury superimposed on chronic kidney disease N17.9; N18.9 Dysphagia R13.10 Urinary tract infection N39.0 Hypokalemia E87.6 Paroxysmal atrial fibrillation I48.0 Weakness generalized R53.1 Wrist pain, right M25.531
--- NOTE | 2024-11-16 08:35 | Hospitalist Progress Note ---
Date of Service November 16, 2024 Assessment & Plan (1) Dysphagia: (2) Weakness generalized: (3) Acute kidney injury superimposed on chronic kidney disease: (4) Urinary tract infection: (5) Hypokalemia: (6) Paroxysmal atrial fibrillation: Plan Plan: Awaiting discharge to home health services and potential hospice care. Home caregivers are currently being arranged. Continued stay while awaiting. #Dysphagia Dysphagia initially started 4 weeks prior to hospitalization after starting opioids for pain EGD with dilation performed on 11/06; no definitive explanation for swallowing difficulties D/c all opioids moving forward Speech therapy recommended minced and moist IDDSI 5 diet, and thin liquids Aspiration precautions Elevate HOB 30 degrees at all times Plan to follow-up with speech therapy through home health services #Ambulatory dysfunction/generalized weakness Gradual decline since fall in July/ PT/OT evaluations appreciated Palliative care consult appreciated Case management consult appreciated Referral made to [facility]; accepted on 11/16 Awaiting to hear back from independent home health NOTE: Patient requires hospital bed at home with elevated HOB >30 degrees due to dysphagia and risk of aspiration Per Josiah VARMA home care may not be able to deliver equipment until morning of Friday 11/17 Fall precautions #T1DM Last A1c at 5.9% on 02/13/2024 Will defer insulin as largely diet controlled at home Continue to hold Jardiance T1DM diet BSG ACHS Adjust regimen as needed #Atrial fibrillation Rate controlled Patient is normally on metoprolol succinate 200 mg daily 11/16 - increase metoprolol tartrate 25 mg p.o. BID --> 50mg p.o. BID Continue to titrate up back to daily regimen Continue Xarelto #Anemia Chronic; Last Hgb was 9.1 on 11/14 He denies any melena or blood in his urine or stool Clinically, no signs of active bleeding on physical exam Will recheck a.m. H&H on 11/17 to ensure that this is not not downtrending #MADDI Resolved Will recheck a.m. BMP #UTI Resolved Completed course of IV Rocephin on 11/12 in the hospital #Right wrist pain ? Pseudogout Orthopedic consult on 11/08 appreciated Wrist brace trialed, but patient reports that it went to swelling and was discontinued Acetaminophen PRN for pain Disposition: Continued stay on MSO while awaiting home health services DNR/DNI T1DM diet, minced and moist VTE PPx: Xarelto Admission and Anticipated Discharge Date Admission Date: November 04, 2024 Subjective Hao reports no new complaints this morning. He reports that he has been eating and drinking okay, but did have an episode yesterday around lunchtime where he ate too much and vomited. He does not believe he aspirated at that time.Additionally, patient has been having some abdominal cramps at nighttime as well as dry heaving. He denies any pain with swallowing or neck pain. He reports he still needs to have his medications ground before receiving. Patient's last BM was this morning on 11/16. He does report he is still passing gas. While he does have a history of falling, he denies any episodes of falling while in the hospital. Additionally, he does endorse a constant, achy soreness in both of his wrists, which he rates 6/10 at present. He did take Tylenol for this yesterday, and reports that this helped. ROS: Patient endorses abdominal cramping, dry heaves, 1 episode of vomiting, and changes in his taste/smell that makes food taste terrible. Patient denies fever, chills, night sweats, pain with swallowing, neck pain, CP, SOB, cough, burning with urination, melena, blood in the urine or stool, or numbness or tingling in arms or legs. Review of Systems Review of Systems: See HPI above Physical Exam Physical Exam: General: no acute distress; pleasant affect; non-toxic appearing; frail appearing; cooperative; SpO2 97% on RA HEENT: normocephalic, atraumatic; no scleral icterus; PERRLA; poor dentition; vision and hearing intact Neck: supple; no lymphadenopathy; trachea midline Skin: warm, dry without signs of tenting; no cyanosis; no rashes, bruising, lesions, or erythema noted CV: chest wall NTP; RRR; S1/S2 normal; no murmurs/rubs/gallops; pulses intact and symmetric at radial, DP, and PT Lungs: no acute respiratory distress; symmetrical chest wall expansion; clear breath sounds across all lung beck w/o adventitious sounds; no wheezing ABD: Soft, NTP; BS present; no rebound/guarding; no distention MSK: no tics or fasciculations; +2 pitting edema in the lower extremity bilaterally, nonerythematous; waffle boots in place Neuro: A&Ox3; normal mood and affect; fluent speech; no focal deficits; diminished sensation over lower extremities bilaterally Results & Data Results & Data Vital Signs (Past 12 Hours) Vital Signs Temp Pulse Resp BP Pulse Ox O2 Del Method 11/16/24 07:26 36.4 C L 82 16 175/77 H 97 Room Air 11/15/24 21:15 Room Air PG Care Time/CCT Total # of Minutes Spent Total Time Spent with Patient: Total time spent is greater than 50% in coordination of care (as documented) at patient's floor/unit and/or counseling patient: Coding [place] [address] SUB INP/OBS CARE 2/35MIN Patient Type Established History Comprehensive Exam Comprehensive Medical Decision Making Moderate Complexity Diagnoses Dysphagia R13.10 Weakness generalized R53.1 Acute kidney injury superimposed on chronic kidney disease N17.9; N18.9 Urinary tract infection N39.0 Hypokalemia E87.6 Paroxysmal atrial fibrillation I48.0
[2024-11-16] MEDS: METOPROLOL TARTRATE 50 MG TAB PO SCH (20:01)
--- NOTE | 2024-11-17 09:41 | Communication Note ---
Date of Service: November 17, 2024 Pall Med Note GOC and ACP discussion completed, Pall Med will sign off. Thank you for allowing us to participate in the ongoing care of this patient. Please page with any additional concerns. Nathanael Coates DNP Director, Palliative Medicine
--- NOTE | 2024-11-17 12:36 | Hospitalist Progress Note ---
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 This antibiotic spacer per the patient has been present since 2007 or 2008 - the patient cannot remember the exact date. Surgery was done at [facility] in [place]. (9) Pacemaker: Plan: placed for complete heart block followed by Dr Barraza - [facility] [place] [facility] (10) CAD (coronary artery disease): Plan: h/o stents x 3 recent echo EF 40-45% with multiple WMAs c/w ischemic CM compensated on exam today cont BB cont imdur he is not on chronic diuretic therapy Plan #Dysphagia Dysphagia initially started 4 weeks prior to hospitalization after starting opioids for pain (fentanyl patch, etc) EGD with dilation performed on 11/06; no definitive explanation for swallowing difficulties D/c all opioids moving forward Speech therapy recommended minced and moist IDDSI 5 diet, and thin liquids Aspiration precautions Elevate HOB 30 degrees at all times Plan to follow-up with speech therapy through home health services Ideally he has MRI brain to r/o RADIOLOGY PHYSICIAN ASSISTANT cause of dysphagia -- will talk with him about such Can't rule out other neurological disorder given his leg/arm findings #Ambulatory dysfunction/generalized weakness Gradual decline since late 2023 Previously walking per his up until about August 2024 PT/OT evaluations appreciated Palliative care consult appreciated Case management consult appreciated Referral made to [facility] Private caregivers are being arranged by family; one is coming tomorrow to meet Mr Azul and see if that person can accommodate his needs NOTE: Patient requires hospital bed at home with elevated HOB >30 degrees due to dysphagia and risk of aspiration Fall precautions I am concerned about his overall well-being and his ability to be safe at home He is 2+ max assist just for rolling over in bed, changing clothes, etc. Strongly consider lumbar spine MRI #DM Last A1c at 5.9% on 02/13/2024 Will defer insulin as largely diet controlled at home Continue to hold Jardiance T1DM diet BSG ACHS Adjust regimen as needed #Atrial fibrillation Rate controlled Patient is normally on metoprolol succinate 200 mg daily 11/16 - increased metoprolol tartrate to 50mg BID Continue Xarelto #Anemia Chronic; Hgb 9.1 today --> stable Recent B12/folate/Iron studies wnl Etiology uncertain Has steadily declined over last 6 months; was >10 in 2023 #Right & Left wrist pain Gout? Check uric acid level in am If elevated then gout would potentially explain elevated sed rate/crp Trial of prednisone 10mg daily for possible out Disposition: Continued stay on MSO while awaiting home health services DVT proph - Xarelto extensively updated by phone this evening discussed my concerns about his transition to home in his current state recommended MRI brain, l-spine, etc in light of weakness, arm/leg issues, dysphagia, etc. 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 Physical Exam Physical Exam: gen - morbidly obese, NAD, laying comfortably in bed; mildly confused neck - no JVD mouth - MMM heart - RRR, s1 s2, no murmur lungs - CTA b/l abd - soft NT ND BS+ ext - <1+ edema b/l legs vascular - feet - 2+ pulses b/l musculo - synovitis b/l wrists with tenderness over each; multiple fingers look swollen over several MCPs/PIPs neuro - handgrip on right 4/5; handgrip on left 5/5; right shoulder extension 3- 4/5 with maxim-articular muscle atrophy; left shoulder wnl; distal strength of feet 5/5; right hip flexion 4/5 strength; did not test left hip Results & Data Results & Data Vital Signs (Past 12 Hours) Vital Signs Temp Pulse Resp BP Pulse Ox O2 Del Method 11/17/24 09:19 Room Air 11/17/24 07:32 36.7 C 80 14 160/71 H 100 Room Air Laboratory Results Laboratory Results - last 24 hr 11/17/24 12:44 WBC 5.67 RBC 3.07 L Hgb 9.1 L Hct 28.5 L MCV 92.8 MCH 29.6 MCHC 31.9 L RDW Std Deviation 52.3 H RDW Coeff of Ira 15.4 H Plt Count 316 MPV 9.8 ESR 92 H Sodium 140 Potassium 4.3 Chloride 107 Carbon Dioxide 27 Anion Gap 6 BUN 22 Creatinine 1.11 Est Cr Clr Drug Dosing 80.9 eGFR 69.68 BUN/Creatinine Ratio 19.8 Glucose 106 H Uric Acid Calcium 8.0 L Magnesium 1.6 L Total Creatine Kinase 26 L C-Reactive Protein 15.06 H Vitamin B12 773 PG Care Time/CCT Total # of Minutes Spent Total Time Spent with Patient: Total time spent is greater than 50% in coordination of care (as documented) at patient's floor/unit and/or counseling patient: Coding Level of Care Code 01766 SUB INP/OBS CARE 3/50MIN Diagnoses Dysphagia R13.10 Weakness generalized R53.1 Acute kidney injury superimposed on chronic kidney disease N17.9; N18.9 Urinary tract infection N39.0 Hypokalemia E87.6 Paroxysmal atrial fibrillation I48.0 Morbid obesity with BMI of 45.0-49.9, adult E66.01; Z68.42 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 transplanted heart: [place] heart Associated angina: without angina Qualified Code(s): I25.10 - Atherosclerotic heart disease of [place] coronary artery without angina pectoris
[2024-11-17 13:11] LABS: Hematocrit (blood only) 28.5 % (42.0-52.0); Hemoglobin 9.1 g/dl (14.0-18.0); Mean Corpuscular Hemoglobin 29.6 pg (25.0-34.0); Mean Corpuscular Hgb Conc 31.9 g/dL (32.0-36.0); Mean Corpuscular Volume 92.8 fL (80.0-100.0); Mean Platelet Volume 9.8 fL (9.4-12.4); Platelet Count 316 K/uL (130-400); RDW Coefficient of Variation 15.4 % (11.5-14.5); RDW Standard Deviation 52.3 fL (36.4-46.3); Red Blood Count 3.07 M/uL (4.70-6.10); White Blood Count 5.67 K/ul (4.8-10.8)
[2024-11-17 13:28] LABS: BUN Creatinine Ratio 19.8 (10-20); C Reactive Protein 15.06 mg/dl (0-0.5); Creatinine Clr Calc Pharmacy 80.9 ml/min; Magnesium 1.6 mg/dl (1.7-2.4); Potassium 4.3 mmol/L (3.5-5.1)
[2024-11-17] MEDS: MAGNESIUM SULFATE / D5W 1 GM/100 ML BAG IV SCH (14:04)
[2024-11-17] MEDS: predniSONE 10 MG TABLET PO STA (14:44)
[2024-11-18 08:06] LABS: BUN Creatinine Ratio 18.5 (10-20); Calcium 7.9 mg/dl (8.6-10.3); Creatinine Clr Calc Pharmacy 83.2 ml/min; Magnesium 1.9 mg/dl (1.7-2.4); Potassium 4.6 mmol/L (3.5-5.1); Uric Acid 9.5 mg/dl (2.6-7.2)
[2024-11-18] MEDS: predniSONE 10 MG TABLET PO SCH (10:15)
--- NOTE | 2024-11-18 19:30 | Hospitalist Progress Note ---
Date of Service November 18, 2024 Assessment & Plan (1) Dysphagia: Plan: tolerating minced/moist diet s/p EGD 11/06 with empiric dilatation (but no stenosis or ring seen during the scope) exact cause of dysphagia uncertain (2) Weakness generalized: Plan: MRI head and MRI l-spine being planned (3) Acute kidney injury superimposed on chronic kidney disease: Plan: peak Cr 2.2 resolved Cr today 1 (4) Urinary tract infection: Plan: 2nd ecoli resolved s/p full treatment course (5) Hypokalemia: Plan: repleted resolved (6) Paroxysmal atrial fibrillation: (7) Morbid obesity with BMI of 45.0-49.9, adult: Plan: BMI 45 (8) 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 This antibiotic spacer per the patient has been present since 2007 or 2008 - the patient cannot remember the exact date. Surgery was done at [facility] in [place]. (9) Pacemaker: Plan: placed for complete heart block followed by Dr Barraza - [facility] [place] [facility] (10) CAD (coronary artery disease): Plan: h/o stents x 3 recent echo EF 40-45% with multiple WMAs c/w ischemic CM compensated on exam today once again cont BB cont imdur he is not on chronic diuretic therapy Plan #Dysphagia Dysphagia initially started 4 weeks prior to hospitalization after starting opioids for pain (fentanyl patch, etc) EGD with dilation performed on 11/06; no definitive explanation for swallowing difficulties D/c all opioids moving forward Speech therapy recommended minced and moist IDDSI 5 diet, and thin liquids Aspiration precautions Elevate HOB 30 degrees at all times Plan to follow-up with speech therapy through home health services Ideally he has MRI brain to r/o SLIPPER MAKER cause of dysphagia -- discussed this with him today - he is agreeable Can't rule out other neurological disorder given his leg/arm findings With respect to MRI brain - need to check if pacer is compatible Also, will need sedation by anesthesia -- consult for them placed #Ambulatory dysfunction/generalized weakness Gradual decline since late 2023 Previously walking per his up until about August 2024 PT/OT evaluations appreciated Palliative care consult appreciated Case management consult appreciated Referral made to [facility] Private caregivers are being arranged by family; one is coming tomorrow to meet Mr Azul and see if that person can accommodate his needs NOTE: Patient requires hospital bed at home with elevated HOB >30 degrees due to dysphagia and risk of aspiration Fall precautions I am concerned about his overall well-being and his ability to be safe at home He is 2+ max assist just for rolling over in bed, changing clothes, etc. Patient agreeable to lumbar spine MRI to r/o severe stenosis, etc affecting his legs #DM Last A1c at 5.9% on 02/13/2024 Will defer insulin as largely diet controlled at home Continue to hold Jardiance T1DM diet BSG ACHS Adjust regimen as needed #Atrial fibrillation Rate controlled Patient is normally on metoprolol succinate 200 mg daily 11/16 - increased metoprolol tartrate to 50mg BID Will increase to 75mg BID tomorrow Continue Xarelto #Anemia Chronic; Hgb 9.1 today --> stable Recent B12/folate/Iron studies wnl Etiology uncertain Has steadily declined over last 6 months; was >10 in 2023 #Right & Left wrist pain Suspect gout - IMPROVED s/p prednisone 10mg yesterday & today Uric acid level high at 9.5 High sed rate/crp fit with inflammatory arthritis He notes improvement in his wrists today and his exam findings are better Cont prednisone 10mg daily for at least a week DVT proph - Xarelto extensively updated by phone 11/17 discussed my concerns about his transition to home in his current state recommended MRI brain, l-spine, etc in light of weakness, arm/leg issues, dysphagia, etc. finding caregivers for his home (private duty) is going to be challenging and even with private nurses/caregivers I am still concerned about his overall well- being Admission and Anticipated Discharge Date Admission Date: November 04, 2024 Subjective patient in good spirits today states his wrists feel better s/p initiation of prednisone yesterday "lots of my aches and pains are better today" (back, etc) denies that he was having myalgias of shoulders/hips a private caregiver came to meet him today -- that person feels she will not be able to meet his needs patient is agreeable to MRIs - he asks that he undergo sedation for such was able to have MRI in [place] several years ago after being sedated for such Review of Systems Review of Systems: cv - no chest pain pulm - no dyspnea GI - no abd pain Physical Exam Physical Exam: gen - morbidly obese, NAD, laying comfortably in bed; good spirits today neck - no JVD mouth - MMM heart - RRR, s1 s2, no murmur lungs - CTA b/l abd - soft NT ND BS+ ext - <1+ edema b/l legs vascular - feet - 2+ pulses b/l musculo - synovitis b/l wrists IMPROVED; synovitis multiple fingers IMPROVED; less tenderness particularly the left wrist with active ROM neuro - handgrip on right remains 4/5; handgrip on left 5/5 Results & Data Results & Data Vital Signs (Past 12 Hours) Vital Signs Temp Pulse Resp BP Pulse Ox O2 Del Method 11/18/24 15:27 36.5 C 74 20 135/69 90 Room Air 11/18/24 09:37 Room Air 11/18/24 08:00 36.5 C 69 18 157/74 H 97 Room Air Laboratory Results Laboratory Results - last 24 hr 11/18/24 07:05 Sodium 139 Potassium 4.6 Chloride 108 H Carbon Dioxide 27 Anion Gap 4 BUN 20 Creatinine 1.08 Est Cr Clr Drug Dosing 83.2 eGFR 72.01 BUN/Creatinine Ratio 18.5 Glucose 110 H Uric Acid 9.5 H Calcium 7.9 L Magnesium 1.9 PG Care Time/CCT Total # of Minutes Spent Total Time Spent with Patient: Total time spent is greater than 50% in coordination of care (as documented) at patient's floor/unit and/or counseling patient: Coding Level of Care Code 97167 SUB INP/OBS CARE 3/50MIN Diagnoses Dysphagia R13.10 Weakness generalized R53.1 Acute kidney injury superimposed on chronic kidney disease N17.9; N18.9 Urinary tract infection N39.0 Hypokalemia E87.6 Paroxysmal atrial fibrillation I48.0 Morbid obesity with BMI of 45.0-49.9, adult E66.01; Z68.42 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 transplanted heart: [place] heart Qualified Code(s): I25.10 - Atherosclerotic heart disease of [place] coronary artery without angina pectoris
[2024-11-19] MEDS: METOPROLOL TARTRATE 25 MG TAB PO SCH (09:28)
[2024-11-19] MEDS: LORazepam 0.5 MG TAB PO PRN (11:02)
[2024-11-19] MEDS: LORazepam 0.5 MG TAB PO ONE (11:02)
--- NOTE | 2024-11-19 13:29 | Magnetic Resonance Report ---
MR brain wo con HISTORY: 74 years-old Male dysphagia, right hand weakness, LE weakness acute stroke like symptoms COMPARISON: Head CT 07/26/2024 TECHNIQUE: Multiplanar multisequence MRI of the brain was obtained without IV contrast FINDINGS: No restricted diffusion to suggest acute or subacute infarct. Midline structures are unremarkable. De generative changes of the cervical spine. Study is mildly motion degraded. No acute intracranial hemo rrhage, midline shift, abnormal extra-axial collection, hydrocephalus or intra-axial mass. No patholo gic blooming artifact. Involutional changes with mild scattered T2/FLAIR hyperintense foci throughout the white matter likely representing chronic microvascular ischemic disease. The cerebral venous sinuses and major arterial flow voids appear patent. Skull, orbits and soft tissu es are unremarkable. Polypoid mucosal thickening of the left maxillary sinus. Mastoid air cells are c lear. IMPRESSION: 1. No acute intracranial abnormality. No acute or subacute infarct. 2. Involutional changes with suggestion of mild chronic microvascular ischemic disease. ACT 112: Negative or not required by law. The above report was generated using voice recognition software. It may contain grammatical, syntax o r spelling errors. Electronically signed by: Omega Santa M.D. 11/19/2024 1:28 PM
--- NOTE | 2024-11-19 14:01 | Magnetic Resonance Report ---
MR lumbar spine wo con CLINICAL HISTORY: 74 years-old Male with b/l LE weakness, h/o severe l-spine disease. Chronic low ba ck pain with lower extremity weakness COMPARISON: CT abdomen and pelvis 11/04/2024, CT lumbar spine 09/16/2024 TECHNIQUE: Multiplanar, multi sequence MRI of the lumbar spine was performed without intravenous cont rast. FINDINGS: Motion degraded exam. Chronic mild widening of the anterior aspect of the L1-L2 disc space which is f luid-filled. Additional fluid signal noted within the L5-S1 disc space. Chronic L1-L2 endplate irregu larity with subcortical cystic changes. No acute fracture, subluxation or acute endplate erosion. The re are a few scattered lower thoracic Tarlov cysts. Lumbar levoscoliosis redemonstrated. No epidural or paraspinal fluid collections identified. Probable renal cysts. There is severe multilevel disc space narrowing. Degenerative partial bony fusion noted at L2-L5. Adv anced spondylitic spurring facet arthrosis with ligamentum flavum thickening and epidural lipomatosis . Central canal and neural foraminal stenosis as below. T12-L1: Posterior annular disc bulge with facet arthrosis causes mild central canal stenosis. AP dim ension of the thecal sac measures 9 mm. No significant neural foraminal narrowing. L1-L2: Posterior disc osteophyte complex eccentric to the left paracentral space and left lateral re cess. Ligamentum flavum thickening with severe facet arthrosis. Severe central canal stenosis with AP dimension of the thecal sac measuring 5 mm. Severe narrowing of the lateral recesses. Moderate right with mild to moderate left foraminal narrowing. L2-L3: Posterior disc osteophyte complex with moderate facet arthrosis and ligamentum flavum thicken ing. Mild central canal stenosis with AP dimension of the thecal sac measuring 9 mm. Mild left forami nal narrowing. Patent right neural foramen. L3-L4: Posterior disc osteophyte complex. Ligamentum flavum thickening with moderate to advanced fac et arthrosis.r mild central canal stenosis with AP dimension of the thecal sac measuring 9 mm. Modera te right lateral recess narrowing. Mild bilateral foraminal stenosis. L4-L5: Patent central canal. Mild left with mild to moderate right foraminal narrowing secondary to spondylitic spurring and facet arthrosis. L5-S1: Circumferential annular disc bulge causes mild central canal stenosis with moderate narrowing of the lateral recesses. Severe facet arthrosis with moderate facet effusion. Severe left with moder ate to severe right foraminal narrowing. IMPRESSION: 1. There is unchanged chronic widening involving the anterior aspect of the L1-L2 disc space with flu id signal noted within the L1-L2 and L5-S1 disc spaces, likely on a degenerative basis. 2. No bone marrow edema or acute osseous erosion is identified to suggest acute discitis/osteomyeliti s. 3. Advanced discogenic degeneration with spondylotic spurring and facet arthrosis as above resulting in multilevel foraminal narrowing. 4. Severe central canal stenosis at L1-L2. 5. Levoscoliosis. ACT 112: Negative or not required by law. The above report was generated using voice recognition software. It may contain grammatical, syntax o r spelling errors. Electronically signed by: Omega Santa M.D. 11/19/2024 2:00 PM
--- NOTE | 2024-11-19 18:30 | Hospitalist Progress Note ---
Date of Service November 19, 2024 Assessment & Plan (1) Weakness generalized: Plan: MRI head - no acute or old stroke, no ICH, no tumor MRI lumbar spine - severe DJD of l-spine at multiple levels but especially L1-L2 suspect weakness is multifaceted including deconditioning, severe l-spine disease, etc. PT/OT potential likely limited (2) Dysphagia: Plan: tolerating minced/moist diet dysphagia has improved - s/p EGD 11/06 with empiric dilatation (but no stenosis or ring seen during the scope) exact cause of dysphagia uncertain MRI brain without old or new stroke no features of myasthenia gravis but can't exclude some other form of nervous system disease contributing to dysphagia (3) Acute kidney injury superimposed on chronic kidney disease: Plan: peak Cr 2.2 resolved (4) Urinary tract infection: Plan: 2nd ecoli resolved s/p full treatment course (5) Hypokalemia: Plan: repleted resolved (6) Paroxysmal atrial fibrillation: Plan: examines in NSR on exam today (7) Morbid obesity with BMI of 45.0-49.9, adult: Plan: BMI 45 (8) 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 This antibiotic spacer per the patient has been present since 2007 or 2008 - the patient cannot remember the exact date. Surgery was done at [facility] in [place]. (9) Pacemaker: Plan: placed for complete heart block followed by Dr Barraza - [facility] Cardiology (10) CAD (coronary artery disease): Plan: h/o stents x 3 recent echo EF 40-45% with multiple WMAs c/w ischemic CM compensated on exam cont BB - try 75mg BID cont imdur he is not on chronic diuretic therapy Plan #Dysphagia Dysphagia initially started 4 weeks prior to hospitalization after starting opioids for pain (fentanyl patch, etc) EGD with dilation performed on 11/06; no definitive explanation for swallowing difficulties D/c all opioids moving forward Speech therapy recommended minced and moist IDDSI 5 diet, and thin liquids Aspiration precautions Elevate HOB 30 degrees at all times Plan to follow-up with speech therapy through home health services #Ambulatory dysfunction/generalized weakness Gradual decline since late 2023 Previously walking per his up until about August 2024 PT/OT evaluations appreciated Palliative care consult appreciated Case management consult appreciated Referral made to [facility] Private caregivers are being arranged by family; one is coming tomorrow to meet Mr Jorge Alberto and see if that person can accommodate his needs NOTE: Patient requires hospital bed at home with elevated HOB >30 degrees due to dysphagia and risk of aspiration Fall precautions I am concerned about his overall well-being and his ability to be safe at home He is 2+ max assist just for rolling over in bed, changing clothes, etc. lumbar spine MRI with severe DJD of l-spine - suspect L1/L2 disease could be affecting his legs #DM Last A1c at 5.9% on 02/13/2024 Will defer insulin as largely diet controlled at home Continue to hold Jardiance T1DM diet BSG ACHS Adjust regimen as needed #Atrial fibrillation Rate controlled Patient is normally on metoprolol succinate 200 mg daily 11/16 - increased metoprolol tartrate to 50mg BID Will increase to 75mg BID today Continue Xarelto #Anemia Chronic; most recent Hgb 9.1 --> stable B12/folate/Iron studies wnl Etiology uncertain Has steadily declined over last 6 months; was >10 in 2023 #Right & Left wrist pain Suspect gout - IMPROVED s/p prednisone 10mg daily Uric acid level high at 9.5 High sed rate/crp fit with inflammatory arthritis Cont prednisone 10mg daily for at least a week then consider allopurinol prophylaxis repeat a CRP in am DVT proph - Xarelto extensively updated by phone 11/17 and again today, 11/19 discussed MRI brain and MRI lspine findings with her finding caregivers for his home (private duty) is going to be challenging and even with private nurses/caregivers I am still concerned about his overall well- being at home better option would be SNF placement Admission and Anticipated Discharge Date Admission Date: November 04, 2024 Subjective patient underwent MRI brain & MRI lumbar spine successfully I saw him following these studies we reviewed the findings - normal brain MRI - no acute or chronic CVA lumbar spine with severe DJD especially at L1-L2 l-spine DJD could be contributing to lower extremity weakness we discussed that as of today there is not a safe discharge plan he cannot return home unless he has multiple caregivers in place to date that has been difficult to set up he asks if he will need to go to a SNF b/l wrist pain improved b/l hand pain improved Review of Systems Review of Systems: CV - no chest pain pulm - no dyspnea at rest GI - no abd pain or N/V Physical Exam Physical Exam: gen - morbidly obese, NAD, laying comfortably in bed; looks similar to previous visits neck - no JVD mouth - MMM heart - RRR, s1 s2, no murmur lungs - CTA b/l, decreased BS bases abd - soft NT ND BS+ ext - <1+ edema b/l legs vascular - feet - 2+ pulses b/l musculo - synovitis b/l wrists again IMPROVED; synovitis multiple fingers IMPROVED/resolved; ROM of both wrists improved neuro - handgrip on right 4/5; handgrip on left 5/5 Results & Data Results & Data Vital Signs (Past 12 Hours) Vital Signs Temp Pulse Resp BP Pulse Ox O2 Del Method 11/19/24 15:00 36.6 C 89 16 107/61 93 Room Air 11/19/24 14:24 Room Air 11/19/24 08:00 36.6 C 63 16 148/71 H 98 Room Air Diagnostic Findings Brain MRI 11/19/24 00:00 MR brain wo con HISTORY: 74 years-old Male dysphagia, right hand weakness, LE weakness acute stroke like symptoms COMPARISON: Head CT 07/26/2024 TECHNIQUE: Multiplanar multisequence MRI of the brain was obtained without IV contrast FINDINGS: No restricted diffusion to suggest acute or subacute infarct. Midline structures are unremarkable. Degenerative changes of the cervical spine. Study is mildly motion degraded. No acute intracranial hemorrhage, midline shift, abnormal extr a-axial collection, hydrocephalus or intra-axial mass. No pathologic blooming artifact. Involutional changes with mild scattered T2/FLAIR hyperintense foci throughout the white matter likely representing chronic microvascular ischemic disease. The cerebral venous sinuses and major arterial flow voids appear patent. Skull, orbits and soft tissues are unremarkable. Polypoid mucosal thickening of the left maxillary sinus. Mastoid air cells are clear. IMPRESSION: 1. No acute intracranial abnormality. No acute or subacute infarct. 2. Involutional changes with suggestion of mild chronic microvascular ischemic disease. ACT 112: Negative or not required by law. The above report was generated using voice recognition software. It may contain grammatical, syntax or spelling errors. Electronically signed by: Omega Santa M.D. 11/19/2024 1:28 PM Lumbar Spine MRI 11/19/24 00:00 MR lumbar spine wo con CLINICAL HISTORY: 74 years-old Male with b/l LE weakness, h/o severe l-spine disease. Chronic low back pain with lower extremity weakness COMPARISON: CT abdomen and pelvis 11/04/2024, CT lumbar spine 09/16/2024 TECHNIQUE: Multiplanar, multi sequence MRI of the lumbar spine was performed without intravenous contrast. FINDINGS: Motion degraded exam. Chronic mild widening of the anterior aspect of the L1-L2 disc space which is fluid-filled. Additional fluid signal noted within the L5-S1 disc space. Chronic L1-L2 endplate irregularity with subcortical cystic changes. No acute fracture, subluxation or acute endplate erosion. There are a few scattered lower thoracic Tarlov cysts. Lumbar levoscoliosis redemonstrated. No epidural or paraspinal fluid collections identified. Probable renal cysts. There is severe multilevel disc space narrowing. Degenerative partial bony fusion noted at L2-L5. Advanced spondylitic spurring facet arthrosis with ligamentum flavum thickening and epidural lipomatosis. Central canal and neural foraminal stenosis as below. T12-L1: Posterior annular disc bulge with facet arthrosis causes mild central canal stenosis. AP dimension of the thecal sac measures 9 mm. No significant neural foraminal narrowing. L1-L2: Posterior disc osteophyte complex eccentric to the left paracentral space and left lateral recess. Ligamentum flavum thickening with severe facet arthrosis. Severe central canal stenosis with AP dimension of the thecal sac measuring 5 mm. Severe narrowing of the lateral recesses. Moderate right with mild to moderate left foraminal narrowing. L2-L3: Posterior disc osteophyte complex with moderate facet arthrosis and ligamentum flavum thickening. Mild central canal stenosis with AP dimension of the thecal sac measuring 9 mm. Mild left foraminal narrowing. Patent right maura ral foramen. L3-L4: Posterior disc osteophyte complex. Ligamentum flavum thickening with moderate to advanced facet arthrosis.r mild central canal stenosis with AP dimension of the thecal sac measuring 9 mm. Moderate right lateral recess narrowing. Mild bilateral foraminal stenosis. L4-L5: Patent central canal. Mild left with mild to moderate right foraminal narrowing secondary to spondylitic spurring and facet arthrosis. L5-S1: Circumferential annular disc bulge causes mild central canal stenosis with moderate narrowing of the lateral recesses. Severe facet arthrosis with moderate facet effusion. Severe left with moderate to severe right foraminal narrowing. IMPRESSION: 1. There is unchanged chronic widening involving the anterior aspect of the L1- L2 disc space with fluid signal noted within the L1-L2 and L5-S1 disc spaces, likely on a degenerative basis. 2. No bone marrow edema or acute osseous erosion is identified to suggest acute discitis/osteomyelitis. 3. Advanced discogenic degeneration with spondylotic spurring and facet arthrosis as above resulting in multilevel foraminal narrowing. 4. Severe central canal stenosis at L1-L2. 5. Levoscoliosis. ACT 112: Negative or not required by law. The above report was generated using voice recognition software. It may contain grammatical, syntax or spelling errors. Electronically signed by: Omega Santa M.D. 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 coronary artery of [place] heart without angina pectoris I25.10 Associated angina: without angina Coronary Disease-Associated Artery/Lesion type: [place] artery [place] vs. transplanted heart: 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 artery [place] vs. transplanted heart: [place] heart Qualified Code(s): I25.10 - Atherosclerotic heart disease of [place] coronary artery without angina pectoris
[2024-11-20 08:27] LABS: BUN Creatinine Ratio 19.4 (10-20); C Reactive Protein 3.93 mg/dl (0-0.5); Calcium 7.7 mg/dl (8.6-10.3); Creatinine Clr Calc Pharmacy 67.8 ml/min; Potassium 4.1 mmol/L (3.5-5.1)
--- NOTE | 2024-11-20 19:27 | Hospitalist Progress Note ---
Date of Service November 20, 2024 Assessment & Plan (1) Weakness generalized: Plan: MRI head - no acute or old stroke, no ICH, no tumor MRI lumbar spine - severe DJD of l-spine at multiple levels but especially L1-L2 suspect weakness is multifaceted including deconditioning, severe l-spine disease, etc. PT/OT potential likely limited (2) Dysphagia: Plan: tolerating minced/moist diet dysphagia has improved - s/p EGD 11/06 with empiric dilatation (but no stenosis or ring seen during the scope) exact cause of dysphagia uncertain MRI brain without old or new stroke no features of myasthenia gravis but can't exclude some other form of nervous system disease contributing to dysphagia since the dilatation he has had no swallowing issues appetite improved (3) Acute kidney injury superimposed on chronic kidney disease: Plan: peak Cr 2.2 resolved Cr today 1.3 (4) Urinary tract infection: Plan: 2nd ecoli resolved s/p full treatment course (5) Hypokalemia: Plan: repleted resolved (6) Paroxysmal atrial fibrillation: Plan: examines in NSR on exam once again today (7) Morbid obesity with BMI of 45.0-49.9, adult: Plan: BMI 45-46 (8) 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 This antibiotic spacer per the patient has been present since 2007 or 2008 - the patient cannot remember the exact date. [facility] Then had [facility] surgery done at [facility] in [place]. (9) Pacemaker: Plan: placed for complete heart block followed by Dr Barraza - [facility] [place] Cardiology (10) CAD (coronary artery disease): Plan: h/o stents x 3 recent echo EF 40-45% with multiple WMAs c/w ischemic CM compensated on exam cont BB 75mg BID cont imdur he is not on chronic diuretic therapy Plan #Dysphagia Dysphagia initially started 4 weeks prior to hospitalization after starting opioids for pain (fentanyl patch, etc) EGD with dilation performed on 11/06; no definitive explanation for swallowing difficulties D/c all opioids moving forward Speech therapy recommended minced and moist IDDSI 5 diet, and thin liquids Aspiration precautions Elevate HOB 30 degrees at all times #Ambulatory dysfunction/generalized weakness Gradual decline since late 2023 Previously walking per his up until about August 2024 PT/OT evaluations appreciated Palliative care consult appreciated Case management consult appreciated lumbar spine MRI with severe DJD of l-spine - suspect L1/L2 disease could be affecting his legs unfortunately securing multiple caregivers for his home has proven unsuccessful thus, he will need SNF placement - possibly long-term #DM Last A1c at 5.9% on 02/13/2024 Will defer insulin as largely diet controlled at home Continue to hold Jardiance T1DM diet BSG ACHS Adjust regimen as needed #Atrial fibrillation Rate controlled Patient is normally on metoprolol succinate 200 mg daily 11/16 - increased metoprolol tartrate to 50mg BID, and then to 75mg BID on 11/19 Continue Xarelto #Anemia Chronic; most recent Hgb 9.1 --> stable B12/folate/Iron studies wnl Etiology uncertain Has steadily declined over last 6 months; was >10 in 2023 #Right & Left wrist pain Suspect gout - IMPROVED s/p prednisone 10mg daily Uric acid level high at 9.5 High sed rate/crp fit with inflammatory arthritis CRP has improved from 15 to 3 Cont prednisone 10mg daily for at least a week then consider allopurinol prophylaxis DVT proph - Xarelto extensively updated by phone 11/17 and 11/19 discussed MRI brain and MRI lspine findings with her dispo - SNF Admission and Anticipated Discharge Date Admission Date: November 04, 2024 Subjective no events overnight eating is MUCH better denies dysphagia b/l wrist pain MUCH improved "almost back to normal" we had lengthy conversation about disposition - although he is disappointed he knows he will need SNF placement post-d/c Review of Systems Review of Systems: cv - no orthopnea, PND, or chest pain pulm - no dyspnea GI - no abd pain or N/V Physical Exam Physical Exam: gen - morbidly obese, NAD, laying comfortably in bed; pleasant neck - no JVD mouth - MMM, poor dentition heart - RRR, s1 s2, no murmur lungs - CTA b/l, decreased BS bases abd - soft NT ND BS+ ext - trace edema b/l legs vascular - feet - 2+ pulses b/l musculo - synovitis b/l wrists resolved; synovitis multiple fingers resolved; ROM of both wrists normal neuro - handgrip on right still /5; handgrip on left 01/25 Results & Data Results & Data Vital Signs (Past 12 Hours) Vital Signs Temp Pulse Resp BP Pulse Ox O2 Del Method 11/20/24 15:32 36.5 C 67 16 127/61 94 Room Air 11/20/24 09:27 Room Air Laboratory Results Laboratory Results - last 24 hr 11/20/24 07:40 Sodium 140 Potassium 4.1 Chloride 108 H Carbon Dioxide 28 Anion Gap 4 BUN 26 H Creatinine 1.34 Est Cr Clr Drug Dosing 67.8 eGFR 55.59 BUN/Creatinine Ratio 19.4 Glucose 82 Calcium 7.7 L C-Reactive Protein 3.93 H PG Care Time/CCT Total # of Minutes Spent Total Time Spent with Patient: Total time spent is greater than 50% in coordination of care (as documented) at patient's floor/unit and/or counseling patient: Coding Level of Care Code 83081 SUB INP/OBS CARE 2/35MIN Diagnoses Weakness generalized R53.1 Dysphagia R13.10 Acute kidney injury superimposed on chronic kidney disease N17.9; N18.9 Urinary tract infection N39.0 Hypokalemia E87.6 Paroxysmal atrial fibrillation I48.0 Morbid obesity with BMI of 45.0-49.9, adult E66.01; Z68.42 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 transplanted heart: [place] heart Qualified Code(s): I25.10 - Atherosclerotic heart disease of [place] coronary artery without angina pectoris
--- NOTE | 2024-11-21 19:32 | Hospitalist Progress Note ---
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 (2) Dysphagia: Plan: tolerating minced/moist diet dysphagia has improved - s/p EGD 11/06 with empiric dilatation (but no stenosis or ring seen during the scope) exact cause of dysphagia uncertain MRI brain without old or new stroke no features of myasthenia gravis but can't exclude some other form of nervous system disease contributing to dysphagia since the dilatation he has had no swallowing issues appetite markedly improved on prednisone (3) Acute kidney injury superimposed on chronic kidney disease: Plan: peak Cr 2.2 resolved last Cr 1.3 (4) Urinary tract infection: Plan: 2nd ecoli resolved s/p full treatment course (5) Hypokalemia: Plan: repleted resolved (6) Paroxysmal atrial fibrillation: Plan: examines in NSR (7) Morbid obesity with BMI of 45.0-49.9, adult: Plan: BMI 45-46 (8) 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 This antibiotic spacer per the patient has been present since 2007 or 2008 - the patient cannot remember the exact date. Initial left THR was done at [facility]. Then had additional surgery done at [facility] in [place]. (9) Pacemaker: Plan: placed for complete heart block followed by Dr Barraza - [facility] [place] [facility] (10) CAD (coronary artery disease): Plan: h/o stents x 3 recent echo EF 40-45% with multiple WMAs c/w ischemic CM compensated on exam cont BB 75mg BID cont imdur he is not on chronic diuretic therapy Plan #Dysphagia Dysphagia initially started 4 weeks prior to hospitalization after starting opioids for pain (fentanyl patch, etc) EGD with dilation performed on 11/06; no definitive explanation for swallowing difficulties D/c all opioids moving forward Speech therapy recommended minced and moist IDDSI 5 diet, and thin liquids Aspiration precautions Elevate HOB 30 degrees at all times #Ambulatory dysfunction/generalized weakness Gradual decline since late 2023 Previously walking per his up until about August 2024 PT/OT evaluations appreciated Palliative care consult appreciated Case management consult appreciated lumbar spine MRI with severe DJD of l-spine - suspect L1/L2 disease could be affecting his legs unfortunately securing multiple caregivers for his home has proven unsuccessful thus, he will need SNF placement - possibly long-term #DM Last A1c at 5.9% on 02/13/2024 Will defer insulin as largely diet controlled at home Continue to hold Jardiance T1DM diet BSG ACHS Adjust regimen as needed #Atrial fibrillation Rate controlled Patient is normally on metoprolol succinate 200 mg daily 11/16 - increased metoprolol tartrate to 50mg BID, and then to 75mg BID on 11/19 BP/HRs stable Continue Xarelto #Anemia Chronic; most recent Hgb 9.1 --> stable B12/folate/Iron studies wnl Etiology uncertain Has steadily declined over last 6 months; was >10 in 2023 #Right & Left wrist pain Suspect gout - IMPROVED s/p prednisone 10mg daily Uric acid level high at 9.5 High sed rate/crp fit with inflammatory arthritis CRP has improved from 15 to 3 Cont prednisone daily for at least a week Will lower to 5mg/day starting tomorrow then consider allopurinol prophylaxis in a couple of weeks DVT proph - Xarelto extensively updated by phone 11/17 and 11/19 discussed MRI brain and MRI lspine findings with her dispo - SNF Admission and Anticipated Discharge Date Admission Date: November 04, 2024 Subjective no events overnight he reports he "officially retired" as a [employer] wrist pain b/l much improved "aches & pains" in other locations also improved he states "I'm coming to the realization that my life is going to be very different" Review of Systems Review of Systems: CV - no cp pulm - no dyspnea GI - no N/V/abd pain Physical Exam Physical Exam: gen - morbidly obese, NAD, laying comfortably in bed; very pleasant neck - no JVD mouth - MMM, poor dentition heart - RRR, s1 s2, no murmur lungs - CTA b/l abd - soft NT ND BS+ ext - trace edema b/l legs vascular - feet - 2+ pulses b/l musculo - synovitis b/l wrists resolved; synovitis multiple fingers resolved; ROM of both wrists normal Results & Data Results & Data Vital Signs (Past 12 Hours) Vital Signs Temp Pulse Resp BP Pulse Ox O2 Del Method 11/21/24 07:32 36.6 C 61 20 165/70 H 96 Room Air 11/21/24 07:20 Room Air 11/20/24 21:00 Room Air 11/20/24 20:46 36.4 C L 66 16 121/60 97 Room Air Intake and Output 11/21/24 11/21/24 11/21/24 06:59 14:59 22:59 Intake Total 400 / 400 Output Total 250 / 650 Balance -250 / -410 400 / 400 Intake: Oral 400 / 400 Output: Urine 250 / 650 Other: # Unmeasured Voids 1 0 Weight 138.3 kg Weight Measurement Method Built in [facility] Patient Weight 11/22/24 06:59 Weight 138.3 kg PG Care Time/CCT Total # of Minutes Spent Total Time Spent with Patient: Total time spent is greater than 50% in coordination of care (as documented) at patient's floor/unit and/or counseling patient: Coding Level of Care Code 13866 SUB INP/OBS CARE 2/35MIN Diagnoses Weakness generalized R53.1 Dysphagia R13.10 Acute kidney injury superimposed on chronic kidney disease N17.9; N18.9 Urinary tract infection N39.0 Hypokalemia E87.6 Paroxysmal atrial fibrillation I48.0 Morbid obesity with BMI of 45.0-49.9, adult E66.01; Z68.42 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 transplanted heart: [place] heart Qualified Code(s): I25.10 - Atherosclerotic heart disease of [place] coronary artery without angina pectoris
--- NOTE | 2024-11-22 18:30 | Hospitalist Progress Note ---
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 cannot rule out some other form of systemic neurological condition, however (2) Dysphagia: Plan: tolerating minced/moist diet dysphagia has improved - s/p EGD 11/06 with empiric dilatation (but no stenosis or ring seen during the scope) exact cause of dysphagia uncertain MRI brain without old or new stroke no features of myasthenia gravis but can't exclude some other form of nervous system disease contributing to dysphagia since the dilatation he has had no swallowing issues appetite markedly improved on prednisone (3) Acute kidney injury superimposed on chronic kidney disease: Plan: peak Cr 2.2 resolved last Cr 1.3 repeat BMP am for stability (4) Urinary tract infection: Plan: 2nd ecoli resolved s/p full treatment course (5) Hypokalemia: Plan: repleted resolved repeat BMP am for stability (6) Paroxysmal atrial fibrillation: Plan: examines in NSR (7) Morbid obesity with BMI of 45.0-49.9, adult: Plan: BMI 45-46 (8) 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 This antibiotic spacer per the patient has been present since 2007 or 2008 - the patient cannot remember the exact date. Initial left THR was done at [facility]. Then had additional surgery done at [facility] in [place]. (9) Pacemaker: Plan: placed for complete heart block followed by Dr Barraza - [facility] (10) CAD (coronary artery disease): Plan: h/o stents x 3 recent echo EF 40-45% with multiple WMAs c/w ischemic CM compensated on exam cont BB 75mg BID cont imdur he is not on chronic diuretic therapy Plan #Dysphagia Dysphagia initially started 4 weeks prior to hospitalization after starting opioids for pain (fentanyl patch, etc) EGD with dilation performed on 11/06; no definitive explanation for swallowing difficulties D/c all opioids moving forward Speech therapy recommended minced and moist IDDSI 5 diet, and thin liquids Aspiration precautions Elevate HOB 30 degrees at all times #Ambulatory dysfunction/generalized weakness Gradual decline since late 2023 Previously walking per his up until about August 2024 PT/OT evaluations appreciated Palliative care consult appreciated Case management consult appreciated lumbar spine MRI with severe DJD of l-spine - suspect L1/L2 disease could be affecting his legs unfortunately securing multiple caregivers for his home has proven unsuccessful thus, he will need SNF placement - possibly long-term #DM Last A1c at 5.9% on 02/13/2024 Will defer insulin as largely diet controlled at home Continue to hold Jardiance T1DM diet BSG ACHS Adjust regimen as needed #Atrial fibrillation Rate controlled Patient is normally on metoprolol succinate 200 mg daily 11/16 - increased metoprolol tartrate to 50mg BID, and then to 75mg BID on 11/19 BP/HRs stable on the 75mg BID meto tartrate Continue Xarelto #Anemia Chronic; most recent Hgb 9.1 --> stable B12/folate/Iron studies wnl Etiology uncertain Has steadily declined over last 6 months; was >10 in 2023 repeat a CBC in am for stability #Right & Left wrist pain Suspected gout - markedly improved s/p prednisone 10mg daily Uric acid level high at 9.5 High sed rate/crp fit with inflammatory arthritis CRP has improved from 15 to 3 on steroid therapy Cont prednisone daily but lower to 5mg/day starting tomorrow then consider starting allopurinol prophylaxis in a couple of weeks DVT proph - Xarelto extensively updated by phone 11/17 and 11/19 and again today, 11/22 dispo - SNF Admission and Anticipated Discharge Date Admission Date: November 04, 2024 Subjective no events overnight no new issues or complaints eating well without any dysphagia he is interested in getting OOB to chair with a Alvin lift again he brings up the possibility of going to the SNF located in [place] as he and his have family there Review of Systems Review of Systems: CV - no chest pain or orthopnea pulm - no dyspnea GI - no N/V Physical Exam Physical Exam: gen - morbidly obese, NAD, laying comfortably in bed neck - no JVD mouth - MMM, poor dentition, no ulcerations noted heart - RRR, s1 s2, no murmur lungs - CTA b/l abd - soft NT ND BS+ ext - trace edema b/l legs vascular - feet - 2+ pulses b/l musculo - synovitis b/l wrists resolved; synovitis multiple fingers resolved; ROM of both wrists normal neuro - muscle wasting noted in the distal right arm and right hand intrinsic muscles Results & Data Results & Data Vital Signs (Past 12 Hours) Vital Signs Temp Pulse Resp BP Pulse Ox O2 Del Method 11/22/24 15:58 36.6 C 63 18 121/60 95 Room Air 11/22/24 07:48 36.5 C 65 18 147/65 H 96 Room Air 11/22/24 07:15 Room Air PG Care Time/CCT Total # of Minutes Spent Total Time Spent with Patient: Total time spent is greater than 50% in coordination of care (as documented) at patient's floor/unit and/or counseling patient: Coding Level of Care Code 58692 SUB INP/OBS CARE 2/35MIN Diagnoses Weakness generalized R53.1 Dysphagia R13.10 Acute kidney injury superimposed on chronic kidney disease N17.9; N18.9 Urinary tract infection N39.0 Hypokalemia E87.6 Paroxysmal atrial fibrillation I48.0 Morbid obesity with BMI of 45.0-49.9, adult E66.01; Z68.42 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 transplanted heart: [place] heart Qualified Code(s): I25.10 - Atherosclerotic heart disease of [place] coronary artery without angina pectoris
[2024-11-23 07:40] LABS: Hematocrit (blood only) 27.8 % (42.0-52.0); Hemoglobin 8.6 g/dl (14.0-18.0); Mean Corpuscular Hemoglobin 29.1 pg (25.0-34.0); Mean Corpuscular Hgb Conc 30.9 g/dL (32.0-36.0); Mean Corpuscular Volume 93.9 fL (80.0-100.0); Mean Platelet Volume 10.1 fL (9.4-12.4); Platelet Count 278 K/uL (130-400); RDW Coefficient of Variation 15.6 % (11.5-14.5); RDW Standard Deviation 53.5 fL (36.4-46.3); Red Blood Count 2.96 M/uL (4.70-6.10); White Blood Count 3.89 K/ul (4.8-10.8)
[2024-11-23 07:47] LABS: BUN Creatinine Ratio 19.4 (10-20); Creatinine Clr Calc Pharmacy 66.7 ml/min; Potassium 3.8 mmol/L (3.5-5.1)
[2024-11-23] MEDS: predniSONE 5 MG TAB PO SCH (08:15)
--- NOTE | 2024-11-23 19:52 | Hospitalist Progress Note ---
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 cannot rule out some other form of systemic neurological condition, however (2) Dysphagia: Plan: tolerating minced/moist diet dysphagia has improved - s/p EGD 11/06 with empiric dilatation (but no stenosis or ring seen during the scope) exact cause of dysphagia uncertain MRI brain without old or new stroke no features of myasthenia gravis but can't exclude some other form of nervous system disease contributing to dysphagia since the dilatation he has had no swallowing issues appetite markedly improved on prednisone (3) Acute kidney injury superimposed on chronic kidney disease: Plan: peak Cr 2.2 resolved Cr today 1.3 and stable (4) Urinary tract infection: Plan: 2nd ecoli resolved s/p full treatment course (5) Hypokalemia: Plan: repleted resolved K level today wnl (6) Paroxysmal atrial fibrillation: Plan: examines in NSR cont Xarelto cont metoprolol - will convert back to meto succ due to HFrEF (7) Morbid obesity with BMI of 45.0-49.9, adult: Plan: BMI 45 (8) 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 This antibiotic spacer per the patient has been present since 2007 or 2008 - the patient cannot remember the exact date. Initial left THR was done at [facility]. Then had additional surgery done at [facility] in [place]. (9) Pacemaker: Plan: placed for complete heart block followed [place] Barraza [place] [facility] [place] [facility] (10) CAD (coronary artery disease): Plan: h/o stents x 3 recent echo EF 40-45% with multiple WMAs c/w ischemic CM compensated on exam cont BB but convert meto tartrate back to meto succinate cont imdur add low-dose Entresto he is not on chronic diuretic therapy Plan #Dysphagia Dysphagia initially started 4 weeks prior to hospitalization after starting opioids for pain (fentanyl patch, etc) EGD with dilation performed on 11/06; no definitive explanation for swallowing difficulties D/c all opioids moving forward Speech therapy recommended minced and moist IDDSI 5 diet, and thin liquids Aspiration precautions Elevate HOB 30 degrees at all times #Ambulatory dysfunction/generalized weakness Gradual decline since late 2023 Previously walking per his up until about August 2024 PT/OT evaluations appreciated Palliative care consult appreciated Case management consult appreciated lumbar spine MRI with severe DJD of l-spine - suspect L1/L2 disease could be affecting his legs unfortunately securing multiple caregivers for his home has proven unsuccessful thus, he will need SNF placement - possibly long-term #DM Last A1c at 5.9% on 02/13/2024 Will defer insulin as largely diet controlled at home Continue to hold Jardiance due to recent UTI T1DM diet BSG ACHS Adjust regimen as needed #Atrial fibrillation Rate controlled Patient is normally on metoprolol succinate 200 mg daily 11/16 - metoprolol tartrate resumed Will convert meto tartrate to succinate starting tomorrow Continue Xarelto #Anemia Chronic Hb now 8.6 with mild leukopenia B12/folate/Iron studies wnl Etiology uncertain Has steadily declined over last 6 months; was >10 in 2023 Consider SPEP/UPEP/etc. -- recheck CBC in 48 hours for stability #Right & Left wrist pain Suspected gout - markedly improved s/p prednisone 10mg daily starting 11/17/24 Uric acid level high at 9.5 High sed rate/crp fit with inflammatory arthritis CRP has improved from 15 to 3 on steroid therapy Cont prednisone - lowered to 5mg/day starting today; day #7 of prednisone; stop after 10 days then consider starting allopurinol prophylaxis later this week #chronic systolic CHF (HFrEF) - echo with EF 40-45% with wall motion abnormalities c/w ischemic CM add low-dose Entresto BID convert meto tartrate to meto succ daily not on chronic diuretic therapy - but remains compensated cont imdur DVT proph - Xarelto extensively updated by phone 11/17, 11/19 and 11/22 dispo - SNF - referrals to [facility], etc; [facility] in [place] is his first choice Admission and Anticipated Discharge Date Admission Date: November 04, 2024 Subjective no events overnight denies any new complaints asks about SNF placement hands/wrists are feeling well has not been out of bed yet but is hoping to do that soon Review of Systems Review of Systems: CV - no orthopnea, no chest pain pulm - no dyspnea at rest GI - no N/V; had diarrhea earlier today Physical Exam Physical Exam: gen - morbidly obese, NAD, laying comfortably in bed; looks similar to past exams neck - no JVD mouth - MMM, poor dentition, no ulcerations noted heart - RRR, s1 s2, no murmur lungs - CTA b/l abd - soft NT ND BS+ ext - no edema b/l legs vascular - feet - 2+ pulses b/l musculo - synovitis b/l wrists resolved; synovitis multiple fingers resolved; ROM of both wrists normal neuro - muscle wasting noted in the distal right arm and right hand intrinsic muscles Results & Data Results & Data Vital Signs (Past 12 Hours) Vital Signs Temp Pulse Resp BP Pulse Ox O2 Del Method 11/23/24 19:46 36.3 C L 67 18 161/76 H 96 Room Air 11/23/24 15:23 36.4 C L 71 18 139/74 98 Room Air 11/23/24 08:00 Room Air 11/23/24 07:54 36.5 C 60 18 157/69 H 98 Room Air Laboratory Results Laboratory Results - last 24 hr 11/23/24 06:44 WBC 3.89 L RBC 2.96 L Hgb 8.6 L Hct 27.8 L MCV 93.9 MCH 29.1 MCHC 30.9 L RDW Std Deviation 53.5 H RDW Coeff of Ira 15.6 H Plt Count 278 MPV 10.1 Sodium 139 Potassium 3.8 Chloride 104 Carbon Dioxide 28 Anion Gap 7 BUN 26 H Creatinine 1.34 Est Cr Clr Drug Dosing 66.7 eGFR 55.59 BUN/Creatinine Ratio 19.4 Glucose 81 Calcium 8.0 L PG Care Time/CCT Total # of Minutes Spent Total Time Spent with Patient: Total time spent is greater than 50% in coordination of care (as documented) at patient's floor/unit and/or counseling patient: Coding Level of Care Code 50526 SUB INP/OBS CARE 2/35MIN Diagnoses Weakness generalized R53.1 Dysphagia R13.10 Acute kidney injury superimposed on chronic kidney disease N17.9; N18.9 Urinary tract infection N39.0 Hypokalemia E87.6 Paroxysmal atrial fibrillation I48.0 Morbid obesity with BMI of 45.0-49.9, adult E66.01; Z68.42 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 transplanted heart: [place] heart Qualified Code(s): I25.10 - Atherosclerotic heart disease of [place] coronary artery without angina pectoris
[2024-11-24] MEDS: VALSARTAN/SACUBITRIL 26/24MG TAB PO SCH (08:24)
[2024-11-24] MEDS: METOPROLOL SUCC 50MG EXT REL TAB PO SCH (08:24)
--- NOTE | 2024-11-24 12:43 | Hospitalist Progress Note ---
Date of Service November 24, 2024 Assessment & Plan (1) Acute kidney injury superimposed on chronic kidney disease: Plan: Present on admission with creatinine 2.2. Now stable. Monitor intake and output. (2) Dysphagia: Plan: He underwent EGD on November 06 with dilatation of the upper esophagus. Speech therapy has evaluated the patient and there is no evidence of aspiration. (3) Urinary tract infection: Plan: E. coli isolated. He has completed his course of intravenous Rocephin. (4) Hypokalemia: Plan: Corrected with replacement therapy. Serial labs (5) Paroxysmal atrial fibrillation: Plan: Rate control. Continue Xarelto therapy. (6) Weakness generalized: Plan: Continue OT and PT while hospitalized. He refuses to return to inpatient rehab or SNF. Palliative care consult appreciated. (7) Wrist pain, right: Plan: He has been seen and evaluated by orthopedics. Now resolved Plan SNF placement is being arranged. He is medically stable for discharge Admission and Anticipated Discharge Date Admission Date: November 04, 2024 Subjective Alert and oriented. Vital signs are stable. He is on room air. No new problems. Placement is pending Review of Systems 2 Review of Systems: Constitutionalno fever or chills ENTno blurred vision, no double vision, no epistaxis, no sore throat Respiratoryno cough, no wheezing, no shortness of breath Cardiacno palpitations, no chest pain, no syncope [place] nausea, vomiting, diarrhea, melena, hematochezia GUno urinary retention, no urinary incontinence, no dysuria, no hematuria Musculoskeletalno joint pain, no muscle tenderness. Nonambulatory with left hip spacer in place Skinno bruising, no rashes, no pruritus Neurono isolated weakness, no paresthesia Psychno depression, no anxiety Physical Exam 2 Physical Exam: General-alert and oriented x3, no fever, no chills. Morbidly obese HEENT-head atraumatic and normocephalic, pupils equal and reactive to light, extraocular muscles intact Neck-no lymphadenopathy or thyromegaly, trachea midline Chest-diminished breath sounds bilaterally from anterior approach. No inspiratory rales, wheezing or rhonchi Cardiac-regular rate and rhythm, normal S1 and S2 Abdomen-normal bowel sounds, no hepatosplenomegaly Extremities-chronic appearing bilateral lower extremity edema, 2+ Neuro-cranial nerves II through XII intact, motor and sensory function within normal limits, strength symmetrical with chronic weakness, no focal deficits Psych-depressed affect Results & Data Results & Data Vital Signs (Past 12 Hours) Vital Signs Temp Pulse Resp BP Pulse Ox O2 Del Method 11/24/24 08:15 Room Air 11/24/24 07:20 36.3 C L 60 18 153/70 H 97 Room Air Laboratory Results 11/23/24 06:44 11/23/24 06:44 PG Care Time/CCT Total # of Minutes Spent Total Time Spent with Patient: Total time spent is greater than 50% in coordination of care (as documented) at patient's floor/unit and/or counseling patient: Coding Level of Care Code 89091 SUB INP/OBS CARE 2/35MIN Diagnoses Acute kidney injury superimposed on chronic kidney disease N17.9; N18.9 Dysphagia R13.10 Urinary tract infection N39.0 Hypokalemia E87.6 Paroxysmal atrial fibrillation I48.0 Weakness generalized R53.1 Wrist pain, right M25.531
--- NOTE | 2024-11-25 15:28 | Hospitalist Progress Note ---
Date of Service November 25, 2024 Assessment & Plan (1) Acute kidney injury superimposed on chronic kidney disease: Plan: Present on admission with creatinine 2.2. Now stable. Monitor intake and output. (2) Dysphagia: Plan: He underwent EGD on November 06 with dilatation of the upper esophagus. Speech therapy has evaluated the patient and there is no evidence of aspiration. (3) Urinary tract infection: Plan: E. coli isolated. He has completed his course of intravenous Rocephin. (4) Hypokalemia: Plan: Corrected with replacement therapy. Serial labs (5) Paroxysmal atrial fibrillation: Plan: Rate control. Continue Xarelto therapy. (6) Weakness generalized: Plan: Continue OT and PT while hospitalized. He refuses to return to inpatient rehab or SNF. Palliative care consult appreciated. (7) Wrist pain, right: Plan: He has been seen and evaluated by orthopedics. Now resolved Plan SNF placement is being arranged. He is medically stable for discharge Admission and Anticipated Discharge Date Admission Date: November 04, 2024 Subjective Alert and oriented. Pleasant. No new problems Review of Systems 2 Review of Systems: Constitutionalno fever or chills ENTno blurred vision, no double vision, no epistaxis, no sore throat Respiratoryno cough, no wheezing, no shortness of breath Cardiacno palpitations, no chest pain, no syncope [place] nausea, vomiting, diarrhea, melena, hematochezia GUno urinary retention, no urinary incontinence, no dysuria, no hematuria Musculoskeletalno joint pain, no muscle tenderness. Nonambulatory with left hip spacer in place Skinno bruising, no rashes, no pruritus Neurono isolated weakness, no paresthesia Psychno depression, no anxiety Physical Exam 2 Physical Exam: General-alert and oriented x3, no fever, no chills. Morbidly obese HEENT-head atraumatic and normocephalic, pupils equal and reactive to light, extraocular muscles intact Neck-no lymphadenopathy or thyromegaly, trachea midline Chest-diminished breath sounds bilaterally from anterior approach. No inspiratory rales, wheezing or rhonchi Cardiac-regular rate and rhythm, normal S1 and S2 Abdomen-normal bowel sounds, no hepatosplenomegaly Extremities-chronic appearing bilateral lower extremity edema, 2+ Neuro-cranial nerves II through XII intact, motor and sensory function within normal limits, strength symmetrical with chronic weakness, no focal deficits Psych-depressed affect Results & Data Results & Data Vital Signs (Past 12 Hours) Vital Signs Temp Pulse Pulse Resp BP Pulse Ox O2 Del Method 11/25/24 09:36 66 11/25/24 07:36 36.4 C L 58 L 16 138/70 97 Room Air Laboratory Results 11/23/24 06:44 11/23/24 06:44 PG Care Time/CCT Total # of Minutes Spent Total Time Spent with Patient: Total time spent is greater than 50% in coordination of care (as documented) at patient's floor/unit and/or counseling patient: Coding Level of Care Code 87407 SUB INP/OBS CARE 2/35MIN Diagnoses Acute kidney injury superimposed on chronic kidney disease N17.9; N18.9 Dysphagia R13.10 Urinary tract infection N39.0 Hypokalemia E87.6 Paroxysmal atrial fibrillation I48.0 Weakness generalized R53.1 Wrist pain, right M25.531
[2024-11-26 07:03] LABS: Basophils # (auto) 0.05 K/uL (0.00-0.20); Eosinophils # (auto) 0.22 K/uL (0.00-0.50); Eosinophils % (auto) 4.5 %; Hemoglobin 9.5 g/dl (14.0-18.0); Immature Granulocytes # (auto) 0.03 K/uL (0.01-0.20); Immature Granulocytes % (auto) 0.6 %; Lymphocytes # (auto) 1.14 K/uL (1.20-3.40); Lymphocytes % (auto) 23.2 %; Mean Corpuscular Hemoglobin 29.9 pg (25.0-34.0); Mean Corpuscular Hgb Conc 31.7 g/dL (32.0-36.0); Mean Corpuscular Volume 94.3 fL (80.0-100.0); Mean Platelet Volume 10.2 fL (9.4-12.4); Monocytes # (auto) 0.41 K/uL (0.11-0.59); Monocytes % (auto) 8.3 %; Neutrophils # (auto) 3.07 K/uL (1.40-6.50); Neutrophils % (auto) 62.4 %; Platelet Count 267 K/uL (130-400); RDW Coefficient of Variation 15.9 % (11.5-14.5); RDW Standard Deviation 55.2 fL (36.4-46.3); Red Blood Count 3.18 M/uL (4.70-6.10); White Blood Count 4.92 K/ul (4.8-10.8)
[2024-11-26 07:43] LABS: BUN Creatinine Ratio 20.7 (10-20); Calcium 8.2 mg/dl (8.6-10.3); Creatinine Clr Calc Pharmacy 66.2 ml/min; Potassium 3.8 mmol/L (3.5-5.1)
--- NOTE | 2024-11-26 15:34 | Hospitalist Progress Note ---
Date of Service November 26, 2024 Assessment & Plan (1) Acute kidney injury superimposed on chronic kidney disease: Plan: Present on admission with creatinine 2.2. Now stable. Monitor intake and output. (2) Dysphagia: Plan: He underwent EGD on November 06 with dilatation of the upper esophagus. Speech therapy has evaluated the patient and there is no evidence of aspiration. (3) Urinary tract infection: Plan: E. coli isolated. He has completed his course of intravenous Rocephin. (4) Hypokalemia: Plan: Corrected with replacement therapy. Serial labs (5) Paroxysmal atrial fibrillation: Plan: Rate control. Continue Xarelto therapy. (6) Weakness generalized: Plan: Continue OT and PT while hospitalized. He refuses to return to inpatient rehab or SNF. Palliative care consult appreciated. (7) Wrist pain, right: Plan: He has been seen and evaluated by orthopedics. Now resolved Plan SNF placement is being arranged. He is medically stable for discharge Admission and Anticipated Discharge Date Admission Date: November 04, 2024 Subjective Alert and oriented. Pleasant. No new problems. Will try to contact his , Naty, today, November 26 Review of Systems 2 Review of Systems: Constitutionalno fever or chills ENTno blurred vision, no double vision, no epistaxis, no sore throat Respiratoryno cough, no wheezing, no shortness of breath Cardiacno palpitations, no chest pain, no syncope [place] nausea, vomiting, diarrhea, melena, hematochezia GUno urinary retention, no urinary incontinence, no dysuria, no hematuria Musculoskeletalno joint pain, no muscle tenderness. Nonambulatory with left hip spacer in place Skinno bruising, no rashes, no pruritus. He does have superficial ulceration in the decubital area which she is receiving local care Neurono isolated weakness, no paresthesia Psychno depression, no anxiety Physical Exam 2 Physical Exam: General-alert and oriented x3, no fever, no chills. Morbidly obese HEENT-head atraumatic and normocephalic, pupils equal and reactive to light, extraocular muscles intact Neck-no lymphadenopathy or thyromegaly, trachea midline Chest-diminished breath sounds bilaterally from anterior approach. No inspiratory rales, wheezing or rhonchi Cardiac-regular rate and rhythm, normal S1 and S2 Abdomen-normal bowel sounds, no hepatosplenomegaly Extremities-chronic appearing bilateral lower extremity edema, 2+ Neuro-cranial nerves II through XII intact, motor and sensory function within normal limits, strength symmetrical with chronic weakness, no focal deficits Psych-normal affect Results & Data Results & Data Vital Signs (Past 12 Hours) Vital Signs Temp Pulse Resp BP Pulse Ox O2 Del Method 11/26/24 08:10 Room Air 11/26/24 07:26 36.4 C L 60 16 122/68 96 Room Air Laboratory Results 11/26/24 06:29 11/26/24 06:29 PG Care Time/CCT Total # of Minutes Spent Total Time Spent with Patient: Total time spent is greater than 50% in coordination of care (as documented) at patient's floor/unit and/or counseling patient: Coding Level of Care Code 17071 SUB INP/OBS CARE 2/35MIN Diagnoses Acute kidney injury superimposed on chronic kidney disease N17.9; N18.9 Dysphagia R13.10 Urinary tract infection N39.0 Hypokalemia E87.6 Paroxysmal atrial fibrillation I48.0 Weakness generalized R53.1 Wrist pain, right M25.531
--- NOTE | 2024-11-27 15:15 | Hospitalist Progress Note ---
Date of Service November 27, 2024 Assessment & Plan (1) Acute kidney injury superimposed on chronic kidney disease: Plan: Present on admission with creatinine 2.2. Now stable. Monitor intake and output. (2) Dysphagia: Plan: He underwent EGD on November 06 with dilatation of the upper esophagus. Speech therapy has evaluated the patient and there is no evidence of aspiration. (3) Urinary tract infection: Plan: E. coli isolated. He has completed his course of intravenous Rocephin. (4) Hypokalemia: Plan: Corrected with replacement therapy. Serial labs (5) Paroxysmal atrial fibrillation: Plan: Rate control. Continue Xarelto therapy. (6) Weakness generalized: Plan: Continue OT and PT while hospitalized. He refuses to return to inpatient rehab or SNF. Palliative care consult appreciated. (7) Wrist pain, right: Plan: He has been seen and evaluated by orthopedics. Now resolved Plan SNF placement is being arranged. He is medically stable for discharge Admission and Anticipated Discharge Date Admission Date: November 04, 2024 Subjective No new problems. Afebrile with stable vital signs. I updated his today, November 27, by phone Review of Systems 2 Review of Systems: Constitutionalno fever or chills ENTno blurred vision, no double vision, no epistaxis, no sore throat Respiratoryno cough, no wheezing, no shortness of breath Cardiacno palpitations, no chest pain, no syncope [place] nausea, vomiting, diarrhea, melena, hematochezia GUno urinary retention, no urinary incontinence, no dysuria, no hematuria Musculoskeletalno joint pain, no muscle tenderness. Nonambulatory with left hip spacer in place Skinno bruising, no rashes, no pruritus. He does have superficial ulceration in the decubital area which she is receiving local care Neurono isolated weakness, no paresthesia Psychno depression, no anxiety Physical Exam 2 Physical Exam: General-alert and oriented x3, no fever, no chills. Morbidly obese HEENT-head atraumatic and normocephalic, pupils equal and reactive to light, extraocular muscles intact Neck-no lymphadenopathy or thyromegaly, trachea midline Chest-diminished breath sounds bilaterally from anterior approach. No inspiratory rales, wheezing or rhonchi Cardiac-regular rate and rhythm, normal S1 and S2 Abdomen-normal bowel sounds, no hepatosplenomegaly Extremities-chronic appearing bilateral lower extremity edema, 2+ Neuro-cranial nerves II through XII intact, motor and sensory function within normal limits, strength symmetrical with chronic weakness, no focal deficits Psych-normal affect Results & Data Results & Data Vital Signs (Past 12 Hours) Vital Signs Temp Pulse Resp BP Pulse Ox O2 Del Method 11/27/24 07:30 36.5 C 64 16 137/66 96 Room Air Laboratory Results 11/26/24 06:29 11/26/24 06:29 PG Care Time/CCT Total # of Minutes Spent Total Time Spent with Patient: Total time spent is greater than 50% in coordination of care (as documented) at patient's floor/unit and/or counseling patient: Coding Level of Care Code 17156 SUB INP/OBS CARE 2/35MIN Diagnoses Acute kidney injury superimposed on chronic kidney disease N17.9; N18.9 Dysphagia R13.10 Urinary tract infection N39.0 Hypokalemia E87.6 Paroxysmal atrial fibrillation I48.0 Weakness generalized R53.1 Wrist pain, right M25.531
--- NOTE | 2024-11-28 11:32 | Hospitalist Progress Note ---
Date of Service November 28, 2024 Assessment & Plan (1) Acute kidney injury superimposed on chronic kidney disease: Plan: Present on admission with creatinine 2.2. Now stable. Monitor intake and output. (2) Dysphagia: Plan: He underwent EGD on November 06 with dilatation of the upper esophagus. Speech therapy has evaluated the patient and there is no evidence of aspiration. (3) Urinary tract infection: Plan: E. coli isolated. He has completed his course of intravenous Rocephin. (4) Hypokalemia: Plan: Corrected with replacement therapy. Serial labs (5) Paroxysmal atrial fibrillation: Plan: Rate control. Continue Xarelto therapy. (6) Weakness generalized: Plan: Continue OT and PT while hospitalized. He refuses to return to inpatient rehab or SNF. Palliative care consult appreciated. (7) Wrist pain, right: Plan: He has been seen and evaluated by orthopedics. Now resolved Plan SNF placement is being arranged. He is medically stable for discharge Admission and Anticipated Discharge Date Admission Date: November 04, 2024 Subjective Alert and oriented. No new problems. Vital signs are stable. Afebrile. He is on room air. Review of Systems 2 Review of Systems: Constitutionalno fever or chills ENTno blurred vision, no double vision, no epistaxis, no sore throat Respiratoryno cough, no wheezing, no shortness of breath Cardiacno palpitations, no chest pain, no syncope [place] nausea, vomiting, diarrhea, melena, hematochezia GUno urinary retention, no urinary incontinence, no dysuria, no hematuria Musculoskeletalno joint pain, no muscle tenderness. Nonambulatory with left hip spacer in place Skinno bruising, no rashes, no pruritus. He does have superficial ulceration in the decubital area which she is receiving local care Neurono isolated weakness, no paresthesia Psychno depression, no anxiety Physical Exam 2 Physical Exam: General-alert and oriented x3, no fever, no chills. Morbidly obese HEENT-head atraumatic and normocephalic, pupils equal and reactive to light, extraocular muscles intact Neck-no lymphadenopathy or thyromegaly, trachea midline Chest-diminished breath sounds bilaterally from anterior approach. No inspiratory rales, wheezing or rhonchi Cardiac-regular rate and rhythm, normal S1 and S2 Abdomen-normal bowel sounds, no hepatosplenomegaly Extremities-chronic appearing bilateral lower extremity edema, 2+ Neuro-cranial nerves II through XII intact, motor and sensory function within normal limits, strength symmetrical with chronic weakness, no focal deficits Psych-normal affect Results & Data Results & Data Vital Signs (Past 12 Hours) Vital Signs Temp Pulse Resp BP Pulse Ox O2 Del Method 11/28/24 08:00 Room Air 11/28/24 07:40 36.5 C 60 18 156/67 H 96 Room Air Laboratory Results 11/26/24 06:29 11/26/24 06:29 PG Care Time/CCT Total # of Minutes Spent Total Time Spent with Patient: Total time spent is greater than 50% in coordination of care (as documented) at patient's floor/unit and/or counseling patient: Coding Level of Care Code 38865 SUB INP/OBS CARE 2/35MIN Diagnoses Acute kidney injury superimposed on chronic kidney disease N17.9; N18.9 Dysphagia R13.10 Urinary tract infection N39.0 Hypokalemia E87.6 Paroxysmal atrial fibrillation I48.0 Weakness generalized R53.1 Wrist pain, right M25.531
--- NOTE | 2024-11-29 16:12 | Hospitalist Progress Note ---
Date of Service November 29, 2024 Assessment & Plan (1) Acute kidney injury superimposed on chronic kidney disease: Plan: Present on admission with creatinine 2.2. Now stable. Monitor intake and output. (2) Dysphagia: Plan: He underwent EGD on November 06 with dilatation of the upper esophagus. Speech therapy has evaluated the patient and there is no evidence of aspiration. (3) Urinary tract infection: Plan: E. coli isolated. He has completed his course of intravenous Rocephin. (4) Hypokalemia: Plan: Corrected with replacement therapy. Serial labs (5) Paroxysmal atrial fibrillation: Plan: Rate control. Continue Xarelto therapy. (6) Weakness generalized: Plan: Continue OT and PT while hospitalized. Palliative care consult appreciated. (7) Wrist pain, right: Plan: He has been seen and evaluated by orthopedics. Now resolved Plan SNF placement is being arranged. He is medically stable for discharge Admission and Anticipated Discharge Date Admission Date: November 04, 2024 Subjective Patient was seen and examined at 9:45 AM. Denied any chest pain or shortness of breath. Waiting for placement. Review of Systems Review of Systems: All systems reviewed & are unremarkable except as noted in Subjective Physical Exam Physical Exam: General: Awake, conversant Heart: S1, S2/regular rate and rhythm, no murmur rubs or gallops Lungs: Clear to auscultation bilaterally. Normal effort Abdomen: Soft/nontender/nondistended. No hepatosplenomegaly Extremities: No clubbing/cyanosis. No edema Behavior: Appropriate, cooperative Results & Data Results & Data Vital Signs (Past 12 Hours) Vital Signs Temp Pulse Resp BP Pulse Ox O2 Del Method 11/29/24 14:36 36.5 C 63 16 134/72 96 Room Air 11/29/24 09:05 Room Air 11/29/24 07:23 36.5 C 62 16 136/73 97 Room Air PG Care Time/CCT Total # of Minutes Spent Total Time Spent with Patient: Total time spent is greater than 50% in coordination of care (as documented) at patient's floor/unit and/or counseling patient: Coding Level of Care Code 07887 SUB INP/OBS CARE 2/35MIN Diagnoses Acute kidney injury superimposed on chronic kidney disease N17.9; N18.9 Dysphagia R13.10 Urinary tract infection N39.0 Hypokalemia E87.6 Paroxysmal atrial fibrillation I48.0 Weakness generalized R53.1 Wrist pain, right M25.533
[2024-11-30 07:56] VITALS: TEMP 98.1
--- NOTE | 2024-11-30 13:26 | Discharge Summary ---
Date of Service November 30, 2024 Admission HPI Per Admitting Provider Patient is a 74-year-old male with past medical history of CKD, A-fib on Xarelto with a pacer, hypertension, GERD. He was recently admitted to the hospital 09/17 to 09/24 due to weakness, MADDI, and UTI. He was discharged to [facility] and then transition to care at [facility]. Patient presented to the ED due to ongoing, unimproved weakness, nausea, and unable to tolerate p.o. intake for 4 weeks. He is being admitted for an MADDI and elevated troponin. Patient seen at bedside with his and son present. He stated that he has lost 40 pounds recently he has been extremely weak and was unable to partake in physical therapy and Occupational Therapy at [facility] due to feeling too sick. He denies ongoing hip pain as he was started on a fentanyl patch during recent admission after 2 falls and having left-sided hip pain due to having a spacer in place. He no longer uses the fentanyl patch and denies any pain. Patient also endorses nausea and dry heaves for roughly 4 weeks; he stated the nausea is only relieved by ice water and Zofran. He has been unable to tolerate any p.o. intake as he has had dysphagia and is choking on his food. He denies any aspiration. His mouth is very dry on exam and he stated it has been dry for several weeks. He also endorses incontinence of bowel along with diarrhea for roughly 1 week. He also endorses lower abdominal pain for roughly 4 months; Has been unchanged, constant. He did undergo a course of antibiotic treatment for UTI in August with Zosyn. He also has been exposed to hospital-acquired infections. He stated that he has been unable to take his home medications occasionally since discharge due to nausea. He feels that this time he is unable to take medications due to nausea and dysphagia; will order IV medications. He denies chest pain however endorses that he sometimes feels his heart flutter. He denies urinary symptoms similar to previous admission, denies dysuria, difficulty urinating, hematuria, decrease in urination. He also endorses a headache and feeling like his ears are plugged along with occasional dyspnea for the past few weeks. He does not use nicotine products or drink alcohol. He lives at home with his and their house is currently being remodeled to help with his ambulation. 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 He stated his voice has been decreased/has difficulty talking. He does not use oxygen at baseline, no CPAP/BiPAP. He previously had ANAMARIA that was self resolved. He did not get his home medications today due to nausea. He wishes to be full code at this time. Patient is agreeable to PT/OT evals and potential inpatient rehab again. He is agreeable to speech eval and possible swallow study. Patient stated he has an allergy to potassium chloride IV due to burning sensation previously, discussed trialing IV potassium with IV fluids as potassium is low at 2.8. He is agreeable. Admission Exam Per Admitting Provider The patient is awake, alert and oriented 3, well developed and well nourished, normocephalic and atraumatic, in no acute distress. Non-toxic appearing. HEENT- EOMI, mucous membranes dry, yellow/green oral and optical mucus present. Hearing grossly intact. Heart-normal S1 and S2. No murmurs, rubs or gallops. Lungs- decrease bilaterally, no respiratory distress, no accessory muscle use. Abdomen-normal bowel sounds and soft. No ascites noted. Tender to right lower quadrant with deep palpation. Extremities- no clubbing, cyanosis. Principal Diagnosis Acute kidney injury [id number] Urinary tract infection Generalized weakness Discharge Exam General: Awake, conversant Heart: S1, S2/regular rate and rhythm, no murmur rubs or gallops Lungs: Clear to auscultation bilaterally. Normal effort Abdomen: Soft/nontender/nondistended. No hepatosplenomegaly Extremities: No clubbing/cyanosis. No edema Behavior: Appropriate, cooperative Discharge Data Allergies Allergy/AdvReac Type Severity Reaction Status Date / Time atorvastatin Allergy Unknown Verified 08/03/24 10:25 cephalexin [From Keflex] Allergy Unknown Verified 08/03/24 10:25 oxycodone [From Percocet] Allergy Unknown Verified 08/03/24 10:25 potassium chloride Allergy Unknown Verified 08/03/24 10:25 codeine AdvReac Unknown SICK IN Verified 08/03/24 10:25 STOMACH/PASSED OUT Consultations 11/04/24 22:58 ED Decision to Admit Stat 11/05/24 12:58 Consult Gastroenterology Routine 11/08/24 16:35 Consult Orthopedic Surgery Routine 11/09/24 11:54 Consult Palliative Care Routine Procedures Performed Operation Date: 11/06/24 16:30 Actual Procedures p EGD Dilatation - Kristopher Begum MD Ordered Studies Chest X-Ray 11/04/24 18:08 Chest radiograph, one view History: Chest pain Comparison: 09/16/2024 Findings: Single AP view of the chest performed. No focal consolidation or pleural effusion. No pneumothorax. The cardiomediastinal silhouette is within normal limits. Normal pulmonary vascularity. No evidence for lymphadenopathy. Left chest wall dual-lead AICD. No visualized bony or soft tissue abnormality. Impression: Normal chest radiograph Electronically signed by Ronny Patle 11-04-2024 6:39 PM Abdomen/Pelvis CT 11/04/24 19:57 Exam(s): CT ABDOMEN + PELVIS Without Contrast EXAM: CT Abdomen and Pelvis Without Intravenous Contrast CLINICAL HISTORY: Reason for exam: n/v, dehydration. TECHNIQUE: Axial computed tomography images of the abdomen and pelvis without intravenous contrast. CTDI is 34.12 mGy and DLP is 2356.54 mGy-cm. Automated exposure control was utilized for the study. A dose lowering technique was utilized adhering to the principles of ALARA. COMPARISON: No relevant prior studies available. FINDINGS: ABDOMEN: Liver: Unremarkable. Gallbladder and bile ducts: Unremarkable. Pancreas: Unremarkable. Spleen: Unremarkable. Adrenals: Unremarkable. Kidneys and ureters: Lobular atrophic kidneys. Cortical cyst in the right kidney measuring 5 cm. Nonobstructing nephrolithiasis bilaterally. Stomach and bowel: Unremarkable. PELVIS: Appendix: No findings to suggest acute appendicitis. Bladder: Unremarkable. Reproductive: Unremarkable as visualized. ABDOMEN and PELVIS: Intraperitoneal space: Unremarkable. No free air. No significant fluid collection. Bones/joints: Severe degenerative changes in the right hip and lumbar spine. Cement in the left hip. Postsurgical changes and chronic dislocation of the left hip. Soft tissues: Unremarkable. Vasculature: Unremarkable. Lymph nodes: Unremarkable. IMPRESSION: No acute abnormality in the abdomen or pelvis. Electronically signed by: Jesus Gandhi MD 11/04/24 20:[address] 11/04/24 19:57 Exam(s): CT CHEST Without Contrast EXAM: CT Chest Without Intravenous Contrast CLINICAL HISTORY: Reason for exam: aspiration. TECHNIQUE: Axial computed tomography images of the chest without intravenous contrast. CTDI is 34.12 mGy and DLP is 2356.54 mGy-cm. Automated exposure control was utilized for the study. A dose lowering technique was utilized adhering to the principles of ALARA. COMPARISON: No relevant prior studies available. FINDINGS: Lungs: No consolidation. Mild subsegmental atelectasis in the right lower lobe. The airways are clear. Pleural space: No pleural effusion or pneumothorax. Heart: Severe coronary artery calcifications. Bones/joints: No acute findings. Soft tissues: Unremarkable. Vasculature: No aortic aneurysm.. Lymph nodes: Unremarkable. IMPRESSION: No acute abnormality. Electronically signed by: Jesus Gandhi MD 11/04/24 20:58 PM Wrist X-Ray 11/06/24 18:50 Exam(s): XR RIGHT WRIST, 3+ views EXAM: XR Right Wrist Complete, 3 or More Views CLINICAL HISTORY: Reason for exam: f/u wrist fracture. TECHNIQUE: Frontal, lateral and oblique views of the right wrist. COMPARISON: No relevant prior studies available. FINDINGS: Bones/joints: No acute fracture or malalignment. 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 Soft tissues: Unremarkable. No radiopaque foreign body. IMPRESSION: 1. No acute fracture or malalignment. 2. 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 Electronically signed by: Jesus Gandhi MD 11/06/24 22:04 PM Brain MRI 11/19/24 00:00 MR brain wo con HISTORY: 74 years-old Male dysphagia, right hand weakness, LE weakness acute stroke like symptoms COMPARISON: Head CT 07/26/2024 TECHNIQUE: Multiplanar multisequence MRI of the brain was obtained without IV contrast FINDINGS: No restricted diffusion to suggest acute or subacute infarct. Midline structures are unremarkable. Degenerative changes of the cervical spine. Study is mildly motion degraded. No acute intracranial hemorrhage, midline shift, abnormal extra-axial collection, hydrocephalus or intra-axial mass. No pathologic blooming artifact. Involutional changes with mild scattered T2/FLAIR hyperintense foci throughout the white matter likely representing chronic microvascular ischemic disease. The cerebral venous sinuses and major arterial flow voids appear patent. Skull, orbits and soft tissues are unremarkable. Polypoid mucosal thickening of the left maxillary sinus. Mastoid air cells are clear. IMPRESSION: 1. No acute intracranial abnormality. No acute or subacute infarct. 2. Involutional changes with suggestion of mild chronic microvascular ischemic disease. ACT 112: Negative or not required by law. The above report was generated using voice recognition software. It may contain grammatical, syntax or spelling errors. Electronically signed by: Omega Santa M.D. 11/19/2024 1:28 PM Lumbar Spine MRI 11/19/24 00:00 MR lumbar spine wo con CLINICAL HISTORY: 74 years-old Male with b/l LE weakness, h/o severe l-spine disease. Chronic low back pain with lower extremity weakness COMPARISON: CT abdomen and pelvis 11/04/2024, CT lumbar spine 09/16/2024 TECHNIQUE: Multiplanar, multi sequence MRI of the lumbar spine was performed without intravenous contrast. FINDINGS: Motion degraded exam. Chronic mild widening of the anterior aspect of the L1-L2 disc space which is fluid-filled. Additional fluid signal noted within the L5-S1 disc space. Chronic L1-L2 endplate irregularity with subcortical cystic changes. No acute fracture, subluxation or acute endplate erosion. There are a few scattered lower thoracic Tarlov cysts. Lumbar levoscoliosis redemonstrated. No epidural or paraspinal fluid collections identified. Probable renal cysts. There is severe multilevel disc space narrowing. Degenerative partial bony fusion noted at L2-L5. Advanced spondylitic spurring facet arthrosis with ligamentum flavum thickening and epidural lipomatosis. Central canal and neural foraminal stenosis as below. T12-L1: Posterior annular disc bulge with facet arthrosis causes mild central canal stenosis. AP dimension of the thecal sac measures 9 mm. No significant neural foraminal narrowing. L1-L2: Posterior disc osteophyte complex eccentric to the left paracentral space and left lateral recess. Ligamentum flavum thickening with severe facet arthrosis. Severe central canal stenosis with AP dimension of the thecal sac measuring 5 mm. Severe narrowing of the lateral recesses. Moderate right with mi ld to moderate left foraminal narrowing. L2-L3: Posterior disc osteophyte complex with moderate facet arthrosis and ligamentum flavum thickening. Mild central canal stenosis with AP dimension of the thecal sac measuring 9 mm. Mild left foraminal narrowing. Patent right neural foramen. L3-L4: Posterior disc osteophyte complex. Ligamentum flavum thickening with moderate to advanced facet arthrosis.r mild central canal stenosis with AP dimension of the thecal sac measuring 9 mm. Moderate right lateral recess narrowing. Mild bilateral foraminal stenosis. L4-L5: Patent central canal. Mild left with mild to moderate right foraminal narrowing secondary to spondylitic spurring and facet arthrosis. L5-S1: Circumferential annular disc bulge causes mild central canal stenosis with moderate narrowing of the lateral recesses. Severe facet arthrosis with moderate facet effusion. Severe left with moderate to severe right foraminal narrowing. IMPRESSION: 1. There is unchanged chronic widening involving the anterior aspect of the L1- L2 disc space with fluid signal noted within the L1-L2 and L5-S1 disc spaces, likely on a degenerative basis. 2. No bone marrow edema or acute osseous erosion is identified to suggest acute discitis/osteomyelitis. 3. Advanced discogenic degeneration with spondylotic spurring and facet arthrosis as above resulting in multilevel foraminal narrowing. 4. Severe central canal stenosis at L1-L2. 5. Levoscoliosis. ACT 112: Negative or not required by law. The above report was generated using voice recognition software. It may contain grammatical, syntax or spelling errors. Electronically signed by: Omega Santa M.D. 11/19/2024 2:00 PM 11/04/24 19:57 CT abd pelvis wo con Stat CT chest diagnostic wo con Stat 11/19/24 00:00 MR brain wo con Routine MR lumbar spine wo con Routine Hospital Course (1) Acute kidney injury superimposed on chronic kidney disease: Present on admission with creatinine 2.2. Now stable. Monitor intake and output. (2) Dysphagia: He underwent EGD on November 06 with dilatation of the upper esophagus. Speech therapy has evaluated the patient and there is no evidence of aspiration. (3) Urinary tract infection: E. coli isolated. He has completed his course of intravenous Rocephin. (4) Hypokalemia: Corrected with replacement therapy. Serial labs (5) Paroxysmal atrial fibrillation: Rate control. Continue Xarelto therapy. (6) Weakness generalized: Continue OT and PT while hospitalized. Palliative care consult appreciated. (7) Wrist pain, right: He has been seen and evaluated by orthopedics. Now resolved Plan SNF placement arranged. He is medically stable for discharge Total Time Total Time Spent Total Time Spent (In Minutes): 35 Discharge Plan Discharge Items Patient Disposition: [facility] Reason For Visit: MADDI,NAUSEA,WEAKNESS Discharge Diagnosis: Acute kidney injury [id number] Urinary tract infection Generalized weakness Activity: As commented below Activity Comment: Per PT/OT recommendation Non-emergency contact: Primary Care Provider Call non-emergency contact if: you have any medication questions and your symptoms worsen Follow-up/Referrals: Ronny Llamas MD [Primary Care Provider] - Diet: Carb Consistent or DM2 Addtl Attending Provider Instructions: Advised to follow-up with PCP in 1 week Pending Studies at Discharge: No Stand-Alone Forms: [facility] Skilled Items Patient informed of condition?: Yes DNR: Yes Discharge Level of Care: Skilled Communicable Disease: No Discharge Prognosis: Stable Lines: None Urinary Catheter: No Medications and DC Order Prescriptions: New Xarelto 20 mg Tablet 20 mg PO QDD 30 Days Qty: 30 0RF metoprolol succinate 50 mg Tablet Extended Release 24 Hr 100 mg PO QAM 30 Days Qty: 60 0RF Entresto 24-26 mg Tablet 1 tab PO BID 30 Days Qty: 60 0RF Continued (DME) Motorized Scooter See Rx Instructions .Route .MEDSUPPLY Qty: 1 0RF Rx Instructions: As directed to aid in mobility and increase independence cholecalciferol (vitamin D3) 400 unit tablet 400 units PO DAILY ascorbate calcium (vitamin C) 500 mg tablet 500 mg PO DAILY multivitamin Tablet 1 tab PO DAILY cyclobenzaprine 10 mg tablet 10 mg PO HS PRN (Reason: muscle spasm) 30 Days Qty: 90 3RF acetaminophen 325 mg Tablet 325 mg PO QID PRN (Reason: Pain) 30 Days Qty: 0 0RF hydrocodone-acetaminophen 5-325 mg Tablet 2 tab PO Q4H PRN (Reason: pain) Qty: 10 0RF isosorbide mononitrate 30 mg tablet extended release 24 hr 30 mg PO QPM 30 Days Qty: 30 0RF famotidine 20 mg tablet 20 mg PO DAILY Qty: 90 3RF pantoprazole 40 mg tablet,delayed release (DR/EC) 40 mg PO QAM Qty: 90 3RF nitroglycerin [Nitrostat] 0.4 mg Tablet, Sublingual 0.4 mg sublingual PRN PRN (Reason: chest pain) 30 Days Qty: 30 1RF Rx Instructions: Take 1 tablet every 5 minutes for chest pain. Max 3 tabs. fluticasone propionate 50 mcg/actuation spray,suspension 2 spray intranasal DAILY 30 Days Qty: 48 3RF Discontinued Jardiance 10 mg tablet 10 mg PO DAILY Qty: 90 3RF metoprolol succinate 200 mg tablet extended release 24 hr 200 mg PO DAILY Qty: 90 3RF Xarelto 15 mg tablet 15 mg PO QAM Qty: 90 3RF Hold Instructions: Resume on 08/04/24. Hold until PCP follow-up appointment amlodipine 10 mg tablet 10 mg PO DAILY Qty: 90 3RF fentanyl 12 mcg/hr Patch 72 Hour 1 patch transdermal Q3D Qty: 10 0RF Discharge Orders: Discharge Order (Routine); Ordered 11/30/24 Ordered By: Kristopher Ramírez Admission Data Admit Date/Time: 11/04/24 22:51 Attending Provider: Kristopher Ramírez Admit Provider: [place] Primary Care Provider: Ronny Llamas Other Providers: [place]; Kristopher Begum; Ricky Meyer; Chloe Mittal; Shirin Coates; [facility]; [facility]; [place],[facility]; [facility] [place] Other Interventions: Discharge Summary Assessment (RN) Last Done: 11/30/24 13:58
[2024-11-30 14:37] VITALS: BP 138/74; PULSE 75; RESP 16; O2SAT 95
== END 2024-11-30 16:02 | DRG 683 ==
LOC: ED 17:38 → EDINP 22:51 → SUATTDRO 22:51 → 2S 11-05 01:50 → 3N 11-08 20:58